=== PATIENT | male | born 1980 | race Caucasian/White ===

== ENCOUNTER 2021-04-06 17:36 | Inpatient (IN) | payer MEDICAID, SELFPAY ==
[2021-04-06 18:42] VITALS: BP 135/98; PULSE 159; RESP 20; TEMP 36.9; O2SAT 97; BMI 24.7
[2021-04-06 19:34] VITALS: BP 144/90; PULSE 134; RESP 20; TEMP 36.9; O2SAT 98
--- NOTE | 2021-04-06 19:36 | ECG_ITS ---
Test Reason : ETOH WITHRAWAL Blood Pressure : / mmHG Vent. Rate : 137 BPM Atrial Rate : 137 BPM P-R Int : 124 ms QRS Dur : 076 ms QT Int : 302 ms P-R-T Axes : 049 -64 035 degrees QTc Int : 456 ms Sinus tachycardia Left anterior fascicular block Abnormal ECG When compared with ECG of 06-APR-2021 20:28, No significant change was found Referred By: Alejandro Castellon Electronically Signed By:DANICA ATWOOD MD
--- NOTE | 2021-04-06 19:47 | ED.ALCOHOL ---
HPI - Alcohol General Chief Complaint: ETOH/Substance Use Stated Complaint: withdrawals Time Seen by Provider: 04/06/21 19:35 Source: patient and family Mode of arrival: ambulatory Limitations: other (poor historian) History of Present Illness MD complaint: alcohol withdrawal Last drink: Days (ago) (1) Chronic alcohol use: Yes Previous visits for alcohol intoxication: Yes Recent trauma: No Associated symptoms: nausea and vomiting (reports hematemseis ) Treatments prior to arrival: other (was discharged from [facility] 1 week ago for ETOH withdrawal, gastritis/esophagitis after endoscopy for UGIB, went home and started drinking again) Related Data Allergies Allergy/AdvReac Type Severity Reaction Status Date / Time No Known Allergies Allergy Unverified 02/28/20 18:14 Review of Systems Review of Systems: Constitutional : No Weight loss, No Fever, No Chills ENT/Mouth : No sore throat, No Rhinorrhea Eyes: No Swelling, No Redness Cardiovascular : No Chest Pain, No SOB, NoEdema Respiratory : No Cough, No Sputum, No Wheezing Gastrointestinal : Positive Nausea, Positive Vomiting, no Diarrhea, positive abdominal Pain, No Hematochezia, No Melena, pos hematemesis Genitourinary : No Dysuria, No Urinary Frequency, No Hematuria, No Urgency Musculoskeletal : No joint pain, No Myalgias, No Joint Swelling Skin : No Skin Lesions, No rash Neuro : pos Weakness, No Numbness, No Dizziness, No Headache Psych : pos Anxiety/Panic, No Depression Heme/Lymph: No Bruising, No Lymphadenopathy Endocrine : No Polyuria, No Polydipsia All other systems reviewed and are negative. [facility] Past Medical History Attestation statement: The following information was validated with the patient. Medical History Alcohol withdrawal seizure Alcoholism Esophagitis Gastritis Social History Social History (Updated 04/06/21 @ 19:57 by Soraya Justice DO) Alcohol intake: current Patient Tobacco Use Status: Never used Tobacco Advance Directives: No Advance Directives Information Provided: Yes Physical Exam Vital Signs: Vital Signs: Last Vital Signs Temp 98.5 F 04/06/21 19:34 Pulse 134 H 04/06/21 19:34 Resp 20 04/06/21 19:34 BP 144/90 H 04/06/21 19:34 Pulse Ox 98 04/06/21 19:34 Body Mass Index 24.7 Appearance: Alert. Oriented X3. Moderate acute distress. Very anxious Eyes: Pupils equal, round and reactive to light. ENT: Pharynx dry MM Neck: Normal inspection. Neck supple. CVS: tachycardic heart rate and rhythm. Pulses normal. Respiratory: No respiratory distress. Breath sounds normal. Abdomen: Soft and non-tender. Skin: Skin warm and dry. Normal skin color. Normal skin turgor. Extremities: No lower extremity edema. No calf ttp Neuro: Oriented X 3. No motor deficit. No sensory deficit. Tremors Course Course Course Narrative: leukocytosis and tachycardia due to ETOH withdrawal and not infection or severe sepsis lactic acidosis elevated due to vomiting, dehydration, ETOH abuse and not infection or severe sepsis HR down to 120s, BP lower, vomiting has stopped, of note he is on metoprolol but I cannot confirm dose at this time signed out to Dr. Aguirre pending workup, repeat labs. [facility] contacted 3+ times will not release records until AM RN social work supervisor was also asked and they will not release records to use at this time of night per their reports MDM - Alcohol MDM Narrative Medical decision making narrative: 40 yo male with hx of gastritis/esophagitis etoh withdrawal with hx of ETOH withdrawal seizures recent admission at [facility] with reported UGIB and endoscopy with gastritis/esophagitis - at this time IV thiamine, IV magnesium, IV ativan and phenobarbital for withdrawal ordered at this time, IV protonix as well. Dispo per results and findings. Lab Data Result diagrams: 04/06/21 19:57 04/06/21 19:57 Labs: Lab Results 04/06/21 04/06/21 04/06/21 Range/Units 19:57 19:57 19:57 WBC 14.0 H (4.8-10.8) X10*3/uL RBC 5.43 (4.60-5.80) X10*6/uL Hgb 15.3 (14.0-18.0) g/dl Hct 44.6 (42-52) % MCV 82.1 (80-98) fL MCH 28.2 (27.0-33.0) pg MCHC 34.3 (31.0-36.0) g/dl RDW 20.6 H (11.0-16.0) % Plt Count 346 (160-400) X10*3/uL MPV 9.2 L (9.4-12.4) fL Immature Gran % (Auto) 0.5 H (0.0-0.4) % Neut % (Auto) 89.8 H (45-73) % Lymph % (Auto) 4.1 L (20-40) % [place] % (Auto) 5.1 (2-11) % Eos % (Auto) 0.1 (0-4) % Baso % (Auto) 0.4 (0-2) % Lymph # (Auto) 0.6 L (1.2-4.9) X10*3/uL [place] # (Auto) 0.7 (0.1-1.2) X10*3/uL Eos # (Auto) 0.0 (0.0-0.4) X10*3/uL Baso # (Auto) 0.1 (0.0-0.2) X10*3/uL Abs Immat Gran (auto) 0.07 H (0.00-0.03) X10*3/uL Absolute Neuts (auto) 12.6 H (2.0-8.3) X10*3/uL Absolute Nucleated RBC 0.000 (0.0-0.012) X10*3/uL Nucleated RBC % (auto) 0.0 (0.0-0.2) /100WBC VBG pH (7.32-7.43) VBG pCO2 mmHg VBG pO2 mmHg VBG HCO3 (22-26) mmol/L VBG O2 Saturation % VBG Base Excess mmol/L Sodium 135 (135-145) mmol/L Potassium 3.7 (3.3-5.1) mmol/L Chloride 93 L (96-108) mmol/L Carbon Dioxide 16 L (22-29) mmol/L Anion Gap 30 H (12-20) BUN 8 L (9-16) mg/dL Creatinine 1.03 (0.5-1.4) mg/dL Estim Creat Clear Calc 84.3 Estimated GFR > 60 Random Glucose 160 H (60-115) mg/dL Lactic Acid (0.5-2.0) mmol/L Calcium 8.7 (8.4-10.2) mg/dL Magnesium 1.3 L* (1.6-2.6) mg/dL Total Bilirubin 0.5 (0.0-1.0) mg/dL Direct Bilirubin 0.3 (0.0-0.5) mg/dL AST 24 (5-37) U/L ALT 18 (0-40) U/L Alkaline Phosphatase 82 (39-117) U/L Total Protein 7.1 (6.5-8.0) g/dL Albumin 4.5 (3.5-5.0) g/dL Lipase 42 (8-78) U/L Gastric Occult Blood (NEG) Ethyl Alcohol mg/dL COVID-19 (ANUJ) Negative (Negative) COVID-19 Clin Com See Note 04/06/21 04/06/21 04/06/21 Range/Units 19:57 19:57 20:26 WBC (4.8-10.8) X10*3/uL RBC (4.60-5.80) X10*6/uL Hgb (14.0-18.0) g/dl Hct (42-52) % MCV (80-98) fL MCH (27.0-33.0) pg MCHC (31.0-36.0) g/dl RDW (11.0-16.0) % Plt Count (160-400) X10*3/uL MPV (9.4-12.4) fL Immature Gran % (Auto) (0.0-0.4) % Neut % (Auto) (45-73) % Lymph % (Auto) (20-40) % [place] % (Auto) (2-11) % Eos % (Auto) (0-4) % Baso % (Auto) (0-2) % Lymph # (Auto) (1.2-4.9) X10*3/uL [place] # (Auto) (0.1-1.2) X10*3/uL Eos # (Auto) (0.0-0.4) X10*3/uL Baso # (Auto) (0.0-0.2) X10*3/uL Abs Immat Gran (auto) (0.00-0.03) X10*3/uL Absolute Neuts (auto) (2.0-8.3) X10*3/uL Absolute Nucleated RBC (0.0-0.012) X10*3/uL Nucleated RBC % (auto) (0.0-0.2) /100WBC VBG pH 7.38 (7.32-7.43) VBG pCO2 26 mmHg VBG pO2 45 mmHg VBG HCO3 15 L (22-26) mmol/L VBG O2 Saturation 68.0 % VBG Base Excess -7.2 mmol/L Sodium (135-145) mmol/L Potassium (3.3-5.1) mmol/L Chloride (96-108) mmol/L Carbon Dioxide (22-29) mmol/L Anion Gap (12-20) BUN (9-16) mg/dL Creatinine (0.5-1.4) mg/dL Estim Creat Clear Calc Estimated GFR Random Glucose (60-115) mg/dL Lactic Acid 11.5 H* (0.5-2.0) mmol/L Calcium (8.4-10.2) mg/dL Magnesium (1.6-2.6) mg/dL Total Bilirubin (0.0-1.0) mg/dL Direct Bilirubin (0.0-0.5) mg/dL AST (5-37) U/L ALT (0-40) U/L Alkaline Phosphatase (39-117) U/L Total Protein (6.5-8.0) g/dL Albumin (3.5-5.0) g/dL Lipase (8-78) U/L Gastric Occult Blood (NEG) Ethyl Alcohol 219 mg/dL COVID-19 (ANUJ) (Negative) COVID-19 Clin Com 04/06/21 Range/Units 20:32 WBC (4.8-10.8) X10*3/uL RBC (4.60-5.80) X10*6/uL Hgb (14.0-18.0) g/dl Hct (42-52) % MCV (80-98) fL MCH (27.0-33.0) pg MCHC (31.0-36.0) g/dl RDW (11.0-16.0) % Plt Count (160-400) X10*3/uL MPV (9.4-12.4) fL Immature Gran % (Auto) (0.0-0.4) % Neut % (Auto) (45-73) % Lymph % (Auto) (20-40) % [place] % (Auto) (2-11) % Eos % (Auto) (0-4) % Baso % (Auto) (0-2) % Lymph # (Auto) (1.2-4.9) X10*3/uL [place] # (Auto) (0.1-1.2) X10*3/uL Eos # (Auto) (0.0-0.4) X10*3/uL Baso # (Auto) (0.0-0.2) X10*3/uL Abs Immat Gran (auto) (0.00-0.03) X10*3/uL Absolute Neuts (auto) (2.0-8.3) X10*3/uL Absolute Nucleated RBC (0.0-0.012) X10*3/uL Nucleated RBC % (auto) (0.0-0.2) /100WBC VBG pH (7.32-7.43) VBG pCO2 mmHg VBG pO2 mmHg VBG HCO3 (22-26) mmol/L VBG O2 Saturation % VBG Base Excess mmol/L Sodium (135-145) mmol/L Potassium (3.3-5.1) mmol/L Chloride (96-108) mmol/L Carbon Dioxide (22-29) mmol/L Anion Gap (12-20) BUN (9-16) mg/dL Creatinine (0.5-1.4) mg/dL Estim Creat Clear Calc Estimated GFR Random Glucose (60-115) mg/dL Lactic Acid (0.5-2.0) mmol/L Calcium (8.4-10.2) mg/dL Magnesium (1.6-2.6) mg/dL Total Bilirubin (0.0-1.0) mg/dL Direct Bilirubin (0.0-0.5) mg/dL AST (5-37) U/L ALT (0-40) U/L Alkaline Phosphatase (39-117) U/L Total Protein (6.5-8.0) g/dL Albumin (3.5-5.0) g/dL Lipase (8-78) U/L Gastric Occult Blood POS (NEG) Ethyl Alcohol mg/dL COVID-19 (ANUJ) (Negative) COVID-19 Clin Com ECG Data ECG #1: Attestation: I personally reviewed and interpreted this ECG as follows: ECG interpretation date: 04/06/21 ECG interpretation time: 20:31 Interpretation: Rate: 139 Rhythm: sinus tachycardia [place]: left Normal P waves. Normal YIIM. Normal QRS complex. ST T wave : normal no ZINA qTC: normal prior studies: no acute ischemia The study has been interpreted contemporaneously by me. . Critical Care Time Critical Care Time Critical Care Time: Yes Total Critical Care Time: 60 Attestation: call to outside hospital for records, discussion with parent/patient, 2L of IVF, IV ativan, start of phenobarb protocol I attest to this time spent taking care of the patient Discharge Plan Discharge Clinical Impression: Acidosis, lactic, Hypomagnesemia Alcohol withdrawal syndrome Qualifiers: Complication of substance-induced condition: uncomplicated Qualified Code(s): F10.230 - Alcohol dependence with withdrawal, uncomplicated Acute alcoholic gastritis Qualifiers: Gastritis bleeding: with bleeding Qualified Code(s): K29.21 - Alcoholic gastritis with bleeding Patient Disposition: Admitted As Inpatient
[2021-04-06 20:17] LABS: MANUAL DIFF FLAG NO
[2021-04-06] MEDS: PHENobarbitaL sodium 130 MG/ML VIAL 306 MG IM (20:19)
[2021-04-06 20:20] LABS: Basophils Absolute Auto 0.1 X10*3/uL (0.0-0.2); Basophils Percent Auto 0.4 % (0-2); Eosinophils Percent Auto 0.1 % (0-4); Hematocrit 44.6 % (42-52); Hemoglobin 15.3 g/dl (14.0-18.0); Imm Gran Abs Auto 0.07 X10*3/uL (0.00-0.03); Imm Gran Pct Auto 0.5 % (0.0-0.4); Lymphocytes Absolute Auto 0.6 X10*3/uL (1.2-4.9); Lymphocytes Percent Auto 4.1 % (20-40); Mean Corpuscular HGB Conc 34.3 g/dl (31.0-36.0); Mean Corpuscular Hemoglobin 28.2 pg (27.0-33.0); Mean Corpuscular Volume 82.1 fL (80-98); Mean Platelet Volume 9.2 fL (9.4-12.4); Monocytes Absolute Auto 0.7 X10*3/uL (0.1-1.2); Monocytes Percent Auto 5.1 % (2-11); Neutrophils Absolute Auto 12.6 X10*3/uL (2.0-8.3); Neutrophils Percent Auto 89.8 % (45-73); Platelet Count 346 X10*3/uL (160-400); Red Blood Count 5.43 X10*6/uL (4.60-5.80); Red Cell Distribution Width 20.6 % (11.0-16.0)
[2021-04-06] MEDS: LORazepam 2 MG/ML VIAL IVPUSH (20:20)
[2021-04-06] MEDS: Magnesium Sulfate/H2O 2 GM/50 ML PIGGYBACK IV (20:23)
[2021-04-06] MEDS: 0.9 % Sodium Chloride 1,000 ML 999 ML IVCONT ×2 (20:23→21:12)
[2021-04-06] MEDS: ondansetron HCL 4 MG/2 ML VIAL IVPUSH (20:25)
[2021-04-06] MEDS: Pantoprazole Sodium 40 MG/10 ML VIAL IVPUSH (20:25)
[2021-04-06 20:31] LABS: VBG Base Excess -7.2 mmol/L; VBG HCO3 15 mmol/L (22-26); VBG pCO2 26 mmHg; VBG pH 7.38 (7.32-7.43); VBG pO2 45 mmHg
[2021-04-06 20:32] LABS: Venous Blood Gas Refer to POC result
[2021-04-06 20:34] LABS: Ethanol 219 mg/dL
[2021-04-06 20:35] LABS: Lactic Acid 11.5 mmol/L (0.5-2.0)
[2021-04-06 20:39] LABS: COVID-19 Test Negative (Negative)
--- NOTE | 2021-04-06 20:39 | PC.NURSE ---
reached out to [facility] for medical records and/or reports for this patient @2014. Was transferred to multiple departments, including what I believe to have been a nursing files supervisor. I was then hung up on.
[2021-04-06] MEDS: Thiamine HCL 100 MG in 0.9 % Sodium Chloride 100 ML 202 MG IV (20:46)
[2021-04-06 20:49] LABS: GASOB Int Neg Ctl Valid YES; GASOB Int Pos Ctl Valid YES; Occult Blood Gastric POS (NEG)
[2021-04-06 20:49] LABS: Alanine Aminotransferase 18 U/L (0-40); Albumin Level 4.5 g/dL (3.5-5.0); Alkaline Phosphatase 82 U/L (39-117); Anion Gap 30 (12-20); Aspartate Amino Transferase 24 U/L (5-37); Bilirubin Direct 0.3 mg/dL (0.0-0.5); Bilirubin Total 0.5 mg/dL (0.0-1.0); Blood Urea Nitrogen 8 mg/dL (9-16); Calcium 8.7 mg/dL (8.4-10.2); Carbon Dioxide 16 mmol/L (22-29); Chloride 93 mmol/L (96-108); Creatinine Clr Calc Pharmacy 84.3; Estimated Glomerular Filt Rate > 60; Glucose Random 160 mg/dL (60-115); Lipase 42 U/L (8-78); Magnesium 1.3 mg/dL (1.6-2.6); Potassium 3.7 mmol/L (3.3-5.1); Sodium 135 mmol/L (135-145); Total Protein 7.1 g/dL (6.5-8.0)
--- NOTE | 2021-04-06 20:51 | PC.NURSE ---
upon third attempt, nursing wood boat builder supervisor put me on hold for 22 minutes, then took my number for our facility, and transferred me to a fifth department. There was no answer, and a voicemail was left. MD aware of this ongoing process.
--- NOTE | 2021-04-06 21:10 | PHA.MEDREC ---
Pharmacy Consult ? Medication Reconciliation Pharmacy has completed the medication reconciliation. Patient one phenobarbital protocol, very unresponsive. Patient reports he is taking sucralafate and protonix. There is no claim history to either medication. Shilpa Myrick, PharmD
[2021-04-06 21:14] VITALS: BP 117/66; PULSE 123; RESP 17; O2SAT 95
[2021-04-06] MEDS: 0.9 % Sodium Chloride 1,000 ML 999 ML IV (21:44)
[2021-04-06 22:15] LABS: Reflex Lactate? Lactic Acid Added
[2021-04-06] MEDS: Prochlorperazine Edisylate 10 MG/2 ML VIAL IVPUSH (22:26)
[2021-04-06] MEDS: PHENobarbitaL sodium 130 MG/ML VIAL 230 MG IM (23:10)
[2021-04-06 23:28] VITALS: BP 118/61; PULSE 141; RESP 22
[2021-04-06 23:46] LABS: ~Lactic Acid-LAB USE ONLY 8.2 mmol/L (0.5-2.0)
[2021-04-06 23:48] LABS: Anion Gap 26 (12-20); Blood Urea Nitrogen 6 mg/dL (9-16); Calcium 7.3 mg/dL (8.4-10.2); Carbon Dioxide 11 mmol/L (22-29); Chloride 104 mmol/L (96-108); Creatinine Clr Calc Pharmacy 109.9; Estimated Glomerular Filt Rate > 60; Glucose Random 126 mg/dL (60-115); Potassium 3.9 mmol/L (3.3-5.1); Sodium 137 mmol/L (135-145)
[2021-04-06 23:55] VITALS: BP 115/65; PULSE 130; RESP 22; TEMP 36.9; O2SAT 95
[2021-04-07] VITALS (22 sets, daily range): BP systolic 95–139; BP diastolic 62–86; PULSE 67–128; RESP 16–83; TEMP 37–37.9; O2SAT 92–100; BMI 26.7
--- NOTE | 2021-04-07 | ECG_ITS ---
Test Reason : WITHDRAWL Blood Pressure : / mmHG Vent. Rate : 139 BPM Atrial Rate : 139 BPM P-R Int : 128 ms QRS Dur : 076 ms QT Int : 282 ms P-R-T Axes : 049 -75 022 degrees QTc Int : 429 ms Sinus tachycardia Left anterior fascicular block poor r-wave progress Abnormal ECG No previous ECGs available Referred By: Alejandro Castellon Electronically Signed By:DANICA ATWOOD MD
--- NOTE | 2021-04-07 00:01 | PM.IMHP ---
History of Present Illness Date of Service: 04/07/21 Chief Complaint: Nausea/vomiting 40-year-old male with a past medical history of alcohol Abuse, alcoholic gastritis, recent history of upper GI bleed at [facility] status post endoscopy which reportedly showed gastritis and esophagitis; presented to the hospital with a chief complaint of nausea and vomiting. [place] patient reported that after he was discharged from the hospital restarted drink alcohol again; last drink was yesterday; patient states that he has multiple episodes of nausea and vomiting; also noted to have vomitus being coffee-ground. Reports that symptoms have been going on over the past few days. Mentioned that he was recently discharged from the [facility] ICU status post EGD and reports that EGD showed gastritis and esophagitis. Mentioned that he drinks about 1L of alcohol every day. Patient does report prior admission to the ICU for alcohol withdrawal. Also reports prior history of alcohol withdrawal seizures. Denies any recent withdrawal seizures. Reports he is not able to keep anything down; hence presented to the hospital for further evaluation. Denies any headaches, paresthesias, numbness tingling or focal weakness. Denies any fever chills cough. Denies any urinary symptoms. Review of all other systems is negative except mentioned above ER course: Per ER team patient noted to be anxious, tachycardic; having nausea and vomiting; received IV Zofran, IV fluids; patient was started on phenobarb protocol. Patient also received Ativan x1; patient still continues to be tachycardic. Lab showed hypomagnesemia-repleted; also noted to have severe lactic acidosis, high anion gap metabolic acidosis; patient was given IV thiamine; ; admitted to the hospital for further management. [facility] Medical History Alcohol withdrawal seizure Alcoholism Esophagitis Gastritis Pertinent family history: Reviewed Social History (Updated 04/06/21 @ 19:57 by Soraya Justice DO) Alcohol intake: current Alcohol intake frequency: 3 or more drinks per day Alcohol type: hard liquor Patient Tobacco Use Status: Never used Tobacco Use of substances other than those prescribed or required for medical reasons: No Advance Directives: No Advance Directives Information Provided: Yes Meds Allergies Allergy/AdvReac Type Severity Reaction Status Date / Time No Known Allergies Allergy Unverified 02/28/20 18:14 Active Medications: Current Medications Pharmacy Consult (Consult Rx Perform Med Rec) 1 each MISCELLANE ONCE PRN PRN Reason: Consult order Phenobarbital (Phenobarbital 15 Mg Tablet) 45 mg PO BID [facility]; Protocol Stop: 04/08/21 21:01 Phenobarbital (Phenobarbital 15 Mg Tablet) 15 mg PO BID [facility]; Protocol Stop: 04/10/21 21:01 Phenobarbital (Phenobarbital 15 Mg Tablet) 15 mg PO DAILY [facility]; Protocol Stop: 04/12/21 09:01 Phenobarbital Sodium (Phenobarbital Sodium 130 Mg/Ml Vial) 230 mg IM Q3H [facility]; Protocol Stop: 04/07/21 02:01 Last Admin: 04/06/21 23:10 Dose: 230 mg Documented by: Home Medications Medication Instructions Recorded Confirmed Last Taken Type pantoprazole 20 mg tablet,delayed 20 mg PO DAILY 04/06/21 04/06/21 Unknown History release (Protonix) sucralfate 1 gram tablet 1 g PO BID 04/06/21 04/06/21 04/05/21 History Physical Exam Vital Signs and Narrative: Vital Signs: Last Vital Signs Temp 98.5 F 04/06/21 19:34 Pulse 141 H 04/06/21 23:28 Resp 22 H 04/06/21 23:28 BP 118/61 04/06/21 23:28 Pulse Ox 95 04/06/21 21:14 Body Mass Index 24.7 Gen: Appears be in no acute distress; patient anxious; tachycardic HEENT: NCAT, dry mucosa. Pulmonary: Vesicular breath sounds, fair air entry; no wheezing CVS: Normal S1-S2 Abdomen: BS+, Soft, Nontender Extremities: Warm well perfused; Neuro: Alert and awake. Grossly nonfocal Results Labs CBC and Chem 7: 04/07/21 00:38 04/07/21 00:38 Labs: Laboratory Results - last 24 hr 04/06/21 04/06/21 04/06/21 19:57 19:57 19:57 MCV 82.1 MCH 28.2 MCHC 34.3 RDW 20.6 H Plt Count 346 MPV 9.2 L Immature Gran % (Auto) 0.5 H Neut % (Auto) 89.8 H Lymph % (Auto) 4.1 L [place] % (Auto) 5.1 Eos % (Auto) 0.1 Baso % (Auto) 0.4 Lymph # (Auto) 0.6 L [place] # (Auto) 0.7 Eos # (Auto) 0.0 Baso # (Auto) 0.1 Abs Immat Gran (auto) 0.07 H Absolute Neuts (auto) 12.6 H Absolute Nucleated RBC 0.000 Nucleated RBC % (auto) 0.0 VBG pH VBG pCO2 VBG pO2 VBG HCO3 VBG O2 Saturation VBG Base Excess Anion Gap 30 H Estim Creat Clear Calc 84.3 Estimated GFR > 60 Random Glucose 160 H Lactic Acid Lactic Acid Fup @ 2Hr Calcium 8.7 Magnesium 1.3 L* Total Bilirubin 0.5 Direct Bilirubin 0.3 AST 24 ALT 18 Alkaline Phosphatase 82 Total Protein 7.1 Albumin 4.5 Lipase 42 Gastric Occult Blood Ethyl Alcohol COVID-19 (ANUJ) Negative COVID-19 [employer] Com See Note Blood Type Antibody Screen 04/06/21 04/06/21 04/06/21 19:57 19:57 20:18 MCV MCH MCHC RDW Plt Count MPV Immature Gran % (Auto) Neut % (Auto) Lymph % (Auto) [place] % (Auto) Eos % (Auto) Baso % (Auto) Lymph # (Auto) [place] # (Auto) Eos # (Auto) Baso # (Auto) Abs Immat Gran (auto) Absolute Neuts (auto) Absolute Nucleated RBC Nucleated RBC % (auto) VBG pH VBG pCO2 VBG pO2 VBG HCO3 VBG O2 Saturation VBG Base Excess Anion Gap Estim Creat Clear Calc Estimated GFR Random Glucose Lactic Acid 11.5 H* Lactic Acid Fup @ 2Hr Calcium Magnesium Total Bilirubin Direct Bilirubin AST ALT Alkaline Phosphatase Total Protein Albumin Lipase Gastric Occult Blood Ethyl Alcohol 219 COVID-19 (ANUJ) COVID-19 [employer] Com Blood Type A Positive Antibody Screen NEGATIVE 04/06/21 04/06/21 04/06/21 20:26 20:32 23:28 MCV MCH MCHC RDW Plt Count MPV Immature Gran % (Auto) Neut % (Auto) Lymph % (Auto) [place] % (Auto) Eos % (Auto) Baso % (Auto) Lymph # (Auto) [place] # (Auto) Eos # (Auto) Baso # (Auto) Abs Immat Gran (auto) Absolute Neuts (auto) Absolute Nucleated RBC Nucleated RBC % (auto) VBG pH 7.38 VBG pCO2 26 VBG pO2 45 VBG HCO3 15 L VBG O2 Saturation 68.0 VBG Base Excess -7.2 Anion Gap 26 H Estim Creat Clear Calc 109.9 Estimated GFR > 60 Random Glucose 126 H Lactic Acid Lactic Acid Fup @ 2Hr Calcium 7.3 L D Magnesium Total Bilirubin Direct Bilirubin AST ALT Alkaline Phosphatase Total Protein Albumin Lipase Gastric Occult Blood POS Ethyl Alcohol COVID-19 (ANUJ) COVID-19 [employer] Com Blood Type Antibody Screen 04/06/21 23:28 MCV MCH MCHC RDW Plt Count MPV Immature Gran % (Auto) Neut % (Auto) Lymph % (Auto) [place] % (Auto) Eos % (Auto) Baso % (Auto) Lymph # (Auto) [place] # (Auto) Eos # (Auto) Baso # (Auto) Abs Immat Gran (auto) Absolute Neuts (auto) Absolute Nucleated RBC Nucleated RBC % (auto) VBG pH VBG pCO2 VBG pO2 VBG HCO3 VBG O2 Saturation VBG Base Excess Anion Gap Estim Creat Clear Calc Estimated GFR Random Glucose Lactic Acid Lactic Acid Fup @ 2Hr 8.2 H* Calcium Magnesium Total Bilirubin Direct Bilirubin AST ALT Alkaline Phosphatase Total Protein Albumin Lipase Gastric Occult Blood Ethyl Alcohol COVID-19 (ANUJ) COVID-19 [facility] Blood Type Antibody Screen Assessment and Plan (1) Alcohol withdrawal syndrome: Qualifiers: Complication of substance-induced condition: uncomplicated Qualified Code(s): F10.230 - Alcohol dependence with withdrawal, uncomplicated Status: Acute (2) Acute alcoholic gastritis: Qualifiers: Gastritis bleeding: with bleeding Qualified Code(s): K29.21 - Alcoholic gastritis with bleeding Status: Acute (3) Acidosis, lactic: Status: Acute (4) Hypomagnesemia: Status: Acute (5) High anion gap metabolic acidosis: Status: Acute 40-year-old male with a past medical history of alcohol Abuse, alcoholic gastritis, recent history of upper GI bleed at [facility] status post endoscopy which reportedly showed gastritis and esophagitis; presented to the hospital with a chief complaint of nausea and vomiting/continue drink alcohol. Admitted for further management. Upper GI bleed: Patient gastric contents are guaiac positive. NPO GI consult for possible repeat EGD. IV fluids Patient had recent EGD at [facility]-requested records-not released yet. Reported HI probably please in the morning. Day hospitalist team to follow-up. H&H currently stable. Serial H&H Alcoholic gastritis/esophagitis: IV PPI b.i.d.. NPO. Supportive care. Alcohol abuse: Patient being monitored on phenobarb protocol. Given timing, folate, multivitamins. Tachycardia: Likely in the setting of alcohol use/withdrawal/anxiety. . Echocardiogram. High anion gap metabolic acidosis: Likely in the setting of severe lactic acidosis. Patient's lactate levels was 11.5 improved to 8.2 with IV fluids. Continue IV hydration.; Hypomagnesemia: Repleted. DVT prophylaxis: SCD boots Code status: Full code Update: Patient is still persistently tachycardic; tremulous; given of extra dose of Ativan; also continues to have nausea and vomiting. Given severely decreased doses and severe tachycardia ; ICU team was notified. Patient was accepted to the ICU. Quality Stroke Does the patient have a stroke diagnosis?: No VTE Prior VTE?: No VTE Risk Level:: Medical - moderate - high VTE Device Contraindication: N/A - Device Ordered VTE Drug Contraindication: Treatment Not Tolerated
[2021-04-07] MEDS: Dextrose 5 % and 0.45 % NaCl 1,000 ML 500 ML IVCONT (00:17)
[2021-04-07] MEDS: LORazepam 2 MG/ML VIAL 1 MG IVPUSH (00:38)
[2021-04-07] MEDS: 0.9 % Sodium Chloride Flush 3 ML SYRINGE IVFLUSH (00:39)
[2021-04-07 00:45] LABS: MANUAL DIFF FLAG NO
[2021-04-07 00:47] LABS: Basophils Percent Auto 0.2 % (0-2); Eosinophils Percent Auto 0.2 % (0-4); Hematocrit 36.3 % (42-52); Hemoglobin 12.4 g/dl (14.0-18.0); Imm Gran Abs Auto 0.04 X10*3/uL (0.00-0.03); Imm Gran Pct Auto 0.4 % (0.0-0.4); Lymphocytes Absolute Auto 0.8 X10*3/uL (1.2-4.9); Lymphocytes Percent Auto 8.2 % (20-40); Mean Corpuscular HGB Conc 34.2 g/dl (31.0-36.0); Mean Corpuscular Hemoglobin 28.2 pg (27.0-33.0); Mean Corpuscular Volume 82.5 fL (80-98); Mean Platelet Volume 9.4 fL (9.4-12.4); Monocytes Absolute Auto 0.8 X10*3/uL (0.1-1.2); Monocytes Percent Auto 8.6 % (2-11); Neutrophils Percent Auto 82.4 % (45-73); Platelet Count 213 X10*3/uL (160-400); Red Cell Distribution Width 20.3 % (11.0-16.0); White Blood Count 9.7 X10*3/uL (4.8-10.8)
[2021-04-07 01:06] LABS: Anion Gap 21 (12-20); Blood Urea Nitrogen 6 mg/dL (9-16); Calcium 7.3 mg/dL (8.4-10.2); Carbon Dioxide 18 mmol/L (22-29); Chloride 103 mmol/L (96-108); Creatinine Clr Calc Pharmacy 103.3; Estimated Glomerular Filt Rate > 60; Glucose Random 120 mg/dL (60-115); Potassium 3.9 mmol/L (3.3-5.1); Sodium 138 mmol/L (135-145)
[2021-04-07] MEDS: PHENobarbitaL sodium 130 MG/ML VIAL 230 MG IM (01:22)
--- NOTE | 2021-04-07 01:28 | W.PM.CCCN ---
History of Present Illness Data of Consult Service Date: 04/07/21 Requesting physician: Alejandro Castellon Primary Care Provider: Unknown Physician HPI Reason for consult: Acute alcohol withdrawal syndrome 40-year-old male with a past medical history of alcohol Abuse, alcoholic gastritis hx of Alcohol withdrawal and seizures, and recent history of upper GI bleed at [facility] status post endoscopy which reportedly showed gastritis and esophagitis; presented to the? emergency room with complaints of nausea and vomiting. Patient reported since discharge from the hospital he resumed drinking? again,? with last drink being yesterday. ? Reports drinking about a 1L of vodka daily. ? Also was noted in the emergency room coffee-ground vomitus. Patient was initially admitted to Hospital Medicine, but overnight has become more tachycardic, anxious, and lactic was 8.2.? Being admitted to the ICU for Precedex drip for acute? alcohol withdrawal syndrome and possible upper GI bleed Review of Systems Constitutional: Constitutional: Reports anorexia, Reports headache(s) and Reports poor appetite ENT: Denies dizziness and Reports headache(s) Cardiovascular: Cardiovascular: Denies chest pain and Denies dyspnea Respiratory: Respiratory: Denies dyspnea Gastrointestinal: Gastrointestinal: Reports nausea and Reports vomiting (COFFEE-GROUND) Musculoskeletal: Musculoskeletal: Denies muscle weakness and Denies numbness Neurologic: Denies Neuro-related abnormal movements, Denies dizziness, Reports headache(s), Denies numbness and Denies seizure-like activity PMFSH Past Medical History Medical History Alcohol withdrawal seizure Alcoholism Esophagitis Gastritis Social History Social History (Updated 04/06/21 @ 19:57 by Soraya Justice DO) Alcohol intake: current Alcohol intake frequency: 3 or more drinks per day Alcohol type: hard liquor Patient Tobacco Use Status: Never used Tobacco Use of substances other than those prescribed or required for medical reasons: No Advance Directives: No Advance Directives Information Provided: Yes Meds Allergies Allergy/AdvReac Type Severity Reaction Status Date / Time No Known Allergies Allergy Unverified 02/28/20 18:14 Active Medications: Current Medications Folic Acid (Folic Acid 1 Mg Tablet) 1 mg PO DAILY [facility] Stop: 04/10/21 08:59 Hydromorphone HCl (Hydromorphone Hcl 0.5 Mg/0.5 Ml Syringe) 0.5 mg IVPUSH Q4H PRN; Protocol PRN Reason: Breakthrough Pain Dextrose/Sodium Chloride (D51/2ns) 1,000 mls @ 150 mls/hr IVCONT .Q6H40M [facility] Dextrose/Sodium Chloride (D51/2ns) 1,000 mls @ 500 mls/hr IVCONT .Q2H [facility] Last Admin: 04/07/21 00:17 Dose: 500 mls/hr Documented by: Dexmedetomidine HCl (Precedex) 400 mcg in 100 mls @ 0 mls/hr IVCONT .Q0M [facility]; Protocol Melatonin (Melatonin 3 Mg Tablet) 6 mg PO BEDTIME PRN PRN Reason: Insomnia Multivitamins/Vitamin C (Multivitamin Tablet) 1 tab PO DAILY [facility] Stop: 04/10/21 08:59 Pantoprazole Sodium (Pantoprazole Sodium 40 Mg/10 Ml Vial) 40 mg IVPUSH BID [facility] Pharmacy Consult (Consult Rx Perform Med Rec) 1 each MISCELLANE ONCE PRN PRN Reason: Consult order Phenobarbital (Phenobarbital 15 Mg Tablet) 45 mg PO BID [facility]; Protocol Stop: 04/08/21 21:01 Phenobarbital (Phenobarbital 15 Mg Tablet) 15 mg PO BID [facility]; Protocol Stop: 04/10/21 21:01 Phenobarbital (Phenobarbital 15 Mg Tablet) 15 mg PO DAILY [facility]; Protocol Stop: 04/12/21 09:01 Phenobarbital Sodium (Phenobarbital Sodium 130 Mg/Ml Vial) 230 mg IM Q3H [facility]; Protocol Stop: 04/07/21 02:01 Last Admin: 04/07/21 01:22 Dose: 230 mg Documented by: Senna (Sennosides 8.6 Mg Tablet) 17.2 mg PO BEDTIME PRN PRN Reason: Constipation Sodium Chloride (0.9 % Sodium Chloride Flush 3 Ml Syringe) 3 ml IVFLUSH QSHIFT [facility] Last Admin: 04/07/21 00:39 Dose: 3 ml Documented by: Thiamine HCl (Thiamine Hcl 100 Mg Tablet) 100 mg PO DAILY [facility] Stop: 04/10/21 08:59 Home Medications Medication Instructions Recorded Confirmed Last Taken Type pantoprazole 20 mg tablet,delayed 20 mg PO DAILY 04/06/21 04/06/21 Unknown History release (Protonix) sucralfate 1 gram tablet 1 g PO BID 04/06/21 04/06/21 04/05/21 History Physical Exam Vital Signs: Vital Signs: Last Vital Signs Temp 98.5 F 04/06/21 23:55 Pulse 130 H 04/06/21 23:55 Resp 22 H 04/06/21 23:55 BP 115/65 04/06/21 23:55 Pulse Ox 95 04/06/21 23:55 Body Mass Index 24.7 Focus is not performed at 0130 Appearance: Alert and Oriented X3.? Very anxious Eyes: Pupils equal, round and reactive to light.? ENT: Pharynx dry MM? Neck: Normal inspection.? Neck supple.? CVS: Sinus tachycardic to 120S on monitor. heart rate and rhythm.? + Pulses. Normal cap refill Respiratory: No respiratory distress.? Breath sounds normal.? Abdomen: Soft and non-tender.? Skin: Skin warm and dry.? Normal skin color.? Normal skin turgor.? Extremities: No lower extremity edema.? No calf ttp Neuro: Resting Tremors noted. No significant motor/sensory deficits. Results Labs CBC & Chem 7: 04/07/21 00:38 04/07/21 00:38 Labs: Short CBC 04/06/21 04/07/21 Range/Units 19:57 00:38 WBC 14.0 H 9.7 (4.8-10.8) X10*3/uL Hgb 15.3 12.4 L (14.0-18.0) g/dl Hct 44.6 36.3 L (42-52) % Plt Count 346 213 D (160-400) X10*3/uL BMP 04/06/21 04/06/21 04/07/21 19:57 23:28 00:38 Sodium 135 137 138 Potassium 3.7 3.9 3.9 Chloride 93 L 104 103 Carbon Dioxide 16 L 11 L 18 L BUN 8 L 6 L 6 L Creatinine 1.03 0.79 0.84 Calcium 8.7 7.3 L D 7.3 L Liver Function 04/06/21 Range/Units 19:57 Total Bilirubin 0.5 (0.0-1.0) mg/dL Direct Bilirubin 0.3 (0.0-0.5) mg/dL AST 24 (5-37) U/L ALT 18 (0-40) U/L Alkaline Phosphatase 82 (39-117) U/L Albumin 4.5 (3.5-5.0) g/dL Assessment and Plan (1) Alcohol withdrawal syndrome: Qualifiers: Complication of substance-induced condition: uncomplicated Qualified Code(s): F10.230 - Alcohol dependence with withdrawal, uncomplicated Status: Acute (2) Aspiration into airway: Status: Acute (3) High anion gap metabolic acidosis: Status: Acute (4) Upper GI bleed: Status: Acute (5) Acute alcoholic gastritis: Qualifiers: Gastritis bleeding: with bleeding Qualified Code(s): K29.21 - Alcoholic gastritis with bleeding Status: Acute (6) Acidosis, lactic: Status: Acute Neuro: ?Acute alcohol withdrawal syndrome:? alcohol level 219, Patient did not responded to IV ativan, and phenobarb per protocol. Has hx of? alcohol withdrawal and seizures. Will now start on precedex drip. wean off precedex drip when appropiate. Cardiac:? SIRS/Elevated lactic:? possibly from aspiration? event,? no evidence of septic shock at this time.? Received appropriate fluid replacement in the emergency room.? Will cover with Unasyn.? Continue to trend lactic Tachycardia:? Likely from ETOH withdrawal. Pulmonary:? No acute issues Renal: No acute issues Endo:? No acute issues.? GI:? Upper GI Bleed: patient gastric contents are guaiac positive. Hemoglobin stable. GI consult in the AM for possible EGD. Continue to closely monitor H&H Heme/Onc:? ?No acute issues ID:? leukocytosis: likely from aspiration event. Will start unasyn.? Psych:? No acute issues. Miscellaneous: Prophylaxis:? ? compression devices (GI bleed),? IV Protonix Code status: FULL CODE Critical care time: x 60 min Case case reviewed with Dr. hensley
[2021-04-07 01:31] LABS: Reflex Lactate? 2 Y
[2021-04-07] MEDS: Dextrose 5 % and 0.45 % NaCl 1,000 ML 150 ML IVCONT (01:56)
[2021-04-07 02:22] LABS: ~Lactic Acid-LAB USE ONLY 5.8 mmol/L (0.5-2.0)
[2021-04-07] MEDS: Lactated Ringers 1,000 ML 150 ML IVCONT (02:31)
[2021-04-07] MEDS: dexmedeTOMIDidine HCL/NS 400 MCG/100 ML INFUS..BTL 8.68 MCG IVCONT (02:31)
[2021-04-07 02:34] LABS: Amphetamine Screen Urine Not Detected (Not Detect); Barbiturates, Urine POSITIVE (Not Detect); Benzodiazepines Screen Urine Not Detected (Not Detect); Cannabinoid Screen Urine Not Detected (Not Detect); Cocaine Screen Urine Not Detected (Not Detect); Fentanyl, urine Not Detected (Not Detect); Opiate Screen Urine Not Detected (Not Detect); Phencyclidine Screen Urine Not Detected (Not Detect)
[2021-04-07] MEDS: Ampicillin Sodium/Sulbactam Na 3 GM VIAL IV (02:53)
--- NOTE | 2021-04-07 03:52 | PC.NURSE ---
ADMIT TO 253-1 FROM ER DEPT..AWAKE..ORIENTED X3...TREMULOUS...S.TACH HR 130'S...VOMITED SMALL AMOUNT BRONISH EMESIS ON ARRIVAL...STATED NAUSEOUS/VOMITING ALL DAY ...RECEIVED LOADING IM DOSING PHENOBARBITOL IN ER DEPT...STARTED PRECIDEX DRIP PER ICU NUTRITIONALIST UPON ADMISSION TO ICU...RESTFUL AFTER PRECIDEX...HR IMPROVED...CURRENTLY DOZING AND HR 98-102....AMPICILLIN INFUSED W/O INCIDENT...IV FLUIDS LR 150 CC/HR INFUSING VIA #18 ANGIO LEFT FOOT...EXCELLENT BLOOD RETURN...NUTRITIONALIST AWARE/OK TO USE FOOT IV AT PRESENT
[2021-04-07 05:57] LABS: VBG Base Excess 5.5 mmol/L; VBG HCO3 27 mmol/L (22-26); VBG pCO2 31 mmHg; VBG pH 7.55 (7.32-7.43); VBG pO2 76 mmHg
[2021-04-07 06:04] LABS: MANUAL DIFF FLAG NO
[2021-04-07 06:06] LABS: Basophils Percent Auto 0.3 % (0-2); Eosinophils Percent Auto 0.2 % (0-4); Hematocrit 31.4 % (42-52); Hemoglobin 10.5 g/dl (14.0-18.0); Imm Gran Abs Auto 0.03 X10*3/uL (0.00-0.03); Imm Gran Pct Auto 0.5 % (0.0-0.4); Lymphocytes Absolute Auto 0.8 X10*3/uL (1.2-4.9); Lymphocytes Percent Auto 12.9 % (20-40); Mean Corpuscular HGB Conc 33.4 g/dl (31.0-36.0); Mean Corpuscular Hemoglobin 27.9 pg (27.0-33.0); Mean Corpuscular Volume 83.3 fL (80-98); Mean Platelet Volume 10.3 fL (9.4-12.4); Monocytes Absolute Auto 0.6 X10*3/uL (0.1-1.2); Monocytes Percent Auto 10.3 % (2-11); Neutrophils Absolute Auto 4.4 X10*3/uL (2.0-8.3); Neutrophils Percent Auto 75.8 % (45-73); Platelet Count 168 X10*3/uL (160-400); Red Blood Count 3.77 X10*6/uL (4.60-5.80); Red Cell Distribution Width 20.2 % (11.0-16.0); White Blood Count 5.8 X10*3/uL (4.8-10.8)
[2021-04-07 06:16] LABS: Ammonia 69 umol/L (13-55)
[2021-04-07 06:25] LABS: Alanine Aminotransferase 11 U/L (0-40); Albumin Level 3.1 g/dL (3.5-5.0); Alkaline Phosphatase 57 U/L (39-117); Anion Gap 14 (12-20); Aspartate Amino Transferase 19 U/L (5-37); Bilirubin Total 0.7 mg/dL (0.0-1.0); Blood Urea Nitrogen 4 mg/dL (9-16); Calcium 7.1 mg/dL (8.4-10.2); Carbon Dioxide 23 mmol/L (22-29); Chloride 106 mmol/L (96-108); Creatinine Clr Calc Pharmacy 122.3; Estimated Glomerular Filt Rate > 60; Glucose Random 105 mg/dL (60-115); Magnesium 1.6 mg/dL (1.6-2.6); Phosphorus 2.1 mg/dL (2.7-4.5); Potassium 3.8 mmol/L (3.3-5.1); Sodium 139 mmol/L (135-145); Total Protein 4.7 g/dL (6.5-8.0)
[2021-04-07 06:50] LABS: Venous Blood Gas Refer to POC result
--- NOTE | 2021-04-07 07:17 | P.CNGI_ITS ---
History of Present Illness Data of Consult Service Date: 04/07/21 Requesting physician: Alejandro Castellon Primary Care Provider: Unknown Physician HPI Reason for consult: UGI Bleed 40 YM with alcohol Abuse, alcoholic gastritis, seen at [facility] last night with nausea and vomiting. Pt was recently hospitalized in the ICU at [facility] with UGIB and had an EGD which showed gastritis and esophagitis; Patient reported he started drinking again after he was discharged from the hospital - Last drink was yesterday. Pt complains of multiple episodes of nausea and vomiting and noted to have coffee-ground emesis. Reports that symptoms have been going on over the past few days.? Mentioned that he drinks about 1L of alcohol every day and reports prior admission to the ICU for alcohol withdrawal and a history of alcohol withdrawal seizures.? Reports he is not able to keep anything down; hence presented to the hospital for further evaluation. Denies any headaches, paresthesias, numbness tingling or focal weakness. Denies any fever chills cough. Denies any urinary symptoms. ER course: Per ER team patient noted to be anxious, tachycardic; having nausea and vomiting; received IV Zofran, IV fluids; patient was started on phenobarb protocol.? Patient also received Ativan x1; patient still continues to be tachycardic. Lab showed hypomagnesemia-repleted; also noted to have severe lactic acidosis, high anion gap metabolic acidosis; patient was given IV thiamine; ; admitted to the hospital for further management. Review of Systems Constitutional: Constitutional: Denies fever(s), Denies headache(s) and Denies weight loss Eyes: Eyes: Denies eye discharge and Denies irritation ENT: Reports Normal hearing present, Denies dysphagia, Denies dizziness and Denies headache(s) Cardiovascular: Cardiovascular: Denies chest pain, Denies leg edema and Denies dyspnea on exertion Respiratory: Respiratory: Denies cough, Denies dyspnea on exertion and Denies wheezing Gastrointestinal: Gastrointestinal: Reports abdominal pain, Denies change in bowel habits, Denies dysphagia, Denies heartburn, Reports nausea and Reports vomiting Genitourinary: Genitourinary: Denies dysuria Musculoskeletal: Musculoskeletal: Denies back pain and Denies arthralgias Integumentary/Breasts: Skin/Breast: Denies pruritus, Denies rash and Denies jaundice Neurologic: Reports Normal hearing present, Denies Abnormal speech present, Denies dizziness, Denies headache(s) and Denies seizure-like activity Psychiatric: Psychiatric: Denies anxiety, Denies depression and Denies panic attacks Endocrine: Endocrine: Denies cold intolerance, Denies flushing and Denies heat intolerance Hematologic/Lymphatic: Hematologic/Lymphatic: Denies easy bleeding and Denies easy bruising Allergic/Immunologic: Allergic/Immunologic: Denies wheezing PMFSH Past Medical History Medical History (Updated 12/14/21 @ 15:51 by Ajith Figueredo MD) Alcohol withdrawal seizure Alcoholism Anxiety Esophagitis Gastritis MDD (major depressive disorder), recurrent severe, without psychosis Severe recurrent major depression Surgical History Surgical History (Updated 05/07/21 @ 00:03 by Tanya Willett) H/O esophagogastroduodenoscopy H/O knee surgery Social History Social History Household Members: Family Household Members Other:: father Housing: House Do you presently have visiting nurse or other home services: No Alcohol intake: current Alcohol intake frequency: 3 or more drinks per day Alcohol type: hard liquor Patient Tobacco Use Status: Never used Tobacco service: No Current occupational status: unemployed Sexual orientation: Did not discuss Meds Allergies Allergy/AdvReac Type Severity Reaction Status Date / Time No Known Allergies Allergy Verified 04/27/21 11:42 Active Medications: Current Medications Ampicillin Sodium/Sulbactam Sodium (Ampicillin Sodium/Sulbactam Na 3 Gm Vial) 3 gm IV Q6H [facility] Last Admin: 04/07/21 02:53 Dose: 3 gm Documented by: Hydromorphone HCl (Hydromorphone Hcl 0.5 Mg/0.5 Ml Syringe) 0.5 mg IVPUSH Q4H PRN; Protocol PRN Reason: Breakthrough Pain Dexmedetomidine HCl (Precedex) 400 mcg in 100 mls @ 0 mls/hr IVCONT .Q0M [facility]; Protocol Last Titration: 04/07/21 04:57 Dose: 0.5 mcg/kg/hr, 8.68 mls/hr Documented by: Folic Acid 1 mg/ Sodium (Chloride) 50.2 mls @ 100.4 mls/hr IV DAILY [facility] Thiamine HCl 100 mg/ Sodium (Chloride) 101 mls @ 202 mls/hr IV DAILY [facility] Lactated Ringer's (Lr) 1,000 mls @ 150 mls/hr IVCONT .Q6H40M [facility] Last Admin: 04/07/21 02:31 Dose: 150 mls/hr Documented by: Melatonin (Melatonin 3 Mg Tablet) 6 mg PO BEDTIME PRN PRN Reason: Insomnia Multivitamins/Vitamin C (Multivitamin Tablet) 1 tab PO DAILY [facility] Stop: 04/10/21 08:59 Pantoprazole Sodium (Pantoprazole Sodium 40 Mg/10 Ml Vial) 40 mg IVPUSH BID [facility] Pharmacy Consult (Consult Rx Perform Med Rec) 1 each MISCELLANE ONCE PRN PRN Reason: Consult order Phenobarbital (Phenobarbital 15 Mg Tablet) 45 mg PO BID [facility]; Protocol Stop: 04/08/21 21:01 Phenobarbital (Phenobarbital 15 Mg Tablet) 15 mg PO BID [facility]; Protocol Stop: 04/10/21 21:01 Phenobarbital (Phenobarbital 15 Mg Tablet) 15 mg PO DAILY [facility]; Protocol Stop: 04/12/21 09:01 Senna (Sennosides 8.6 Mg Tablet) 17.2 mg PO BEDTIME PRN PRN Reason: Constipation Sodium Chloride (0.9 % Sodium Chloride Flush 3 Ml Syringe) 3 ml IVFLUSH QSHIFT [facility] Last Admin: 04/07/21 00:39 Dose: 3 ml Documented by: Physical Exam Vital Signs: Vital Signs: Last Vital Signs Temp 100.0 F 04/07/21 03:00 Pulse 75 04/07/21 07:00 Resp 19 04/07/21 07:00 BP 107/68 04/07/21 07:00 Pulse Ox 95 04/07/21 07:00 Body Mass Index 26.7 Const: General: healthy appearing and no acute distress Nutritional Appearance: average body habitus Orientation/consciousness: patient oriented x3 Limitations: no limitations HENMT: Head: Yes normal to inspection Ears: hearing grossly normal bilaterally Mouth: Normal oral and palatal mucosa present Eyes: Sclerae: sclerae normal Pupils: Equal, round and reactive pupils present Neck: Neck: Yes normal visual inspection Chest: Chest palpation & inspection: normal inspection of the chest Resp: Effort & Inspection: normal respiratory effort Auscultation: clear to auscultation bilaterally Cardio: Palpation: normal PMI Rate: regular rate Rhythm: regular rhythm Heart sounds: S1 normal heart sound present, S2 normal heart sound present and no murmurs GI: Palpation (GI): Soft to palpation, Tenderness to palpation present (GI) ( mild epigastric tenderness) and No hepatosplenomegaly present Auscultation: normal bowel sounds Rectal Exam - Male: Yes deferred Skin: General skin exam: no rashes or lesions noted Neuro: General: patient oriented x3, gait normal and moves all extremities Cranial nerves: Yes Equal, round and reactive pupils present and Yes Normal hearing present Speech: No Abnormal speech present Psych: Appearance: grossly normal Mental Status: mental status grossly normal Results Labs CBC & Chem 7: 04/11/21 06:28 04/11/21 06:28 Labs: Short CBC 04/06/21 04/07/21 04/07/21 Range/Units 19:57 00:38 05:56 WBC 14.0 H 9.7 5.8 (4.8-10.8) X10*3/uL Hgb 15.3 12.4 L 10.5 L (14.0-18.0) g/dl Hct 44.6 36.3 L 31.4 L (42-52) % Plt Count 346 213 D 168 (160-400) X10*3/uL BMP 04/06/21 04/06/21 04/07/21 19:57 23:28 00:38 Sodium 135 137 138 Potassium 3.7 3.9 3.9 Chloride 93 L 104 103 Carbon Dioxide 16 L 11 L 18 L BUN 8 L 6 L 6 L Creatinine 1.03 0.79 0.84 Calcium 8.7 7.3 L D 7.3 L 04/07/21 05:56 Sodium 139 Potassium 3.8 Chloride 106 Carbon Dioxide 23 BUN 4 L Creatinine 0.71 Calcium 7.1 L Liver Function 04/06/21 04/07/21 Range/Units 19:57 05:56 Total Bilirubin 0.5 0.7 (0.0-1.0) mg/dL Direct Bilirubin 0.3 (0.0-0.5) mg/dL AST 24 19 (5-37) U/L ALT 18 11 (0-40) U/L Alkaline Phosphatase 82 57 D (39-117) U/L Albumin 4.5 3.1 L D (3.5-5.0) g/dL Assessment and Plan (1) Epigastric pain: Status: Acute (2) UGI bleed: Status: Acute Plan 40 YM with alcohol Abuse, alcoholic gastritis, seen at [facility] with nausea and vomiting. Pt was recently hospitalized in the ICU at [facility] with UGIB and had an EGD which showed gastritis and esophagitis; Patient reported he started drinking again after he was discharged from the hospital - Last drink was yesterday. Pt complains of multiple episodes of nausea and vomiting and noted to have coffee-ground emesis. Reports that symptoms have been going on over the past few days.? Mentioned that he drinks about 1L of alcohol every day and reports prior admission to the ICU for alcohol withdrawal and a history of alcohol withdrawal seizures.? UGI bleeding likely MW tear or alcoholic gastritis RECOMMENDATIONS: 1. Monitor H & H daily 2. Agree with IV PPI 3. Proceed with EGD today. Procedure and potential complications including bleeding, perforation, drug reaction and aspiration pneumonia were reviewed with the patient. Procedures Date of Service Date of Service: 04/07/21
--- NOTE | 2021-04-07 08:30 | CA_ITS ---
Transthoracic Echocardiogram Patient (Last, First, Middle): Pio Massey, Gender: Male Date of : 1980 Age: 40 Procedure Date: 04/07/2021 Procedure Type: Transthoracic Echocardiogram Location: ICU Height: 167.64 cm Weight: 74.84 kg BSA: 1.84 m2 Heart Rate: bpm Return To Vendor: Referring MD: Alejandro Castellon MD Symptoms: tachy Study Quality: Fair ECG Rhythm: Sinus Conclusions: - Normal left ventricular size, thickness, systolic function, and wall motion. - Normal right ventricular cavity size and systolic function. - No significant valvular or pericardial pathology. Findings Left Ventricle Normal left ventricular size, thickness, systolic function, and wall motion. The visually estimated ejection fraction is between 55-60%. Diastolic function is normal for age. Right Ventricle Normal right ventricular cavity size and systolic function. Atria Both atria are normal in size. Aortic Valve Normal aortic valve structure and function. There is no aortic valve stenosis. There is no aortic valve regurgitation. Mitral Valve Normal mitral valve structure and function. There is no mitral valve regurgitation. There is no mitral valve stenosis. Pulmonic Valve Normal pulmonic valve structure and function. There is no pulmonic valve regurgitation. Tricuspid Valve Normal tricuspid valve structure and function. There is trace tricuspid valve regurgitation. Normal right atrial pressure. There is no evidence of pulmonary hypertension. Great Vessels All visible segments of the aorta are normal in size. The visualized portions of the pulmonary artery and branches are normal. Venous The inferior vena cava is normal in size and collapses greater than 50% with inspiration. Pericardium/Pleural There is no evidence of pericardial effusion. Prior Study Comparison No prior study available for comparison. Measurements Right Ventricle TAPSE (mm): 29.70 Updated in Other Vendor System with Status of Final Jeff Chapin MD electronically signed on 04/07/2021 3:03:53 PM with status of Final
[2021-04-07] MEDS: PHENobarbitaL 15 MG TABLET 45 MG PO ×2 (09:12→19:59)
[2021-04-07] MEDS: Folic Acid 1 MG in 0.9 % Sodium Chloride 50 ML 100.4 MG IV (09:12)
[2021-04-07] MEDS: Magnesium Sulfate/H2O 2 GM/50 ML PIGGYBACK IV (09:13)
[2021-04-07] MEDS: Pantoprazole Sodium 40 MG/10 ML VIAL IVPUSH ×2 (09:20→19:59)
--- NOTE | 2021-04-07 09:52 | MHC.CM.PN ---
Met with pt to discuss d/c planning; pt resides with his father: no services and states he is independent with all care needs: Pt states he has no PCP and can't remember the last time he saw a PCP or the office he went to. Pt given a list of [facility] PCPs and encouraged him to call on his cellphone. Covid vax as well as + infection: Pt declined HCP completion and hesitant about CARE team consult for ETOH abuse. Pt will contact his father for transportation home. CM to follow for ? d/c needs
[2021-04-07] MEDS: Thiamine HCL 100 MG in 0.9 % Sodium Chloride 100 ML 202 MG IV (10:47)
[2021-04-07] MEDS: Potassium Phosphate 30 MMOL in 0.9 % Sodium Chloride 500 ML 85 MMOL IV (11:51)
[2021-04-07] MEDS: Throat Lozenge, Medicated LOZENGE 1 LOZENGE MUCOUS MEM (11:57)
--- NOTE | 2021-04-07 14:01 | HO.ANESPROP2 ---
HPI - Anesthesia Eval Consult details Narrative: 40 yo male patient with UGI bleed likely from ETOH abuse. [facility] Active Problems Active Problems: All Active Problems (Updated 04/07/21 @ 02:01 by Jase Greer NP) Upper GI bleed (Acute) Aspiration into airway (Acute) High anion gap metabolic acidosis (Acute) Alcohol withdrawal syndrome (Acute) Acute alcoholic gastritis (Acute) Acidosis, lactic (Acute) Hypomagnesemia (Acute) Past Medical History Medical History Alcohol withdrawal seizure Alcoholism Esophagitis Gastritis Family History Family history of problems with anesthesia: No Surgical History Surgical History (Updated 04/07/21 @ 14:41 by Charmaine Cooley MD) H/O esophagogastroduodenoscopy H/O knee surgery History of Problems with Anesthesia: No Social History Social History Alcohol intake: current Alcohol intake frequency: 3 or more drinks per day Alcohol type: hard liquor Patient Tobacco Use Status: Never used Tobacco Use of substances other than those prescribed or required for medical reasons: No Currently Displaying Signs/Symptoms of Drug Intoxication Withdrawal: No Advance Directives: No Advance Directives Information Provided: Yes Do you have thoughts of harming others: None Do you have a plan to hurt others: No Plan service: No Current occupational status: unemployed Meds Allergies Allergy/AdvReac Type Severity Reaction Status Date / Time No Known Allergies Allergy Unverified 02/28/20 18:14 Active Medications: Current Medications Benzocaine (Throat Lozenge, Medicated Lozenge) 1 lozenge MUCOUS MEM Q2H PRN PRN Reason: Sore Throat Last Admin: 04/07/21 11:57 Dose: 1 lozenge Documented by: Dexmedetomidine HCl (Precedex) 400 mcg in 100 mls @ 0 mls/hr IVCONT .Q0M [facility]; Protocol Last Titration: 04/07/21 12:14 Dose: 1 mcg/kg/hr, 17.35 mls/hr Documented by: Folic Acid 1 mg/ Sodium (Chloride) 50.2 mls @ 100.4 mls/hr IV DAILY [facility] Last Infusion: 04/07/21 09:58 Dose: Infused Documented by: Thiamine HCl 100 mg/ Sodium (Chloride) 101 mls @ 202 mls/hr IV DAILY [facility] Last Infusion: 04/07/21 11:32 Dose: Infused Documented by: Melatonin (Melatonin 3 Mg Tablet) 6 mg PO BEDTIME PRN PRN Reason: Insomnia Pantoprazole Sodium (Pantoprazole Sodium 40 Mg/10 Ml Vial) 40 mg IVPUSH BID [facility] Last Admin: 04/07/21 09:20 Dose: 40 mg Documented by: Pharmacy Consult (Consult Rx Perform Med Rec) 1 each MISCELLANE ONCE PRN PRN Reason: Consult order Phenobarbital (Phenobarbital 15 Mg Tablet) 45 mg PO BID [facility]; Protocol Stop: 04/08/21 21:01 Last Admin: 04/07/21 09:12 Dose: 45 mg Documented by: Phenobarbital (Phenobarbital 15 Mg Tablet) 15 mg PO BID [facility]; Protocol Stop: 04/10/21 21:01 Phenobarbital (Phenobarbital 15 Mg Tablet) 15 mg PO DAILY [facility]; Protocol Stop: 04/12/21 09:01 Senna (Sennosides 8.6 Mg Tablet) 17.2 mg PO BEDTIME PRN PRN Reason: Constipation Sodium Chloride (0.9 % Sodium Chloride Flush 3 Ml Syringe) 3 ml IVFLUSH QSHIFT [facility] Last Admin: 04/07/21 09:00 Dose: Not Given Documented by: Home Medications Medication Instructions Recorded Confirmed Last Taken Type pantoprazole 20 mg tablet,delayed 20 mg PO DAILY 04/06/21 04/06/21 Unknown History release (Protonix) sucralfate 1 gram tablet 1 g PO BID 04/06/21 04/06/21 04/05/21 History Exam Exam Date and Time: April 07, 2021 1401 Height,Weight and Vital Signs: Height 5 ft 6 in Weight 75.1 kg Last Vital Signs Temp 98.6 F 04/07/21 12:00 Pulse 77 04/07/21 12:00 Resp 16 04/07/21 12:00 BP 123/77 04/07/21 12:00 Pulse Ox 98 04/07/21 12:00 Vital Signs Temp Pulse Resp BP Pulse Ox 04/07/21 14:00 68 16 111/73 94 04/07/21 13:00 72 18 110/70 93 04/07/21 12:00 98.6 F 77 16 123/77 98 04/07/21 11:00 84 16 116/64 93 04/07/21 10:00 84 16 113/75 96 04/07/21 09:00 82 21 H 103/68 92 04/07/21 08:00 99.5 F 81 83 H 105/70 96 04/07/21 07:00 75 19 107/68 95 04/07/21 06:00 78 20 95/62 96 04/07/21 04:56 92 20 114/77 92 04/07/21 04:00 98 22 H 96/64 92 04/07/21 03:00 100.0 F 116 H 22 H 114/67 92 04/07/21 02:00 100.2 F 128 H 24 H 139/76 97 04/07/21 00:00 24 H 04/06/21 23:55 98.5 F 130 H 22 H 115/65 95 04/06/21 23:28 141 H 22 H 118/61 04/06/21 21:14 123 H 17 117/66 95 04/06/21 19:34 98.5 F 134 H 20 144/90 H 98 04/06/21 18:42 98.5 F 159 H 20 135/98 H 97 Pertinent Lab Results Pertinent Lab Results: Laboratory Tests 04/06/21 04/06/21 04/06/21 19:57 19:57 19:57 WBC 14.0 H RBC 5.43 Hgb 15.3 Hct 44.6 MCV 82.1 MCH 28.2 MCHC 34.3 RDW 20.6 H Plt Count 346 MPV 9.2 L Immature Gran % (Auto) 0.5 H Neut % (Auto) 89.8 H Lymph % (Auto) 4.1 L [place] % (Auto) 5.1 Eos % (Auto) 0.1 Baso % (Auto) 0.4 Lymph # (Auto) 0.6 L [place] # (Auto) 0.7 Eos # (Auto) 0.0 Baso # (Auto) 0.1 Abs Immat Gran (auto) 0.07 H Absolute Neuts (auto) 12.6 H Absolute Nucleated RBC 0.000 Nucleated RBC % (auto) 0.0 VBG pH VBG pCO2 VBG pO2 VBG HCO3 VBG O2 Saturation VBG Base Excess Sodium 135 Potassium 3.7 Chloride 93 L Carbon Dioxide 16 L Anion Gap 30 H BUN 8 L Creatinine 1.03 Estim Creat Clear Calc 84.3 Estimated GFR > 60 Random Glucose 160 H Lactic Acid Lactic Acid Fup @ 2Hr Lactic Acid Fup @ 4Hr Calcium 8.7 Phosphorus Magnesium 1.3 L* Total Bilirubin 0.5 Direct Bilirubin 0.3 AST 24 ALT 18 Alkaline Phosphatase 82 Ammonia Total Protein 7.1 Albumin 4.5 Lipase 42 Gastric Occult Blood Urine Opiates Screen Urine Fentanyl Screen Ur Barbiturates Screen Ur Phencyclidine Scrn Ur Amphetamines Screen U Benzodiazepines Scrn Urine Cocaine Screen U Marijuana (THC) Screen Ethyl Alcohol COVID-19 (ANUJ) Negative COVID-19 Clin Com See Note Blood Type Antibody Screen 04/06/21 04/06/21 04/06/21 19:57 19:57 20:18 WBC RBC Hgb Hct MCV MCH MCHC RDW Plt Count MPV Immature Gran % (Auto) Neut % (Auto) Lymph % (Auto) Shoshone % (Auto) Eos % (Auto) Baso % (Auto) Lymph # (Auto) Shoshone # (Auto) Eos # (Auto) Baso # (Auto) Abs Immat Gran (auto) Absolute Neuts (auto) Absolute Nucleated RBC Nucleated RBC % (auto) VBG pH VBG pCO2 VBG pO2 VBG HCO3 VBG O2 Saturation VBG Base Excess Sodium Potassium Chloride Carbon Dioxide Anion Gap BUN Creatinine Estim Creat Clear Calc Estimated GFR Random Glucose Lactic Acid 11.5 H* Lactic Acid Fup @ 2Hr Lactic Acid Fup @ 4Hr Calcium Phosphorus Magnesium Total Bilirubin Direct Bilirubin AST ALT Alkaline Phosphatase Ammonia Total Protein Albumin Lipase Gastric Occult Blood Urine Opiates Screen Urine Fentanyl Screen Ur Barbiturates Screen Ur Phencyclidine Scrn Ur Amphetamines Screen U Benzodiazepines Scrn Urine Cocaine Screen U Marijuana (THC) Screen Ethyl Alcohol 219 COVID-19 (ANUJ) COVID-19 Clin Com Blood Type A Positive Antibody Screen NEGATIVE 04/06/21 04/06/21 04/06/21 20:26 20:32 23:28 WBC RBC Hgb Hct MCV MCH MCHC RDW Plt Count MPV Immature Gran % (Auto) Neut % (Auto) Lymph % (Auto) Shoshone % (Auto) Eos % (Auto) Baso % (Auto) Lymph # (Auto) [place]oshone # (Auto) Eos # (Auto) Baso # (Auto) Abs Immat Gran (auto) Absolute Neuts (auto) Absolute Nucleated RBC Nucleated RBC % (auto) VBG pH 7.38 VBG pCO2 26 VBG pO2 45 VBG HCO3 15 L VBG O2 Saturation 68.0 VBG Base Excess -7.2 Sodium 137 Potassium 3.9 Chloride 104 Carbon Dioxide 11 L Anion Gap 26 H BUN 6 L Creatinine 0.79 Estim Creat Clear Calc 109.9 Estimated GFR > 60 Random Glucose 126 H Lactic Acid Lactic Acid Fup @ 2Hr Lactic Acid Fup @ 4Hr Calcium 7.3 L D Phosphorus Magnesium Total Bilirubin Direct Bilirubin AST ALT Alkaline Phosphatase Ammonia Total Protein Albumin Lipase Gastric Occult Blood POS Urine Opiates Screen Urine Fentanyl Screen Ur Barbiturates Screen Ur Phencyclidine Scrn Ur Amphetamines Screen U Benzodiazepines Scrn Urine Cocaine Screen U Marijuana (THC) Screen Ethyl Alcohol COVID-19 (ANUJ) COVID-19 Clin Com Blood Type Antibody Screen 04/06/21 04/07/21 04/07/21 23:28 00:38 00:38 WBC 9.7 RBC 4.40 L Hgb 12.4 L Hct 36.3 L MCV 82.5 MCH 28.2 MCHC 34.2 RDW 20.3 H Plt Count 213 D MPV 9.4 Immature Gran % (Auto) 0.4 Neut % (Auto) 82.4 H Lymph % (Auto) 8.2 L [place]osh[place] % (Auto) 8.6 Eos % (Auto) 0.2 Baso % (Auto) 0.2 Lymph # (Auto) 0.8 L [place] # (Auto) 0.8 Eos # (Auto) 0.0 Baso # (Auto) 0.0 Abs Immat Gran (auto) 0.04 H Absolute Neuts (auto) 8.0 Absolute Nucleated RBC 0.000 Nucleated RBC % (auto) 0.0 VBG pH VBG pCO2 VBG pO2 VBG HCO3 VBG O2 Saturation VBG Base Excess Sodium 138 Potassium 3.9 Chloride 103 Carbon Dioxide 18 L Anion Gap 21 H BUN 6 L Creatinine 0.84 Estim Creat Clear Calc 103.3 Estimated GFR > 60 Random Glucose 120 H Lactic Acid Lactic Acid Fup @ 2Hr 8.2 H* Lactic Acid Fup @ 4Hr Calcium 7.3 L Phosphorus Magnesium Total Bilirubin Direct Bilirubin AST ALT Alkaline Phosphatase Ammonia Total Protein Albumin Lipase Gastric Occult Blood Urine Opiates Screen Urine Fentanyl Screen Ur Barbiturates Screen Ur Phencyclidine Scrn Ur Amphetamines Screen U Benzodiazepines Scrn Urine Cocaine Screen U Marijuana (THC) Screen Ethyl Alcohol COVID-19 (ANUJ) COVID-19 Q Chip Com Blood Type Antibody Screen 04/07/21 04/07/21 04/07/21 01:54 02:15 05:52 WBC RBC Hgb Hct MCV MCH MCHC RDW Plt Count MPV Immature Gran % (Auto) Neut % (Auto) Lymph % (Auto) [place] % (Auto) Eos % (Auto) Baso % (Auto) Lymph # (Auto) [place] # (Auto) Eos # (Auto) Baso # (Auto) Abs Immat Gran (auto) Absolute Neuts (auto) Absolute Nucleated RBC Nucleated RBC % (auto) VBG pH 7.55 H VBG pCO2 31 VBG pO2 76 VBG HCO3 27 H VBG O2 Saturation 96.0 VBG Base Excess 5.5 Sodium Potassium Chloride Carbon Dioxide Anion Gap BUN Creatinine Estim Creat Clear Calc Estimated GFR Random Glucose Lactic Acid Lactic Acid Fup @ 2Hr Lactic Acid Fup @ 4Hr 5.8 H* Calcium Phosphorus Magnesium Total Bilirubin Direct Bilirubin AST ALT Alkaline Phosphatase Ammonia Total Protein Albumin Lipase Gastric Occult Blood Urine Opiates Screen Not Detected Urine Fentanyl Screen Not Detected Ur Barbiturates Screen POSITIVE H Ur Phencyclidine Scrn Not Detected Ur Amphetamines Screen Not Detected U Benzodiazepines Scrn Not Detected Urine Cocaine Screen Not Detected U Marijuana (THC) Screen Not Detected Ethyl Alcohol COVID-19 (ANUJ) COVID-19 Q Chip Com Blood Type Antibody Screen 04/07/21 04/07/21 04/07/21 05:56 05:56 05:56 WBC Cancelled RBC Cancelled Hgb Cancelled Hct Cancelled MCV Cancelled MCH Cancelled MCHC Cancelled RDW Cancelled Plt Count Cancelled MPV Cancelled Immature Gran % (Auto) Cancelled Neut % (Auto) Cancelled Lymph % (Auto) Cancelled [place]oshone % (Auto) Cancelled Eos % (Auto) Cancelled Baso % (Auto) Cancelled Lymph # (Auto) Cancelled [place]osh[place] # (Auto) Cancelled Eos # (Auto) Cancelled Baso # (Auto) Cancelled Abs Immat Gran (auto) Cancelled Absolute Neuts (auto) Cancelled Absolute Nucleated RBC Cancelled Nucleated RBC % (auto) Cancelled VBG pH VBG pCO2 VBG pO2 VBG HCO3 VBG O2 Saturation VBG Base Excess Sodium Cancelled 139 Potassium Cancelled 3.8 Chloride Cancelled 106 Carbon Dioxide Cancelled 23 Anion Gap Cancelled 14 BUN Cancelled 4 L Creatinine Cancelled 0.71 Estim Creat Clear Calc Cancelled 122.3 Estimated GFR Cancelled > 60 Random Glucose Cancelled 105 Lactic Acid Lactic Acid Fup @ 2Hr Lactic Acid Fup @ 4Hr Calcium Cancelled 7.1 L Phosphorus 2.1 L Magnesium 1.6 Total Bilirubin 0.7 Direct Bilirubin AST 19 ALT 11 Alkaline Phosphatase 57 D Ammonia Total Protein 4.7 L D Albumin 3.1 L D Lipase Gastric Occult Blood Urine Opiates Screen Urine Fentanyl Screen Ur Barbiturates Screen Ur Phencyclidine Scrn Ur Amphetamines Screen U Benzodiazepines Scrn Urine Cocaine Screen U Marijuana (THC) Screen Ethyl Alcohol COVID-19 (ANUJ) COVID-19 Q Chip Com Blood Type Antibody Screen 04/07/21 04/07/21 05:56 05:56 WBC 5.8 RBC 3.77 L Hgb 10.5 L Hct 31.4 L MCV 83.3 MCH 27.9 MCHC 33.4 RDW 20.2 H Plt Count 168 MPV 10.3 Immature Gran % (Auto) 0.5 H Neut % (Auto) 75.8 H Lymph % (Auto) 12.9 L [place] % (Auto) 10.3 Eos % (Auto) 0.2 Baso % (Auto) 0.3 Lymph # (Auto) 0.8 L [place] # (Auto) 0.6 Eos # (Auto) 0.0 Baso # (Auto) 0.0 Abs Immat Gran (auto) 0.03 Absolute Neuts (auto) 4.4 Absolute Nucleated RBC 0.000 Nucleated RBC % (auto) 0.0 VBG pH VBG pCO2 VBG pO2 VBG HCO3 VBG O2 Saturation VBG Base Excess Sodium Potassium Chloride Carbon Dioxide Anion Gap BUN Creatinine Estim Creat Clear Calc Estimated GFR Random Glucose Lactic Acid Lactic Acid Fup @ 2Hr Lactic Acid Fup @ 4Hr Calcium Phosphorus Magnesium Total Bilirubin Direct Bilirubin AST ALT Alkaline Phosphatase Ammonia 69 H Total Protein Albumin Lipase Gastric Occult Blood Urine Opiates Screen Urine Fentanyl Screen Ur Barbiturates Screen Ur Phencyclidine Scrn Ur Amphetamines Screen U Benzodiazepines Scrn Urine Cocaine Screen U Marijuana (THC) Screen Ethyl Alcohol COVID-19 (ANUJ) COVID-19 Q Chip Com Blood Type Antibody Screen Airway Mallampati Class: III TM Dist: >3cm Neck ROM: Full Loose/Missing/Broken Teeth: Yes Heart: RRR Lungs: CTAB Assessment and Plan Assessment Anesthesia Assessment: Anesthesia Plan Discussed and Chart Reviewed Final Anesthetic Review Family History of Problems with Anesthesia: No History of Problems with Anesthesia: No NPO: Yes ASA Class: III and Emergency Final Preanesthetic Review: No Changes in Pt Med Stat, Meds/Allgs Chart Reviewed, Consent Obtained/Reviewed and Anes Risks/Benef Reviewed Patient Risk: Intermediate Procedure Risk: Intermediate Assessment/Block/Sedation in SS: Assess/Block/Sedation-SS Anesthetic Plan Anesthetic Plan: GA and MAC: Disposition: Inp. Admit - ICU
[2021-04-07] MEDS: dexmedeTOMIDidine HCL/NS 400 MCG/100 ML INFUS..BTL 17.35 MCG IVCONT (14:10)
--- NOTE | 2021-04-07 14:40 | PC.NURSE ---
Pt left the unit at 1440 for an upper endoscopy VSS, on precedex at 1mcg/kg/hr Oriented x3 and KPHOS running at 85ml/hr to left foot 18 IV. Report given to Kalia BOURNE O.RGalindo at bedside.
--- NOTE | 2021-04-07 14:59 | P.BOP_ITS ---
Brief Operative Note Date of Service: 04/07/21 Pre-op diagnosis: UGI Bleeding Post-op diagnosis: other (severe erosive esophagitis, gastritis, duodenitis) Procedure: FLEXIBLE TRANSORAL UPPER GASTROINTESTINAL ENDOSCOPY WITH BIOPSIES Consent: Indications for the procedure and potential complications of bleeding, perforation, reaction to medications and missed diagnosis were discussed with the patient and informed consent was obtained. Instrument: Olympus GIF H 190 mid size upper endoscope Monitoring: Vital signs and clinical assessment, continuous EKG monitoring, Pulse oximetry, Carbon Dioxide monitoring and blood pressure monitoring were done throughout the procedure. Procedure: The patient was placed in the left lateral decubitis position and pre-procedure medications were administered and a bite block was placed. The endoscope was inserted into the mouth and advanced under direct vision to the third part of duodenum. A careful inspection was made as the upper endoscope was withdrawn including a retroflexed examination of the proximal stomach; Findings and interventions are described below. Findings: Larynx: Normal Esophagus: GE junction at 38 cms. Severe Grade 4 erosive esophagitis involving the entire esophagus - worse in the lower 3rd part of esophagus. Stomach: Mild gastric erythema with a few superficial non-bleeding antral erosions. Biopsies were obtained to check for H pylori. No gastric varices and Grade 2 flap valve on retroflexed examination of the cardia. Duodenum: Minimal duodenitis in the bulb and normal descending duodenum Intervention: Biopsies as noted above Impression and Post Procedure Diagnosis: Endoscopy Findings: ESOPHAGUS: Severe Grade 4 erosive esophagitis involving the entire esophagus - worse in the lower 3rd part of esophagus. STOMACH: Antral gastritis with non-bleeidng erosions DUODENUM: Minimal duodenitis in the bulb. No active bleeding or old blood seen in the UGI tract during EGD. Plan: Continue IV anti-emetics and PPI BID for erosive esophagitis. Await pathology results. Treat for H Pylori if positive. Above findings were reviewed with the patient. Pt can be scheduled for a FU appt in the GI clinic and schedule repeat EGD in 10-12 weeks to confirm esophagitis has healed. Surgeon: Ajith Figueredo MD Anesthesia: MAC Was an Toll Gate Tender used for this Procedure?: No Toll Gate Tender: Marilee Carreon Estimated blood loss (mL): 0 Pathology: other (A. gastric antrum biopsies) Condition: stable Disposition: ICU
--- NOTE | 2021-04-07 15:11 | W.PM.OPN ---
Operative Note Operative Note Date of Service: 04/07/21 Narrative: Pre-op diagnosis:?UGI Bleeding Post-op diagnosis:?other (severe erosive esophagitis, gastritis, duodenitis) Procedure:? FLEXIBLE TRANSORAL UPPER GASTROINTESTINAL ENDOSCOPY WITH BIOPSIES Consent:?Indications for the procedure and potential complications of bleeding, perforation, reaction to medications and missed diagnosis were discussed with the patient and informed consent was obtained. Instrument:?Olympus GIF H 190 mid size upper endoscope Monitoring: Vital signs and clinical assessment, continuous EKG monitoring, Pulse oximetry, Carbon Dioxide monitoring and blood pressure monitoring were done throughout the procedure. Procedure:?The patient was placed in the left lateral decubitis position and pre-procedure medications were administered and a bite block was placed. The endoscope was inserted into the mouth and advanced under direct vision to the third part of duodenum. A careful inspection was made as the upper endoscope was withdrawn including a retroflexed examination of the proximal stomach; Findings and interventions are described below. Findings: Larynx:? Normal Esophagus: GE junction at 38 cms.? Severe Grade 4 erosive esophagitis involving the entire esophagus - worse in the lower 3rd part of esophagus. Stomach: Mild gastric erythema with a few superficial non-bleeding antral erosions. Biopsies were obtained to check for H pylori. No gastric varices and Grade 2 flap valve on retroflexed examination of the cardia. Duodenum: Minimal duodenitis in the bulb and normal descending duodenum Intervention: Biopsies as noted above Impression and Post Procedure Diagnosis: Endoscopy Findings: ESOPHAGUS: Severe Grade 4 erosive esophagitis involving the entire esophagus - worse in the lower 3rd part of esophagus. STOMACH: Antral gastritis with non-bleeding erosions DUODENUM: Minimal duodenitis in the bulb. No active bleeding or old blood seen in the UGI tract during EGD. Plan: Continue IV anti-emetics and PPI BID for erosive esophagitis. Await pathology results.? Treat for H Pylori if positive. Above findings were reviewed with the patient. Pt can be scheduled for a FU appt in the GI clinic with GI BLOOD OR BLOOD BANK TECHNICIAN or PA and schedule repeat EGD in 10-12 weeks to confirm esophagitis has healed. Surgeon:?Ajith Figueredo MD Anesthesia:?MAC Was an Optical Model Maker And Tester used for this Procedure?:?Yes Optical Model Maker And Tester:?Marilee Carreon Estimated blood loss (mL):?0 Pathology:?other (A. gastric antrum biopsies) Condition:?stable Disposition:?ICU
[2021-04-07] MEDS: fentaNYL citrate/PF 100 MCG/2 ML VIAL 50 MCG IVPUSH (17:10)
[2021-04-07] MEDS: HYDROmorphone HCl 0.5 MG/0.5 ML SYRINGE 1 MG IVPUSH (20:22)
[2021-04-08] VITALS (16 sets, daily range): BP systolic 101–147; BP diastolic 67–88; PULSE 76–106; RESP 12–22; TEMP 36.8–37.7; O2SAT 93–99; BMI 26.6
[2021-04-08] MEDS: Throat Lozenge, Medicated LOZENGE 1 LOZENGE MUCOUS MEM ×2 (01:04→02:53)
[2021-04-08] MEDS: Acetaminophen 325 MG TABLET 650 MG PO (04:53)
[2021-04-08 05:25] LABS: VBG Base Excess 3.8 mmol/L; VBG HCO3 24 mmol/L (22-26); VBG pCO2 25 mmHg; VBG pH 7.59 (7.32-7.43); VBG pO2 77 mmHg
[2021-04-08 05:36] LABS: MANUAL DIFF FLAG NO
[2021-04-08 05:41] LABS: Basophils Percent Auto 0.3 % (0-2); Eosinophils Percent Auto 0.2 % (0-4); Hematocrit 34.8 % (42-52); Hemoglobin 11.5 g/dl (14.0-18.0); Imm Gran Abs Auto 0.05 X10*3/uL (0.00-0.03); Imm Gran Pct Auto 0.5 % (0.0-0.4); Lymphocytes Absolute Auto 0.9 X10*3/uL (1.2-4.9); Lymphocytes Percent Auto 8.5 % (20-40); Mean Corpuscular Hemoglobin 28.3 pg (27.0-33.0); Mean Corpuscular Volume 85.5 fL (80-98); Mean Platelet Volume 9.8 fL (9.4-12.4); Monocytes Absolute Auto 0.5 X10*3/uL (0.1-1.2); Monocytes Percent Auto 4.3 % (2-11); Neutrophils Absolute Auto 9.3 X10*3/uL (2.0-8.3); Neutrophils Percent Auto 86.2 % (45-73); Platelet Count 130 X10*3/uL (160-400); Red Blood Count 4.07 X10*6/uL (4.60-5.80); Red Cell Distribution Width 20.1 % (11.0-16.0); White Blood Count 10.8 X10*3/uL (4.8-10.8)
[2021-04-08 06:06] LABS: Alanine Aminotransferase 10 U/L (0-40); Albumin Level 3.4 g/dL (3.5-5.0); Alkaline Phosphatase 80 U/L (39-117); Anion Gap 12 (12-20); Aspartate Amino Transferase 20 U/L (5-37); Bilirubin Total 0.9 mg/dL (0.0-1.0); Blood Urea Nitrogen 2 mg/dL (9-16); Carbon Dioxide 26 mmol/L (22-29); Chloride 103 mmol/L (96-108); Creatinine Clr Calc Pharmacy 127.7; Estimated Glomerular Filt Rate > 60; Glucose Random 110 mg/dL (60-115); Magnesium 1.9 mg/dL (1.6-2.6); Phosphorus 2.2 mg/dL (2.7-4.5); Potassium 3.6 mmol/L (3.3-5.1); Sodium 137 mmol/L (135-145); Total Protein 5.4 g/dL (6.5-8.0)
[2021-04-08 06:30] LABS: Venous Blood Gas Refer to POC result
[2021-04-08] MEDS: Pantoprazole Sodium 40 MG/10 ML VIAL IVPUSH ×2 (07:50→21:13)
[2021-04-08] MEDS: PHENobarbitaL 15 MG TABLET 45 MG PO ×2 (07:51→21:13)
[2021-04-08] MEDS: Thiamine HCL 100 MG in 0.9 % Sodium Chloride 100 ML 202 MG IV (07:51)
[2021-04-08] MEDS: 0.9 % Sodium Chloride Flush 3 ML SYRINGE IVFLUSH ×2 (07:52→21:14)
[2021-04-08] MEDS: ondansetron HCL 4 MG/2 ML VIAL IVPUSH (07:52)
[2021-04-08] MEDS: Potassium Phosphate 30 MMOL in 0.9 % Sodium Chloride 500 ML 85 MMOL IV (08:58)
[2021-04-08] MEDS: Thiamine HCL 100 MG TABLET 300 MG PO (09:00)
[2021-04-08] MEDS: Folic Acid 1 MG TABLET PO (09:00)
[2021-04-08] MEDS: Sucralfate Oral Suspension 1 GM/10 ML ORAL.SUSP PO ×3 (09:00→21:13)
--- NOTE | 2021-04-08 09:02 | PM.CCPN ---
Subjective Subjective Date of Service: 04/08/21 Interval History: 40-year-old gentleman with underlying history of alcohol dependence with prior alcohol withdrawal was withdrawal seizures, recent admission to [facility] for upper GI bleed admitted on 04/07/2021 with alcohol withdrawal and 2D history of hematemesis. On ER evaluation patient was noted to be in alcohol withdrawal and started on phenobarbital protocol, however he required initiation of Precedex drip and transferred to intensive care unit. He has been titrated off Precedex drip and had an upper endoscopy showing no active bleed, but an underlying alcoholic gastritis. No events overnight. Critical Care Time (minutes): 0 Physical Exam Vital Signs: Vital Signs: Last Vital Signs Temp 99.1 F 04/08/21 08:00 Pulse 91 04/08/21 09:00 Resp 20 04/08/21 09:00 BP 115/85 04/08/21 09:00 Pulse Ox 97 04/08/21 09:00 Body Mass Index 26.6 Const: General: no acute distress, alert and awake Eyes: Sclerae: sclerae normal EOM: EOMs intact bilaterally Neck: Neck: Yes no lymphadenopathy, Yes trachea midline and Yes supple Resp: Effort & Inspection: normal respiratory effort and no respiratory distress Auscultation: clear to auscultation bilaterally Cardio: Rate: regular rate Rhythm: regular rhythm Heart sounds: no gallops, no murmurs and no rubs GI: Palpation (GI): Soft to palpation and Other GI palpation findings present ( Nontender) Auscultation: normal bowel sounds Extrem: General: Yes no pedal edema, No clubbing and No cyanosis Objective Data Labs CBC & Chem 7: 04/08/21 05:15 04/08/21 05:15 Labs: Laboratory Results - last 24 hr 04/07/21 04/08/21 04/08/21 05:56 05:15 05:15 WBC Cancelled 10.8 RBC Cancelled 4.07 L Hgb Cancelled 11.5 L Hct Cancelled 34.8 L MCV Cancelled 85.5 MCH Cancelled 28.3 MCHC Cancelled 33.0 RDW Cancelled 20.1 H Plt Count Cancelled 130 L MPV Cancelled 9.8 Immature Gran % (Auto) Cancelled 0.5 H Neut % (Auto) Cancelled 86.2 H Lymph % (Auto) Cancelled 8.5 L Andrews % (Auto) Cancelled 4.3 Eos % (Auto) Cancelled 0.2 Baso % (Auto) Cancelled 0.3 Lymph # (Auto) Cancelled 0.9 L Andrews # (Auto) Cancelled 0.5 Eos # (Auto) Cancelled 0.0 Baso # (Auto) Cancelled 0.0 Abs Immat Gran (auto) Cancelled 0.05 H Absolute Neuts (auto) Cancelled 9.3 H Absolute Nucleated RBC Cancelled 0.000 Nucleated RBC % (auto) Cancelled 0.0 VBG pH VBG pCO2 VBG pO2 VBG HCO3 VBG O2 Saturation VBG Base Excess Sodium 137 Potassium 3.6 Chloride 103 Carbon Dioxide 26 Anion Gap 12 BUN 2 L Creatinine 0.68 Estim Creat Clear Calc 127.7 Estimated GFR > 60 Random Glucose 110 Calcium 8.0 L D Phosphorus 2.2 L Magnesium 1.9 Total Bilirubin 0.9 AST 20 ALT 10 Alkaline Phosphatase 80 D Total Protein 5.4 L Albumin 3.4 L 04/08/21 05:19 WBC RBC Hgb Hct MCV MCH MCHC RDW Plt Count MPV Immature Gran % (Auto) Neut % (Auto) Lymph % (Auto) Andrews % (Auto) Eos % (Auto) Baso % (Auto) Lymph # (Auto) Andrews # (Auto) Eos # (Auto) Baso # (Auto) Abs Immat Gran (auto) Absolute Neuts (auto) Absolute Nucleated RBC Nucleated RBC % (auto) VBG pH 7.59 H VBG pCO2 25 VBG pO2 77 VBG HCO3 24 VBG O2 Saturation 96.0 VBG Base Excess 3.8 Sodium Potassium Chloride Carbon Dioxide Anion Gap BUN Creatinine Estim Creat Clear Calc Estimated GFR Random Glucose Calcium Phosphorus Magnesium Total Bilirubin AST ALT Alkaline Phosphatase Total Protein Albumin Quality Stroke Does the patient have a stroke diagnosis?: No VTE Prior VTE?: No VTE Risk Level:: Medical - moderate - high VTE Device Contraindication: N/A - Device Ordered VTE Drug Contraindication: Treatment Not Tolerated Progress Note: A&P Assessment and plan (1) Alcohol withdrawal syndrome: Status: Acute (2) Acute alcoholic gastritis: Status: Acute Assessment and Plan: Assessment: 40-year-old gentleman with underlying history of alcohol abuse admitted with history of hematemesis and alcohol withdrawal syndrome Plan: Neuro: Delirium tremens, titrated of Precedex drip, continues on phenobarbital protocol. Cardiac: No acute issues. Pulmonary: No acute issues. Renal: No acute issues. Endo: No acute issues. GI: History of hematemesis and prior alcoholic gastritis. Gastroenterology service care appreciated. Patient is status post upper endoscopy on 04/07/2021 showing no active bleed, but in underlying alcoholic gastritis. Continue with PPI and Carafate. ID: No acute issues Heme/Onc: No acute issues. Psych: No acute issues. Miscellaneous: No acute issues. Prophylaxis: Pneumatic compression Diet: Full liquid
[2021-04-08] MEDS: Lidocaine HCl Viscous 2 % 15 ML SOLUTION MUCOUS MEM (10:25)
[2021-04-08] MEDS: Metoclopramide HCl 10 MG/2 ML VIAL IVPUSH (10:25)
[2021-04-08] MEDS: fentaNYL citrate/PF 100 MCG/2 ML VIAL 50 MCG IVPUSH (11:05)
--- NOTE | 2021-04-08 12:14 | HO.POSTANES ---
Post Anesthesia Evaluation Post Anesthesia Evaluation Vital Signs: Vital Signs Temp Pulse Resp BP Pulse Ox 04/08/21 11:05 18 04/08/21 10:00 98 12 129/84 93 04/08/21 09:00 91 20 115/85 97 04/08/21 08:00 99.1 F 95 15 119/88 95 04/08/21 07:00 105 H 20 103/67 95 04/08/21 06:00 98 19 101/74 95 04/08/21 05:00 82 14 125/77 93 04/08/21 04:00 80 16 113/78 97 04/08/21 03:00 76 14 123/81 99 04/08/21 02:00 84 16 115/74 96 04/08/21 01:00 88 21 H 123/81 95 Anesthesia: Monitored Mental Status: Awake Pain Control: Satisfactory Nausea/Vomiting: None Hydration: Adequate Anesthesia-Related Issues: No Anes. Related Issues
[2021-04-08] MEDS: HYDROmorphone HCl 0.5 MG/0.5 ML SYRINGE IVPUSH ×2 (18:46→23:17)
[2021-04-08] MEDS: traZODone HCL 25 MG HALFTAB PO (23:16)
[2021-04-09] MEDS: Acetaminophen 325 MG TABLET 650 MG PO (03:00)
[2021-04-09 03:10] VITALS: BP 128/78; PULSE 70; RESP 18; TEMP 36.8; O2SAT 95
[2021-04-09] MEDS: HYDROmorphone HCl 0.5 MG/0.5 ML SYRINGE IVPUSH (05:50)
[2021-04-09] MEDS: Sucralfate Oral Suspension 1 GM/10 ML ORAL.SUSP PO ×4 (05:50→20:08)
[2021-04-09 06:00] VITALS: BMI 26.0
[2021-04-09 06:14] LABS: MANUAL DIFF FLAG NO
[2021-04-09 06:20] LABS: Basophils Percent Auto 0.7 % (0-2); Eosinophils Absolute Auto 0.1 X10*3/uL (0.0-0.4); Eosinophils Percent Auto 2.1 % (0-4); Hematocrit 34.9 % (42-52); Hemoglobin 11.5 g/dl (14.0-18.0); Imm Gran Abs Auto 0.02 X10*3/uL (0.00-0.03); Imm Gran Pct Auto 0.5 % (0.0-0.4); Lymphocytes Absolute Auto 1.2 X10*3/uL (1.2-4.9); Lymphocytes Percent Auto 27.5 % (20-40); Mean Corpuscular Hemoglobin 28.5 pg (27.0-33.0); Mean Corpuscular Volume 86.4 fL (80-98); Mean Platelet Volume 10.3 fL (9.4-12.4); Monocytes Absolute Auto 0.3 X10*3/uL (0.1-1.2); Monocytes Percent Auto 7.2 % (2-11); Neutrophils Absolute Auto 2.7 X10*3/uL (2.0-8.3); Platelet Count 123 X10*3/uL (160-400); Red Blood Count 4.04 X10*6/uL (4.60-5.80); White Blood Count 4.3 X10*3/uL (4.8-10.8)
[2021-04-09 07:26] VITALS: BP 130/78; PULSE 75; RESP 18; TEMP 37.6; O2SAT 95
[2021-04-09] MEDS: Thiamine HCL 100 MG TABLET 300 MG PO (07:58)
[2021-04-09] MEDS: Folic Acid 1 MG TABLET PO (07:59)
[2021-04-09] MEDS: PHENobarbitaL 15 MG TABLET PO ×2 (07:59→20:08)
[2021-04-09] MEDS: 0.9 % Sodium Chloride Flush 3 ML SYRINGE IVFLUSH ×3 (07:59→20:11)
[2021-04-09] MEDS: Pantoprazole Sodium 40 MG/10 ML VIAL IVPUSH ×2 (07:59→17:10)
[2021-04-09 08:45] LABS: Alanine Aminotransferase 8 U/L (0-40); Albumin Level 3.6 g/dL (3.5-5.0); Alkaline Phosphatase 69 U/L (39-117); Anion Gap 14 (12-20); Aspartate Amino Transferase 19 U/L (5-37); Bilirubin Total 0.3 mg/dL (0.0-1.0); Blood Urea Nitrogen 4 mg/dL (9-16); Calcium 8.2 mg/dL (8.4-10.2); Carbon Dioxide 24 mmol/L (22-29); Chloride 104 mmol/L (96-108); Creatinine Clr Calc Pharmacy 125.8; Estimated Glomerular Filt Rate > 60; Glucose Random 91 mg/dL (60-115); Potassium 3.9 mmol/L (3.3-5.1); Sodium 138 mmol/L (135-145); Total Protein 5.7 g/dL (6.5-8.0)
[2021-04-09] MEDS: Lidocaine HCl Viscous 2 % 15 ML SOLUTION MUCOUS MEM ×2 (10:35→20:42)
[2021-04-09 12:00] VITALS: BP 132/85; PULSE 83; RESP 17; TEMP 37.1; O2SAT 95
--- NOTE | 2021-04-09 13:00 | MHC.RECOVRN ---
Met with pt in [facility] after consult placed to CARE Team for alcohol use. Pt had presented to the ED on 04/06, ambulatory, due to alcohol withdrawal. Pt had been in ICU and transferred to [facility]. Pt reports drinking vodka all day and all night. Pt unable to quantify how much alcohol daily. Pt reports waking during the night to drink and constantly drinking during the day. Pt denies other substances. Pt reports alcohol use since age 11 with longest period of recovery being 18 months. During those 18 months, pt reports work and staying busy as supports for recovery. 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 Pt was furloughed during COVID and returned to drinking. Pt had been in [place] for 8 years and would like to return to the city. Pt currently living with father in [place]. Family hx of JONO unknown to pt. Pt reports AUD tx in the past, including ATS, IOP, and AA. Last ATS admission approx 1 year ago at [facility]. Pt has received Vivitrol a few years ago and states It didn't do anything. Recovery supports were discussed with pt, including IOP, assistant men's lacrosse coach, medications for AUD, counseling, and residential tx. Pt provided with written material/resources as well. Pt declines referrals at this time. Pt provided with t/w card if questions or concerns arise. Discussed with pts RN as well as Zonia Dominguez APRN.
--- NOTE | 2021-04-09 13:20 | HO.PM.IMPN ---
Subjective Subjective Date of Service: 04/09/21 Interval History: Being followed for alcohol withdrawal and coffee-ground emesis, patient complaining of severe pain in mid chest, worse with swallowing unable to drink or eat, also complaining of difficulty falling asleep due to pain, denies recurrent hematemesis or melena. Review of Systems General no headache, no dizziness, no fever chills. CVS no chest pain, no palpitation. Respiratory no cough, no sob, no respiratory distress. Gastrointestinal no nausea, no vomiting, mid chest pain with food Review of Systems: Yes all other systems are reviewed and are negative Physical Exam Vital Signs: Vital Signs: Last Vital Signs Temp 98.7 F 04/09/21 12:00 Pulse 83 04/09/21 12:00 Resp 17 04/09/21 12:00 BP 132/85 04/09/21 12:00 Pulse Ox 95 04/09/21 12:00 Body Mass Index 26.0 General alert oriented x3, appears in pain/anxious appearing. Neck supple no JVD. CVS regular rate rhythm, Respiratory lungs clear to auscultation, no respiratory distress, no wheeze, no rhonchi. Gastrointestinal abdomen soft, bowel sounds audible, no guarding , no rigidity. Extremities no edema. Neuro nonfocal,speech cait, no tremors Skin no rash Psych appears anxious Objective Data Active Medications Acetaminophen (Acetaminophen 325 Mg Tablet) 650 mg PO Q6H PRN PRN Reason: Pain, Mild (Pain Scale 1-3) Last Admin: 04/09/21 03:00 Dose: 650 mg Documented by: ANTOIC Acetaminophen (Acetaminophen 325 Mg Tablet) 650 mg PO Q6H PRN PRN Reason: Pain, Mild (Pain Scale 1-3) Al Hydroxide/Mg Hydroxide (Magnesium Hydrox/Alum Hydrox 30 Ml Oral.Susp) 30 ml PO Q4H PRN PRN Reason: Dyspepsia Benzocaine (Throat Lozenge, Medicated Lozenge) 1 lozenge MUCOUS MEM Q2H PRN PRN Reason: Sore Throat Last Admin: 04/08/21 02:53 Dose: 1 lozenge Documented by: TOCASHA Folic Acid (Folic Acid 1 Mg Tablet) 1 mg PO DAILY FLORENTINO Last Admin: 04/09/21 07:59 Dose: 1 mg Documented by: CHARTRobel Lidocaine HCl (Lidocaine Hcl Viscous 2 % 15 Ml Solution) 15 ml MUCOUS MEM Q3H PRN PRN Reason: throat pain Last Admin: 04/09/21 10:35 Dose: 15 ml Documented by: GURDEEP Melatonin (Melatonin 3 Mg Tablet) 6 mg PO BEDTIME PRN PRN Reason: Insomnia Metoclopramide HCl (Metoclopramide Hcl 10 Mg/2 Ml Vial) 10 mg IVPUSH Q6H PRN PRN Reason: Nausea Last Admin: 04/08/21 10:25 Dose: 10 mg Documented by: CHELO Morphine Sulfate (Morphine Sulfate Oral Ana 10 Mg/5 Ml Solution) 10 mg PO Q6H PRN PRN Reason: Pain, Severe (Pain Scale 7-10) Pantoprazole Sodium (Pantoprazole Sodium 40 Mg/10 Ml Vial) 40 mg IVPUSH BID@0630,1630 [facility] Pharmacy Consult (Consult Rx Perform Med Rec) 1 each MISCELLANE ONCE PRN PRN Reason: Consult order Phenobarbital (Phenobarbital 15 Mg Tablet) 15 mg PO BID [facility]; Protocol Stop: 04/10/21 21:01 Last Admin: 04/09/21 07:59 Dose: 15 mg Documented by: GURDEEP Phenobarbital (Phenobarbital 15 Mg Tablet) 15 mg PO DAILY [facility]; Protocol Stop: 04/12/21 09:01 Senna (Sennosides 8.6 Mg Tablet) 17.2 mg PO BEDTIME PRN PRN Reason: Constipation Sodium Chloride (0.9 % Sodium Chloride Flush 3 Ml Syringe) 3 ml IVFLUSH QSHIFT [facility] Last Admin: 04/09/21 07:59 Dose: 3 ml Documented by: GURDEEP Sucralfate (Sucralfate Oral Suspension 1 Gm/10 Ml Oral.Susp) 1 gm PO QIDACHS [facility] Last Admin: 04/09/21 11:51 Dose: 1 gm Documented by: GURDEEP Thiamine HCl (Thiamine Hcl 100 Mg Tablet) 300 mg PO DAILY [facility] Stop: 04/10/21 09:01 Last Admin: 04/09/21 07:58 Dose: 300 mg Documented by: GURDEEP Labs CBC & Chem 7: 04/09/21 06:09 04/09/21 07:23 Labs: Laboratory Results - last 24 hr 04/09/21 04/09/21 06:09 07:23 MCV 86.4 MCH 28.5 MCHC 33.0 RDW 20.0 H Plt Count 123 L MPV 10.3 Immature Gran % (Auto) 0.5 H Neut % (Auto) 62.0 Lymph % (Auto) 27.5 [place] % (Auto) 7.2 Eos % (Auto) 2.1 Baso % (Auto) 0.7 Lymph # (Auto) 1.2 [place] # (Auto) 0.3 Eos # (Auto) 0.1 Baso # (Auto) 0.0 Abs Immat Gran (auto) 0.02 Absolute Neuts (auto) 2.7 Absolute Nucleated RBC 0.000 Nucleated RBC % (auto) 0.0 Anion Gap 14 Estim Creat Clear Calc 125.8 Estimated GFR > 60 Random Glucose 91 Calcium 8.2 L Total Bilirubin 0.3 AST 19 ALT 8 Alkaline Phosphatase 69 Total Protein 5.7 L Albumin 3.6 Assessment and Plan (1) Upper GI bleed: Status: Acute (2) Alcohol withdrawal syndrome: Status: Acute (3) Acute alcoholic gastritis: Status: Acute (4) Hypomagnesemia: Status: Acute (5) Acidosis, lactic: Status: Acute (6) High anion gap metabolic acidosis: Status: Acute Assessment and Plan: 40-year-old gentleman with underlying history of alcohol abuse admitted with history of hematemesis and alcohol withdrawal syndrome Alcohol withdrawal syndrome/delirium tremens Patient treated with Precedex drip and ICU, subsequently transferred down to [facility] on 04/08 continues on phenobarbital protocol, will obtain care team consult strongly advised to abstain from alcohol since contributing to severe esophagitis and gastritis. Hematemesis Underwent upper endoscopy on 04/07/2021 that showed erosive esophagitis, gastritis and duodenitis ,no active bleed noted, hematocrit remains stable Patient continued to have severe mid chest pain worse with eating unable to eat, therefore will continue IV Protonix and Carafate q.i.d. Will DC IV Dilaudid and place patient on oral morphine, will use as needed viscous xylocaine and Maalox Will advance diet to regular and add clear Ensure. Hypophosphatemia continue IV replacement and follow phosphorous level if normalized then DC IV phosphorus Resolved issues Anion gap metabolic acidosis likely due to alcohol abuse and dehydration resolved Hypo magnesemia related to alcohol abuse and poor nutrition repleted and improved Disposition home Prophylaxis:? Pneumatic compression Quality Stroke Does the patient have a stroke diagnosis?: No VTE Prior VTE?: No VTE Risk Level:: Medical - moderate - high VTE Device Contraindication: N/A - Device Ordered VTE Drug Contraindication: Treatment Not Tolerated
[2021-04-09 13:46] LABS: Phosphorus 2.9 mg/dL (2.7-4.5)
[2021-04-09] MEDS: Morphine Sulfate Oral Sol 10 MG/5 ML SOLUTION PO ×2 (13:57→20:08)
[2021-04-09 14:53] VITALS: BP 156/83; PULSE 86; RESP 20; TEMP 36.5; O2SAT 98
[2021-04-09 18:51] VITALS: BP 134/68; PULSE 100; RESP 20; TEMP 36.3; O2SAT 96
[2021-04-09] MEDS: traZODone HCL 25 MG HALFTAB PO (20:38)
[2021-04-09] MEDS: Metoclopramide HCl 10 MG/2 ML VIAL IVPUSH (20:44)
[2021-04-09] MEDS: Melatonin 3 MG TABLET 6 MG PO (20:56)
[2021-04-09 23:54] VITALS: BP 112/81; PULSE 74; RESP 18; TEMP 36.9; O2SAT 96
[2021-04-10] MEDS: Mag&Al/Sim/Diphenhyd/Lidocaine 10 ML ORAL.SUSP PO ×2 (00:10→20:20)
[2021-04-10 04:00] VITALS: BP 144/79; PULSE 72; RESP 18; TEMP 36.1; O2SAT 97
[2021-04-10] MEDS: Pantoprazole Sodium 40 MG/10 ML VIAL IVPUSH ×2 (05:04→16:02)
[2021-04-10] MEDS: Morphine Sulfate Oral Sol 10 MG/5 ML SOLUTION PO ×2 (05:04→17:43)
[2021-04-10 07:09] VITALS: BP 131/94; PULSE 78; RESP 16; TEMP 36.7; O2SAT 97
--- NOTE | 2021-04-10 08:36 | MHC.CM.PN ---
dc plan is home no svcs p care team consult. father to transport at dc. cm to cont. to follow.
[2021-04-10] MEDS: Thiamine HCL 100 MG TABLET 300 MG PO (08:46)
[2021-04-10] MEDS: Sucralfate Oral Suspension 1 GM/10 ML ORAL.SUSP PO ×4 (08:46→20:20)
[2021-04-10] MEDS: PHENobarbitaL 15 MG TABLET PO ×2 (08:46→20:20)
[2021-04-10] MEDS: Folic Acid 1 MG TABLET PO (08:46)
[2021-04-10] MEDS: Throat Lozenge, Medicated LOZENGE 1 LOZENGE MUCOUS MEM (08:46)
[2021-04-10] MEDS: 0.9 % Sodium Chloride Flush 3 ML SYRINGE IVFLUSH ×3 (08:47→20:22)
[2021-04-10 11:14] VITALS: BP 124/81; PULSE 92; RESP 16; TEMP 37.1; O2SAT 97
--- NOTE | 2021-04-10 11:29 | P.PNIM_ITS ---
Subjective Subjective Date of Service: 04/11/21 Interval History: Being followed for alcohol withdrawal and coffee-ground emesis, patient complaining of mid chest pain, worse with swallowing unable to drink or eat, taking few bites of food, also complaining of difficulty falling asleep due to pain, denies recurrent hematemesis or melena. Review of Systems General no headache, no dizziness, no fever chills.? CVS no chest pain, no palpitation.? Respiratory no cough, no sob, no respiratory distress.? Gastrointestinal no nausea, no vomiting, mid chest pain worse with eating Review of Systems: Yes all other systems are reviewed and are negative Physical Exam Vital Signs: Vital Signs: Last Vital Signs Temp 98.8 F 04/10/21 11:14 Pulse 92 04/10/21 11:14 Resp 16 04/10/21 11:14 BP 124/81 04/10/21 11:14 Pulse Ox 97 04/10/21 11:14 Body Mass Index 26.0 General alert oriented x3, does not appear to be in distress , resting comfortably Neck supple, no JVD. CVS? regular rate rhythm, Respiratory lungs clear to auscultation, no respiratory distress, no wheeze, no rhonchi. Gastrointestinal abdomen soft,mild mid abd discomfort, bowel sounds audible, no guarding , no rigidity. Extremities no edema. Neuro nonfocal,speech clear, no tremors Skin no rash Psych flat affect Objective Data Active Medications Acetaminophen (Acetaminophen 325 Mg Tablet) 650 mg PO Q6H PRN PRN Reason: Pain, Mild (Pain Scale 1-3) Last Admin: 04/09/21 03:00 Dose: 650 mg Documented by: ANTNEO Acetaminophen (Acetaminophen 325 Mg Tablet) 650 mg PO Q6H PRN PRN Reason: Pain, Mild (Pain Scale 1-3) Al Hydroxide/Mg Hydroxide (Magnesium Hydrox/Alum Hydrox 30 Ml Oral.Susp) 30 ml PO Q4H PRN PRN Reason: Dyspepsia Benzocaine (Throat Lozenge, Medicated Lozenge) 1 lozenge MUCOUS MEM Q2H PRN PRN Reason: Sore Throat Last Admin: 04/10/21 08:46 Dose: 1 lozenge Documented by: CHELO Folic Acid (Folic Acid 1 Mg Tablet) 1 mg PO DAILY FLORENTINO Last Admin: 04/10/21 08:46 Dose: 1 mg Documented by: CHELO Hydromorphone HCl (Hydromorphone Hcl 0.5 Mg/0.5 Ml Syringe) 0.5 mg IVPUSH Q4H PRN; Protocol PRN Reason: Pain, Severe (Pain Scale 7-10) Lidocaine HCl (Lidocaine Hcl Viscous 2 % 15 Ml Solution) 15 ml MUCOUS MEM Q3H PRN PRN Reason: throat pain Last Admin: 04/09/21 20:42 Dose: 15 ml Documented by: STACIA Lidocaine/Diphenhydr/Alum/Mg/Simeth (Mag&Al/Sim/Diphenhyd/Lidocaine 10 Ml Oral.Susp) 10 ml PO Q6H PRN; Protocol PRN Reason: Pain, Moderate (Pain Scale 4-6 Last Admin: 04/10/21 00:10 Dose: 10 ml Documented by: STACIA Melatonin (Melatonin 3 Mg Tablet) 6 mg PO BEDTIME PRN PRN Reason: Insomnia Last Admin: 04/09/21 20:56 Dose: 6 mg Documented by: STACIA Metoclopramide HCl (Metoclopramide Hcl 10 Mg/2 Ml Vial) 10 mg IVPUSH Q6H PRN PRN Reason: Nausea Last Admin: 04/09/21 20:44 Dose: 10 mg Documented by: STACIA Morphine Sulfate (Morphine Sulfate Oral Ana 10 Mg/5 Ml Solution) 10 mg PO Q6H PRN PRN Reason: Pain, Severe (Pain Scale 7-10) Last Admin: 04/10/21 05:04 Dose: 10 mg Documented by: STACIA Pantoprazole Sodium (Pantoprazole Sodium 40 Mg/10 Ml Vial) 40 mg IVPUSH BID@0630,1630 [facility] Last Admin: 04/10/21 05:04 Dose: 40 mg Documented by: STACIA Pharmacy Consult (Consult Rx Perform Med Rec) 1 each MISCELLANE ONCE PRN PRN Reason: Consult order Phenobarbital (Phenobarbital 15 Mg Tablet) 15 mg PO BID [facility]; Protocol Stop: 04/10/21 21:01 Last Admin: 04/10/21 08:46 Dose: 15 mg Documented by: CHELO Phenobarbital (Phenobarbital 15 Mg Tablet) 15 mg PO DAILY [facility]; Protocol Stop: 04/12/21 09:01 Senna (Sennosides 8.6 Mg Tablet) 17.2 mg PO BEDTIME PRN PRN Reason: Constipation Sodium Chloride (0.9 % Sodium Chloride Flush 3 Ml Syringe) 3 ml IVFLUSH QSHIFT [facility] Last Admin: 04/10/21 08:47 Dose: 3 ml Documented by: CHELO Sucralfate (Sucralfate Oral Suspension 1 Gm/10 Ml Oral.Susp) 1 gm PO QIDACHS [facility] Last Admin: 04/10/21 08:46 Dose: 1 gm Documented by: CHELO Trazodone HCl (Trazodone Hcl 25 Mg Halftab) 25 mg PO BEDTIME PRN PRN Reason: Insomnia Last Admin: 04/09/21 20:38 Dose: 25 mg Documented by: STACIA Labs CBC & Chem 7: 04/11/21 06:28 04/11/21 06:28 Labs: Laboratory Results - last 24 hr 04/09/21 07:23 Phosphorus 2.9 Assessment and Plan (1) Upper GI bleed: Status: Acute (2) Epigastric pain: Status: Acute (3) Alcohol withdrawal syndrome: Status: Acute (4) Acute alcoholic gastritis: Status: Acute (5) Acidosis, lactic: Status: Acute (6) Hypomagnesemia: Status: Acute Assessment and Plan: 40-year-old gentleman with underlying history of alcohol abuse admitted with history of hematemesis and alcohol withdrawal syndrome Alcohol withdrawal syndrome/delirium tremens No tremors, no withdrawal symptoms noted s/p Precedex drip in ICU, subsequently transferred down to [facility] on 04/08 continues on phenobarbital protocol Seen by care team, patient declined referrals at this time strongly advised to abstain from alcohol since contributing to severe esophagitis and gastritis. Epigastric pain Patient with persistent pain mid chest with difficulty eating both solids and liquids likely due to severe esophagitis and gastritis Inform patient report of endoscopies and explained the cause of pain Will continue IV Protonix , Carafate qid,Maalox ,viscous xylocaine and morphine liquid, patient feels nothing is helping even IV Dilaudid is not helping , question underlying anxiety/depression Will obtain psych eval, nutrition consult Continue Ensure Clear t.i.d. Case discussed with Dr. Figueredo from Gastroenterology she agrees with above treatment plan. Insomnia On melatonin/trazodone 25 mg will increase to 50 mg at bedtime as needed Encourage out of bed to chair and ambulation during daytime. Hematemesis Underwent upper endoscopy on 04/07/2021 that showed erosive esophagitis, gastritis and duodenitis ,no active bleed noted, hematocrit remains stable Patient continued to have severe mid chest pain worse with eating unable to eat, therefore will continue IV Protonix and Carafate q.i.d. Resolved issues Hypophosphatemia resolved status post IV replacement Anion gap metabolic acidosis likely due to alcohol abuse and dehydration resolved Hypomagnesemia related to alcohol abuse and poor nutrition repleted and improved Disposition home Prophylaxis:? Pneumatic compression Quality Stroke Does the patient have a stroke diagnosis?: No VTE Prior VTE?: No VTE Risk Level:: Medical - moderate - high VTE Device Contraindication: N/A - Device Ordered VTE Drug Contraindication: Treatment Not Tolerated
--- NOTE | 2021-04-10 12:46 | PC.NURSE ---
Patient expressing frustration with care and medication regimen, stating that he has throat pain and we are not doing shit for him. This RN re-educating patient on medications available such as carafate, tylenol, Lidociane viscous, magic mouthwash, maalox, and cepacol along with IV protonix (see MAR). Patient verbalizes understanding of medications, stating he has taken them before and they don't work. Patient defensive and resistive to care/educations/suggestions. Only agreeable to Carafate when patient feels like it even though it does not work. Patient requested tylenol after original assessment and because patient had to wait due to this RN caring for other patients, he refused the tylenol when it was brought to him stating I'll have my dad bring it in. In addition, patient states he has not eaten much in several days, defensive even when medication is offered prior to attempting to eat to help with pain, again not willing to participate. MD made aware. Calorie count ordered. Care team consult this morning. Patient aware of community resources alcohol abuse but patient unwilling to state willingness to use resources. MD aware. Psych consult placed to eval for anxiety and depression. Patient expressing frustration with high fall risk precautions due to being on pheno/etoh withdrawl protocol. On low dose po pheno, steady with ambulation. Refusing high fall risk even when educated on safety. Camera and alarms removed, foot wear in place. MD and Nsg cage supervisor aware.
--- NOTE | 2021-04-10 13:24 | MHC.RECOVRN ---
Met with pt again this morning to f/u regarding recovery support and resources. Pt c/o GI pain and inability to eat, pt states I want to fix this first. Pt declines to discuss recovery further at this time. T/w available if needed.
--- NOTE | 2021-04-10 13:36 | PM.PSYCN ---
History of Present Illness Date of Service: 04/10/21 Chief Complaint: Alcohol withdrawal Reason for Consult: ETOH withdrawl, insomnia, refusal to eat. Requesting physician: Armando Parrish Discussed with referring provider: Yes Sources of Information: patient interviewed and chart reviewed Additional Sources of Information: Patient's RN HPI Narrative: Patient is a 40 year-old male with PMH of alcohol use disorder, alcoholic gastritis, recent history of upper GI bleed at [facility], s/p post endoscopy which reportedly showed gastritis and esophagitis. He presented to [facility] with chief complaint of NV. Has since been admitted and has been medically managed for alcohol withdrawals, gastritis, esophagitis. Psychiatry Service asked to meet with patient regarding insomnia and refusal to eat. Asked to assess for underlying depressive or anxiety disorder. Upon entering room, patient was sitting up in bed watching television. He was alert and oriented x4, appropriately groomed. He was fully conversant and cooperative during interview. He reports that he has a history of anxiety and depression. He reports he had been hospitalized within the past 2 years in [place] for this, as he had presented for detox and had also told the ED that he was depressed. He reports he has been tried on many different psychiatric medications. He reports that his most recent medication while inpatient was Celexa and gabapentin. He stated that this Celexa did not fully work, although he did find the gabapentin helpful at the time. He states that he believes his anxiety and depression, as well as alcohol intake, have increased due to pandemic, and not working. He states that he hopes to find a job soon. He denies any type of suicidal ideation, either current or in history. He reports that after his most recent hospitalization in [place], he promptly began drinking upon returning home. He states that he currently consumes 1 L of vodka daily. He states that he began drinking at age 11, and has had periods of sobriety throughout his adulthood. When asked about medications for alcohol use disorder, he stated ?I have tried them all, they do not work. I am not interested in them . He is however willing to consider an antidepressant medication. He also reports that historically he has taken 75 mg of trazodone at night, and he is only receiving 25 here. He states he has been unable to sleep, and would appreciate it if dose could be increased. He reports that he has been irritable while here, because he has throat pain. He states that this is causing him to be hesitant to eat due to the pain. He reports though that he is very hungry, and wishes to eat. We discussed current medication regimen, he was agreeable to allowing RN to administer appropriate medications this afternoon, after which he will try to eat. Past Psychiatric History: [facility] in [place], 1-2 years ago. Multiple PHP's and IOP's. Multiple detox and treatment programs. Medical Evaluation Reviewed: Yes Personal & Social History: Patient was laid off from job in [place] during pandemic, has since moved to [place], living with father. Review of Systems Review of Systems Patient does not appear to be in any type of alcohol withdrawals at this time. Does complain of throat pain/irritation. Constitutional: Reports difficulty sleeping and Reports fatigue Eyes: Reports as per HPI Reports Normal hearing present, Reports odynophagia and Reports other (throat pain) Cardiovascular: Reports as per HPI and Reports no additional cardiovascular complaints Respiratory: Reports as per HPI and Reports no additional respiratory complaints Gastrointestinal: Reports as per HPI, Reports coffee ground emesis (has had while inpatient) and Reports odynophagia Genitourinary: Reports no additional male genitourinary complaints and Reports as per HPI Musculoskeletal: Reports no additional musculoskeletal complaints and Reports as per HPI Skin/Breast: Reports system reviewed and no additional complaints, except as docu and Reports as per HPI Reports as per HPI and Reports Normal hearing present Psychiatric: Reports anxiety and Reports depression Endocrine: Reports no additional endocrine complaints, Reports as per HPI and Reports fatigue Hematologic/Lymphatic: Reports no additional hematologic/lymphatic complaints and Reports as per HPI Allergic/Immunologic: Reports no additional allergic/immunologic complaints and Reports as per HPI [facility] Medical History (Updated 04/10/21 @ 14:25 by Liudmila Sandoval) Alcohol withdrawal seizure Alcoholism Esophagitis Gastritis Surgical History H/O esophagogastroduodenoscopy H/O knee surgery Family History: No family history of substance use or mental illness reported. Social History: Single, unemployed. Currently staying with father. Substance History: Began drinking alcohol at age 11, extensive use of alcohol since that time, with periodically periods of abstinence/sobriety. Trauma History: No trauma history reported. Diagnostics Vital Signs (24Hr): Vital Signs - 24 hr 04/09/21 14:53 04/09/21 18:51 04/09/21 23:54 Temperature 97.7 F 97.4 F 98.5 F Pulse Rate 86 100 74 Respiratory Rate 20 20 18 Blood Pressure 156/83 H 134/68 112/81 Pulse Oximetry 98 96 96 04/10/21 04:00 04/10/21 07:09 04/10/21 11:14 Temperature 96.9 F 98.1 F 98.8 F Pulse Rate 72 78 92 Respiratory Rate 18 16 16 Blood Pressure 144/79 H 131/94 H 124/81 Pulse Oximetry 97 97 97 Body Mass Index 26.0 Labs Results: 04/09/21 06:09 04/09/21 07:23 Labs: Laboratory Results - last 48 hr 04/09/21 04/09/21 06:09 07:23 WBC 4.3 L RBC 4.04 L Hgb 11.5 L Hct 34.9 L MCV 86.4 MCH 28.5 MCHC 33.0 RDW 20.0 H Plt Count 123 L MPV 10.3 Immature Gran % (Auto) 0.5 H Neut % (Auto) 62.0 Lymph % (Auto) 27.5 [place] % (Auto) 7.2 Eos % (Auto) 2.1 Baso % (Auto) 0.7 Lymph # (Auto) 1.2 [place] # (Auto) 0.3 Eos # (Auto) 0.1 Baso # (Auto) 0.0 Abs Immat Gran (auto) 0.02 Absolute Neuts (auto) 2.7 Absolute Nucleated RBC 0.000 Nucleated RBC % (auto) 0.0 Sodium 138 Potassium 3.9 Chloride 104 Carbon Dioxide 24 Anion Gap 14 BUN 4 L D Creatinine 0.69 Estim Creat Clear Calc 125.8 Estimated GFR > 60 Random Glucose 91 Calcium 8.2 L Phosphorus 2.9 Total Bilirubin 0.3 AST 19 ALT 8 Alkaline Phosphatase 69 Total Protein 5.7 L Albumin 3.6 Mental Status Exam Mental Status Exam Narrative: Well-developed, well-nourished male, in NAD. Appropriately groomed, good hygiene. Behavior was guarded at times but cooperative. Eye contact good. No psychomotor agitation or retardation noted. Speech was clear, normal rate, rhythm, volume, spontaneous. Thought process logical, linear. Thought content showed no signs of psychosis, was focused on finding a therapist. Describes mood as depressed , affect depressed, anxious, labile at times, slightly agitated at times. No evidence of any type of hallucinations reported or observed. Patient denies any thoughts of harm to self or others, states he has never been suicidal. Insight and judgment fair. Memory and cognition alert, oriented x4, grossly intact. Medications Medications Current Medications Acetaminophen (Acetaminophen 325 Mg Tablet) 650 mg PO Q6H PRN PRN Reason: Pain, Mild (Pain Scale 1-3) Last Admin: 04/09/21 03:00 Dose: 650 mg Documented by: Acetaminophen (Acetaminophen 325 Mg Tablet) 650 mg PO Q6H PRN PRN Reason: Pain, Mild (Pain Scale 1-3) Al Hydroxide/Mg Hydroxide (Magnesium Hydrox/Alum Hydrox 30 Ml Oral.Susp) 30 ml PO Q4H PRN PRN Reason: Dyspepsia Benzocaine (Throat Lozenge, Medicated Lozenge) 1 lozenge MUCOUS MEM Q2H PRN PRN Reason: Sore Throat Last Admin: 04/10/21 08:46 Dose: 1 lozenge Documented by: Escitalopram Oxalate (Escitalopram Oxalate 10 Mg Tablet) 10 mg PO DAILY FLORENTINO Folic Acid (Folic Acid 1 Mg Tablet) 1 mg PO DAILY [facility] Last Admin: 04/10/21 08:46 Dose: 1 mg Documented by: Lidocaine HCl (Lidocaine Hcl Viscous 2 % 15 Ml Solution) 15 ml MUCOUS MEM Q3H PRN PRN Reason: throat pain Last Admin: 04/09/21 20:42 Dose: 15 ml Documented by: Lidocaine/Diphenhydr/Alum/Mg/Simeth (Mag&Al/Sim/Diphenhyd/Lidocaine 10 Ml Oral.Susp) 10 ml PO Q6H PRN; Protocol PRN Reason: Pain, Moderate (Pain Scale 4-6 Last Admin: 04/10/21 00:10 Dose: 10 ml Documented by: Melatonin (Melatonin 3 Mg Tablet) 6 mg PO BEDTIME PRN PRN Reason: Insomnia Last Admin: 04/09/21 20:56 Dose: 6 mg Documented by: Metoclopramide HCl (Metoclopramide Hcl 10 Mg/2 Ml Vial) 10 mg IVPUSH Q6H PRN PRN Reason: Nausea Last Admin: 04/09/21 20:44 Dose: 10 mg Documented by: Morphine Sulfate (Morphine Sulfate Oral Ana 10 Mg/5 Ml Solution) 10 mg PO Q6H PRN PRN Reason: Pain, Severe (Pain Scale 7-10) Last Admin: 04/10/21 05:04 Dose: 10 mg Documented by: Pantoprazole Sodium (Pantoprazole Sodium 40 Mg/10 Ml Vial) 40 mg IVPUSH BID@0630,1630 [facility] Last Admin: 04/10/21 05:04 Dose: 40 mg Documented by: Pharmacy Consult (Consult Rx Perform Med Rec) 1 each MISCELLANE ONCE PRN PRN Reason: Consult order Phenobarbital (Phenobarbital 15 Mg Tablet) 15 mg PO BID [facility]; Protocol Stop: 04/10/21 21:01 Last Admin: 04/10/21 08:46 Dose: 15 mg Documented by: Phenobarbital (Phenobarbital 15 Mg Tablet) 15 mg PO DAILY [facility]; Protocol Stop: 04/12/21 09:01 Senna (Sennosides 8.6 Mg Tablet) 17.2 mg PO BEDTIME PRN PRN Reason: Constipation Sodium Chloride (0.9 % Sodium Chloride Flush 3 Ml Syringe) 3 ml IVFLUSH QSHIFT [facility] Last Admin: 04/10/21 08:47 Dose: 3 ml Documented by: Sucralfate (Sucralfate Oral Suspension 1 Gm/10 Ml Oral.Susp) 1 gm PO QIDACHS [facility] Last Admin: 04/10/21 12:04 Dose: 1 gm Documented by: Trazodone HCl (Trazodone Hcl 25 Mg Halftab) 75 mg PO BEDTIME PRN PRN Reason: Insomnia Allergies Allergies Allergy/AdvReac Type Severity Reaction Status Date / Time No Known Allergies Allergy Unverified 02/28/20 18:14 Assessment & Plan Assessment & Plan (1) MDD (major depressive disorder), recurrent severe, without psychosis: Status: Acute Code(s): F33.2 - Major depressive disorder, recurrent severe without psychotic features Assessment and Plan: Patient reports longstanding history anxiety and depression. He reports being hospitalized psychiatrically within the past 2 years in [place]. He stated he had presented at a hospital in [place] for alcohol detox, but then was psychiatrically hospitalized as well for symptoms of depression. He denies any type of SI, states he has no intent or plan, and has never been suicidal. Patient reports that he has been tried on multiple antidepressant medications, although he cannot remember the names. He states that he does remember taking Celexa at 1 point, and founded only somewhat helpful. He also reports he had been given gabapentin at 1 point, which he did find somewhat helpful. We discussed medication options. Client is willing to try Lexapro going forward. (2) Anxiety: Status: Acute Code(s): F41.9 - Anxiety disorder, unspecified Assessment and Plan: Patient reports he has had ongoing anxiety and depression for years. He states that often times he drinks in order to deal with his diagnoses, rather than seek treatment. He states that he does well 1 on with a therapist. He was provided with resources regarding counseling agencies and providers in [facility]. Patient was encouraged to consider a PHP or IOP, he states that he has information regarding these. He was encouraged to call agencies on the therapist list to schedule an appointment for intake. He stated that he would do this. He reports poor sleep, which he attributes to anxiety and depression as well as pain. He reports that he has previously been prescribed trazodone at 75 mg, and he is only receiving 25 mg here, he is asking for dose increase in order to help with sleep. He expressed anxiety regarding throat pain, and states that he is hungry but that it it is extremely painful when he eats. Patient was encouraged to take medications prior to attempting to eat. He stated that he was willing to try this. (3) Alcohol use disorder, severe, dependence: Status: Acute Code(s): F10.20 - Alcohol dependence, uncomplicated Assessment and Plan: Patient has longstanding history of alcohol dependence, with multiple detox vacation, and this most recent stay had required ICU treatment. He is currently no longer scoring on CIWA, and did not present as having any alcohol withdrawal symptoms during our encounter. We discussed treatment options and medications. He reports he has tried many medications for alcohol use disorder, including Vivitrol, Campral, with no effect. When asked if he would like to have Campral started here inpatient, he stated no. He has a history of going to , but he reports what works best for him is working on with a therapist. Assessment and Plan: 1. D/c dilaudid. 2. Start lexapro 10mg daily. 3. Increase trazodone to 75mg at bedtime. 4. Patient was encouraged to utilize p.r.n. medications prior to eating. Patient has also been provided with listing of outpatient behavioral health resources in the area. These recommendations have been shared with Dr. Amanda Parrish, via secure messaging system. Thank you for this consultation. If you have any further questions or concerns please do not hesitate to contact Psychiatry Service. I spent minutes with the patient and/or on the patient floor today, greater than?50% of which was spent counseling/coordinating care. Patient educated on: diagnosis, medication risk/benefits, substance abuse and therapeutic strategies Informed Consent: understands
--- NOTE | 2021-04-10 14:26 | MHC.CLN ---
Addendum entered by Natasha Salazar, BEVERLEY 04/10/21 14:55: AGREE WITH PROVIDER'S ASSESSMENT BELOW Original Note: RE: CONSULT PT REPORTS BURNING SENSATION IN THROAT AND PAINFUL SWALLOWING (R/T ESOPHAGITIS/GASTRITIS) POOR PO INTAKE PER MD DIET RX: REGULAR-RECOMMEND BLAND DIET R/T GASTRITIS RECOMMEND ENSURE PLUS TID TO PROVIDE 1050 KCALS AND 48 GRAMS PROTEIN MONITOR PO INTAKE AND SUPPLEMENT ACCEPTANCE
[2021-04-10] MEDS: Lidocaine HCl Viscous 2 % 15 ML SOLUTION MUCOUS MEM (14:46)
[2021-04-10] MEDS: Escitalopram Oxalate 10 MG TABLET PO (14:46)
[2021-04-10 15:02] VITALS: BP 123/76; PULSE 86; RESP 20; TEMP 36.1; O2SAT 98
[2021-04-10] MEDS: Metoclopramide HCl 10 MG/2 ML VIAL IVPUSH (17:31)
[2021-04-10 19:01] VITALS: BP 121/78; PULSE 75; RESP 20; TEMP 36.7; O2SAT 99
[2021-04-10 23:17] VITALS: BP 117/68; PULSE 66; RESP 20; TEMP 36.3; O2SAT 99
[2021-04-11] MEDS: traZODone HCL 25 MG HALFTAB 75 MG PO ×2 (02:00→23:57)
[2021-04-11] MEDS: Morphine Sulfate Oral Sol 10 MG/5 ML SOLUTION PO ×4 (02:03→23:57)
[2021-04-11 03:15] VITALS: BP 127/70; PULSE 97; RESP 14; TEMP 36.3; O2SAT 95
[2021-04-11 06:00] VITALS: BMI 24.9
[2021-04-11] MEDS: Pantoprazole Sodium 40 MG/10 ML VIAL IVPUSH ×2 (06:08→16:00)
[2021-04-11 06:55] LABS: Hemoglobin 12.3 g/dl (14.0-18.0); Mean Corpuscular HGB Conc 32.4 g/dl (31.0-36.0); Mean Corpuscular Hemoglobin 27.9 pg (27.0-33.0); Mean Corpuscular Volume 86.2 fL (80-98); Mean Platelet Volume 10.2 fL (9.4-12.4); Platelet Count 138 X10*3/uL (160-400); Red Blood Count 4.41 X10*6/uL (4.60-5.80); Red Cell Distribution Width 20.6 % (11.0-16.0)
[2021-04-11 07:21] LABS: Anion Gap 15 (12-20); Blood Urea Nitrogen 11 mg/dL (9-16); Calcium 8.6 mg/dL (8.4-10.2); Carbon Dioxide 22 mmol/L (22-29); Chloride 103 mmol/L (96-108); Creatinine Clr Calc Pharmacy 122.3; Estimated Glomerular Filt Rate > 60; Glucose Random 97 mg/dL (60-115); Potassium 4.1 mmol/L (3.3-5.1); Sodium 136 mmol/L (135-145)
[2021-04-11 07:27] VITALS: BP 116/82; PULSE 77; RESP 20; TEMP 36.2; O2SAT 94
[2021-04-11] MEDS: PHENobarbitaL 15 MG TABLET PO (08:56)
[2021-04-11] MEDS: Mag&Al/Sim/Diphenhyd/Lidocaine 10 ML ORAL.SUSP PO ×2 (08:56→16:00)
[2021-04-11] MEDS: Escitalopram Oxalate 10 MG TABLET PO (08:56)
[2021-04-11] MEDS: Sucralfate Oral Suspension 1 GM/10 ML ORAL.SUSP PO ×4 (08:56→21:27)
[2021-04-11] MEDS: Folic Acid 1 MG TABLET PO (08:56)
[2021-04-11] MEDS: 0.9 % Sodium Chloride Flush 3 ML SYRINGE IVFLUSH ×3 (08:59→21:28)
[2021-04-11 12:00] VITALS: BP 128/84; PULSE 80; RESP 16; TEMP 36.8; O2SAT 96
[2021-04-11] MEDS: Metoclopramide HCl 10 MG/2 ML VIAL IVPUSH ×2 (12:28→19:43)
[2021-04-11] MEDS: Lidocaine HCl Viscous 2 % 15 ML SOLUTION MUCOUS MEM ×2 (14:25→21:43)
[2021-04-11 15:23] VITALS: BP 130/75; PULSE 85; RESP 16; TEMP 36.8; O2SAT 96
--- NOTE | 2021-04-11 15:50 | P.PNIM_ITS ---
Subjective Subjective Date of Service: 04/11/21 Interval History: Being followed for alcohol withdrawal and coffee-ground emesis, feeling better less pain with swallowing slept well last night, is still unable to eat food due to mid chest pain with swallowing , denies recurrent hematemesis or melena. Review of Systems General no headache, no dizziness, no fever chills.? CVS no chest pain, no palpitation.? Respiratory no cough, no sob, no respiratory distress.? Gastrointestinal no nausea, no vomiting, mid chest pain worse with eating Review of Systems: Yes all other systems are reviewed and are negative Physical Exam Vital Signs: Vital Signs: Last Vital Signs Temp 98.3 F 04/11/21 15:23 Pulse 85 04/11/21 15:23 Resp 16 04/11/21 15:23 BP 130/75 04/11/21 15:23 Pulse Ox 96 04/11/21 15:23 Body Mass Index 24.9 General alert oriented x3, does not appear to be in distress , resting comfortably Neck supple, no JVD. CVS? regular rate rhythm, Respiratory lungs clear to auscultation, no respiratory distress, no wheeze, no rhonchi. Gastrointestinal abdomen soft, nontender, bowel sounds audible, no guarding , no rigidity. Extremities no edema. Neuro nonfocal,speech clear, no tremors Skin no rash Psych flat affect Objective Data Active Medications Acetaminophen (Acetaminophen 325 Mg Tablet) 650 mg PO Q6H PRN PRN Reason: Pain, Mild (Pain Scale 1-3) Last Admin: 04/09/21 03:00 Dose: 650 mg Documented by: ANTOIC Acetaminophen (Acetaminophen 325 Mg Tablet) 650 mg PO Q6H PRN PRN Reason: Pain, Mild (Pain Scale 1-3) Al Hydroxide/Mg Hydroxide (Magnesium Hydrox/Alum Hydrox 30 Ml Oral.Susp) 30 ml PO Q4H PRN PRN Reason: Dyspepsia Benzocaine (Throat Lozenge, Medicated Lozenge) 1 lozenge MUCOUS MEM Q2H PRN PRN Reason: Sore Throat Last Admin: 04/10/21 08:46 Dose: 1 lozenge Documented by: CHELO Escitalopram Oxalate (Escitalopram Oxalate 10 Mg Tablet) 10 mg PO DAILY [facility]OR[facility]INO Last Admin: 04/11/21 08:56 Dose: 10 mg Documented by: WARREN Folic Acid (Folic Acid 1 Mg Tablet) 1 mg PO DAILY [facility] Last Admin: 04/11/21 08:56 Dose: 1 mg Documented by: WARREN Lidocaine HCl (Lidocaine Hcl Viscous 2 % 15 Ml Solution) 15 ml MUCOUS MEM Q3H PRN PRN Reason: throat pain Last Admin: 04/11/21 14:25 Dose: 15 ml Documented by: WARREN Lidocaine/Diphenhydr/Alum/Mg/Simeth (Mag&Al/Sim/Diphenhyd/Lidocaine 10 Ml Oral.Susp) 10 ml PO Q6H PRN; Protocol PRN Reason: Pain, Moderate (Pain Scale 4-6 Last Admin: 04/11/21 08:56 Dose: 10 ml Documented by: WARREN Melatonin (Melatonin 3 Mg Tablet) 6 mg PO BEDTIME PRN PRN Reason: Insomnia Last Admin: 04/09/21 20:56 Dose: 6 mg Documented by: STACIA Metoclopramide HCl (Metoclopramide Hcl 10 Mg/2 Ml Vial) 10 mg IVPUSH Q6H PRN PRN Reason: Nausea Last Admin: 04/11/21 12:28 Dose: 10 mg Documented by: WRAREN Morphine Sulfate (Morphine Sulfate Oral Ana 10 Mg/5 Ml Solution) 10 mg PO Q6H PRN PRN Reason: Pain, Severe (Pain Scale 7-10) Last Admin: 04/11/21 11:48 Dose: 10 mg Documented by: WARREN Pantoprazole Sodium (Pantoprazole Sodium 40 Mg/10 Ml Vial) 40 mg IVPUSH BID@1630 [facility] Last Admin: 04/11/21 06:08 Dose: 40 mg Documented by: STACIA Pharmacy Consult (Consult Rx Perform Med Rec) 1 each MISCELLANE ONCE PRN PRN Reason: Consult order Phenobarbital (Phenobarbital 15 Mg Tablet) 15 mg PO DAILY [facility]; Protocol Stop: 04/12/21 09:01 Last Admin: 04/11/21 08:56 Dose: 15 mg Documented by: WARREN Senna (Sennosides 8.6 Mg Tablet) 17.2 mg PO BEDTIME PRN PRN Reason: Constipation Sodium Chloride (0.9 % Sodium Chloride Flush 3 Ml Syringe) 3 ml IVFLUSH QSHIFT [facility] Last Admin: 04/11/21 08:59 Dose: 3 ml Documented by: WARREN Sucralfate (Sucralfate Oral Suspension 1 Gm/10 Ml Oral.Susp) 1 gm PO QIDACHS [facility] Last Admin: 04/11/21 11:48 Dose: 1 gm Documented by: WARREN Trazodone HCl (Trazodone Hcl 25 Mg Halftab) 75 mg PO BEDTIME PRN PRN Reason: Insomnia Last Admin: 04/11/21 02:00 Dose: 75 mg Documented by: ZEESHAN Labs CBC & Chem 7: 04/11/21 06:28 04/11/21 06:28 Labs: Laboratory Results - last 24 hr 04/11/21 04/11/21 06:28 06:28 MCV 86.2 MCH 27.9 MCHC 32.4 RDW 20.6 H Plt Count 138 L MPV 10.2 Absolute Nucleated RBC 0.000 Nucleated RBC % (auto) 0.0 Anion Gap 15 Estim Creat Clear Calc 122.3 Estimated GFR > 60 Random Glucose 97 Calcium 8.6 Assessment and Plan (1) Alcohol use disorder, severe, dependence: Status: Acute (2) Anxiety: Status: Acute (3) Epigastric pain: Status: Acute (4) Acute alcoholic gastritis: Status: Acute (5) Alcohol withdrawal syndrome: Status: Acute Assessment and Plan: 40-year-old gentleman with underlying history of alcohol abuse admitted with history of hematemesis and alcohol withdrawal syndrome Alcohol withdrawal syndrome/delirium tremens No tremors, no withdrawal symptoms noted s/p Precedex drip in ICU, subsequently transferred [place] [facility] [place] continues on phenobarbital protocol Seen by care team, patient declined referrals at this time strongly advised to abstain from alcohol since contributing to severe esophagitis and gastritis. Epigastric pain Abdominal pain improving still has difficulty eating food due to pain continue IV Protonix x 24 hrs, and transition to by mouth Prilosec twice daily, continue Carafate qid,Maalox ,viscous xylocaine and morphine liquid, Recommend Ensure Clear t.i.d. Case discussed with Dr. Figueredo from Gastroenterology she agrees with above treatment plan. History of anxiety/depression Due to significant insomnia and anxiety obtained psych ev Day increase dose of trazodone to 75 mg at bedtime, and added Lexapro since then patient is feeling better Encourage out of bed to chair and ambulation during daytime. Hematemesis Underwent upper endoscopy on 04/07/2021 that showed erosive esophagitis, gastritis and duodenitis ,no active bleed noted, hematocrit remains stable Patient continued to have severe mid chest pain worse with eating unable to eat, therefore will continue IV Protonix and Carafate q.i.d. Resolved issues Hypophosphatemia resolved status post IV replacement Anion gap metabolic acidosis likely due to alcohol abuse and dehydration resolved Hypomagnesemia related to alcohol abuse and poor nutrition repleted and improved Disposition home in next 24 hours DVT prophylaxis with compression boots Quality Stroke Does the patient have a stroke diagnosis?: No VTE Prior VTE?: No VTE Risk Level:: Medical - moderate - high VTE Device Contraindication: N/A - Device Ordered VTE Drug Contraindication: Treatment Not Tolerated
[2021-04-11 19:27] VITALS: BP 140/79; PULSE 78; RESP 16; TEMP 37.1; O2SAT 96
[2021-04-11 23:57] VITALS: BP 147/79; PULSE 72; RESP 18; TEMP 36.7; O2SAT 98
[2021-04-12 03:59] VITALS: BP 114/64; PULSE 78; RESP 18; TEMP 36.4; O2SAT 97
[2021-04-12 06:00] VITALS: BMI 25.1
[2021-04-12] MEDS: Pantoprazole Sodium 40 MG/10 ML VIAL IVPUSH (06:05)
[2021-04-12 07:53] VITALS: BP 120/67; PULSE 79; RESP 18; TEMP 36.5; O2SAT 95
[2021-04-12] MEDS: Folic Acid 1 MG TABLET PO (08:18)
[2021-04-12] MEDS: Escitalopram Oxalate 10 MG TABLET PO (08:18)
[2021-04-12] MEDS: PHENobarbitaL 15 MG TABLET PO (08:18)
[2021-04-12] MEDS: 0.9 % Sodium Chloride Flush 3 ML SYRINGE IVFLUSH (08:19)
[2021-04-12] MEDS: Mag&Al/Sim/Diphenhyd/Lidocaine 10 ML ORAL.SUSP PO (08:19)
[2021-04-12] MEDS: Metoclopramide HCl 10 MG/2 ML VIAL IVPUSH (08:19)
[2021-04-12] MEDS: Morphine Sulfate Oral Sol 10 MG/5 ML SOLUTION PO (08:19)
[2021-04-12] MEDS: Sucralfate Oral Suspension 1 GM/10 ML ORAL.SUSP PO ×2 (08:19→11:27)
--- NOTE | 2021-04-12 09:22 | PM.DS ---
DS: Providers Provider Date of Service: 04/12/21 Date of admission: 04/06/21 23:55 Primary care physician: Unknown Physician Consults: 04/06/21 23:55 Consult to Gastroenterology Routine Consulting Provider: Jaye Mcnamara Reason for consultation: Coffee-ground emesis 04/09/21 10:17 Consult to Care Team Routine Comment: Reason for consultation: etoh abuse 04/10/21 11:27 Consult for Calorie Count Routine Reason for consultation: poor po intake 04/10/21 11:28 Consult to Psychiatry Routine Consulting Provider: Truman Torre Reason for consultation: Alcohol abuse and withdrawal, insomnia, refusing to eat Has provider been notified: No DS: Diagnosis Discharge Diagnosis (1) Alcohol use disorder, severe, dependence: Status: Acute (2) Anxiety: Status: Acute (3) Epigastric pain: Status: Acute (4) Acute alcoholic gastritis: Status: Acute (5) Alcohol withdrawal syndrome: Status: Acute DS: Summary Hospital Course Hospital Course: Chief Complaint: Nausea/vomiting 40-year-old male with a past medical history of alcohol Abuse, alcoholic gastritis, recent history of upper GI bleed at [facility] status post endoscopy which reportedly showed gastritis and esophagitis; presented to the hospital with a chief complaint of nausea and vomiting. Senna patient reported that after he was discharged from the hospital restarted drink alcohol again; last drink was yesterday; patient states that he has multiple episodes of nausea and vomiting; also noted to have vomitus being coffee-ground. Reports that symptoms have been going on over the past few days.? Mentioned that he was recently discharged from the [facility] ICU status post EGD and reports that EGD showed gastritis and esophagitis. Mentioned that he drinks about 1L of alcohol every day.? Patient does report prior admission to the ICU for alcohol withdrawal. Also reports prior history of alcohol withdrawal seizures.? Denies any recent withdrawal seizures. Reports he is not able to keep anything down; hence presented to the hospital for further evaluation. Denies any headaches, paresthesias, numbness tingling or focal weakness. Denies any fever chills cough. Denies any urinary symptoms. Review of all other systems is negative except mentioned above ER course: Per ER team patient noted to be anxious, tachycardic; having nausea and vomiting; received IV Zofran, IV fluids; patient was started on phenobarb protocol.? Patient also received Ativan x1; patient still continues to be tachycardic. Lab showed hypomagnesemia-repleted; also noted to have severe lactic acidosis, high anion gap metabolic acidosis; patient was given IV thiamine; ; admitted to the hospital for further management. 40-year-old gentleman with underlying history of alcohol dependence with prior alcohol withdrawal episodes and withdrawal seizures, s/p recent admission at [facility] for upper GI bleed presented to [facility] with nausea ,vomiting and coffee-ground emesis and with alcohol withdrawal symptoms on 04/07/21 initially admitted to medical floor on phenobarb protocol but due to persistent tachycardia ,tremors and nausea vomiting, patient was transferred to ICU and required Precedex drip ,and had an upper endoscopy by Dr. Figueredo that showed no active bleed, but was noted for erosive esophagitis, gastritis and duodenitis, Precedex drip was subsequently weaned off and patient was transferred to [facility] [place] 04[place]08 patient was continued on IV Protonix drip, Carafate, phenobarb, patient had difficulty with eating due to persistent epigastric pain therefore required IV Dilaudid and morphine sulfate, patient by mouth intake has subsequently improved he has been recommended to drink Ensure cans and to take soft diet, he has been strongly advised to abstain from alcohol. On admission patient also noted to have low phosphorus, low magnesium levels and also had anion gap metabolic acidosis all related to alcohol and poor nutrition, electrolytes have been repleted and normalized. He was seen by care team but he declined outpatient referrals due to symptoms of anxiety patient was seen by psychiatrist and has been started on Lexapro 10 mg daily and trazodone 50 mg at bedtime as needed for sleep, patient is from [place] therefore does not have local primary care physician or therapist he has been given information and recommended to make an appointment with a therapist and primary care physician in next 1-2 weeks he has been inform about risk of continued alcohol drink that can lead to epigastric ulcer and perforation. His H&H dropped but stable eyes he did not require blood transfusion. Patient does carry a diagnosis of underlying anxiety and depression therefore recommend continued outpatient psychiatrist follow-up. Time Spent with Patient Time attestation: Total time spent providing and/or coordinating discharge services: Discharge coordination time: Greater than 30 minutes Quality: Stroke Does the patient have a stroke diagnosis?: No Physical Exam Vital Signs: Vital Signs: Last Vital Signs Temp 97.7 F 04/12/21 07:53 Pulse 79 04/12/21 07:53 Resp 18 04/12/21 07:53 BP 120/67 04/12/21 07:53 Pulse Ox 95 04/12/21 07:53 Body Mass Index 25.1 General awake alert x3, no acute distress. Neck supple no JVD. CVS regular rate rhythm, Respiratory lungs clear to auscultation, no respiratory distress, no wheeze, no rhonchi. Gastrointestinal abdomen soft, nontender, bowel sounds audible, no guarding , no rigidity. Extremities no edema. Neuro nonfocal Skin no rash Musculoskeletal no deformity Psych appropriate affect DS: Data Data Completed and Pending Completed studies during hospitalization [Text1]: Pending at discharge 04/07/21 14:52 Surgical [PTH] Routine Discharge Plan Discharge Patient Disposition: Home, Self-Care Discharge Diagnosis: Alcohol withdrawal syndrome/delirium tremens Epigastric pain Erosive esophagitis/gastritis Hypophosphatemia Hypo magnesemia Manic gap metabolic acidosis Referrals: Physician,Unknown J [Primary Care Provider] - 1 Week Discharge Medications: New sucralfate 100 mg/mL Suspension 1 g PO QIDACHS Qty: 1200 RF: 0 escitalopram oxalate 10 mg Tablet 10 mg PO DAILY Qty: 30 RF: 0 MAG-AL 200-200 mg/5 mL Suspension 30 ml PO Q4H PRN (Reason: Dyspepsia) Qty: 200 RF: 0 omeprazole 40 mg capsule,delayed release(DR/EC) 40 mg PO BID Qty: 60 RF: 0 trazodone 50 mg tablet 50 mg PO BEDTIME PRN (Reason: insomnia) Qty: 30 RF: 0 Discontinued sucralfate 1 gram Tablet 1 g PO BID RF: 0 pantoprazole [Protonix] 20 mg Tablet,Delayed Release (Dr/Ec) 20 mg PO DAILY RF: 0 Discharge Orders: Discharge Order (Routine); Ordered 04/12/21 Ordered By: Armando Parrish Diet: advance to usual diet Activity on Discharge: As tolerated Stand Alone Forms: Patient Portal Discharge page Care Plan Goals: Take Ensure can to 3 times a day, continue soft diet, plenty of fluids to keep hydrated, take all medications as prescribed Health Concerns: Complete abstinence from alcohol recommended to heal esophageal and gastric erosion Plan of Treatment: Outpatient follow-up with primary care physician, call for appointment in next 1-2 weeks, call therapist for continued treatment for anxiety and depression in next 1 week Assessment: As above
--- NOTE | 2021-04-12 09:54 | MHC.CM.PN ---
pt dcd home n o skilled services ordered by
[2021-04-12] MEDS: Lidocaine HCl Viscous 2 % 15 ML SOLUTION MUCOUS MEM (10:20)
== END 2021-04-12 14:00 | disposition home or self-care (01) | DRG 241 ==
LOC: HO.ED 21:25 → HO.EDOVER 04-07 00:03 → HO.IMC 04-07 00:31 → HO.ICU 04-07 01:32 → HO.IMC 04-08 13:08
PROVIDERS: Emergency Medicine; Internal Medicine Gastroenterology; Internal Medicine Pulmonary Disease; Registered Nurse Community Health; Admitting Provider Hospitalist; Emergency Provider Emergency Medicine; Visit Provider Hospitalist
PROC: 0DJ08ZZ Inspection of Upper Intestinal Tract, Via Natural or Artificial Opening Endoscopic (ICD-10-PCS; CPT 43235; principal; 2021-04-07 15:30)
DX: K29.21 Alcoholic gastritis with bleeding (principal); F10.231 Alcohol dependence with withdrawal delirium; F33.2 Major depressive disorder, recurrent severe without psychotic features; E87.2 Acidosis; F41.9 Anxiety disorder, unspecified; K29.81 Duodenitis with bleeding; G47.00 Insomnia, unspecified; E83.42 Hypomagnesemia; K20.91 Esophagitis, unspecified with bleeding; R00.0 Tachycardia, unspecified; Z20.822 Contact with and (suspected) exposure to COVID-19; Z79.899 Other long term (current) drug therapy
CPT/HCPCS: 36415; 80048; 80053; 80076; 80307; 82077; 82140; 82271; 82803; 83605; 83690; 83735; 84100; 85025; 85027; 86850; 86900; 86901; 87635; 88305; 88342; 93005; 93306; 96365; 96366; 96372; 96375; 99285; 99291; J0295; J1170; J2060; J2405; J2560; J2765; J3010; J3411; J3475

== ENCOUNTER 2021-04-23 09:32 | Inpatient (IN) | payer MEDICAID, SELFPAY ==
[2021-04-23] VITALS (11 sets, daily range): BP systolic 115–148; BP diastolic 71–101; PULSE 92–140; RESP 3–24; TEMP 36.8–37.2; O2SAT 94–98; BMI 24.7
--- NOTE | 2021-04-23 09:45 | ECG_ITS ---
Test Reason : TACHYCARDIA Blood Pressure : / mmHG Vent. Rate : 126 BPM Atrial Rate : 126 BPM P-R Int : 168 ms QRS Dur : 080 ms QT Int : 310 ms P-R-T Axes : 039 -83 046 degrees QTc Int : 448 ms Sinus tachycardia Left anterior fascicular block Poor R wave progression Nonspecific ST abnormality Abnormal ECG When compared with ECG of 07-APR-2021 01:03, Nonspecific ST abnormality is new Referred By: Generic ED Physician Electronically Signed By:DANICA ATWOOD MD
--- NOTE | 2021-04-23 10:04 | ED.GENADULT ---
HPI - General Adult General Chief complaint: GI Bleed Stated complaint: VOMITING COFFEE GROUNDS SINCE TUESDAY PER PT Time Seen by Provider: 04/23/21 09:48 Source: patient Mode of arrival: ambulatory Limitations: no limitations History of Present Illness HPI narrative: Patient comes to the emergency room complaining of coffee-ground emesis, rectal bleeding, alcohol withdrawal. Patient states that he is trying to stop drinking alcohol, usually drinks almost 2 L of vodka every day. Last binge drinking was 2 days ago. Patient states he drank 1 beer this morning to help with the shaking. Patient states that he feels that his into the seizure which he has had in the past and he withdraws from alcohol. Patient denies chest pain, no shortness of breath, mild abdominal discomfort, complaining of nausea and coffee-ground emesis. Of note, patient was admitted to the intensive care unit on April 07 for alcohol withdrawal. Patient required a Precedex drip. Per previous notes, patient recently had an upper endoscopy at [facility], reportedly showed gastritis and esophagitis Related Data Previous Rx's Medication Instructions Recorded escitalopram oxalate 10 mg tablet 10 mg PO DAILY #30 tab 04/12/21 omeprazole 40 mg capsule,delayed 40 mg PO BID #60 cap 04/12/21 release sucralfate 100 mg/mL oral 1 g (10 mL) PO QIDACHS #1200 ml 04/12/21 suspension trazodone 50 mg tablet 50 mg PO BEDTIME PRN #30 tab 04/12/21 Allergies Allergy/AdvReac Type Severity Reaction Status Date / Time No Known Allergies Allergy Verified 04/23/21 09:53 Review of Systems Review of Systems: Constitutional : No Weight loss, No Fever, No Chills, No Night Sweats, complaining of generalized malaise ENT/Mouth : No Hearing loss, No Ear Pain, No Nasal Congestion, No Sinus Pain, No Hoarseness, No sore throat, No Rhinorrhea, No Swallowing Difficulty Eyes: No Eye Pain, No Swelling, No Redness, No Foreign Body, No Discharge, No Vision Changes Cardiovascular : No Chest Pain, No SOB, No Dyspnea on Exertion, No Orthopnea, No Edema, No Palpitations Respiratory : No Cough, No Sputum, No Wheezing, No Smoke Exposure, No Dyspnea Gastrointestinal : Complaining of nausea and coffee-ground emesis, No Diarrhea, No Constipation, complaining of mild diffuse abdominal pain, complaining of rectal bleeding Genitourinary : no irregular bleeding, No Dysuria, No Urinary Frequency, No Hematuria, No Urinary Incontinence, No Urgency, No Flank Pain, No Urinary Flow Changes, No Hesitancy Musculoskeletal : No joint pain, No Myalgias, No Joint Swelling Skin : No Skin Lesions, No rash Neuro : No Weakness, No Numbness, No Paresthesias, No Loss of Consciousness, No Dizziness, No Headache Psych : No Anxiety/Panic, complaining of depression, admits to having an alcohol problem Heme/Lymph: No Bruising, No Bleeding,No Lymphadenopathy Endocrine : No Polyuria, No Polydipsia, No Temperature Intolerance [facility] Past Medical History Medical History Alcohol withdrawal seizure Alcoholism Anxiety Esophagitis Gastritis MDD (major depressive disorder), recurrent severe, without psychosis Surgical History H/O esophagogastroduodenoscopy H/O knee surgery Social History Social History Alcohol intake: current Alcohol intake frequency: 3 or more drinks per day Alcohol type: hard liquor Patient Tobacco Use Status: Never used Tobacco Use of substances other than those prescribed or required for medical reasons: Unknown Advance Directives: No Advance Directives Information Provided: No service: No Current occupational status: unemployed Physical Exam Vital Signs: Vital Signs: Last Vital Signs Temp 98.3 F 04/23/21 09:53 Pulse 118 H 04/23/21 12:00 Resp 20 04/23/21 12:00 BP 126/80 04/23/21 12:00 Pulse Ox 95 04/23/21 12:00 Body Mass Index 24.7 Const: Other: Appearance: Alert. Oriented X3. Looks uncomfortable Eyes: Pupils equal, round and reactive to light. ENT: Pharynx normal. Neck: Normal inspection. Neck supple. No lymph nodes noted. No crepitus CVS: Normal heart rate and rhythm. Pulses normal. Normal S1 and S2 Respiratory: No respiratory distress. Breath sounds normal. No Wheezing. No rales Abdomen: Soft, mild discomfort to palpation throughout the abdomen. No rigidity. No distention. Skin: Skin warm and dry. Normal skin color. Normal skin turgor. Extremities: No lower extremity edema. No Lacerations. No Rash Neuro: Oriented X 3. No motor deficit. No sensory deficit. Moving all extermities. No slurred speech. Course Course Course Narrative: Patient is very tremulous, diaphoretic, heart rate 130, patient was started on the phenobarb protocol. All labs are pending. Patient is a difficult stick. To prevent any seizures, patient was given 2 mg IM Ativan while we get IV access Patient has a lactic acid of 6.3, likely secondary to alcohol intake. Patient is on a phenobarb protocol now. Patient has not had any seizures. I discussed the patient with Dr. Parrish, pt admitted for alcohol withdrawal. Medical Decision Making Lab Data Result diagrams: 04/23/21 11:06 04/23/21 11:06 Labs: Lab Results 04/23/21 04/23/21 04/23/21 Range/Units 10:28 11:06 11:06 WBC 7.6 (4.8-10.8) X10*3/uL RBC 5.35 (4.60-5.80) X10*6/uL Hgb 15.7 (14.0-18.0) g/dl Hct 45.1 (42.0-52.0) % MCV 84.3 (80.0-98.0) fL MCH 29.3 (27.0-33.0) pg MCHC 34.8 (31.0-36.0) g/dl RDW 19.9 H (11.0-16.0) % Plt Count 339 (160-400) X10*3/uL MPV 8.8 L (9.4-12.4) fL Immature Gran % (Auto) 0.4 (0.0-0.4) % Neut % (Auto) 85.1 H (45-73) % Lymph % (Auto) 8.7 L (20-40) % [place] % (Auto) 5.0 (2-11) % Eos % (Auto) 0.0 (0-4) % Baso % (Auto) 0.8 (0-2) % Lymph # (Auto) 0.7 L (1.2-4.9) X10*3/uL [place] # (Auto) 0.4 (0.1-1.2) X10*3/uL Eos # (Auto) 0.0 (0.0-0.4) X10*3/uL Baso # (Auto) 0.1 (0.0-0.2) X10*3/uL Abs Immat Gran (auto) 0.03 (0.00-0.03) X10*3/uL Absolute Neuts (auto) 6.5 (2.0-8.3) x10*3/uL Absolute Nucleated RBC 0.000 (0.0-0.012) X10*3/uL Nucleated RBC % (auto) 0.0 (0.0-0.2) /100WBC PT (9.9-13.0) SEC INR (0.9-1.1) Sodium 139 (135-145) mmol/L Potassium 3.3 (3.3-5.1) mmol/L Chloride 98 (96-108) mmol/L Carbon Dioxide 22 (22-29) mmol/L Anion Gap 22 H (12-20) BUN 6 L (9-16) mg/dL Creatinine 1.22 (0.5-1.4) mg/dL Estim Creat Clear Calc 71.1 Estimated GFR > 60 Random Glucose 193 H D (60-115) mg/dL Lactic Acid (0.5-2.0) mmol/L Calcium 9.1 (8.4-10.2) mg/dL Magnesium 1.8 (1.6-2.6) mg/dL Total Bilirubin 0.2 (0.0-1.0) mg/dL Direct Bilirubin < 0.2 (0.0-0.5) mg/dL AST 22 (5-37) U/L ALT 17 (0-40) U/L Alkaline Phosphatase 94 D (39-117) U/L Troponin I High Sens (<3.5-35.0) ng/L Total Protein 7.6 D (6.5-8.0) g/dL Albumin 4.5 D (3.5-5.0) g/dL Lipase 54 (8-78) U/L Stool Occult Blood (NEGATIVE) Ethyl Alcohol mg/dL COVID-19 (ANUJ) Negative (Negative) COVID-19 Clin Com See Note 04/23/21 04/23/21 04/23/21 Range/Units 11:06 11:06 11:06 WBC (4.8-10.8) X10*3/uL RBC (4.60-5.80) X10*6/uL Hgb (14.0-18.0) g/dl Hct (42.0-52.0) % MCV (80.0-98.0) fL MCH (27.0-33.0) pg MCHC (31.0-36.0) g/dl RDW (11.0-16.0) % Plt Count (160-400) X10*3/uL MPV (9.4-12.4) fL Immature Gran % (Auto) (0.0-0.4) % Neut % (Auto) (45-73) % Lymph % (Auto) (20-40) % [place] % (Auto) (2-11) % Eos % (Auto) (0-4) % Baso % (Auto) (0-2) % Lymph # (Auto) (1.2-4.9) X10*3/uL [place] # (Auto) (0.1-1.2) X10*3/uL Eos # (Auto) (0.0-0.4) X10*3/uL Baso # (Auto) (0.0-0.2) X10*3/uL Abs Immat Gran (auto) (0.00-0.03) X10*3/uL Absolute Neuts (auto) (2.0-8.3) x10*3/uL Absolute Nucleated RBC (0.0-0.012) X10*3/uL Nucleated RBC % (auto) (0.0-0.2) /100WBC PT 11.2 (9.9-13.0) SEC INR 1.0 (0.9-1.1) Sodium (135-145) mmol/L Potassium (3.3-5.1) mmol/L Chloride (96-108) mmol/L Carbon Dioxide (22-29) mmol/L Anion Gap (12-20) BUN (9-16) mg/dL Creatinine (0.5-1.4) mg/dL Estim Creat Clear Calc Estimated GFR Random Glucose (60-115) mg/dL Lactic Acid 6.3 H* (0.5-2.0) mmol/L Calcium (8.4-10.2) mg/dL Magnesium (1.6-2.6) mg/dL Total Bilirubin (0.0-1.0) mg/dL Direct Bilirubin (0.0-0.5) mg/dL AST (5-37) U/L ALT (0-40) U/L Alkaline Phosphatase (39-117) U/L Troponin I High Sens 3.5 (<3.5-35.0) ng/L Total Protein (6.5-8.0) g/dL Albumin (3.5-5.0) g/dL Lipase (8-78) U/L Stool Occult Blood (NEGATIVE) Ethyl Alcohol mg/dL COVID-19 (ANUJ) (Negative) COVID-19 Clin Com 04/23/21 04/23/21 Range/Units 11:06 11:50 WBC (4.8-10.8) X10*3/uL RBC (4.60-5.80) X10*6/uL Hgb (14.0-18.0) g/dl Hct (42.0-52.0) % MCV (80.0-98.0) fL MCH (27.0-33.0) pg MCHC (31.0-36.0) g/dl RDW (11.0-16.0) % Plt Count (160-400) X10*3/uL MPV (9.4-12.4) fL Immature Gran % (Auto) (0.0-0.4) % Neut % (Auto) (45-73) % Lymph % (Auto) (20-40) % [place] % (Auto) (2-11) % Eos % (Auto) (0-4) % Baso % (Auto) (0-2) % Lymph # (Auto) (1.2-4.9) X10*3/uL [place] # (Auto) (0.1-1.2) X10*3/uL Eos # (Auto) (0.0-0.4) X10*3/uL Baso # (Auto) (0.0-0.2) X10*3/uL Abs Immat Gran (auto) (0.00-0.03) X10*3/uL Absolute Neuts (auto) (2.0-8.3) x10*3/uL Absolute Nucleated RBC (0.0-0.012) X10*3/uL Nucleated RBC % (auto) (0.0-0.2) /100WBC PT (9.9-13.0) SEC INR (0.9-1.1) Sodium (135-145) mmol/L Potassium (3.3-5.1) mmol/L Chloride (96-108) mmol/L Carbon Dioxide (22-29) mmol/L Anion Gap (12-20) BUN (9-16) mg/dL Creatinine (0.5-1.4) mg/dL Estim Creat Clear Calc Estimated GFR Random Glucose (60-115) mg/dL Lactic Acid (0.5-2.0) mmol/L Calcium (8.4-10.2) mg/dL Magnesium (1.6-2.6) mg/dL Total Bilirubin (0.0-1.0) mg/dL Direct Bilirubin (0.0-0.5) mg/dL AST (5-37) U/L ALT (0-40) U/L Alkaline Phosphatase (39-117) U/L Troponin I High Sens (<3.5-35.0) ng/L Total Protein (6.5-8.0) g/dL Albumin (3.5-5.0) g/dL Lipase (8-78) U/L Stool Occult Blood NEGATIVE (NEGATIVE) Ethyl Alcohol 254 mg/dL COVID-19 (ANUJ) (Negative) COVID-19 Clin Com ECG Data Attestation: I personally reviewed and interpreted this ECG as follows: (Sinus tachycardia, heart rate 126, nonspecific less than [address]-elevation in leads 3 and AVF, no reciprocal changes, QTC 448) Discharge Plan Discharge Clinical Impression: Alcohol use disorder, severe, dependence, Alcohol withdrawal Patient Disposition: Admitted As Inpatient Prescriptions: No Action sucralfate 100 mg/mL Suspension 1 g PO QIDACHS Qty: 1200 RF: 0 escitalopram oxalate 10 mg Tablet 10 mg PO DAILY Qty: 30 RF: 0 omeprazole 40 mg capsule,delayed release(DR/EC) 40 mg PO BID Qty: 60 RF: 0 trazodone 50 mg tablet 50 mg PO BEDTIME PRN (Reason: insomnia) Qty: 30 RF: 0
[2021-04-23] MEDS: PHENobarbitaL sodium 130 MG/ML VIAL 306.8 MG IM (10:47)
[2021-04-23 10:55] LABS: COVID-19 Test Negative (Negative); IDNOW Serial# 9DD0AD1C
--- NOTE | 2021-04-23 11:04 | PHA.MEDREC ---
Pharmacy Consult ? Medication Reconciliation Pharmacy has completed the medication reconciliation. Patient medication did not come up on claim history. Reprots he picked up medication at [facility] in [facility]. While the medications were not picked up at that specific pharmacy [facility] was able to confirm they were picked up at another pharmacy. Shilpa Myrick, PharmD
[2021-04-23 11:12] LABS: MANUAL DIFF FLAG NO
[2021-04-23] MEDS: 0.9 % Sodium Chloride 1,000 ML 999 ML IVCONT ×2 (11:15→11:52)
[2021-04-23] MEDS: ondansetron HCL 4 MG/2 ML VIAL IVPUSH ×2 (11:15→20:10)
[2021-04-23] MEDS: Folic Acid 1 MG in 0.9 % Sodium Chloride 50 ML 100.4 MG IV (11:16)
[2021-04-23 11:17] LABS: Basophils Absolute Auto 0.1 X10*3/uL (0.0-0.2); Basophils Percent Auto 0.8 % (0-2); Hematocrit 45.1 % (42.0-52.0); Hemoglobin 15.7 g/dl (14.0-18.0); Imm Gran Abs Auto 0.03 X10*3/uL (0.00-0.03); Imm Gran Pct Auto 0.4 % (0.0-0.4); Lymphocytes Absolute Auto 0.7 X10*3/uL (1.2-4.9); Lymphocytes Percent Auto 8.7 % (20-40); Mean Corpuscular HGB Conc 34.8 g/dl (31.0-36.0); Mean Corpuscular Hemoglobin 29.3 pg (27.0-33.0); Mean Corpuscular Volume 84.3 fL (80.0-98.0); Mean Platelet Volume 8.8 fL (9.4-12.4); Monocytes Absolute Auto 0.4 X10*3/uL (0.1-1.2); Neutrophils Absolute Auto 6.5 x10*3/uL (2.0-8.3); Neutrophils Percent Auto 85.1 % (45-73); Platelet Count 339 X10*3/uL (160-400); Red Blood Count 5.35 X10*6/uL (4.60-5.80); Red Cell Distribution Width 19.9 % (11.0-16.0); White Blood Count 7.6 X10*3/uL (4.8-10.8)
[2021-04-23 11:19] LABS: Prothrombin Time 11.2 SEC (9.9-13.0)
[2021-04-23 11:26] LABS: Ethanol 254 mg/dL
[2021-04-23 11:32] LABS: Lactic Acid 6.3 mmol/L (0.5-2.0)
[2021-04-23 11:34] LABS: Alanine Aminotransferase 17 U/L (0-40); Albumin Level 4.5 g/dL (3.5-5.0); Alkaline Phosphatase 94 U/L (39-117); Anion Gap 22 (12-20); Aspartate Amino Transferase 22 U/L (5-37); Bilirubin Direct < 0.2 mg/dL (0.0-0.5); Bilirubin Total 0.2 mg/dL (0.0-1.0); Blood Urea Nitrogen 6 mg/dL (9-16); Calcium 9.1 mg/dL (8.4-10.2); Carbon Dioxide 22 mmol/L (22-29); Chloride 98 mmol/L (96-108); Creatinine Clr Calc Pharmacy 71.1; Estimated Glomerular Filt Rate > 60; Glucose Random 193 mg/dL (60-115); Lipase 54 U/L (8-78); Magnesium 1.8 mg/dL (1.6-2.6); Potassium 3.3 mmol/L (3.3-5.1); Sodium 139 mmol/L (135-145); Total Protein 7.6 g/dL (6.5-8.0); Troponin-I High Sensitivity 3.5 ng/L (<3.5-35.0)
[2021-04-23 12:00] LABS: OBS Int Ctl Valid YES; OBS1 NEGATIVE (NEGATIVE)
[2021-04-23 13:11] LABS: Reflex Lactate? Lactic Acid Added
[2021-04-23] MEDS: PHENobarbitaL sodium 130 MG/ML VIAL 230.1 MG IM ×2 (13:22→16:53)
[2021-04-23 13:57] LABS: ~Lactic Acid-LAB USE ONLY 3.8 mmol/L (0.5-2.0)
--- NOTE | 2021-04-23 14:05 | PM.IMHP ---
History of Present Illness Date of Service: 04/23/21 Attending physician on admission: Armando Parrish Chief Complaint: Coffee-ground emesis/alcohol withdrawal 40-year-old gentleman recently discharged from [facility] on April 12 after being admitted for coffee-ground emesis and alcohol withdrawal prior to this admission patient was discharged from [facility] for similar symptoms and had an upper endoscopy which as per patient showed gastritis and esophagitis, during last hospitalization patient underwent repeat upper endoscopy that showed, erosive esophagitis, gastritis and duodenitis, patient was seen by care team and was strongly recommended to abstain from alcohol however as per patient he continued to drink alcohol roughly 1-1/2 to 2 L of vodka daily, his last alcohol intake was 2 days ago since he wanted to stop drinking and this morning he took 1 beer for shakiness, he developed coffee-ground emesis according to him he vomited blood 5 times in last 24 hours and also noted dark-colored stools, he is complaining of epigastric discomfort, on arrival to ER he felt that he is having a seizure therefore was immediately treated with Ativan no seizure-like activity was noted subsequently patient was given phenobarb and IV fluids laboratory data showed stable H&H and elevated lactic acid of 6, at present patient is complaining of persistent epigastric pain vomited again in the ER no blood noted, he is now being admitted to [facility] with alcohol withdrawals with impending seizures and recurrent episodes of coffee ground emesis with underlying history of gastritis. Review of Systems Review of Systems: General no headache , no dizziness no fever chills. CVS no chest pain, no palpitation. Respiratory no cough , no shortness of breaths Gastrointestinal nausea coffee-ground emesis and epigastric pain no urinary urgency or frequency Skin no rash Musculoskeletal no pain Yes all other systems are reviewed and are negative [facility] Medical History Alcohol withdrawal seizure Alcoholism Anxiety Esophagitis Gastritis MDD (major depressive disorder), recurrent severe, without psychosis Pertinent family history: No family history of premature coronary artery disease Surgical History H/O esophagogastroduodenoscopy H/O knee surgery Social History Alcohol intake: current Alcohol intake frequency: 3 or more drinks per day Alcohol type: hard liquor Patient Tobacco Use Status: Never used Tobacco Use of substances other than those prescribed or required for medical reasons: Unknown Advance Directives: No Advance Directives Information Provided: No service: No Current occupational status: unemployed Meds Allergies Allergy/AdvReac Type Severity Reaction Status Date / Time No Known Allergies Allergy Verified 04/23/21 09:53 Active Medications: Current Medications Acetaminophen (Acetaminophen 325 Mg Tablet) 650 mg PO Q6H PRN PRN Reason: Pain, Mild (Pain Scale 1-3) Dextrose/Sodium Chloride (D5ns) 1,000 mls @ 100 mls/hr IVCONT .Q10H [facility] Medication (No Benzodiazepines) 1 each MISCELLANE DAILY [facility] Morphine Sulfate (Morphine Sulfate 4 Mg/Ml Cartridge) 4 mg IVPUSH Q4H PRN; Protocol PRN Reason: Pain, Severe (Pain Scale 7-10) Pantoprazole Sodium (Pantoprazole Sodium 40 Mg/10 Ml Vial) 40 mg IVPUSH BID [facility] Pharmacy Consult (Consult Rx Perform Med Rec) 1 each MISCELLANE ONCE PRN PRN Reason: Consult order Phenobarbital (Phenobarbital 15 Mg Tablet) 45 mg PO BID [facility]; Protocol Stop: 04/25/21 09:01 Phenobarbital (Phenobarbital 30 Mg Tablet) 30 mg PO BID [facility]; Protocol Stop: 04/27/21 09:01 Phenobarbital (Phenobarbital 15 Mg Tablet) 15 mg PO DAILY [facility]; Protocol Stop: 04/29/21 09:01 Phenobarbital Sodium (Phenobarbital Sodium 130 Mg/Ml Vial) 230.1 mg IM Q3H [facility]; Protocol Stop: 04/23/21 16:31 Last Admin: 04/23/21 13:22 Dose: 230.1 mg Documented by: Sodium Chloride (0.9 % Sodium Chloride Flush 3 Ml Syringe) 3 ml IVFLUSH QSHIFT [facility] Sucralfate (Sucralfate Oral Suspension 1 Gm/10 Ml Oral.Susp) 1 gm PO QID [facility] Physical Exam Vital Signs and Narrative: Vital Signs: Last Vital Signs Temp 98.3 F 04/23/21 09:53 Pulse 122 H 04/23/21 13:41 Resp 20 04/23/21 12:00 BP 134/90 H 04/23/21 13:41 Pulse Ox 95 04/23/21 12:00 Body Mass Index 24.7 General awake alert x3, mild shakiness and in distress due to pain Neck supple, no JVD. CVS tachy,regular rate rhythm, Respiratory lungs clear to auscultation, no respiratory distress, no wheeze, no rhonchi. Gastrointestinal epigastric tenderness, abdomen soft, bowel sounds audible, no guarding , no rigidity. Extremities no clubbing cyanosis or edema. Neuro nonfocal Skin no rash Psych appropriate affect Musculoskeletal no deformity Results Labs CBC and Chem 7: 04/23/21 11:06 04/23/21 11:06 Labs: Laboratory Results - last 24 hr 04/23/21 04/23/21 04/23/21 10:28 11:06 11:06 MCV 84.3 MCH 29.3 MCHC 34.8 RDW 19.9 H Plt Count 339 MPV 8.8 L Immature Gran % (Auto) 0.4 Neut % (Auto) 85.1 H Lymph % (Auto) 8.7 L [place] % (Auto) 5.0 Eos % (Auto) 0.0 Baso % (Auto) 0.8 Lymph # (Auto) 0.7 L [place] # (Auto) 0.4 Eos # (Auto) 0.0 Baso # (Auto) 0.1 Abs Immat Gran (auto) 0.03 Absolute Neuts (auto) 6.5 Absolute Nucleated RBC 0.000 Nucleated RBC % (auto) 0.0 PT INR Anion Gap 22 H Estim Creat Clear Calc 71.1 Estimated GFR > 60 Random Glucose 193 H D Lactic Acid Lactic Acid Fup @ 2Hr Calcium 9.1 Magnesium 1.8 Total Bilirubin 0.2 Direct Bilirubin < 0.2 AST 22 ALT 17 Alkaline Phosphatase 94 D Troponin I High Sens Total Protein 7.6 D Albumin 4.5 D Lipase 54 Stool Occult Blood Ethyl Alcohol COVID-19 (ANUJ) Negative COVID-19 Clin Com See Note 04/23/21 04/23/21 04/23/21 11: 11:06 11:06 MCV MCH MCHC RDW Plt Count MPV Immature Gran % (Auto) Neut % (Auto) Lymph % (Auto) [place] % (Auto) Eos % (Auto) Baso % (Auto) Lymph # (Auto) [place] # (Auto) Eos # (Auto) Baso # (Auto) Abs Immat Gran (auto) Absolute Neuts (auto) Absolute Nucleated RBC Nucleated RBC % (auto) PT 11.2 INR 1.0 Anion Gap Estim Creat Clear Calc Estimated GFR Random Glucose Lactic Acid 6.3 H* Lactic Acid Fup @ 2Hr Calcium Magnesium Total Bilirubin Direct Bilirubin AST ALT Alkaline Phosphatase Troponin I High Sens 3.5 Total Protein Albumin Lipase Stool Occult Blood Ethyl Alcohol COVID-19 (ANUJ) COVID-19 Clin Com 04/23/21 04/23/21 04/23/21 11:06 11:50 13:24 MCV MCH MCHC RDW Plt Count MPV Immature Gran % (Auto) Neut % (Auto) Lymph % (Auto) [place] % (Auto) Eos % (Auto) Baso % (Auto) Lymph # (Auto) [place] # (Auto) Eos # (Auto) Baso # (Auto) Abs Immat Gran (auto) Absolute Neuts (auto) Absolute Nucleated RBC Nucleated RBC % (auto) PT INR Anion Gap Estim Creat Clear Calc Estimated GFR Random Glucose Lactic Acid Lactic Acid Fup @ 2Hr 3.8 H* Calcium Magnesium Total Bilirubin Direct Bilirubin AST ALT Alkaline Phosphatase Troponin I High Sens Total Protein Albumin Lipase Stool Occult Blood NEGATIVE Ethyl Alcohol 254 COVID-19 (ANUJ) COVID-19 Clin Com Assessment and Plan (1) Alcohol withdrawal: Status: Acute (2) Alcohol use disorder, severe, dependence: Status: Acute (3) Epigastric pain: Status: Acute (4) Acute alcoholic gastritis: Qualifiers: Gastritis bleeding: with bleeding Qualified Code(s): K29.21 - Alcoholic gastritis with bleeding Status: Acute 40-year-old gentleman with underlying history of alcohol abuse , alcoholic gastritis, esophagitis and duodenitis, recently discharged from [facility] after undergoing upper endoscopy presented to [facility] with alcohol withdrawal and impending seizures with coffee-ground emesis and dark colored stool . Alcohol withdrawal syndrome/delirium tremens Mild shakiness/tachycardia Patient received IV Ativan in the ER, will use high dose of phenobarb protocol, history of recent hospitalization requiring Precedex drip in ICU continues on phenobarbital protocol Will give thiamine and folic acid Consult care team, strongly advised to abstain from alcohol Will check phosphorous level was low during last admission, and follow magnesium Anion gap metabolic acidosis likely due to alcohol abuse and dehydration Lactic acidosis trending down Continue IV fluids and follow BMP Coffee-ground emesis/dark-colored stool No recurrent bout of coffee-ground emesis in ER, stool guaiac negative, hematocrit stable Status post recent upper endoscopy by Dr. Figueredo noted to have erosive esophagitis, gastritis and duodenitis Will place patient on IV Protonix and Carafate q.i.d. In regard to epigastric pain Will give IV morphine and wean over the course of next 24 hours Patient required prolonged hospitalization during last visit due to persistent epigastric pain Will place on clear liquid diet and gradually advanced Follow CBC closely History of anxiety/depression Continue trazodone 50 mg as needed During last admission patient seen by psych and trazodone increased to 75 mg at bedtime, and Lexapro 10 mg was added Borderline low potassium will replace and follow DVT prophylaxis with compression boots due to coffee-ground emesis Quality Stroke Does the patient have a stroke diagnosis?: No VTE Prior VTE?: No VTE Risk Level:: Medical - moderate - high VTE Device Contraindication: N/A - Device Ordered VTE Drug Contraindication: Treatment Not Indicated
[2021-04-23] MEDS: Morphine Sulfate 4 MG/ML CARTRIDGE IVPUSH ×3 (14:42→23:37)
[2021-04-23] MEDS: Dextrose 5 % and 0.9 % NaCl 1,000 ML 100 ML IVCONT (14:46)
[2021-04-23] MEDS: PHENobarbitaL sodium 65 MG/ML VIAL IM (14:48)
[2021-04-23] MEDS: Pantoprazole Sodium 40 MG/10 ML VIAL IVPUSH ×2 (14:49→20:36)
[2021-04-23] MEDS: Potassium Chloride/H20 10 MEQ/100 ML PIGGYBACK 100 MEQ IV (14:52)
[2021-04-23] MEDS: Thiamine HCL 100 MG TABLET PO (14:52)
[2021-04-23 15:08] LABS: Phosphorus 1.2 mg/dL (2.7-4.5)
[2021-04-23 15:35] LABS: Reflex Lactate? 2 Y
[2021-04-23 16:25] LABS: Anion Gap 13 (12-20); Blood Urea Nitrogen 6 mg/dL (9-16); Calcium 7.6 mg/dL (8.4-10.2); Carbon Dioxide 26 mmol/L (22-29); Chloride 105 mmol/L (96-108); Creatinine Clr Calc Pharmacy 96.4; Estimated Glomerular Filt Rate > 60; Glucose Random 146 mg/dL (60-115); Potassium 3.2 mmol/L (3.3-5.1); Sodium 141 mmol/L (135-145)
[2021-04-23] MEDS: Sucralfate Oral Suspension 1 GM/10 ML ORAL.SUSP PO ×2 (16:52→20:36)
--- NOTE | 2021-04-23 18:06 | MHC.CM.PN ---
CM met with admitted patient with bed assignment pending. No IMM required. No HCP on file. Education provided, pt declines. No PCP. Fully vaccinated with Pfizer. Pt states he had Covid 19 twice. Before and after vaccination. Pt. lives with his father. No DME or services. Pt states he is interested in recovery/rehabilitation for ETOH. Aware that recovery services will see patient while hospitalized. Pt hospitalized at [facility] 04/07/21 for ETOH/GI bleeding. D/C plan is unknown at this time. Home vs recovery services. Father to provide transportation. CM to follow for d/c needs.
--- NOTE | 2021-04-23 19:40 | PC.NURSE ---
PT AWAKE AND C/O ABD PAIN. PT MEDICATED FOR PAIN PER EMAR. PT DENIES ANY W/D SYMPTOMS AT THIS TIME. PT AWAITING FOR ROOM ASSIGNMENT. PT REQUESTING TRAZADONE AT 2100. FLUIDS UP AND RUNNING ON PUMP W/D DIFFICULTY.
--- NOTE | 2021-04-23 19:58 | PC.NURSE ---
PT C/O NAUSEA. HOSPITALIST AWARE AND ORDERING ZOFRAN IV.
--- NOTE | 2021-04-23 20:20 | PC.NURSE ---
PT IS NOT ABLE TO URINATE AT THIS TIME.
[2021-04-23] MEDS: PHENobarbitaL 15 MG TABLET 45 MG PO (20:36)
[2021-04-23] MEDS: traZODone HCL 50 MG TABLET PO (20:36)
--- NOTE | 2021-04-23 20:41 | PC.NURSE ---
PT MEDICATED PER EMAR. PT DENIES ANY COMPLAINTS AT THIS TIME. WILL CONTINUE TO MONITOR PT
[2021-04-23 21:28] LABS: Appearance Urine CLEAR; Color Urine YELLOW; Glucose Urine UA NEG (NEG); Leukocyte Esterase Urine NEG (NEG); Nitrite Urine NEG (NEG); Specific Gravity - Urine 1.025 (1.005-1.025); UACC Culture Trigger NO; Urine Blood NEG (NEG); Urine Ketones 15 MG/DL (NEG); Urine Protein 2+ MG/DL (NEG-TRACE)
[2021-04-23 21:37] LABS: Bacteria Urine 1+ /LPF; RBC Urine 0 /HPF (0); WBC Urine 0 /HPF (0-4)
[2021-04-23 21:45] LABS: Amphetamine Screen Urine Not Detected (Not Detect); Barbiturates, Urine POSITIVE (Not Detect); Benzodiazepines Screen Urine Not Detected (Not Detect); Cannabinoid Screen Urine Not Detected (Not Detect); Cocaine Screen Urine Not Detected (Not Detect); Fentanyl, urine POSITIVE (Not Detect); Opiate Screen Urine POSITIVE (Not Detect); Phencyclidine Screen Urine Not Detected (Not Detect)
[2021-04-24] VITALS (7 sets, daily range): BP systolic 122–166; BP diastolic 70–100; PULSE 60–90; RESP 14–18; TEMP 36.5–36.8; O2SAT 93–98
[2021-04-24] MEDS: Dextrose 5 % and 0.9 % NaCl 1,000 ML 100 ML IVCONT ×3 (00:20→22:20)
[2021-04-24] MEDS: Morphine Sulfate 4 MG/ML CARTRIDGE IVPUSH ×4 (03:32→21:58)
[2021-04-24] MEDS: Acetaminophen 325 MG TABLET 650 MG PO (03:53)
--- NOTE | 2021-04-24 04:16 | PC.NURSE ---
pt was actively vomiting. pt c/o my pain is really bad . pt medicated as per emar. respirations easy,n/l. skin w/d.
[2021-04-24 06:57] LABS: Hemoglobin 11.8 g/dl (14.0-18.0); Mean Corpuscular HGB Conc 31.9 g/dl (31.0-36.0); Mean Corpuscular Hemoglobin 27.7 pg (27.0-33.0); Mean Corpuscular Volume 86.9 fL (80.0-98.0); Mean Platelet Volume 9.3 fL (9.4-12.4); Platelet Count 165 X10*3/uL (160-400); Red Blood Count 4.26 X10*6/uL (4.60-5.80); Red Cell Distribution Width 19.1 % (11.0-16.0); White Blood Count 4.2 X10*3/uL (4.8-10.8)
[2021-04-24 07:12] LABS: Anion Gap 14 (12-20); Blood Urea Nitrogen 4 mg/dL (9-16); Calcium 7.7 mg/dL (8.4-10.2); Carbon Dioxide 24 mmol/L (22-29); Chloride 105 mmol/L (96-108); Estimated Glomerular Filt Rate > 60; Glucose Random 108 mg/dL (60-115); Magnesium 1.3 mg/dL (1.6-2.6); Potassium 3.4 mmol/L (3.3-5.1); Sodium 140 mmol/L (135-145)
[2021-04-24] MEDS: PHENobarbitaL 15 MG TABLET 45 MG PO ×2 (07:48→21:59)
[2021-04-24] MEDS: Folic Acid 1 MG TABLET PO (07:48)
[2021-04-24] MEDS: Escitalopram Oxalate 10 MG TABLET PO (07:49)
[2021-04-24] MEDS: Sucralfate Oral Suspension 1 GM/10 ML ORAL.SUSP PO ×4 (07:49→21:58)
[2021-04-24] MEDS: Pantoprazole Sodium 40 MG/10 ML VIAL IVPUSH ×2 (07:49→21:58)
[2021-04-24] MEDS: Magnesium Sulfate/H2O 2 GM/50 ML PIGGYBACK IV ×2 (07:49→11:56)
--- NOTE | 2021-04-24 08:21 | P.PNIM_ITS ---
Subjective Subjective Date of Service: 04/24/21 Interval History: f/u on gib, alcohol withdrawal--no signs withdrawal at present and has had no further coffee ground emesis but bile vomitus Review of Systems no fever no bleeding no tremors Physical Exam Vital Signs: Vital Signs: Last Vital Signs Temp 98.9 F 04/23/21 14:15 Pulse 90 04/24/21 03:33 Resp 16 04/24/21 03:33 BP 122/80 04/24/21 03:33 Pulse Ox 98 04/24/21 03:33 Const: Other: General: AO X 3, no acute distress, cooperative Resp: CTA bilateral CVS: S1,S2,RRR GI: +BS, NT, no distention Skin: No rash Neuro: motor grossly intact, no tremoros Psych: appropriate affect Objective Data Active Medications Acetaminophen (Acetaminophen 325 Mg Tablet) 650 mg PO Q6H PRN PRN Reason: Pain, Mild (Pain Scale 1-3) Last Admin: 04/24/21 03:53 Dose: 650 mg Documented by: CALOS Escitalopram Oxalate (Escitalopram Oxalate 10 Mg Tablet) 10 mg PO DAILY [facility] Last Admin: 04/24/21 07:49 Dose: 10 mg Documented by: YULIA Folic Acid (Folic Acid 1 Mg Tablet) 1 mg PO DAILY [facility] Last Admin: 04/24/21 07:48 Dose: 1 mg Documented by: YULIA Dextrose/Sodium Chloride (D5ns) 1,000 mls @ 100 mls/hr IVCONT .Q10H [facility] Last Admin: 04/24/21 00:20 Dose: 100 mls/hr Documented by: DARIO Magnesium Sulfate (Magnesium Sulfate/H2o) 2 gm in 50 mls @ 25 mls/hr IV Q4H [facility] Stop: 04/24/21 13:29 Last Admin: 04/24/21 07:49 Dose: 25 mls/hr Documented by: YULIA Medication (No Benzodiazepines) 1 each MISCELLANE DAILY [facility] Morphine Sulfate (Morphine Sulfate 4 Mg/Ml Cartridge) 4 mg IVPUSH Q4H PRN; Protocol PRN Reason: Pain, Severe (Pain Scale 7-10) Last Admin: 04/24/21 07:58 Dose: 4 mg Documented by: YULIA Pantoprazole Sodium (Pantoprazole Sodium 40 Mg/10 Ml Vial) 40 mg IVPUSH BID [facility] Last Admin: 04/24/21 07:49 Dose: 40 mg Documented by: YULIA Pharmacy Consult (Consult Rx Perform Med Rec) 1 each MISCELLANE ONCE PRN PRN Reason: Consult order Phenobarbital (Phenobarbital 15 Mg Tablet) 45 mg PO BID [facility]; Protocol Stop: 04/25/21 09:01 Last Admin: 04/24/21 07:48 Dose: 45 mg Documented by: YULIA Phenobarbital (Phenobarbital 30 Mg Tablet) 30 mg PO BID [facility]; Protocol Stop: 04/27/21 09:01 Phenobarbital (Phenobarbital 15 Mg Tablet) 15 mg PO DAILY [facility]; Protocol Stop: 04/29/21 09:01 Sodium Chloride (0.9 % Sodium Chloride Flush 3 Ml Syringe) 3 ml IVFLUSH QSHIFT [facility] Last Admin: 04/24/21 07:01 Dose: Not Given Documented by: YULIA Non-Admin Reason: IV Running Sucralfate (Sucralfate Oral Suspension 1 Gm/10 Ml Oral.Susp) 1 gm PO QID [facility] Last Admin: 04/24/21 07:49 Dose: 1 gm Documented by: YULIA Trazodone HCl (Trazodone Hcl 50 Mg Tablet) 50 mg PO BEDTIME PRN PRN Reason: insomnia Last Admin: 04/23/21 20:36 Dose: 50 mg Documented by: DARIO Labs CBC & Chem 7: 04/24/21 06:21 04/24/21 06:21 Assessment and Plan (1) Alcohol use disorder, severe, dependence: Status: Acute (2) Alcohol withdrawal: Status: Acute Assessment and Plan: 40-year-old gentleman with underlying history of alcohol abuse , alcoholic gastritis, esophagitis and duodenitis, recently discharged from [facility] after undergoing upper endoscopy presented to [facility] with alcohol withdrawal and impending seizures with coffee-ground emesis and dark colored stool --he admits drinking since last discharge #Alcohol withdrawal syndrome/delirium tremens--less tremulous today, no psychomotor agitation -continue Phenobarbital, folic acid, thiamine, care onsult again #Anion gap metabolic acidosis d/t alcoholic ketoacidosos--this has resolved with IVF #Coffee-ground emesis/dark-colored stool--essentially UGIB with acute blood loss anemia, liklely from known gastritis and continuous alcohol use. No active bleed. -alcohol cessation is stahl and I discussed this with him -continue IV PPI, carafate -reconsult GI -follow CBC -NPO until after GI eval #History of anxiety/depression Continue trazodone 50 mg as needed During last admission patient seen by psych and trazodone increased to 75 mg at bedtime, and Lexapro 10 mg was added #Hypomagnesemia of 1.3, replace with 4 grams today, K is normal. DVT prophylaxis with compression boots due to coffee-ground emesis Quality Quality Stroke Does the patient have a stroke diagnosis?: No VTE Prior VTE?: No VTE Risk Level:: Medical - moderate - high VTE Device Contraindication: N/A - Device Ordered VTE Drug Contraindication: Treatment Not Indicated
[2021-04-24] MEDS: ondansetron HCL 4 MG/2 ML VIAL IVPUSH (12:47)
--- NOTE | 2021-04-24 16:36 | P.CNGI_ITS ---
History of Present Illness Data of Consult Service Date: 04/24/21 Requesting physician: [facility] Primary Care Provider: None Physician HPI Reason for consult: hematemesis 40 yr old m with hx of alcohol abuse being seen for assessment for hematemesis. Patient is a binge drinker and has been taking 2-3 bottles of vodka daily along with aspirin. Last 1-2 d had severe nausea with coffee colored emesis and epigastric discomfort with retrosternal discomfort. He also noted black stools, but no fresh blood in stool. He is feeling tremulous and shaky and given ativan and alcohol withdrawal protocol. He had EGD for similar presentation few weeks back and found to have erosive esophagitis, gastritis and duodenitis. Unclear if he has been compliant with PPI. labs with hgb close to baseline from last admission at around 12 g/dl. Admission HGB was 15 but could have been due to hemoconcentration and dehydration or lab error. Review of Systems Review of Systems: no fever no bleeding no tremors Yes all other systems are reviewed and are negative [facility] Past Medical History Medical History Alcohol withdrawal seizure Alcoholism Anxiety Esophagitis Gastritis MDD (major depressive disorder), recurrent severe, without psychosis Family History Pertinent family history: No family history of premature coronary artery disease Surgical History Surgical History H/O esophagogastroduodenoscopy H/O knee surgery Social History Social History Household Members: Family Housing: House Do you presently have visiting nurse or other home services: No Alcohol intake: current Alcohol intake frequency: 3 or more drinks per day Alcohol type: hard liquor Patient Tobacco Use Status: Never used Tobacco Use of substances other than those prescribed or required for medical reasons: No Currently Displaying Signs/Symptoms of Drug Intoxication Withdrawal: No Have you been hit, kicked, punched, or otherwise hurt by someone within the past year? If so, by whom?: No Do you feel safe in your current relationship?: No Current Relationship Is there a partner from a previous relationship who is making you feel unsafe now?: No Are you made to feel afraid or neglected: No Advance Directives: No Advance Directives Information Provided: No Do you have thoughts of harming others: None Do you have a plan to hurt others: No Plan Recently lost weight without trying: No Eating poorly because of decreased appetite: No Nutrition Risks: No Nutritional Risk Poor oral hygiene: No service: No Current occupational status: unemployed Meds Allergies Allergy/AdvReac Type Severity Reaction Status Date / Time No Known Allergies Allergy Verified 04/23/21 09:53 Active Medications: Current Medications Acetaminophen (Acetaminophen 325 Mg Tablet) 650 mg PO Q6H PRN PRN Reason: Pain, Mild (Pain Scale 1-3) Last Admin: 04/24/21 03:53 Dose: 650 mg Documented by: Escitalopram Oxalate (Escitalopram Oxalate 10 Mg Tablet) 10 mg PO DAILY [facility] Last Admin: 04/24/21 07:49 Dose: 10 mg Documented by: Folic Acid (Folic Acid 1 Mg Tablet) 1 mg PO DAILY [facility] Last Admin: 04/24/21 07:48 Dose: 1 mg Documented by: Dextrose/Sodium Chloride (D5ns) 1,000 mls @ 100 mls/hr IVCONT .Q10H [facility] Last Infusion: 04/24/21 13:56 Dose: Infused Documented by: Medication (No Benzodiazepines) 1 each MISCELLANE DAILY [facility] Morphine Sulfate (Morphine Sulfate 4 Mg/Ml Cartridge) 4 mg IVPUSH Q4H PRN; Protocol PRN Reason: Pain, Severe (Pain Scale 7-10) Last Admin: 04/24/21 15:23 Dose: 4 mg Documented by: Ondansetron HCl (Ondansetron Hcl 4 Mg/2 Ml Vial) 4 mg IVPUSH Q8H PRN PRN Reason: Nausea and Vomiting Last Admin: 04/24/21 12:47 Dose: 4 mg Documented by: Pantoprazole Sodium (Pantoprazole Sodium 40 Mg/10 Ml Vial) 40 mg IVPUSH BID [facility] Last Admin: 04/24/21 07:49 Dose: 40 mg Documented by: Pharmacy Consult (Consult Rx Perform Med Rec) 1 each MISCELLANE ONCE PRN PRN Reason: Consult order Phenobarbital (Phenobarbital 15 Mg Tablet) 45 mg PO BID [facility]; Protocol Stop: 04/25/21 09:01 Last Admin: 04/24/21 07:48 Dose: 45 mg Documented by: Phenobarbital (Phenobarbital 30 Mg Tablet) 30 mg PO BID [facility]; Protocol Stop: 04/27/21 09:01 Phenobarbital (Phenobarbital 15 Mg Tablet) 15 mg PO DAILY [facility]; Protocol Stop: 04/29/21 09:01 Sodium Chloride (0.9 % Sodium Chloride Flush 3 Ml Syringe) 3 ml IVFLUSH QSHIFT [facility] Last Admin: 04/24/21 15:33 Dose: Not Given Documented by: Sucralfate (Sucralfate Oral Suspension 1 Gm/10 Ml Oral.Susp) 1 gm PO QID [facility] Last Admin: 04/24/21 11:56 Dose: 1 gm Documented by: Trazodone HCl (Trazodone Hcl 50 Mg Tablet) 50 mg PO BEDTIME PRN PRN Reason: insomnia Last Admin: 04/23/21 20:36 Dose: 50 mg Documented by: Physical Exam Vital Signs: Vital Signs: Last Vital Signs Temp 98.2 F 04/24/21 15:38 Pulse 68 04/24/21 15:38 Resp 16 04/24/21 15:38 BP 161/100 H 04/24/21 15:38 Pulse Ox 98 04/24/21 15:38 Body Mass Index 24.7 Const: Other: EXAM: GENERAL: The patient is anxious, dishevelled VITAL SIGNS:see workflow HEENT: Nonicteric sclerae, PERRLA, EOMI. Oropharynx clear. Moist mucous membranes. Conjunctivae appear well perfused. No thyroid mass. CHEST: Chest wall is nontender. HEART: Regular rate and rhythm without murmurs. LUNGS: Clear to auscultation bilaterally. ABDOMEN: Soft, positive bowel sounds, nontender, no organomegaly.no flank tenderness SKIN: No rash, no excessive bruising, petechiae, or purpura. NEUROLOGIC: Cranial nerves II-XII intact without motor/sensory deficit. No tremor Results Labs CBC & Chem 7: 04/24/21 06:21 04/24/21 06:21 Labs: Short CBC 04/24/21 Range/Units 06:21 WBC 4.2 L (4.8-10.8) X10*3/uL Hgb 11.8 L D (14.0-18.0) g/dl Hct 37.0 L (42.0-52.0) % Plt Count 165 D (160-400) X10*3/uL BMP 04/24/21 06:21 Sodium 140 Potassium 3.4 Chloride 105 Carbon Dioxide 24 BUN 4 L Creatinine 0.70 Calcium 7.7 L Urine 04/23/21 Range/Units 21:13 Urine Color YELLOW Urine Appearance CLEAR Urine pH 6.0 (5.0-8.0) Ur Specific [place] 1.025 (1.005-1.025) Urine Protein 2+ H (NEG-TRACE) MG/DL Urine Glucose (UA) NEG (NEG) MG/DL Assessment and Plan (1) Acute alcoholic gastritis: Qualifiers: Gastritis bleeding: with bleeding Qualified Code(s): K29.21 - Alcoholic gastritis with bleeding Status: Acute 1/ Probable acute alcoholic gastritis, and worsening of underlying esophagitis from alcohol use and non compliance. PLan; 1/ Patient is stable no indication for emergent endoscopy fatmata asjust had EGD recently 2/ Can use pantoprazole 40 mg BID IV until can tolerate PO 3/ can add carafate 1 g if tolerated 4/ allow clears and advance diet if stable 5/ if has worsening sx and further drops in HGB then can consider EGD Procedures Date of Service Date of Service: 04/24/21
[2021-04-25] VITALS: BP 136/85; PULSE 71; RESP 16; TEMP 36.3; O2SAT 98
[2021-04-25 04:00] VITALS: BP 137/92; PULSE 81; RESP 16; TEMP 36.2; O2SAT 98
[2021-04-25] MEDS: Morphine Sulfate 4 MG/ML CARTRIDGE IVPUSH ×3 (05:41→19:32)
[2021-04-25] MEDS: Dextrose 5 % and 0.9 % NaCl 1,000 ML 100 ML IVCONT ×2 (05:51→19:26)
[2021-04-25 07:59] VITALS: BP 142/87; PULSE 67; RESP 18; TEMP 36.7; O2SAT 95
[2021-04-25] MEDS: PHENobarbitaL 15 MG TABLET 45 MG PO (08:29)
[2021-04-25] MEDS: 0.9 % Sodium Chloride Flush 3 ML SYRINGE IVFLUSH (08:30)
[2021-04-25] MEDS: Folic Acid 1 MG TABLET PO (08:30)
[2021-04-25] MEDS: Escitalopram Oxalate 10 MG TABLET PO (08:30)
[2021-04-25] MEDS: Sucralfate Oral Suspension 1 GM/10 ML ORAL.SUSP PO ×4 (08:30→21:06)
[2021-04-25] MEDS: Pantoprazole Sodium 40 MG/10 ML VIAL IVPUSH ×2 (08:30→21:06)
--- NOTE | 2021-04-25 08:47 | P.PNIM_ITS ---
Subjective Subjective Date of Service: 04/25/21 Interval History: f/u on gib, alcohol withdrawal--no signs withdrawal at present and has had no further coffee ground emesis but bile vomitus yet is c/o of abdominal pain Review of Systems no fever no bleeding no tremors +abd pain Physical Exam Vital Signs: Vital Signs: Last Vital Signs Temp 98.1 F 04/25/21 07:59 Pulse 67 04/25/21 07:59 Resp 18 04/25/21 07:59 BP 142/87 H 04/25/21 07:59 Pulse Ox 95 04/25/21 07:59 Body Mass Index 24.7 Const: Other: General: AO X 3, no acute distress, cooperative Resp: CTA bilateral CVS: S1,S2,RRR GI: +BS, mild epig tenderness, no distention Skin: No rash Neuro: motor grossly intact, no tremoros Psych: appropriate affect Objective Data Active Medications Acetaminophen (Acetaminophen 325 Mg Tablet) 650 mg PO Q6H PRN PRN Reason: Pain, Mild (Pain Scale 1-3) Last Admin: 04/24/21 03:53 Dose: 650 mg Documented by: CALOS Escitalopram Oxalate (Escitalopram Oxalate 10 Mg Tablet) 10 mg PO DAILY [facility] Last Admin: 04/25/21 08:30 Dose: 10 mg Documented by: DARIUSZ Folic Acid (Folic Acid 1 Mg Tablet) 1 mg PO DAILY [facility] Last Admin: 04/25/21 08:30 Dose: 1 mg Documented by: DARIUSZ Dextrose/Sodium Chloride (D5ns) 1,000 mls @ 100 mls/hr IVCONT .Q10H [facility] Last Admin: 04/25/21 05:51 Dose: 100 mls/hr Documented by: DARIUSZ Medication (No Benzodiazepines) 1 each MISCELLANE DAILY [facility] Morphine Sulfate (Morphine Sulfate 4 Mg/Ml Cartridge) 4 mg IVPUSH Q4H PRN; Protocol PRN Reason: Pain, Severe (Pain Scale 7-10) Last Admin: 04/25/21 05:41 Dose: 4 mg Documented by: DARIUSZ Ondansetron HCl (Ondansetron Hcl 4 Mg/2 Ml Vial) 4 mg IVPUSH Q8H PRN PRN Reason: Nausea and Vomiting Last Admin: 04/24/21 12:47 Dose: 4 mg Documented by: YULIA Pantoprazole Sodium (Pantoprazole Sodium 40 Mg/10 Ml Vial) 40 mg IVPUSH BID [facility] Last Admin: 04/25/21 08:30 Dose: 40 mg Documented by: DARIUSZ Pharmacy Consult (Consult Rx Perform Med Rec) 1 each MISCELLANE ONCE PRN PRN Reason: Consult order Phenobarbital (Phenobarbital 15 Mg Tablet) 45 mg PO BID [facility]; Protocol Stop: 04/25/21 09:01 Last Admin: 04/25/21 08:29 Dose: 45 mg Documented by: DARIUSZ Phenobarbital (Phenobarbital 30 Mg Tablet) 30 mg PO BID [facility]; Protocol Stop: 04/27/21 09:01 Phenobarbital (Phenobarbital 15 Mg Tablet) 15 mg PO DAILY [facility]; Protocol Stop: 04/29/21 09:01 Sodium Chloride (0.9 % Sodium Chloride Flush 3 Ml Syringe) 3 ml IVFLUSH QSHIFT [facility] Last Admin: 04/25/21 08:30 Dose: 3 ml Documented by: DARIUSZ Sucralfate (Sucralfate Oral Suspension 1 Gm/10 Ml Oral.Susp) 1 gm PO QID [facility] Last Admin: 04/25/21 08:30 Dose: 1 gm Documented by: DARIUSZ Trazodone HCl (Trazodone Hcl 50 Mg Tablet) 50 mg PO BEDTIME PRN PRN Reason: insomnia Last Admin: 04/23/21 20:36 Dose: 50 mg Documented by: DARIO Labs CBC & Chem 7: 04/24/21 06:21 04/24/21 06:21 Assessment and Plan (1) Alcohol withdrawal: Status: Acute (2) Alcohol use disorder, severe, dependence: Status: Acute (3) Epigastric pain: Status: Acute Assessment and Plan: 40-year-old gentleman with underlying history of alcohol abuse , alcoholic gastritis, esophagitis and duodenitis, recently discharged from [facility] after undergoing upper endoscopy presented to [facility] with alcohol withdrawal and impending seizures with coffee-ground emesis and dark colored stool --he admits drinking since last discharge #Alcohol withdrawal/delirium tremens--mild tremors, no psychomotor agitations -continue Phenobarbital, folic acid, thiamine, CARE consult #Anion gap metabolic acidosis d/t alcoholic ketoacidosos--resolved with IVF #Coffee-ground emesis/dark-colored stool--essentially UGIB with acute blood loss anemia, liklely from known gastritis and continuous alcohol use. No active bleed. -he recently had EGD, GI recommends close monitoring -alcohol cessation is stahl and I discussed this with him -continue IV PPI, carafate -follow CBC -NPO until after GI eval #History of anxiety/depression Continue trazodone 50 mg as needed During last admission patient seen by psych and trazodone increased to 75 mg at bedtime, and Lexapro 10 mg was added -he denies SI #Hypomagnesemia of 1.3, replace with 4 grams today, K is normal. DVT prophylaxis with compression boots due to coffee-ground emesis Quality Quality Stroke Does the patient have a stroke diagnosis?: No VTE Prior VTE?: No VTE Risk Level:: Medical - moderate - high VTE Device Contraindication: N/A - Device Ordered VTE Drug Contraindication: Treatment Not Indicated
[2021-04-25 11:22] VITALS: BP 136/83; PULSE 61; RESP 18; TEMP 36.7; O2SAT 96
[2021-04-25] MEDS: ondansetron HCL 4 MG/2 ML VIAL IVPUSH (13:06)
[2021-04-25 15:42] VITALS: BP 133/90; PULSE 68; RESP 16; TEMP 36.8; O2SAT 98
[2021-04-25 19:12] VITALS: BP 141/88; PULSE 64; RESP 16; TEMP 36.8; O2SAT 96
[2021-04-25] MEDS: PHENobarbitaL 30 MG TABLET PO (21:06)
[2021-04-26] VITALS: BP 124/80; PULSE 75; RESP 20; TEMP 36.9; O2SAT 98
[2021-04-26] MEDS: Morphine Sulfate 4 MG/ML CARTRIDGE IVPUSH ×4 (00:29→20:46)
[2021-04-26 04:00] VITALS: BP 130/78; PULSE 65; TEMP 36.5; O2SAT 97
[2021-04-26] MEDS: Dextrose 5 % and 0.9 % NaCl 1,000 ML 100 ML IVCONT ×2 (04:29→18:21)
[2021-04-26 07:35] VITALS: BP 142/86; PULSE 70; RESP 18; TEMP 36.5; O2SAT 99
--- NOTE | 2021-04-26 08:26 | P.PNIM_ITS ---
Subjective Subjective Date of Service: 04/26/21 Interval History: f/u on gib, alcohol withdrawal--no signs withdrawal at present, has pain in the throat and difficulty swallowing Review of Systems no fever no bleeding no tremors +abd pain Physical Exam Vital Signs: Vital Signs: Last Vital Signs Temp 97.7 F 04/26/21 07:35 Pulse 70 04/26/21 07:35 Resp 18 04/26/21 07:35 BP 142/86 H 04/26/21 07:35 Pulse Ox 99 04/26/21 07:35 Body Mass Index 24.7 Const: Other: General: AO X 3, no acute distress, cooperative Resp: CTA bilateral CVS: S1,S2,RRR GI: +BS, mild epig tenderness, no distention Skin: No rash Neuro: motor grossly intact, no tremoros Psych: appropriate affect Objective Data Active Medications Acetaminophen (Acetaminophen 325 Mg Tablet) 650 mg PO Q6H PRN PRN Reason: Pain, Mild (Pain Scale 1-3) Last Admin: 04/24/21 03:53 Dose: 650 mg Documented by: CALOS Escitalopram Oxalate (Escitalopram Oxalate 10 Mg Tablet) 10 mg PO DAILY [facility] Last Admin: 04/25/21 08:30 Dose: 10 mg Documented by: DARIUSZ Folic Acid (Folic Acid 1 Mg Tablet) 1 mg PO DAILY [facility] Last Admin: 04/25/21 08:30 Dose: 1 mg Documented by: DARIUSZ Dextrose/Sodium Chloride (D5ns) 1,000 mls @ 100 mls/hr IVCONT .Q10H [facility] Last Admin: 04/26/21 04:29 Dose: 100 mls/hr Documented by: LEILA Medication (No Benzodiazepines) 1 each MISCELLANE DAILY [facility] Morphine Sulfate (Morphine Sulfate 4 Mg/Ml Cartridge) 4 mg IVPUSH Q4H PRN; Protocol PRN Reason: Pain, Severe (Pain Scale 7-10) Last Admin: 04/26/21 00:29 Dose: 4 mg Documented by: LEILA Ondansetron HCl (Ondansetron Hcl 4 Mg/2 Ml Vial) 4 mg IVPUSH Q8H PRN PRN Reason: Nausea and Vomiting Last Admin: 04/25/21 13:06 Dose: 4 mg Documented by: ADELE Pantoprazole Sodium (Pantoprazole Sodium 40 Mg/10 Ml Vial) 40 mg IVPUSH BID [facility] Last Admin: 04/25/21 21:06 Dose: 40 mg Documented by: LEILA Pharmacy Consult (Consult Rx Perform Med Rec) 1 each MISCELLANE ONCE PRN PRN Reason: Consult order Phenobarbital (Phenobarbital 30 Mg Tablet) 30 mg PO BID [facility]; Protocol Stop: 04/27/21 09:01 Last Admin: 04/25/21 21:06 Dose: 30 mg Documented by: LEILA Phenobarbital (Phenobarbital 15 Mg Tablet) 15 mg PO DAILY [facility]; Protocol Stop: 04/29/21 09:01 Sodium Chloride (0.9 % Sodium Chloride Flush 3 Ml Syringe) 3 ml IVFLUSH QSHIFT [facility] Last Admin: 04/25/21 23:53 Dose: Not Given Documented by: LEILA Non-Admin Reason: IV Running Sucralfate (Sucralfate Oral Suspension 1 Gm/10 Ml Oral.Susp) 1 gm PO QID [facility] Last Admin: 04/25/21 21:06 Dose: 1 gm Documented by: LEILA Trazodone HCl (Trazodone Hcl 50 Mg Tablet) 50 mg PO BEDTIME PRN PRN Reason: insomnia Last Admin: 04/23/21 20:36 Dose: 50 mg Documented by: DARIO Labs CBC & Chem 7: 04/24/21 06:21 04/24/21 06:21 Assessment and Plan (1) Alcohol withdrawal: Status: Acute (2) Alcohol use disorder, severe, dependence: Status: Acute (3) Alcoholism: Status: Acute (4) Epigastric pain: Status: Acute Assessment and Plan: 40-year-old gentleman with underlying history of alcohol abuse , alcoholic gastritis, esophagitis and duodenitis, recently discharged from [facility] after undergoing upper endoscopy presented to [facility] with alcohol withdrawal and impending seizures with coffee-ground emesis and dark colored stool --he admits drinking since last discharge #Alcohol withdrawal/delirium tremens--mild tremors, no psychomotor agitations -continue Phenobarbital, folic acid, thiamine, CARE eval prior to dc #Anion gap metabolic acidosis d/t alcoholic ketoacidosos--resolved with IVF #Coffee-ground emesis/dark-colored stool--essentially UGIB with acute blood loss anemia, liklely from known gastritis and continuous alcohol use. No active bleed. -he recently had EGD, GI recommends close monitoring -alcohol cessation is stahl and I discussed this with him -continue IV PPI, carafate -follow CBC -advance diet, will discuss with GI tomorrow and might need repeat EGD #History of anxiety/depression Continue trazodone 50 mg as needed During last admission patient seen by psych and trazodone increased to 75 mg at bedtime, and Lexapro 10 mg was added -he denies SI #Hypomagnesemia of 1.3, replaced, recheck, K is normal. DVT prophylaxis with compression boots due to coffee-ground emesis Quality Quality Stroke Does the patient have a stroke diagnosis?: No VTE Prior VTE?: No VTE Risk Level:: Medical - moderate - high VTE Device Contraindication: N/A - Device Ordered VTE Drug Contraindication: Treatment Not Indicated
[2021-04-26] MEDS: Sucralfate Oral Suspension 1 GM/10 ML ORAL.SUSP PO ×4 (08:45→20:40)
[2021-04-26] MEDS: Escitalopram Oxalate 10 MG TABLET PO (08:46)
[2021-04-26] MEDS: Folic Acid 1 MG TABLET PO (08:46)
[2021-04-26] MEDS: PHENobarbitaL 30 MG TABLET PO ×2 (08:46→20:40)
[2021-04-26] MEDS: Pantoprazole Sodium 40 MG/10 ML VIAL IVPUSH (08:47)
[2021-04-26 11:23] VITALS: BP 152/86; PULSE 69; RESP 18; TEMP 36.9; O2SAT 97
[2021-04-26 15:52] VITALS: BP 152/92; PULSE 60; RESP 17; TEMP 37; O2SAT 98
[2021-04-26] MEDS: 0.9 % Sodium Chloride Flush 3 ML SYRINGE IVFLUSH (17:14)
[2021-04-26 19:26] VITALS: BP 147/88; PULSE 61; RESP 17; TEMP 37.1; O2SAT 97
[2021-04-26] MEDS: Artificial Tears 15 ML DROPS 2 DROP EYE-BOTH (21:33)
[2021-04-27] VITALS (14 sets, daily range): BP systolic 101–158; BP diastolic 64–96; PULSE 60–71; RESP 10–20; TEMP 36.1–37.1; O2SAT 96–99
[2021-04-27] MEDS: ondansetron HCL 4 MG/2 ML VIAL IVPUSH ×2 (05:00→19:44)
[2021-04-27] MEDS: Dextrose 5 % and 0.9 % NaCl 1,000 ML 100 ML IVCONT ×3 (05:00→23:46)
[2021-04-27] MEDS: Artificial Tears 15 ML DROPS 2 DROP EYE-BOTH (05:00)
[2021-04-27] MEDS: Morphine Sulfate 4 MG/ML CARTRIDGE IVPUSH ×3 (05:00→22:22)
[2021-04-27] MEDS: Escitalopram Oxalate 10 MG TABLET PO (07:51)
[2021-04-27] MEDS: Folic Acid 1 MG TABLET PO (07:51)
[2021-04-27] MEDS: Sucralfate Oral Suspension 1 GM/10 ML ORAL.SUSP PO ×4 (07:51→20:38)
--- NOTE | 2021-04-27 08:15 | P.PNIM_ITS ---
Subjective Subjective Date of Service: 05/09/21 Interval History: f/u on gib, alcohol withdrawal--no signs withdrawal at present, has pain in the throat and difficulty swallowing and eating Review of Systems no fever no bleeding no tremors +abd pain Physical Exam Vital Signs: Vital Signs: Last Vital Signs Temp 97.9 F 04/27/21 07:26 Pulse 71 04/27/21 07:26 Resp 18 04/27/21 07:26 BP 130/88 04/27/21 07:26 Pulse Ox 98 04/27/21 07:26 Body Mass Index 24.7 Const: Other: General: AO X 3, no acute distress, cooperative Resp: CTA bilateral CVS: S1,S2,RRR GI: +BS, mild epig tenderness, no distention Skin: No rash Neuro: motor grossly intact, no tremoros Psych: appropriate affect Objective Data Active Medications Acetaminophen (Acetaminophen 325 Mg Tablet) 650 mg PO Q6H PRN PRN Reason: Pain, Mild (Pain Scale 1-3) Last Admin: 04/24/21 03:53 Dose: 650 mg Documented by: CALOS Artificial Tears (Artificial Tears 15 Ml Drops) 2 drop EYE-BOTH Q4H PRN PRN Reason: Dry Eyes Last Admin: 04/27/21 05:00 Dose: 2 drop Documented by: VIDA Escitalopram Oxalate (Escitalopram Oxalate 10 Mg Tablet) 10 mg PO DAILY [facility] Last Admin: 04/27/21 07:51 Dose: 10 mg Documented by: SABRINA Folic Acid (Folic Acid 1 Mg Tablet) 1 mg PO DAILY [facility] Last Admin: 04/27/21 07:51 Dose: 1 mg Documented by: SABRINA Dextrose/Sodium Chloride (D5ns) 1,000 mls @ 100 mls/hr IVCONT .Q10H [facility] Last Admin: 04/27/21 05:00 Dose: 100 mls/hr Documented by: VIDA Medication (No Benzodiazepines) 1 each MISCELLANE DAILY [facility] Morphine Sulfate (Morphine Sulfate 4 Mg/Ml Cartridge) 4 mg IVPUSH Q4H PRN; Protocol PRN Reason: Pain, Severe (Pain Scale 7-10) Last Admin: 04/27/21 05:00 Dose: 4 mg Documented by: VIDA Ondansetron HCl (Ondansetron Hcl 4 Mg/2 Ml Vial) 4 mg IVPUSH Q8H PRN PRN Reason: Nausea and Vomiting Last Admin: 04/27/21 05:00 Dose: 4 mg Documented by: VIDA Pharmacy Consult (Consult Rx Perform Med Rec) 1 each MISCELLANE ONCE PRN PRN Reason: Consult order Phenobarbital (Phenobarbital 30 Mg Tablet) 30 mg PO BID [facility]; Protocol Stop: 04/27/21 09:01 Last Admin: 04/26/21 20:40 Dose: 30 mg Documented by: SHAY Phenobarbital (Phenobarbital 15 Mg Tablet) 15 mg PO DAILY [facility]; Protocol Stop: 04/29/21 09:01 Sodium Chloride (0.9 % Sodium Chloride Flush 3 Ml Syringe) 3 ml IVFLUSH QSHIFT [facility] Last Admin: 04/27/21 07:42 Dose: Not Given Documented by: SABRINA Non-Admin Reason: IV Running Sucralfate (Sucralfate Oral Suspension 1 Gm/10 Ml Oral.Susp) 1 gm PO QID [facility] Last Admin: 04/27/21 07:51 Dose: 1 gm Documented by: SABRINA Trazodone HCl (Trazodone Hcl 50 Mg Tablet) 50 mg PO BEDTIME PRN PRN Reason: insomnia Last Admin: 04/23/21 20:36 Dose: 50 mg Documented by: DARIO Labs CBC & Chem 7: 04/27/21 08:54 04/27/21 08:54 Assessment and Plan (1) Alcohol use disorder, severe, dependence: Status: Acute Assessment and Plan: 40-year-old gentleman with underlying history of alcohol abuse , alcoholic gastritis, esophagitis and duodenitis, recently discharged from [facility] after undergoing upper endoscopy presented to [facility] with alcohol withdrawal and impending seizures with coffee-ground emesis and dark colored stool --he admits drinking since last discharge #Alcohol withdrawal/delirium tremens--No active signs of withdrawal -continue Phenobarbital, folic acid, thiamine, CARE eval prior to dc #Anion gap metabolic acidosis d/t alcoholic ketoacidosos--resolved with IVF #Coffee-ground emesis/dark-colored stool--essentially UGIB with acute blood loss anemia, liklely from known gastritis seen on last EGD from April 07 and continuous alcohol use. No active bleed. -alcohol cessation is stahl and I discussed this with him -continue IV PPI, carafate -follow CBC -To be reassess for EGD given Odynophagia and persistent epigastric pain Continue trazodone and Lexapro no SI #Hypomagnesemia of 1.3, replaced, recheck, K is normal. recheck labs today DVT prophylaxis with compression boots due to coffee-ground emesis Quality Quality Stroke Does the patient have a stroke diagnosis?: No VTE Prior VTE?: No VTE Risk Level:: Medical - moderate - high VTE Device Contraindication: N/A - Device Ordered VTE Drug Contraindication: Treatment Not Indicated
[2021-04-27 09:16] LABS: Hematocrit 39.9 % (42.0-52.0); Hemoglobin 13.4 g/dl (14.0-18.0); Mean Corpuscular HGB Conc 33.6 g/dl (31.0-36.0); Mean Corpuscular Hemoglobin 28.5 pg (27.0-33.0); Mean Corpuscular Volume 84.9 fL (80.0-98.0); Mean Platelet Volume 9.6 fL (9.4-12.4); Red Cell Distribution Width 18.6 % (11.0-16.0); White Blood Count 6.6 X10*3/uL (4.8-10.8)
[2021-04-27 09:32] LABS: Anion Gap 13 (12-20); Blood Urea Nitrogen 3 mg/dL (9-16); Calcium 8.1 mg/dL (8.4-10.2); Carbon Dioxide 23 mmol/L (22-29); Chloride 106 mmol/L (96-108); Creatinine Clr Calc Pharmacy 142.3; Estimated Glomerular Filt Rate > 60; Glucose Random 109 mg/dL (60-115); Magnesium 1.7 mg/dL (1.6-2.6); Potassium 3.7 mmol/L (3.3-5.1); Sodium 138 mmol/L (135-145)
[2021-04-27 09:48] LABS: Platelet Count 145 X10*3/uL (160-400)
[2021-04-27] MEDS: PHENobarbitaL 30 MG TABLET PO (09:59)
[2021-04-27] MEDS: Pantoprazole Sodium 40 MG/10 ML VIAL IVPUSH ×2 (09:59→15:50)
--- NOTE | 2021-04-27 11:53 | MHC.SHP ---
Pre-Procedural Eval Section A Date of Service: 04/27/21 The patient is an INPATIENT: Yes The History & Physical has been completed within 30 days and I have reviewed it.: Yes Section B Chief Complaint: Coffee ground emesis/alcohol withdrawal Allergies: Allergies Allergy/AdvReac Type Severity Reaction Status Date / Time No Known Allergies Allergy Verified 04/27/21 11:42 Plan I have reviewed the history and physical and performed a pertinent physical examination on my patient. No changes have occurred unless specified. no further emesis but c/o painful swallowing and nausea, epigastric pain, EGD to reassess, already on carafate and PPI.
--- NOTE | 2021-04-27 12:02 | P.CONAN_ITS ---
[facility] Active Problems Active Problems: All Active Problems (Updated 04/23/21 @ 13:00 by Isela new MD) Alcohol withdrawal (Acute) Alcohol use disorder, severe, dependence (Acute) Alcoholism (Acute) Epigastric pain (Acute) H/O knee surgery (Acute) H/O esophagogastroduodenoscopy (Acute) Acute alcoholic gastritis (Acute) Past Medical History Medical History Alcohol withdrawal seizure Alcoholism Anxiety Esophagitis Gastritis MDD (major depressive disorder), recurrent severe, without psychosis Family History Family history of problems with anesthesia: No Surgical History Surgical History H/O esophagogastroduodenoscopy H/O knee surgery History of Problems with Anesthesia: No Social History Social History Household Members: Family Housing: House Do you presently have visiting nurse or other home services: No Alcohol intake: current Alcohol intake frequency: 3 or more drinks per day Alcohol type: hard liquor Patient Tobacco Use Status: Never used Tobacco Use of substances other than those prescribed or required for medical reasons: No Currently Displaying Signs/Symptoms of Drug Intoxication Withdrawal: No Have you been hit, kicked, punched, or otherwise hurt by someone within the past year? If so, by whom?: No Do you feel safe in your current relationship?: No Current Relationship Is there a partner from a previous relationship who is making you feel unsafe now?: No Are you made to feel afraid or neglected: No Are you DNR?: No Advance Directives: No Advance Directives Information Provided: No Do you have thoughts of harming others: None Do you have a plan to hurt others: No Plan Recently lost weight without trying: No Eating poorly because of decreased appetite: No Nutrition Risks: No Nutritional Risk Poor oral hygiene: No service: No Current occupational status: unemployed Meds Allergies Allergy/AdvReac Type Severity Reaction Status Date / Time No Known Allergies Allergy Verified 04/27/21 11:42 Active Medications: Current Medications Acetaminophen (Acetaminophen 325 Mg Tablet) 650 mg PO Q6H PRN PRN Reason: Pain, Mild (Pain Scale 1-3) Last Admin: 04/24/21 03:53 Dose: 650 mg Documented by: Artificial Tears (Artificial Tears 15 Ml Drops) 2 drop EYE-BOTH Q4H PRN PRN Reason: Dry Eyes Last Admin: 04/27/21 05:00 Dose: 2 drop Documented by: Escitalopram Oxalate (Escitalopram Oxalate 10 Mg Tablet) 10 mg PO DAILY [facility] Last Admin: 04/27/21 07:51 Dose: 10 mg Documented by: Folic Acid (Folic Acid 1 Mg Tablet) 1 mg PO DAILY [facility] Last Admin: 04/27/21 07:51 Dose: 1 mg Documented by: Dextrose/Sodium Chloride (D5ns) 1,000 mls @ 100 mls/hr IVCONT .Q10H [facility] Last Admin: 04/27/21 05:00 Dose: 100 mls/hr Documented by: Medication (No Benzodiazepines) 1 each MISCELLANE DAILY [facility] Morphine Sulfate (Morphine Sulfate 4 Mg/Ml Cartridge) 4 mg IVPUSH Q4H PRN; Protocol PRN Reason: Pain, Severe (Pain Scale 7-10) Last Admin: 04/27/21 05:00 Dose: 4 mg Documented by: Ondansetron HCl (Ondansetron Hcl 4 Mg/2 Ml Vial) 4 mg IVPUSH Q8H PRN PRN Reason: Nausea and Vomiting Last Admin: 04/27/21 05:00 Dose: 4 mg Documented by: Pantoprazole Sodium (Pantoprazole Sodium 40 Mg/10 Ml Vial) 40 mg IVPUSH BID@0630,1630 [facility] Last Admin: 04/27/21 09:59 Dose: 40 mg Documented by: Pharmacy Consult (Consult Rx Perform Med Rec) 1 each MISCELLANE ONCE PRN PRN Reason: Consult order Phenobarbital (Phenobarbital 15 Mg Tablet) 15 mg PO DAILY [facility]; Protocol Stop: 04/29/21 09:01 Sodium Chloride (0.9 % Sodium Chloride Flush 3 Ml Syringe) 3 ml IVFLUSH QSHIFT [facility] Last Admin: 04/27/21 07:42 Dose: Not Given Documented by: Sucralfate (Sucralfate Oral Suspension 1 Gm/10 Ml Oral.Susp) 1 gm PO QID [facility] Last Admin: 04/27/21 07:51 Dose: 1 gm Documented by: Trazodone HCl (Trazodone Hcl 50 Mg Tablet) 50 mg PO BEDTIME PRN PRN Reason: insomnia Last Admin: 04/23/21 20:36 Dose: 50 mg Documented by: Exam Exam Date and Time: April 27, 2021 1202 Height,Weight and Vital Signs: Height 5 ft 6 in Weight 69.4 kg Last Vital Signs Temp 98.7 F 04/27/21 11:49 Pulse 62 04/27/21 11:49 Resp 18 04/27/21 11:49 BP 144/94 H 04/27/21 11:49 Pulse Ox 99 04/27/21 11:49 Pertinent Lab Results Pertinent Lab Results: Laboratory Tests 04/23/21 04/23/21 04/23/21 10:28 11:06 11:06 WBC 7.6 RBC 5.35 Hgb 15.7 Hct 45.1 MCV 84.3 MCH 29.3 MCHC 34.8 RDW 19.9 H Plt Count 339 MPV 8.8 L Immature Gran % (Auto) 0.4 Neut % (Auto) 85.1 H Lymph % (Auto) 8.7 L Shoshone % (Auto) 5.0 Eos % (Auto) 0.0 Baso % (Auto) 0.8 Lymph # (Auto) 0.7 L Shoshone # (Auto) 0.4 Eos # (Auto) 0.0 Baso # (Auto) 0.1 Abs Immat Gran (auto) 0.03 Absolute Neuts (auto) 6.5 Absolute Nucleated RBC 0.000 Nucleated RBC % (auto) 0.0 PT INR Sodium 139 Potassium 3.3 Chloride 98 Carbon Dioxide 22 Anion Gap 22 H BUN 6 L Creatinine 1.22 Estim Creat Clear Calc 71.1 Estimated GFR > 60 Random Glucose 193 H D Lactic Acid Lactic Acid Fup @ 2Hr Lactic Acid Fup @ 4Hr Calcium 9.1 Phosphorus 1.2 L Magnesium 1.8 Total Bilirubin 0.2 Direct Bilirubin < 0.2 AST 22 ALT 17 Alkaline Phosphatase 94 D Troponin I High Sens Total Protein 7.6 D Albumin 4.5 D Lipase 54 Urine Color Urine Appearance Urine pH Ur Specific Spivey Urine Protein Urine Glucose (UA) Urine Ketones Urine Blood Urine Nitrite Ur Leukocyte Esterase Urine RBC Urine WBC Ur Squamous Epith Cells Urine Bacteria Stool Occult Blood Urine Opiates Screen Urine Fentanyl Screen Ur Barbiturates Screen Ur Phencyclidine Scrn Ur Amphetamines Screen U Benzodiazepines Scrn Urine Cocaine Screen U Marijuana (THC) Screen Ethyl Alcohol COVID-19 (ANUJ) Negative COVID-19 Clin Com See Note 04/23/21 04/23/21 04/23/21 11:06 11:06 11:06 WBC RBC Hgb Hct MCV MCH MCHC RDW Plt Count MPV Immature Gran % (Auto) Neut % (Auto) Lymph % (Auto) Shoshone % (Auto) Eos % (Auto) Baso % (Auto) Lymph # (Auto) Shoshone # (Auto) Eos # (Auto) Baso # (Auto) Abs Immat Gran (auto) Absolute Neuts (auto) Absolute Nucleated RBC Nucleated RBC % (auto) PT 11.2 INR 1.0 Sodium Potassium Chloride Carbon Dioxide Anion Gap BUN Creatinine Estim Creat Clear Calc Estimated GFR Random Glucose Lactic Acid 6.3 H* Lactic Acid Fup @ 2Hr Lactic Acid Fup @ 4Hr Calcium Phosphorus Magnesium Total Bilirubin Direct Bilirubin AST ALT Alkaline Phosphatase Troponin I High Sens 3.5 Total Protein Albumin Lipase Urine Color Urine Appearance Urine pH Ur Specific Spivey Urine Protein Urine Glucose (UA) Urine Ketones Urine Blood Urine Nitrite Ur Leukocyte Esterase Urine RBC Urine WBC Ur Squamous Epith Cells Urine Bacteria Stool Occult Blood Urine Opiates Screen Urine Fentanyl Screen Ur Barbiturates Screen Ur Phencyclidine Scrn Ur Amphetamines Screen U Benzodiazepines Scrn Urine Cocaine Screen U Marijuana (THC) Screen Ethyl Alcohol COVID-19 (ANUJ) COVID-19 Clin Com 04/23/21 04/23/21 04/23/21 11:06 11:50 13:24 WBC RBC Hgb Hct MCV MCH MCHC RDW Plt Count MPV Immature Gran % (Auto) Neut % (Auto) Lymph % (Auto) Shoshone % (Auto) Eos % (Auto) Baso % (Auto) Lymph # (Auto) Shoshone # (Auto) Eos # (Auto) Baso # (Auto) Abs Immat Gran (auto) Absolute Neuts (auto) Absolute Nucleated RBC Nucleated RBC % (auto) PT INR Sodium Potassium Chloride Carbon Dioxide Anion Gap BUN Creatinine Estim Creat Clear Calc Estimated GFR Random Glucose Lactic Acid Lactic Acid Fup @ 2Hr 3.8 H* Lactic Acid Fup @ 4Hr Calcium Phosphorus Magnesium Total Bilirubin Direct Bilirubin AST ALT Alkaline Phosphatase Troponin I High Sens Total Protein Albumin Lipase Urine Color Urine Appearance Urine pH Ur Specific Spivey Urine Protein Urine Glucose (UA) Urine Ketones Urine Blood Urine Nitrite Ur Leukocyte Esterase Urine RBC Urine WBC Ur Squamous Epith Cells Urine Bacteria Stool Occult Blood NEGATIVE Urine Opiates Screen Urine Fentanyl Screen Ur Barbiturates Screen Ur Phencyclidine Scrn Ur Amphetamines Screen U Benzodiazepines Scrn Urine Cocaine Screen U Marijuana (THC) Screen Ethyl Alcohol 254 COVID-19 (ANUJ) COVID-19 Clin Com 04/23/21 04/23/21 04/23/21 16:01 16:01 21:13 WBC RBC Hgb Hct MCV MCH MCHC RDW Plt Count MPV Immature Gran % (Auto) Neut % (Auto) Lymph % (Auto) Shoshone % (Auto) Eos % (Auto) Baso % (Auto) Lymph # (Auto) Shoshone # (Auto) Eos # (Auto) Baso # (Auto) Abs Immat Gran (auto) Absolute Neuts (auto) Absolute Nucleated RBC Nucleated RBC % (auto) PT INR Sodium 141 Potassium 3.2 L Chloride 105 Carbon Dioxide 26 Anion Gap 13 BUN 6 L Creatinine 0.90 Estim Creat Clear Calc 96.4 Estimated GFR > 60 Random Glucose 146 H Lactic Acid Lactic Acid Fup @ 2Hr Lactic Acid Fup @ 4Hr 3.0 H* Calcium 7.6 L D Phosphorus Magnesium Total Bilirubin Direct Bilirubin AST ALT Alkaline Phosphatase Troponin I High Sens Total Protein Albumin Lipase Urine Color YELLOW Urine Appearance CLEAR Urine pH 6.0 Ur Specific Spivey 1.025 Urine Protein 2+ H Urine Glucose (UA) NEG Urine Ketones 15 Urine Blood NEG Urine Nitrite NEG Ur Leukocyte Esterase NEG Urine RBC 0 Urine WBC 0 Ur Squamous Epith Cells NONE Urine Bacteria 1+ Stool Occult Blood Urine Opiates Screen Urine Fentanyl Screen Ur Barbiturates Screen Ur Phencyclidine Scrn Ur Amphetamines Screen U Benzodiazepines Scrn Urine Cocaine Screen U Marijuana (THC) Screen Ethyl Alcohol COVID-19 (ANUJ) COVID-19 Clin Com 04/23/21 04/24/21 04/24/21 21:13 06:21 06:21 WBC 4.2 L RBC 4.26 L D Hgb 11.8 L D Hct 37.0 L MCV 86.9 MCH 27.7 MCHC 31.9 RDW 19.1 H Plt Count 165 D MPV 9.3 L Immature Gran % (Auto) Neut % (Auto) Lymph % (Auto) Shoshone % (Auto) Eos % (Auto) Baso % (Auto) Lymph # (Auto) Shoshone # (Auto) Eos # (Auto) Baso # (Auto) Abs Immat Gran (auto) Absolute Neuts (auto) Absolute Nucleated RBC 0.000 Nucleated RBC % (auto) 0.0 PT INR Sodium 140 Potassium 3.4 Chloride 105 Carbon Dioxide 24 Anion Gap 14 BUN 4 L Creatinine 0.70 Estim Creat Clear Calc 124.0 Estimated GFR > 60 Random Glucose 108 Lactic Acid Lactic Acid Fup @ 2Hr Lactic Acid Fup @ 4Hr Calcium 7.7 L Phosphorus Magnesium 1.3 L* Total Bilirubin Direct Bilirubin AST ALT Alkaline Phosphatase Troponin I High Sens Total Protein Albumin Lipase Urine Color Urine Appearance Urine pH Ur Specific Spivey Urine Protein Urine Glucose (UA) Urine Ketones Urine Blood Urine Nitrite Ur Leukocyte Esterase Urine RBC Urine WBC Ur Squamous Epith Cells Urine Bacteria Stool Occult Blood Urine Opiates Screen POSITIVE H Urine Fentanyl Screen POSITIVE H Ur Barbiturates Screen POSITIVE H Ur Phencyclidine Scrn Not Detected Ur Amphetamines Screen Not Detected U Benzodiazepines Scrn Not Detected Urine Cocaine Screen Not Detected U Marijuana (THC) Screen Not Detected Ethyl Alcohol COVID-19 (ANUJ) COVID-19 Clin Com 04/27/21 04/27/21 08:54 08:54 WBC 6.6 RBC 4.70 Hgb 13.4 L Hct 39.9 L MCV 84.9 MCH 28.5 MCHC 33.6 RDW 18.6 H Plt Count 145 L MPV 9.6 Immature Gran % (Auto) Neut % (Auto) Lymph % (Auto) Shoshone % (Auto) Eos % (Auto) Baso % (Auto) Lymph # (Auto) Shoshone # (Auto) Eos # (Auto) Baso # (Auto) Abs Immat Gran (auto) Absolute Neuts (auto) Absolute Nucleated RBC 0.000 Nucleated RBC % (auto) 0.0 PT INR Sodium 138 Potassium 3.7 Chloride 106 Carbon Dioxide 23 Anion Gap 13 BUN 3 L Creatinine 0.61 Estim Creat Clear Calc 142.3 Estimated GFR > 60 Random Glucose 109 Lactic Acid Lactic Acid Fup @ 2Hr Lactic Acid Fup @ 4Hr Calcium 8.1 L Phosphorus Magnesium 1.7 Total Bilirubin Direct Bilirubin AST ALT Alkaline Phosphatase Troponin I High Sens Total Protein Albumin Lipase Urine Color Urine Appearance Urine pH Ur Specific Spivey Urine Protein Urine Glucose (UA) Urine Ketones Urine Blood Urine Nitrite Ur Leukocyte Esterase Urine RBC Urine WBC Ur Squamous Epith Cells Urine Bacteria Stool Occult Blood Urine Opiates Screen Urine Fentanyl Screen Ur Barbiturates Screen Ur Phencyclidine Scrn Ur Amphetamines Screen U Benzodiazepines Scrn Urine Cocaine Screen U Marijuana (THC) Screen Ethyl Alcohol COVID-19 (ANUJ) COVID-19 Clin Com Airway Mallampati Class: II TM Dist: >3cm Neck ROM: Full Loose/Missing/Broken Teeth: No Heart: RRR Lungs: CTA Assessment and Plan Assessment Anesthesia Assessment: Anesthesia Plan Discussed and Chart Reviewed Final Anesthetic Review Family History of Problems with Anesthesia: No History of Problems with Anesthesia: No NPO: Yes ASA Class: III Final Preanesthetic Review: Meds/Allgs Chart Reviewed, Consent Obtained/Reviewed and Anes Risks/Benef Reviewed Patient Risk: Intermediate Procedure Risk: Intermediate Anesthetic Plan Anesthetic Plan: MAC: Disposition: Standard PACU
--- NOTE | 2021-04-27 13:14 | MHC.RECOVRN ---
Attempted to meet with pt after consult placed to CARE Team for alcohol use. Pt off floor at this time. Left resources for pt. Will continue to follow.
--- NOTE | 2021-04-27 13:19 | P.BOP_ITS ---
Brief Operative Note Date of Service: 04/27/21 Pre-op diagnosis: epigastric pain, nausea, painful swallowing Post-op diagnosis: same Procedure: see op note Surgeon: Jaye Mcnamara MD Anesthesia: MAC Was an Tester Sound used for this Procedure?: No Estimated blood loss (mL): 0 Condition: stable Disposition: PACU
--- NOTE | 2021-04-27 13:20 | W.PM.OPN ---
Operative Note Operative Note Date of Service: 04/27/21 Narrative: Procedure Description: EGD FLEXIBLE TRANSORAL UPPER GASTROINTESTINAL ENDOSCOPY UPPER ENDOSCOPY Consent: Indications for the procedure and potential complications of bleeding, perforation, reaction to medications and missed diagnosis were discussed with the patient and informed consent was obtained. Instrument: Olympus GIF H 190 J mid size upper endoscope Monitoring: Vital signs and clinical assessment, continuous EKG monitoring, Pulse oximetry, Carbon Dioxide monitoring and blood pressure monitoring were done throughout the procedure. Procedure: The patient was placed in the left lateral decubitis position and pre-procedure medications were administered and a bite block was placed. The endoscope was inserted into the mouth and advanced under direct vision to the third part of duodenum. A careful inspection was made as the upper endoscope was withdrawn including a retroflexed examination of the proximal stomach; Findings and interventions are described below. Findings: Larynx:normal Esophagus: GE junction at 38 cm, diaphragm hiatus at 38 cm, there was edematous and swollen distal esophageal tissue fatmata at GEJ with erythema and inflammation extending for 8 cm which looked to be resolving. In mid esophagus there was a white plague like area bx taken. Stomach: Patchy gastric erythema, mild. Grade 2 flap valve on retroflexed examination of the cardia. Duodenum: Mild bulbar duodenitis Intervention: Biopsies as noted above Impression/Findings: esophagitis, gastritis duodenitis PLAN: cont with carafate and PPI, can also add magic mouthwash can add fluconazole 100 mg for 2 weeks advance diet as tolerated
--- NOTE | 2021-04-27 14:44 | MHC.CM.PN ---
nurse resident care spec note electronic medical record reviewed patient has history of alcohol abuse, alcoholic gastritis, esophagitis duodenitis coffee ground emesisi dark colored stool ugib with acute blodd loss anemia continues with ppi carafate trazadone lexapro , s/p egd findings esophagitis, gastritisn duodenitis, continues with pain in throat difficulty with swallowing and eating ,per documentation no active sx of withdrawl, continue with phenobarbital, folic acid, thiamin discharge plan to be further finalized , 1. care team referral before d/c have pt pic a pcp (education in regards to this was initially given and patient was not interested patient lives with his father mnfully vacinated with [facility].
[2021-04-27] MEDS: 0.9 % Sodium Chloride Flush 3 ML SYRINGE IVFLUSH (15:50)
[2021-04-27] MEDS: Acetaminophen 325 MG TABLET 650 MG PO ×2 (16:10→22:22)
--- NOTE | 2021-04-27 16:58 | MHC.RECOVSUP ---
Met with Pt. Gave him information on HFH.Pt. states that he wants to stop drinking but having a difficult time. He still has a relationship with his dad. Pt. also stated that he has been living in [place] for the past year.But now is staying with his dad in [place].Follow up with Pt. this week.
[2021-04-27] MEDS: traZODone HCL 50 MG TABLET PO (23:46)
[2021-04-28 04:00] VITALS: BP 100/58; PULSE 52; RESP 17; TEMP 37; O2SAT 97
[2021-04-28] MEDS: Pantoprazole Sodium 40 MG/10 ML VIAL IVPUSH ×2 (06:09→15:32)
--- NOTE | 2021-04-28 06:47 | HO.POSTANES ---
Post Anesthesia Evaluation Post Anesthesia Evaluation Vital Signs: Vital Signs Temp Pulse Resp BP Pulse Ox 04/28/21 04:00 98.6 F 52 17 100/58 L 97 04/27/21 23:42 97.7 F 61 17 158/93 H 96 04/27/21 19:16 97 F 62 17 113/71 99 Anesthesia: Monitored Mental Status: Awake Pain Control: Satisfactory Nausea/Vomiting: None Hydration: Adequate Anesthesia-Related Issues: No Anes. Related Issues
[2021-04-28 08:00] VITALS: BP 157/82; PULSE 63; RESP 15; TEMP 36.1; O2SAT 100
[2021-04-28] MEDS: Folic Acid 1 MG TABLET PO (08:03)
[2021-04-28] MEDS: Escitalopram Oxalate 10 MG TABLET PO (08:03)
[2021-04-28] MEDS: PHENobarbitaL 15 MG TABLET PO (08:04)
[2021-04-28] MEDS: Sucralfate Oral Suspension 1 GM/10 ML ORAL.SUSP PO ×4 (08:06→20:28)
[2021-04-28] MEDS: Morphine Sulfate 4 MG/ML CARTRIDGE IVPUSH (08:09)
[2021-04-28] MEDS: ondansetron HCL 4 MG/2 ML VIAL IVPUSH (08:09)
[2021-04-28] MEDS: Dextrose 5 % and 0.9 % NaCl 1,000 ML 100 ML IVCONT (09:46)
[2021-04-28 11:12] VITALS: BP 129/81; PULSE 60; RESP 16; TEMP 36.7; O2SAT 95
--- NOTE | 2021-04-28 13:59 | P.PNIM_ITS ---
Subjective Subjective Date of Service: 04/28/21 Interval History: Being followed for alcohol withdrawal and coffee-ground emesis, underwent repeat upper endoscopy that showed esophagitis, gastritis and duodenitis, continue to have decreased by mouth intake, using iv morphine only once or twice a day for abdominal pain, no nausea no vomiting no other acute issues overnight. Review of Systems General no headache, no dizziness, no fever chills.? CVS no chest pain, no palpitation.? Respiratory no cough, no sob, no respiratory distress.? Gastrointestinal no nausea, no vomiting, epigastric pain Review of Systems: Yes all other systems are reviewed and are negative Physical Exam Vital Signs: Vital Signs: Last Vital Signs Temp 98.1 F 04/28/21 11:12 Pulse 60 04/28/21 11:12 Resp 16 04/28/21 11:12 BP 129/81 04/28/21 11:12 Pulse Ox 95 04/28/21 11:12 Body Mass Index 24.7 General alert orie nted x3, does not appear to be in di stress , resting c omfortably Neck edmondson pple, no JVD. CVS? regular rate rhyt hm, Respiratory lori ngs clear to auscu ltation, no respir atory distress, no wheeze, no rhonch i. Gastrointestina l abdomen soft, no ntender, bowel joanie nds audible, no gu arding , no rigidi ty. Extremities no edema. Neuro nonf ocal,speech clear, no tremors Skin n o rash Psych flat affect Objective Data Active Medications Acetaminophen (Acetaminophen 325 Mg Tablet) 650 mg PO Q6H PRN PRN Reason: Pain, Mild (Pain Scale 1-3) Last Admin: 04/27/21 22:22 Dose: 650 mg Documented by: KELSEY Artificial Tears (Artificial Tears 15 Ml Drops) 2 drop EYE-BOTH Q4H PRN PRN Reason: Dry Eyes Last Admin: 04/27/21 05:00 Dose: 2 drop Documented by: VIDA Escitalopram Oxalate (Escitalopram Oxalate 10 Mg Tablet) 10 mg PO DAILY [facility]S [facility]CLUDE 234 BEDS AT THE [facility] Last Admin: 04/28/21 08:03 Dose: 10 mg Documented by: ANABELL Folic Acid (Folic Acid 1 Mg Tablet) 1 mg PO DAILY COUNTS INCLUDE 234 BEDS AT THE [facility] Last Admin: 04/28/21 08:03 Dose: 1 mg Documented by: ANABELL Dextrose/Sodium Chloride (D5ns) 1,000 mls @ 100 mls/hr IVCONT .Q10H COUNTS INCLUDE 234 BEDS AT THE [facility] Last Admin: 04/28/21 09:46 Dose: 100 mls/hr Documented by: SABRINA Medication (No Benzodiazepines) 1 each MISCELLANE DAILY COUNTS INCLUDE 234 BEDS AT THE [facility] Ondansetron HCl (Ondansetron Hcl 4 Mg/2 Ml Vial) 4 mg IVPUSH Q8H PRN PRN Reason: Nausea and Vomiting Last Admin: 04/28/21 08:09 Dose: 4 mg Documented by: ANABELL Oxycodone HCl (Oxycodone Hcl Immed Release 5 Mg Tablet) 5 mg PO Q6H PRN PRN Reason: Pain, Severe (Pain Scale 7-10) Pantoprazole Sodium (Pantoprazole Sodium 40 Mg/10 Ml Vial) 40 mg IVPUSH BID@0630,1630 COUNTS INCLUDE 234 BEDS AT THE [facility] Last Admin: 04/28/21 06:09 Dose: 40 mg Documented by: DEISY Pharmacy Consult (Consult Rx Perform Med Rec) 1 each MISCELLANE ONCE PRN PRN Reason: Consult order Phenobarbital (Phenobarbital 15 Mg Tablet) 15 mg PO DAILY COUNTS INCLUDE 234 BEDS AT THE [facility]; Protocol Stop: 04/29/21 09:01 Last Admin: 04/28/21 08:04 Dose: 15 mg Documented by: ANABELL Sodium Chloride (0.9 % Sodium Chloride Flush 3 Ml Syringe) 3 ml IVFLUSH QSHIFT COUNTS INCLUDE 234 BEDS AT THE [facility] Last Admin: 04/28/21 08:05 Dose: Not Given Documented by: ANABELL Non-Admin Reason: IV Running Sucralfate (Sucralfate Oral Suspension 1 Gm/10 Ml Oral.Susp) 1 gm PO QID COUNTS INCLUDE 234 BEDS AT THE [facility] Last Admin: 04/28/21 11:54 Dose: 1 gm Documented by: ANABELL Trazodone HCl (Trazodone Hcl 50 Mg Tablet) 50 mg PO BEDTIME PRN PRN Reason: insomnia Last Admin: 04/27/21 23:46 Dose: 50 mg Documented by: DEISY Labs CBC & Chem 7: 04/27/21 08:54 04/27/21 08:54 Assessment and Plan (1) Alcohol withdrawal: Status: Acute (2) Alcohol use disorder, severe, dependence: Status: Acute (3) H/O esophagogastroduodenoscopy: Status: Acute (4) Acute alcoholic gastritis: Status: Acute Assessment and Plan: 40-year-old gentleman with underlying history of alcohol abuse , alcoholic gastritis, esophagitis and duodenitis, recently discharged from [facility] after undergoing upper endoscopy presented to [facility] with alcohol withdrawal and impending seizures with coffee-ground emesis and dark colored stool --he admits drinking since last discharge #Alcohol withdrawal/delirium tremens--No active signs of withdrawal -continue Phenobarbital, folic acid, thiamine, seen by care team they are [facility] for rehab bed #Anion gap metabolic acidosis d/t alcoholic ketoacidosos--resolved with IVF #Coffee-ground emesis/dark-colored stool--essentially UGIB? with acute blood loss anemia, patient underwent repeat upper endoscopy that showed erosive esophagitis, gastritis and duodenitis similar to last EGD Likely due to continuous alcohol use.? No active bleed. His strongly advised to abstain from alcohol,hct stable continue IV PPI, carafate, added fluconazole 100 mg daily as per GI recommendation, will transition to by mouth PPI at a.m. Complaining of mild Odynophagia likely due to esophagitis/reflux continue above treatment Will DC IV fluid and IV morphine will place on as needed oxycodone, added Ensure supplements # history of anxiety/depression Continue trazodone? and Lexapro no SI #Hypomagnesemia magnesium improved from 1.3-1.7 likely due to poor nutrition from alcohol DVT prophylaxis with compression boots due to coffee-ground emesis Quality Stroke Does the patient have a stroke diagnosis?: No VTE Prior VTE?: No VTE Risk Level:: Medical - moderate - high VTE Device Contraindication: N/A - Device Ordered VTE Drug Contraindication: Treatment Not Indicated
--- NOTE | 2021-04-28 14:10 | MHC.RECOVRN ---
T/w met with pt after consult placed to CARE Team. Pt laying in bed, awake and alert. Pt known to t/w from previous admission. Since discharge, pt has been drinking an unknown amount of alcohol. Pt reports drinking mouthwash, cough syrup, Sera's, vodka, and beer. Pt is unable to quantify. Pt continues to live with father in [place]. Discussed recovery resources and supports. Pt vague in answering all questions, including desire for referrals. Pt does express wanting placement at [facility]. T/w will send referrals and f/u with pt. Zonia Dominguez APRN, as well as pts RN, aware.
[2021-04-28] MEDS: Fluconazole 100 MG TABLET PO (14:13)
[2021-04-28] MEDS: oxyCODONE HCl Immed Release 5 MG TABLET PO ×2 (14:17→20:29)
[2021-04-28 15:23] VITALS: BP 156/84; PULSE 67; RESP 17; TEMP 37.1; O2SAT 98
[2021-04-28] MEDS: 0.9 % Sodium Chloride Flush 3 ML SYRINGE IVFLUSH (15:32)
[2021-04-28] MEDS: Artificial Tears 15 ML DROPS 2 DROP EYE-BOTH (15:34)
[2021-04-28] MEDS: Acetaminophen 325 MG TABLET 650 MG PO (17:40)
[2021-04-28 20:00] VITALS: BP 134/95; PULSE 63; RESP 18; TEMP 37.2; O2SAT 98
[2021-04-28] MEDS: traZODone HCL 50 MG TABLET PO (22:15)
[2021-04-28 23:36] VITALS: BP 127/80; PULSE 62; RESP 17; TEMP 36.8; O2SAT 99
[2021-04-29] MEDS: 0.9 % Sodium Chloride Flush 3 ML SYRINGE IVFLUSH ×2 (00:19→09:07)
[2021-04-29 04:00] VITALS: BP 103/64; PULSE 89; RESP 17; TEMP 36.4; O2SAT 96
[2021-04-29] MEDS: oxyCODONE HCl Immed Release 5 MG TABLET PO ×2 (05:36→11:33)
[2021-04-29] MEDS: Pantoprazole Sodium 40 MG/10 ML VIAL IVPUSH (05:37)
[2021-04-29 07:55] VITALS: BP 148/90; PULSE 68; RESP 18; TEMP 36.9; O2SAT 99
[2021-04-29] MEDS: Sucralfate Oral Suspension 1 GM/10 ML ORAL.SUSP PO ×3 (09:04→15:52)
[2021-04-29] MEDS: Fluconazole 100 MG TABLET PO (09:06)
[2021-04-29] MEDS: PHENobarbitaL 15 MG TABLET PO (09:06)
[2021-04-29] MEDS: ondansetron HCL 4 MG/2 ML VIAL IVPUSH (09:13)
--- NOTE | 2021-04-29 10:44 | MHC.RECOVRN ---
Met with pt to f/u regarding [facility] bed availability. Pt informed there are not any beds available within 100 miles. Pt provided with list of facilities, incl phone numbers, that have pts referral. Pt encouraged to f/u outpatient. Pt immediately states I'm just going to kill myself. Pts RN present, Dr. Parrish notified. CARE Team consult placed. Discussed with Zonia Dominguez APRN. T/w available as needed.
[2021-04-29 12:00] VITALS: BP 136/83; PULSE 65; RESP 17; TEMP 36.6; O2SAT 97
--- NOTE | 2021-04-29 13:45 | PM.DS ---
DS: Providers Provider Date of Service: 04/29/21 Date of admission: 04/23/21 14:01 Primary care physician: None Physician Consults: 04/24/21 07:11 Consult to Gastroenterology Routine Consulting Provider: Ajith Figueredo Reason for consultation: gi bleed 04/27/21 09:43 Consult to Care Team Routine Comment: Reason for consultation: Depression and Alcoholism 04/29/21 10:10 Consult to Psychiatry Routine Consulting Provider: Psych Covering Reason for consultation: suicidal deation Has provider been notified: No DS: Diagnosis Discharge Diagnosis (1) Alcohol withdrawal: Status: Acute (2) Alcohol use disorder, severe, dependence: Status: Acute (3) H/O esophagogastroduodenoscopy: Status: Acute (4) Acute alcoholic gastritis: Status: Acute DS: Summary Hospital Course Hospital Course: History of presenting illness [address] [address] Internal Med History&Physical Signed Patient: Pio Massey MR#: [id number] : 1980 History of Present Illness Date of Service: 04/23/21 Attending physician on admission: Armando Parrish Chief Complaint: Coffee-ground emesis/alcohol withdrawal 40-year-old gentleman recently discharged from [facility] on April 12 after being admitted for coffee-ground emesis and alcohol withdrawal prior to this admission patient was discharged from [facility] for similar symptoms and had an upper endoscopy which as per patient showed gastritis and esophagitis, during last hospitalization patient underwent repeat upper endoscopy that showed, erosive esophagitis, gastritis and duodenitis, patient was seen by care team and was strongly recommended to abstain from alcohol however as per patient he continued to drink alcohol roughly 1-1/2 to 2 L of vodka daily, his last alcohol intake was 2 days ago since he wanted to stop drinking and this morning he took 1 beer for shakiness, he developed coffee-ground emesis according to him he vomited blood 5 times in last 24 hours and also noted dark-colored stools, he is complaining of epigastric discomfort, on arrival to ER he felt that he is having a seizure therefore was immediately treated with Ativan no seizure-like activity was noted subsequently patient was given phenobarb and IV fluids laboratory data showed stable H&H and elevated lactic acid of 6, at present patient is complaining of persistent epigastric pain vomited again in the ER no blood noted, he is now being admitted to [facility] with alcohol withdrawals with impending seizures and recurrent episodes of coffee ground emesis with underlying history of gastritis. Hospital course 40-year-old gentleman with underlying history of alcohol abuse , alcoholic gastritis, esophagitis and duodenitis, recently discharged from [facility] after undergoing upper endoscopy presented to [facility] with alcohol withdrawal and impending seizures with coffee-ground emesis and dark colored stool , patient admitted to [facility] with a diagnosis of alcohol withdrawal with impending seizures patient was placed on phenobarb protocol, folic acid and thiamine, subsequently seen by care team and patient requested for rehab placement, but no beds were available, patient later mention that he wanted to kill himself therefore patient seen by [facility] and care team and is now being transferred inpatient psych Patient also noted to have Anion gap metabolic acidosis related to alcohol that resolved with IV fluid In regard to coffee-ground emesis/dark-colored stool, patient underwent repeat upper endoscopy that showed erosive esophagitis, gastritis and duodenitis similar to last EGD,?Likely due to continuous alcohol use.? No active bleed was noted , strongly advised to abstain from alcohol,hct remained stable, recommend to continue by mouth PPI, Carafate 1 g q.i.d. and fluconazole 100 mg daily for total 2 weeks ending 05/12 history of anxiety/depression Continue trazodone? and Lexapro, further treatment as per Psychiatry Time Spent with Patient Time attestation: Total time spent providing and/or coordinating discharge services: Discharge coordination time: Greater than 30 minutes Quality: Stroke Does the patient have a stroke diagnosis?: No Physical Exam Vital Signs: Vital Signs: Last Vital Signs Temp 97.9 F 04/29/21 12:00 Pulse 65 04/29/21 12:00 Resp 17 04/29/21 12:00 BP 136/83 04/29/21 12:00 Pulse Ox 97 04/29/21 12:00 Body Mass Index 24.7 General awake alert, no acute distress. Neck no JVD. CVS regular rate rhythm, Respiratory lungs clear to auscultation, no respiratory distress, no wheeze, no rhonchi. Gastrointestinal abdomen soft, nontender, bowel sounds audible, no guarding , no rigidity. Extremities no Neuro nonfocal Skin no rash DS: Data Data Completed and Pending Completed studies during hospitalization [Text1]: Pending at discharge 04/27/21 13:14 Surgical [PTH] Routine Procedures Detoxification Services for Substance Abuse Treatment (04/06/21) Excision of Stomach, Pylorus, Via Natural or Artificial Opening Endoscopic, Diagnostic (04/06/21) Discharge Plan Discharge Disposition: Xfer Psychiatric Hosp Referrals: Physician,None [Primary Care Provider] - 1 Week Discharge Medications: Continued sucralfate 100 mg/mL Suspension 1 g PO QIDACHS Qty: 1200 RF: 0 escitalopram oxalate 10 mg Tablet 10 mg PO DAILY Qty: 30 RF: 0 omeprazole 40 mg capsule,delayed release(DR/EC) 40 mg PO BID Qty: 60 RF: 0 trazodone 50 mg tablet 50 mg PO BEDTIME PRN (Reason: insomnia) Qty: 30 RF: 0 Discharge Orders: Discharge Order (Routine); Ordered 04/29/21 Ordered By: Armando Parrish Forms: Patient Portal Discharge page Care Plan Goals: Acute gastritis with abdominal pain decreased by mouth intake and continued alcohol abuse, continue current medication as above and complete abstinence from alcohol Take Ensure Clear 3 times a day Health Concerns: Alcohol use disorder strongly recommended to abstain from alcohol contributing to abdominal pain and gastritis Plan of Treatment: Being transferred to due to suicidal ideation, outpatient follow-up with primary care physician upon discharge Assessment: As above
--- NOTE | 2021-04-29 13:55 | PC.NURSE ---
At approx. 0900 pt expressed`that he want to kill himself to myself and Ana Paula (care team nurse), patient observer placed in room. P was evaluated by N pt will be discharged up to m5 likely this evening. pt has remained quiet and withdrawn.
--- NOTE | 2021-04-29 13:58 | MHC.CM.PN ---
PATIENT IS DISCHARGED AND WILL TRANSFER TO INPATIENT PSYCHIATRIC CARE.
[2021-04-29 15:50] VITALS: BP 106/64; PULSE 78; RESP 18; TEMP 36.6; O2SAT 98
[2021-04-29] MEDS: Acetaminophen 325 MG TABLET 650 MG PO (18:47)
[2021-04-29 19:04] VITALS: BP 129/77; PULSE 83; RESP 18; TEMP -13.4; TEMP 7.8; O2SAT 94
== END 2021-04-29 21:25 | DRG 241 ==
LOC: HO.ED 13:00 → HO.EDOVER 14:36 → HO.S3 04-24 12:36
PROVIDERS: Internal Medicine; Internal Medicine Gastroenterology; Admitting Provider Hospitalist; Emergency Provider Emergency Medicine; Visit Provider Hospitalist
PROC: 0DJ08ZZ Inspection of Upper Intestinal Tract, Via Natural or Artificial Opening Endoscopic (ICD-10-PCS; CPT 43235; principal; 2021-04-27 12:50)
DX: K29.21 Alcoholic gastritis with bleeding (principal); F10.231 Alcohol dependence with withdrawal delirium; E87.2 Acidosis; D62 Acute posthemorrhagic anemia; E83.42 Hypomagnesemia; F41.9 Anxiety disorder, unspecified; F32.A Depression, unspecified; Z20.822 Contact with and (suspected) exposure to COVID-19; Z79.899 Other long term (current) drug therapy
CPT/HCPCS: 36415; 80048; 80076; 80307; 81001; 82077; 82272; 83605; 83690; 83735; 84100; 84484; 85025; 85027; 85610; 87635; 88305; 88312; 88313; 93005; 96361; 96372; 96374; 96375; 99285; J2270; J2405; J2560; J3475

== ENCOUNTER 2021-04-29 21:25 | Inpatient (IN) | payer OTHER, SELFPAY ==
--- NOTE | ~2021-04-29 | XR_ITS ---
EXAMINATION: XR HAND, LEFT CLINICAL INFORMATION: Punched wall COMPARISON: None TECHNIQUE: PA, lateral, and oblique views of the left hand. FINDINGS: There is no evidence of acute fracture or dislocation of the left hand. There is a large amount soft tissue swelling seen overlying the metacarpals and metacarpal phalangeal joints from the 3rd-5th digits. Joint spaces are maintained. XR/XR hand LT min 3V IMPRESSION: Large amount soft tissue swelling about the left hand without acute fracture identified.
[2021-04-29 21:20] VITALS: BP 124/74; PULSE 80; RESP 16; TEMP 36.1; O2SAT 99
--- NOTE | 2021-04-29 23:45 | PC.ADMIT ---
40 y.o. male admitted from [facility] for psychiatric evaluation. Per crisis report: Pt was medically cleared after alcohol withdrawal and reported suicidal ideation. Pt reports that he moved from [place] two weeks ago in with his father. Pt reports that when he is working than he does not drink but when he has nothing to do he will drink. Pts last drink was prior to admission to medical floor on 04/23/21. On admission Pt A&O, 01/20 anxiety and depression. Pt reports PMHx Esophagitis, gastritis, and duodenitis, ETOH abuse, Anxiety and Depression. Pt reports that he has been inpatient to a psychiatric facility in [place] in the past. Pt denies si,hi,avh at this time. Pt on 15 minute safety checks. Pt signed CV. Pt does not have PCP, therapist or psychiatrist.
--- NOTE | 2021-04-30 14:49 | P.HPPS_ITS ---
HPI Date of Service: 04/30/21 Chief Complaint: coffee ground emesis /alcohol withdrawal Sources of Information: patient interviewed, chart reviewed and crisis/core team assessment reviewed HPI Subjective Notes: Mendez Warning and Conditional Voluntary Healthcare Proxy: No Guardianship: No Medical Problems Affecting Mental Status: No Narrative: 40 yo male presents with reports of increase in depressive sx with SI in the context of severe alcoholism. Pt reports he is unable to eat or drink due to severe gastritis, duodenitis, esophagitis. He reports recent treatment with [facility]. Reports depression and alcoholism have been problems for his entire life. 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 He reports he has not returned to work due to the alcoholism. Reports moving in with his father locally 2 weeks ago after living in [place]- reports father has depression, alcoholism as well. Pt identifies main issues today as pain and inability to eat. Consultations pursued with Natasha Salazar RD from nutrition services and Dr. Mcnamara from gastroenterology. Prilosec changed to liquid with pharmacy. [place] diet with ensure supplementation recommended. April Son [facility] spoke with pt's father who is in process of a Section XXX[place] for pt due to the severity of his alcoholism. Past Psychiatric History: IPLOC in [place], 1-2 years ago. Summer 2020-Tia Toribio at [facility] Multiple PHP's and IOP's. Multiple detox and treatment programs. Trials-multiple OP-no current alliances Medical Evaluation Reviewed: Yes -Consulted with Natasha Galindo RD of nutritional services who reviewed pt's care. She recommends return to bland diet and ensure supplementation. -GI consult requested for pt's report of pain and needing pain [facility] Medical History (Updated 05/01/21 @ 09:01 by Sangita Gonzalez APRN) Alcohol withdrawal seizure Alcoholism Anxiety Esophagitis Gastritis MDD (major depressive disorder), recurrent severe, without psychosis Severe recurrent major depression Surgical History H/O esophagogastroduodenoscopy H/O knee surgery Family History: Father-depression, alcohol use Paternal uncle depression, alcohol use Social History: Born in [place] Single, unemployed. Currently staying with father. 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 Diagnostics Vital Signs (24Hr): Vital Signs - 24 hr 04/29/21 21:20 Temperature 96.9 F Pulse Rate 80 Respiratory Rate 16 Blood Pressure 124/74 Pulse Oximetry 99 EKG EKG: reviewed EKG Comment: Sinus tachycardia, Left anterior fasicular block, poor R wave progression, non-specific ST abn. which is new QTc 448. Meds/Allergies Meds Home Medications Acetaminophen (Acetaminophen 325 Mg Tablet) 650 mg PO Q6H PRN PRN Reason: Pain, Mild (Pain Scale 1-3) Last Admin: 05/01/21 06:55 Dose: 650 mg Documented by: Artificial Tears (Artificial Tears 15 Ml Drops) 2 drop EYE-BOTH Q4H PRN PRN Reason: Dry Eyes Benzocaine (Throat Lozenge, Medicated Lozenge) 1 lozenge MUCOUS MEM Q2H PRN PRN Reason: Sore Throat Last Admin: 05/01/21 00:08 Dose: 1 lozenge Documented by: Escitalopram Oxalate (Escitalopram Oxalate 10 Mg Tablet) 10 mg PO DAILY [facility] Last Admin: 05/01/21 08:52 Dose: Not Given Documented by: Fluconazole (Fluconazole 100 Mg Tablet) 100 mg PO DAILY [facility] Last Admin: 05/01/21 08:51 Dose: 100 mg Documented by: Folic Acid (Folic Acid 1 Mg Tablet) 1 mg PO DAILY [facility] Last Admin: 05/01/21 08:52 Dose: Not Given Documented by: Lorazepam (Lorazepam 1 Mg Tablet) 1 mg PO TID PRN PRN Reason: anxiety, agitation Last Admin: 05/01/21 08:58 Dose: 1 mg Documented by: Magnesium Oxide (Magnesium Oxide 400 Mg Tablet) 400 mg PO DAILY [facility] Last Admin: 05/01/21 08:52 Dose: Not Given Documented by: Nicotine Polacrilex (Nicotine Polacrilex 2 Mg Gum) 4 mg BUCCAL Q2H PRN PRN Reason: Nicotine Cravings Olanzapine (Olanzapine Odt 10 Mg Tab.Rapdis) 10 mg TRANSLINGU BID PRN PRN Reason: agitation, aggression,violence Last Admin: 05/01/21 08:58 Dose: 10 mg Documented by: Omeprazole (Omeprazole 20 Mg Capsule.Dr) 20 mg PO BID@0630,1630 [facility] Last Admin: 05/01/21 07:09 Dose: 20 mg Documented by: Ondansetron HCl (Ondansetron Odt 4 Mg Tab.Rapdis) 4 mg TRANSLINGU Q6H PRN PRN Reason: Nausea Last Admin: 05/01/21 00:08 Dose: 4 mg Documented by: Sucralfate (Sucralfate Oral Suspension 1 Gm/10 Ml Oral.Susp) 1 gm PO QIDACHS [facility] Last Admin: 05/01/21 08:51 Dose: 1 gm Documented by: Trazodone HCl (Trazodone Hcl 50 Mg Tablet) 50 mg PO BEDTIME PRN PRN Reason: insomnia Trazodone HCl (Trazodone Hcl 50 Mg Tablet) 150 mg PO BEDTIME [facility] Last Admin: 05/01/21 06:33 Dose: Not Given Documented by: Allergies Allergies Allergy/AdvReac Type Severity Reaction Status Date / Time No Known Allergies Allergy Verified 04/27/21 11:42 Mental Status Exam Mental Status Exam Patient Appearance: Appropriate Patient Orientation: Person, Place, Time and Situation Level of Consciousness: Alert Patient Behavior: Guarded, Talkative, Cooperative, Restless, Anxious, Fatigued, Distractible and Good Eye Contact Mood Description: Withdrawn, Depressed and Anxious Affect Description: Flat Patient Cognition Impaired: No Ability to Follow Directions: Good Speech Pattern: Spontaneous Speech Memory Description: Intact Hallucinations: None Delusions: Not Present Thought Process: Distracted Thought Content: positive for [place], positive for Circumstantial and positive for Suicidal Ideation Depressive Symptoms: Increased Anxiety, Diff. Making Decisions, Increased Irritability, Difficulty Sleeping, Changes in Appetite, Loss of Int. in Activity, Hopelessness, Unhappiness, Increased Fatigue, Thoughts of /Suicide, Low Self Esteem, Loss of Energy and Difficulty Concentrating Abnormal Motor Activity Signs and Symptoms: Restlessness Judgement: Poor Assessment & Plan Assessment & Plan (1) Severe recurrent major depression: Status: Acute Code(s): F33.2 - Major depressive disorder, recurrent severe without psychotic features (2) Alcohol use disorder, severe, dependence: Status: Acute Code(s): F10.20 - Alcohol dependence, uncomplicated Assessment and Plan: 40 yo male, severe alcoholism, depression, SI with significant medical involvement. Plan: Continue current regime Consultations with Natasha Salazar RD and Dr. Mcnamara much appreciated. Collateral contacts-family, [facility] team Possible section 35. Patient educated on: therapeutic strategies Informed Consent: further education needed Reason for continued inpatient stay Substantial Risk for: harm to self, inability to function, rapid decompensation and med/psych decompensation
--- NOTE | 2021-04-30 15:26 | MHC.CLN ---
RE: CONSULT REVIEWED MEDICAL ADMISSION DISCUSSED CASE WITH SCREEN PRINTER HELPER USED HT 5'6 AND WT 69.4KG FOR ASSESSMENT FROM LAST MEDICAL ADMISSION PT WT HAS REMAINED STABLE X 1 MONTH PER WT HX PO INTAKE 0-25% DIET RX REGULAR-PT MAY BENEFIT FROM BLAND DIET R/T ESOPHAGITIS, GASTRITIS AND DUODENITIS RECOMMEND RE-STARTING ENSURE TID TO PROVIDE 1050KCALS, 39G PROTEIN CONTINUE TO MONITOR PO INTAKE CLOSELY
[2021-04-30] MEDS: Sucralfate Oral Suspension 1 GM/10 ML ORAL.SUSP PO ×2 (17:29→21:32)
[2021-04-30] MEDS: Omeprazole 20 MG CAPSULE.DR PO (17:29)
[2021-04-30 17:45] VITALS: BP 152/89; PULSE 80; TEMP 36.6
[2021-05-01] MEDS: Throat Lozenge, Medicated LOZENGE 1 LOZENGE MUCOUS MEM (00:08)
[2021-05-01] MEDS: Ondansetron ODT 4 MG TAB.RAPDIS TRANSLINGU ×2 (00:08→21:34)
[2021-05-01 06:37] VITALS: BP 124/74; PULSE 82; RESP 16; TEMP 36.1
[2021-05-01] MEDS: Acetaminophen 325 MG TABLET 650 MG PO ×2 (06:55→21:26)
[2021-05-01] MEDS: Omeprazole 20 MG CAPSULE.DR PO (07:09)
[2021-05-01] MEDS: Fluconazole 100 MG TABLET PO (08:51)
[2021-05-01] MEDS: Sucralfate Oral Suspension 1 GM/10 ML ORAL.SUSP PO ×4 (08:51→21:23)
[2021-05-01] MEDS: OLANZapine ODT 10 MG TAB.RAPDIS TRANSLINGU (08:58)
[2021-05-01] MEDS: LORazepam 1 MG TABLET PO ×2 (08:58→21:34)
--- NOTE | 2021-05-01 09:01 | P.CNGI_ITS ---
History of Present Illness Data of Consult Service Date: 05/01/21 Primary Care Provider: Unknown Physician HPI Reason for consult: cofee ground emesis, odynophagia Reason for consult: UGI Bleed 40 YM with alcohol Abuse, alcoholic gastritis,? seen at [facility] ED last night with nausea and vomiting. Pt was recently hospitalized in the ICU at [facility] with UGIB and had an EGD which showed gastritis and esophagitis; Patient reported he started drinking again after he was discharged from the hospital - Last drink was yesterday. Pt complains of multiple episodes of nausea and vomiting and noted to have coffee-ground emesis. Reports that symptoms have been going on over the past few days.? Mentioned that he drinks about 1L of alcohol every day and reports prior admission to the ICU for alcohol withdrawal and a history of alcohol withdrawal seizures.? Reports he is not able to keep anything down; hence presented to the hospital for further evaluation. Denies any headaches, paresthesias, numbness tingling or focal weakness. Denies any fever chills cough. Denies any urinary symptoms. ER course: Per ER team patient noted to be anxious, tachycardic; having nausea and vomiting; received IV Zofran, IV fluids; patient was started on phenobarb protocol.? Patient also received Ativan x1; patient still continues to be tachycardic. Lab showed hypomagnesemia-repleted; also noted to have severe lactic acidosis, high anion gap metabolic acidosis; patient was given IV thiamine; ; admitted to the hospital for further management. 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 Surgical History Surgical History H/O esophagogastroduodenoscopy H/O knee surgery Social History Social History Household Members: Family Household Members Other:: father Housing: House Do you presently have visiting nurse or other home services: No Alcohol intake: current Alcohol intake frequency: 3 or more drinks per day Alcohol type: hard liquor Patient Tobacco Use Status: Never used Tobacco Use of substances other than those prescribed or required for medical reasons: No Currently Displaying Signs/Symptoms of Drug Intoxication Withdrawal: No Have you been hit, kicked, punched, or otherwise hurt by someone within the past year? If so, by whom?: No Do you feel safe in your current relationship?: No Current Relationship Is there a partner from a previous relationship who is making you feel unsafe now?: No Are you made to feel afraid or neglected: No Advance Directives: No Advance Directives Information Provided: No Advance Directives on File: No Do you have thoughts of harming others: None Do you have a plan to hurt others: No Plan Recently lost weight without trying: No Nutrition Risks: No Nutritional Risk Poor oral hygiene: Yes (reports yeast infection in mouth) service: No Current occupational status: unemployed Sexual orientation: Did not discuss Meds Allergies Allergy/AdvReac Type Severity Reaction Status Date / Time No Known Allergies Allergy Verified 04/27/21 11:42 Active Medications: Current Medications Acetaminophen (Acetaminophen 325 Mg Tablet) 650 mg PO Q6H PRN PRN Reason: Pain, Mild (Pain Scale 1-3) Last Admin: 05/01/21 06:55 Dose: 650 mg Documented by: Artificial Tears (Artificial Tears 15 Ml Drops) 2 drop EYE-BOTH Q4H PRN PRN Reason: Dry Eyes Benzocaine (Throat Lozenge, Medicated Lozenge) 1 lozenge MUCOUS MEM Q2H PRN PRN Reason: Sore Throat Last Admin: 05/01/21 00:08 Dose: 1 lozenge Documented by: Escitalopram Oxalate (Escitalopram Oxalate 10 Mg Tablet) 10 mg PO DAILY [facility] Last Admin: 05/01/21 08:52 Dose: Not Given Documented by: Fluconazole (Fluconazole 100 Mg Tablet) 100 mg PO DAILY [facility] Last Admin: 05/01/21 08:51 Dose: 100 mg Documented by: Folic Acid (Folic Acid 1 Mg Tablet) 1 mg PO DAILY [facility] Last Admin: 05/01/21 08:52 Dose: Not Given Documented by: Lorazepam (Lorazepam 1 Mg Tablet) 1 mg PO TID PRN PRN Reason: anxiety, agitation Last Admin: 05/01/21 08:58 Dose: 1 mg Documented by: Magnesium Oxide (Magnesium Oxide 400 Mg Tablet) 400 mg PO DAILY [facility] Last Admin: 05/01/21 08:52 Dose: Not Given Documented by: Nicotine Polacrilex (Nicotine Polacrilex 2 Mg Gum) 4 mg BUCCAL Q2H PRN PRN Reason: Nicotine Cravings Olanzapine (Olanzapine Odt 10 Mg Tab.Rapdis) 10 mg TRANSLINGU BID PRN PRN Reason: agitation, aggression,violence Last Admin: 05/01/21 08:58 Dose: 10 mg Documented by: Omeprazole (Omeprazole 20 Mg Capsule.) 20 mg PO BID@0630,1630 [facility] Last Admin: 05/01/21 07:09 Dose: 20 mg Documented by: Ondansetron HCl (Ondansetron Odt 4 Mg Tab.Rapdis) 4 mg TRANSLINGU Q6H PRN PRN Reason: Nausea Last Admin: 05/01/21 00:08 Dose: 4 mg Documented by: Sucralfate (Sucralfate Oral Suspension 1 Gm/10 Ml Oral.Susp) 1 gm PO QIDACHS [facility] Last Admin: 05/01/21 08:51 Dose: 1 gm Documented by: Trazodone HCl (Trazodone Hcl 50 Mg Tablet) 50 mg PO BEDTIME PRN PRN Reason: insomnia Trazodone HCl (Trazodone Hcl 50 Mg Tablet) 150 mg PO BEDTIME [facility] Last Admin: 05/01/21 06:33 Dose: Not Given Documented by: Physical Exam Vital Signs: Vital Signs: Last Vital Signs Temp 97 F 05/01/21 06:37 Pulse 82 05/01/21 06:37 Resp 16 05/01/21 06:37 BP 124/74 05/01/21 06:37 Pulse Ox 99 04/29/21 21:20
--- NOTE | 2021-05-01 09:03 | PM.GIPN ---
Subjective Subjective Date of Service: 05/01/21 Interval History: complains of dysphagia and odynophagia with poor PO intake. Able to take medications in liquid form Notes symptoms have improved by 25% or less over time Critical Care Time (minutes): 15 Physical Exam Vital Signs: Vital Signs: Last Vital Signs Temp 97 F 05/01/21 06:37 Pulse 82 05/01/21 06:37 Resp 16 05/01/21 06:37 BP 124/74 05/01/21 06:37 Pulse Ox 99 04/29/21 21:20 Const: General: no acute distress Neuro: Cranial nerves: Yes Normal hearing present Speech: No Abnormal speech present Procedures Date of Service Date of Service: 05/01/21 Progress Note: A&P Assessment and plan (1) Epigastric pain: Status: Acute (2) Odynophagia: Status: Acute Assessment and Plan: 40 YM with continuing alcohol Abuse, alcoholic gastritis with multiple recent admission for nausea, vomiting and coffee ground emesis. 04/07/21 EGD showed grade 4 erosiove esophagitis worse in the lower 3rd of esophagus. 04/27/21 Repeat EGD showed edematous and swollen distal esophageal tissue fatmata at GEJ with erythema and inflammation extending for 8 cm which looked to be resolving. In mid esophagus there was a white plague like area bx taken.partial improvement in esophagitis. Pt has been treated with high dose Omeprazole, sucralfate and topical anesthetic for pain and recently started on fluconazole for presumptive fungal infection with slow improvement. RECOMMENDATIONS: 1. Continue above medications. 2. Ensure three times daily for nutritional support. 3. If no improvement, consider further evaluation with a chest CT scan. Fall Risk Details Current Medications: Current Medications Acetaminophen (Acetaminophen 325 Mg Tablet) 650 mg PO Q6H PRN PRN Reason: Pain, Mild (Pain Scale 1-3) Last Admin: 05/01/21 06:55 Dose: 650 mg Documented by: Artificial Tears (Artificial Tears 15 Ml Drops) 2 drop EYE-BOTH Q4H PRN PRN Reason: Dry Eyes Benzocaine (Throat Lozenge, Medicated Lozenge) 1 lozenge MUCOUS MEM Q2H PRN PRN Reason: Sore Throat Last Admin: 05/01/21 00:08 Dose: 1 lozenge Documented by: Escitalopram Oxalate (Escitalopram Oxalate 10 Mg Tablet) 10 mg PO DAILY [facility] Last Admin: 05/01/21 08:52 Dose: Not Given Documented by: Fluconazole (Fluconazole 100 Mg Tablet) 100 mg PO DAILY [facility] Last Admin: 05/01/21 08:51 Dose: 100 mg Documented by: Folic Acid (Folic Acid 1 Mg Tablet) 1 mg PO DAILY [facility] Last Admin: 05/01/21 08:52 Dose: Not Given Documented by: Lorazepam (Lorazepam 1 Mg Tablet) 1 mg PO TID PRN PRN Reason: anxiety, agitation Last Admin: 05/01/21 08:58 Dose: 1 mg Documented by: Magnesium Oxide (Magnesium Oxide 400 Mg Tablet) 400 mg PO DAILY [facility] Last Admin: 05/01/21 08:52 Dose: Not Given Documented by: Nicotine Polacrilex (Nicotine Polacrilex 2 Mg Gum) 4 mg BUCCAL Q2H PRN PRN Reason: Nicotine Cravings Olanzapine (Olanzapine Odt 10 Mg Tab.Rapdis) 10 mg TRANSLINGU BID PRN PRN Reason: agitation, aggression,violence Last Admin: 05/01/21 08:58 Dose: 10 mg Documented by: Omeprazole (Omeprazole 20 Mg Capsule.Dr) 20 mg PO BID@0630,1630 [facility] Last Admin: 05/01/21 07:09 Dose: 20 mg Documented by: Ondansetron HCl (Ondansetron Odt 4 Mg Tab.Rapdis) 4 mg TRANSLINGU Q6H PRN PRN Reason: Nausea Last Admin: 05/01/21 00:08 Dose: 4 mg Documented by: Sucralfate (Sucralfate Oral Suspension 1 Gm/10 Ml Oral.Susp) 1 gm PO QIDACHS [facility] Last Admin: 05/01/21 08:51 Dose: 1 gm Documented by: Trazodone HCl (Trazodone Hcl 50 Mg Tablet) 50 mg PO BEDTIME PRN PRN Reason: insomnia Trazodone HCl (Trazodone Hcl 50 Mg Tablet) 150 mg PO BEDTIME [facility] Last Admin: 05/01/21 06:33 Dose: Not Given Documented by: Time Spent With Patient Time: Total time spent is greater than 50% in coordination of care (as documented) at patient's floor/unit and/or counseling patient: Time with patient: less than 15 minutes Quality Stroke Does the patient have a stroke diagnosis?: No VTE Prior VTE?: No VTE Risk Level:: Medical - low VTE Device Contraindication: N/A - Device Ordered VTE Drug Contraindication: N/A - Med Ordered
--- NOTE | 2021-05-01 17:00 | HO.PSYCHPN ---
Subjective Subjective Date of Service: 05/01/21 Reason For Visit: coffee ground emesis /alcohol withdrawal Subjective Notes: Conditional Voluntary Healthcare Proxy: No Guardianship: No Medical Problems Affecting Mental Status: No Interim History: Pt became angry today when his social security benefits interviewer, April DOBSON discussed his addiction with him. He punched the wall a few times-xrays negative for fracture. Pt has been refusing of medications, refusing of referrals to programs for his addiction and per team, last evening his father informed him that he was preparing to file a Section XXXV. Pt, reportedly threatened father that he would kill himself if father did this-so father will not be following through. Pt today seen-in bed, not very talkative, focused on anxiety, pain and needing medication. Review with pt my interactions with the [facility] GI team and their recommendations, our consult with nutrition and the plan of care along with change of Prilosec to liquid. Discussed sleep, anxiety and agents to assist him. Pt reports he will attempt to work with the multidisciplinary plan of care. Pt reviewed in team as well. We have completed Section XXXV preliminary work and will review pt again on 05/[address]. Medication Compliance: Intermittent Side effects from medications: No Attending Groups: No Review of Systems Acute medical concerns: No Medical Review of Systems: unchanged Review of Systems Reports dysphagia and Reports odynophagia Gastrointestinal: Reports abdominal pain, Reports dysphagia, Reports dyspepsia, Reports heartburn, Reports nausea and Reports odynophagia Reports behavioral changes Psychiatric: Reports abnormal sleep pattern, Reports anxiety, Reports behavioral changes, Reports change in appetite, Reports depression, Reports difficulty concentrating, Reports hopelessness, Reports irritability, Reports mood swings and Reports suicidal ideation Mental Status Exam Mental Status Exam Patient Appearance: Appropriate Patient Orientation: Person, Place, Time and Situation Level of Consciousness: Alert Patient Behavior: Guarded, Talkative, Cooperative, Restless, Anxious, Fatigued, Distractible and Good Eye Contact Mood Description: Withdrawn, Depressed and Anxious Affect Description: Flat Patient Cognition Impaired: No Ability to Follow Directions: Good Speech Pattern: Spontaneous Speech Memory Description: Intact Hallucinations: None Delusions: Not Present Thought Process: Distracted Thought Content: positive for [place], positive for Circumstantial and positive for Suicidal Ideation Depressive Symptoms: Increased Anxiety, Diff. Making Decisions, Increased Irritability, Difficulty Sleeping, Changes in Appetite, Loss of Int. in Activity, Hopelessness, Unhappiness, Increased Fatigue, Thoughts of /Suicide, Low Self Esteem, Loss of Energy and Difficulty Concentrating Abnormal Motor Activity Signs and Symptoms: Restlessness Judgement: Poor Diagnostics Vital Signs (24Hr): Vital Signs - 24 hr 04/30/21 17:45 05/01/21 06:37 Temperature 97.9 F 97 F Pulse Rate 80 82 Respiratory Rate 16 Blood Pressure 152/89 H 124/74 Imaging Radiology Impressions: ITS Impressions Hand X-Ray 05/01/21 10:00 IMPRESSION: Large amount soft tissue swelling about the left hand without acute fracture identified. Medications Medications Current Medications Acetaminophen (Acetaminophen 325 Mg Tablet) 650 mg PO Q6H PRN PRN Reason: Pain, Mild (Pain Scale 1-3) Last Admin: 05/01/21 06:55 Dose: 650 mg Documented by: Artificial Tears (Artificial Tears 15 Ml Drops) 2 drop EYE-BOTH Q4H PRN PRN Reason: Dry Eyes Benzocaine (Throat Lozenge, Medicated Lozenge) 1 lozenge MUCOUS MEM Q2H PRN PRN Reason: Sore Throat Last Admin: 05/01/21 00:08 Dose: 1 lozenge Documented by: Escitalopram Oxalate (Escitalopram Oxalate 10 Mg Tablet) 10 mg PO DAILY [facility] Last Admin: 05/01/21 08:52 Dose: Not Given Documented by: Fluconazole (Fluconazole 100 Mg Tablet) 100 mg PO DAILY [facility] Last Admin: 05/01/21 08:51 Dose: 100 mg Documented by: Folic Acid (Folic Acid 1 Mg Tablet) 1 mg PO DAILY [facility] Last Admin: 05/01/21 08:52 Dose: Not Given Documented by: Lidocaine/Diphenhydr/Alum/Mg/Simeth (Mag&Al/Sim/Diphenhyd/Lidocaine 10 Ml Oral.Susp) 10 ml PO Q4H PRN; Protocol PRN Reason: Pain, Mild (Pain Scale 1-3) Lorazepam (Lorazepam 1 Mg Tablet) 1 mg PO TID PRN PRN Reason: anxiety, agitation Last Admin: 05/01/21 08:58 Dose: 1 mg Documented by: Magnesium Oxide (Magnesium Oxide 400 Mg Tablet) 400 mg PO DAILY [facility] Last Admin: 05/01/21 08:52 Dose: Not Given Documented by: Nicotine Polacrilex (Nicotine Polacrilex 2 Mg Gum) 4 mg BUCCAL Q2H PRN PRN Reason: Nicotine Cravings Olanzapine (Olanzapine Odt 10 Mg Tab.Rapdis) 10 mg TRANSLINGU BID PRN PRN Reason: agitation, aggression,violence Last Admin: 05/01/21 08:58 Dose: 10 mg Documented by: Omeprazole (Omeprazole 20 Mg/10 Ml Susp.Recon) 20 mg PO BID@0630,1630 [facility] Ondansetron HCl (Ondansetron Odt 4 Mg Tab.Rapdis) 4 mg TRANSLINGU Q6H PRN PRN Reason: Nausea Last Admin: 05/01/21 00:08 Dose: 4 mg Documented by: Sucralfate (Sucralfate Oral Suspension 1 Gm/10 Ml Oral.Susp) 1 gm PO QIDACHS [facility] Last Admin: 05/01/21 12:40 Dose: 1 gm Documented by: Trazodone HCl (Trazodone Hcl 50 Mg Tablet) 50 mg PO BEDTIME PRN PRN Reason: insomnia Trazodone HCl (Trazodone Hcl 50 Mg Tablet) 150 mg PO BEDTIME [facility] Last Admin: 05/01/21 06:33 Dose: Not Given Documented by: Allergies Allergies Allergy/AdvReac Type Severity Reaction Status Date / Time No Known Allergies Allergy Verified 04/27/21 11:42 Assessment & Plan Assessment & Plan (1) Severe recurrent major depression: Status: Acute Code(s): F33.2 - Major depressive disorder, recurrent severe without psychotic features (2) Alcohol use disorder, severe, dependence: Status: Acute Code(s): F10.20 - Alcohol dependence, uncomplicated Assessment and Plan: 40 yo male, severe alcoholism, depression, SI with significant medical involvement. Plan: Continue current regime Consultations with Natasha Salazar RD and Dr. Mcnamara much appreciated. Collateral contacts-family, [facility] team Possible section 35. 05/01/21: Pt is not engaging in a plan of care. He is placing many restrictions on where he will go, what he will do. He reports this is due to a difficult experience a few months ago with [facility]. Consults with GI appreciated-they encourage Magic Mouthwash/Lidocaine prn Addiction consult Feedback from Liudmila Sandoval [employer] appreciated. Remeron 7.5 mg hs Initially Oxycontin was questioned/ suggested for pain-GI team suggests we not offer this agent, but keep to PPI's, and prns. Possible Section XXXV on 05/04/21. I spent 40 minutes with the patient and/or on the patient floor today, greater than?50% of which was spent counseling/coordinating care. Patient educated on: therapeutic strategies Informed Consent: further education needed Reason for contiued inpatient stay Substantial Risk for: harm to self, inability to function, rapid decompensation and med/psych decompensation
[2021-05-01 18:00] VITALS: BP 136/87; PULSE 64; RESP 16; TEMP 35.8; O2SAT 98
[2021-05-01] MEDS: traZODone HCL 50 MG TABLET 150 MG PO (21:22)
[2021-05-02 06:00] VITALS: BP 117/64; PULSE 81; TEMP 36.9; O2SAT 96
[2021-05-02] MEDS: Fluconazole 100 MG TABLET PO (08:51)
[2021-05-02] MEDS: Escitalopram Oxalate 10 MG TABLET PO (08:51)
[2021-05-02] MEDS: Magnesium Oxide 400 MG TABLET PO (08:51)
[2021-05-02] MEDS: Sucralfate Oral Suspension 1 GM/10 ML ORAL.SUSP PO ×4 (08:51→22:24)
[2021-05-02] MEDS: Folic Acid 1 MG TABLET PO (08:51)
[2021-05-02] MEDS: Acetaminophen 325 MG TABLET 650 MG PO ×2 (08:56→22:28)
[2021-05-02] MEDS: Mag&Al/Sim/Diphenhyd/Lidocaine 10 ML ORAL.SUSP PO (08:56)
[2021-05-02] MEDS: LORazepam 1 MG TABLET PO ×2 (10:02→21:39)
--- NOTE | 2021-05-02 11:12 | P.PNPSI_ITS ---
Subjective Subjective Date of Service: 05/02/21 Reason For Visit: coffee ground emesis /alcohol withdrawal Interim History: pt presents as depressed, with downcast face, few words and limited eye contact. He says that he's still depressed and agrees to increase in Lexapro. He denies active SI. Pt says he's having trouble eating and sleeping due to esophagitis, but also shares that he does have nightmares almost nightly when he does sleep. Pt endorsed hx of trauma, though he did not discuss. He denies overt ptsd symptoms saying memories of trauma are burred deep. He agrees to trial of Prazosin and increase in Trazodone for insomnia. Mental Status Exam Mental Status Exam Narrative: Patient Appearance:?Appropriate Patient Orientation:?Person, Place, Time and Situation Level of Consciousness:?Alert Patient Behavior:?Guarded, marginally, Cooperative, Anxious, Fatigued; minimal Eye Contact Mood Description:?Depressed and Anxious Affect Description:?blunted to constricted Patient Cognition Impaired:?No Ability to Follow Directions:?Good Speech Pattern:?Spontaneous Speech Memory Description:?Intact Hallucinations:?None Delusions:?Not Present Thought Process:?goal oriented Thought Content:?denies SI/HI Depressive Symptoms:?Increased Anxiety, Diff. Making Decisions, Increased Irritability, Difficulty Sleeping, Changes in Appetite, Loss of Int. in Activity, Hopelessness, Unhappiness, Increased Fatigue, Thoughts of /Suicide, Low Self Esteem, Loss of Energy and Difficulty Concentrating Abnormal Motor Activity Signs and Symptoms:?Restlessness Judgement:?Poor Diagnostics Vital Signs (24Hr): Vital Signs - 24 hr 05/01/21 18:00 05/02/21 06:00 Temperature 96.4 F L 98.4 F Pulse Rate 64 81 Respiratory Rate 16 Blood Pressure 136/87 117/64 Pulse Oximetry 98 96 Imaging Radiology Impressions: ITS Impressions Hand X-Ray 05/01/21 10:00 IMPRESSION: Large amount soft tissue swelling about the left hand without acute fracture identified. Medications Medications Current Medications Acetaminophen (Acetaminophen 325 Mg Tablet) 650 mg PO Q6H PRN PRN Reason: Pain, Mild (Pain Scale 1-3) Last Admin: 05/02/21 08:56 Dose: 650 mg Documented by: Artificial Tears (Artificial Tears 15 Ml Drops) 2 drop EYE-BOTH Q4H PRN PRN Reason: Dry Eyes Benzocaine (Throat Lozenge, Medicated Lozenge) 1 lozenge MUCOUS MEM Q2H PRN PRN Reason: Sore Throat Last Admin: 05/01/21 00:08 Dose: 1 lozenge Documented by: Escitalopram Oxalate (Escitalopram Oxalate 10 Mg Tablet) 10 mg PO DAILY [facility] Last Admin: 05/02/21 08:51 Dose: 10 mg Documented by: Fluconazole (Fluconazole 100 Mg Tablet) 100 mg PO DAILY [facility] Last Admin: 05/02/21 08:51 Dose: 100 mg Documented by: Folic Acid (Folic Acid 1 Mg Tablet) 1 mg PO DAILY [facility] Last Admin: 05/02/21 08:51 Dose: 1 mg Documented by: Lidocaine/Diphenhydr/Alum/Mg/Simeth (Mag&Al/Sim/Diphenhyd/Lidocaine 10 Ml Oral.Susp) 10 ml PO Q4H PRN; Protocol PRN Reason: Pain, Mild (Pain Scale 1-3) Last Admin: 05/02/21 08:56 Dose: 10 ml Documented by: Lorazepam (Lorazepam 1 Mg Tablet) 1 mg PO TID PRN PRN Reason: anxiety, agitation Last Admin: 05/02/21 10:02 Dose: 1 mg Documented by: Magnesium Oxide (Magnesium Oxide 400 Mg Tablet) 400 mg PO DAILY [facility] Last Admin: 05/02/21 08:51 Dose: 400 mg Documented by: Nicotine Polacrilex (Nicotine Polacrilex 2 Mg Gum) 4 mg BUCCAL Q2H PRN PRN Reason: Nicotine Cravings Olanzapine (Olanzapine Odt 10 Mg Tab.Rapdis) 10 mg TRANSLINGU BID PRN PRN Reason: agitation, aggression,violence Last Admin: 05/01/21 08:58 Dose: 10 mg Documented by: Omeprazole (Omeprazole 20 Mg/10 Ml Susp.Recon) 20 mg PO BID@0630,1630 [facility] Last Admin: 05/02/21 08:50 Dose: 20 mg Documented by: Ondansetron HCl (Ondansetron Odt 4 Mg Tab.Rapdis) 4 mg TRANSLINGU Q6H PRN PRN Reason: Nausea Last Admin: 05/01/21 21:34 Dose: 4 mg Documented by: Sucralfate (Sucralfate Oral Suspension 1 Gm/10 Ml Oral.Susp) 1 gm PO QIDACHS [facility] Last Admin: 05/02/21 08:51 Dose: 1 gm Documented by: Trazodone HCl (Trazodone Hcl 50 Mg Tablet) 50 mg PO BEDTIME PRN PRN Reason: insomnia Trazodone HCl (Trazodone Hcl 50 Mg Tablet) 150 mg PO BEDTIME [facility] Last Admin: 05/01/21 21:22 Dose: 150 mg Documented by: Allergies Allergies Allergy/AdvReac Type Severity Reaction Status Date / Time No Known Allergies Allergy Verified 04/27/21 11:42 Assessment & Plan Assessment & Plan (1) Epigastric pain: Status: Acute Code(s): R10.13 - Epigastric pain (2) Odynophagia: Status: Acute Code(s): R13.10 - Dysphagia, unspecified Assessment and Plan: customs entry writer covering pt seen 05/02 increased Lexapro to 20mg increased trazodone for continued insomnia STARTED trial of Prazosin 1mg for ptsd related sleep issues 40 YM with continuing alcohol Abuse, alcoholic gastritis with multiple recent admission for nausea, vomiting and coffee ground emesis. 04/07/21 EGD showed grade 4 erosiove esophagitis worse in the lower 3rd of esophagus. 04/27/21 Repeat EGD showed edematous and swollen distal esophageal tissue fatmata at GEJ with erythema and inflammation extending for 8 cm which looked to be resolving. In mid esophagus there was a white plague like area bx taken.partial improvement in esophagitis. Pt has been treated with high dose Omeprazole, sucralfate and topical anesthetic for pain and recently started on fluconazole for presumptive fungal infection with slow improvement. RECOMMENDATIONS: 1. Continue above medications. 2. Ensure three times daily for nutritional support. 3. If no improvement, consider further evaluation with a chest CT scan. I spent minutes with the patient and/or on the patient floor today, greater than?50% of which was spent counseling/coordinating care. Reason for contiued inpatient stay Substantial Risk for: rapid decompensation
[2021-05-02 13:01] VITALS: BMI 24.9
[2021-05-02] MEDS: OLANZapine ODT 10 MG TAB.RAPDIS TRANSLINGU (21:39)
[2021-05-02 22:23] VITALS: BP 118/71; PULSE 79
[2021-05-02] MEDS: Prazosin HCL 1 MG CAPSULE PO (22:23)
[2021-05-02] MEDS: traZODone HCL 100 MG TABLET 200 MG PO (22:24)
[2021-05-02 22:30] VITALS: BP 118/71; PULSE 79; TEMP 36.4; O2SAT 97
[2021-05-03 06:00] VITALS: BP 117/56; PULSE 59; TEMP 36.1; O2SAT 96
[2021-05-03] MEDS: Sucralfate Oral Suspension 1 GM/10 ML ORAL.SUSP PO ×4 (08:32→22:21)
[2021-05-03] MEDS: Escitalopram Oxalate 20 MG TABLET PO (08:33)
[2021-05-03] MEDS: Fluconazole 100 MG TABLET PO (08:33)
[2021-05-03] MEDS: Magnesium Oxide 400 MG TABLET PO (08:33)
[2021-05-03] MEDS: Folic Acid 1 MG TABLET PO (08:33)
[2021-05-03] MEDS: Acetaminophen 325 MG TABLET 650 MG PO ×2 (09:42→16:20)
[2021-05-03] MEDS: LORazepam 1 MG TABLET PO ×3 (09:42→22:22)
--- NOTE | 2021-05-03 10:48 | P.PNPSI_ITS ---
Subjective Subjective Date of Service: 05/03/21 Reason For Visit: coffee ground emesis /alcohol withdrawal Interim History: pt reports he remains depressed, difficult to engage; did not sleep much better with increased Trazodone or addition of Prazosin; said he still had nightmare last night. Will leave prazosin at current dose another day or so for now. Says his hand hurts since hit wall (xray negative) Mental Status Exam Mental Status Exam Narrative: Patient Appearance:?Appropriate Patient Orientation:?Person, Place, Time and Situation Level of Consciousness:?Alert Patient Behavior:?Guarded, marginally, Cooperative, Anxious, Fatigued; minimal Eye Contact Mood Description:?Depressed and Anxious Affect Description: constricted Patient Cognition Impaired:?No Ability to Follow Directions:?Good Speech Pattern:?Spontaneous Speech Memory Description:?Intact Hallucinations:?None Delusions:?Not Present Thought Process:?goal oriented Thought Content:?denies SI/HI Depressive Symptoms:?Increased Anxiety, Diff. Making Decisions, Increased Irritability, Difficulty Sleeping, Changes in Appetite, Loss of Int. in Activity, Hopelessness, Unhappiness, Increased Fatigue, Thoughts of / Suicide, Low Self Esteem, Loss of Energy and Difficulty Concentrating Abnormal Motor Activity Signs and Symptoms:?Restlessness Judgement:?impaired Diagnostics Vital Signs (24Hr): Vital Signs - 24 hr 05/02/21 22:23 05/02/21 22:30 05/03/21 06:00 Temperature 97.6 F 97.0 F Pulse Rate 79 79 59 Blood Pressure 118/71 118/71 117/56 L Pulse Oximetry 97 96 Body Mass Index 24.9 Imaging Radiology Impressions: ITS Impressions Hand X-Ray 05/01/21 10:00 IMPRESSION: Large amount soft tissue swelling about the left hand without acute fracture identified. Medications Medications Current Medications Acetaminophen (Acetaminophen 325 Mg Tablet) 650 mg PO Q6H PRN PRN Reason: Pain, Mild (Pain Scale 1-3) Last Admin: 05/03/21 09:42 Dose: 650 mg Documented by: Artificial Tears (Artificial Tears 15 Ml Drops) 2 drop EYE-BOTH Q4H PRN PRN Reason: Dry Eyes Benzocaine (Throat Lozenge, Medicated Lozenge) 1 lozenge MUCOUS MEM Q2H PRN PRN Reason: Sore Throat Last Admin: 05/01/21 00:08 Dose: 1 lozenge Documented by: Escitalopram Oxalate (Escitalopram Oxalate 20 Mg Tablet) 20 mg PO DAILY [facility] Last Admin: 05/03/21 08:33 Dose: 20 mg Documented by: Fluconazole (Fluconazole 100 Mg Tablet) 100 mg PO DAILY [facility] Last Admin: 05/03/21 08:33 Dose: 100 mg Documented by: Folic Acid (Folic Acid 1 Mg Tablet) 1 mg PO DAILY [facility] Last Admin: 05/03/21 08:33 Dose: 1 mg Documented by: Lidocaine/Diphenhydr/Alum/Mg/Simeth (Mag&Al/Sim/Diphenhyd/Lidocaine 10 Ml Oral.Susp) 10 ml PO Q4H PRN; Protocol PRN Reason: Pain, Mild (Pain Scale 1-3) Last Admin: 05/02/21 08:56 Dose: 10 ml Documented by: Lorazepam (Lorazepam 1 Mg Tablet) 1 mg PO TID PRN PRN Reason: anxiety, agitation Last Admin: 05/03/21 09:42 Dose: 1 mg Documented by: Magnesium Oxide (Magnesium Oxide 400 Mg Tablet) 400 mg PO DAILY [facility] Last Admin: 05/03/21 08:33 Dose: 400 mg Documented by: Nicotine Polacrilex (Nicotine Polacrilex 2 Mg Gum) 4 mg BUCCAL Q2H PRN PRN Reason: Nicotine Cravings Olanzapine (Olanzapine Odt 10 Mg Tab.Rapdis) 10 mg TRANSLINGU BID PRN PRN Reason: agitation, aggression,violence Last Admin: 05/02/21 21:39 Dose: 10 mg Documented by: Omeprazole (Omeprazole 20 Mg/10 Ml Susp.Recon) 20 mg PO BID@0630,1630 [facility] Last Admin: 05/03/21 08:32 Dose: 20 mg Documented by: Ondansetron HCl (Ondansetron Odt 4 Mg Tab.Rapdis) 4 mg TRANSLINGU Q6H PRN PRN Reason: Nausea Last Admin: 05/01/21 21:34 Dose: 4 mg Documented by: Prazosin HCl (Prazosin Hcl 1 Mg Capsule) 1 mg PO BEDTIME [facility]; Protocol Last Admin: 05/02/21 22:23 Dose: 1 mg Documented by: Sucralfate (Sucralfate Oral Suspension 1 Gm/10 Ml Oral.Susp) 1 gm PO QIDACHS [facility] Last Admin: 05/03/21 08:32 Dose: 1 gm Documented by: Trazodone HCl (Trazodone Hcl 50 Mg Tablet) 50 mg PO BEDTIME PRN PRN Reason: insomnia Trazodone HCl (Trazodone Hcl 100 Mg Tablet) 200 mg PO BEDTIME [facility] Last Admin: 05/02/21 22:24 Dose: 200 mg Documented by: Allergies Allergies Allergy/AdvReac Type Severity Reaction Status Date / Time No Known Allergies Allergy Verified 04/27/21 11:42 Assessment & Plan Assessment & Plan (1) Epigastric pain: Status: Acute Code(s): R10.13 - Epigastric pain (2) Odynophagia: Status: Acute Code(s): R13.10 - Dysphagia, unspecified Assessment and Plan: racebook writer covering pt seen 05/03 -increased Lexapro to 20mg (on 05/02) -increased trazodone for continued insomnia (on 05/02) -trial of Prazosin 1mg for ptsd related sleep issues (on 05/02) 40 YM with continuing alcohol Abuse, alcoholic gastritis with multiple recent admission for nausea, vomiting and coffee ground emesis. 04/07/21 EGD showed grade 4 erosiove esophagitis worse in the lower 3rd of esophagus. 04/27/21 Repeat EGD showed edematous and swollen distal esophageal tissue fatmata at GEJ with erythema and inflammation extending for 8 cm which looked to be resolving. In mid esophagus there was a white plague like area bx taken.partial improvement in esophagitis. Pt has been treated with high dose Omeprazole, sucralfate and topical anesthetic for pain and recently started on fluconazole for presumptive fungal infection with slow improvement. RECOMMENDATIONS: 1. Continue above medications. 2. Ensure three times daily for nutritional support. 3. If no improvement, consider further evaluation with a chest CT scan. I spent minutes with the patient and/or on the patient floor today, greater than?50% of which was spent counseling/coordinating care. Reason for contiued inpatient stay Substantial Risk for: rapid decompensation
[2021-05-03] MEDS: OLANZapine ODT 10 MG TAB.RAPDIS TRANSLINGU (16:47)
[2021-05-03 17:24] VITALS: BP 124/79; PULSE 99; RESP 18; TEMP 36.7; O2SAT 98
[2021-05-03 22:21] VITALS: BP 132/80; PULSE 80
[2021-05-03] MEDS: Prazosin HCL 1 MG CAPSULE PO (22:21)
[2021-05-03] MEDS: traZODone HCL 100 MG TABLET 200 MG PO (22:22)
[2021-05-04 06:30] VITALS: BP 117/74; PULSE 59; RESP 18; TEMP 36.3; O2SAT 96
[2021-05-04] MEDS: Sucralfate Oral Suspension 1 GM/10 ML ORAL.SUSP PO ×2 (06:45→11:40)
[2021-05-04] MEDS: Folic Acid 1 MG TABLET PO (09:23)
[2021-05-04] MEDS: Magnesium Oxide 400 MG TABLET PO (09:23)
[2021-05-04] MEDS: Escitalopram Oxalate 20 MG TABLET PO (09:23)
[2021-05-04] MEDS: Fluconazole 100 MG TABLET PO (09:23)
--- NOTE | 2021-05-04 10:47 | HO.PSYCHPN ---
Subjective Subjective Date of Service: 05/04/21 Reason For Visit: coffee ground emesis /alcohol withdrawal Interim History: Pt passive without participation in a plan of care. Without insight regarding the serious nature of the extent of his addiction and depression. Currently not appearing motivated to work in treatment. By history, father was going to file Section XXXV, however, pt had threatened him, voicing SI. As a result we have filed for a Section XXXV hearing and longer term care and pt's case will be heard today. Court is aware of pt's SI threat to father. Father is angry with team, fearful pt will follow through with this threat, feeling unable to help his son due to threats. Picket escorted pt to court for this hearing. Medication Compliance: Yes Side effects from medications: No Attending Groups: No Review of Systems Acute medical concerns: Yes Review of Systems: alcoholic gastritis Review of Systems Reports dysphagia and Reports odynophagia Gastrointestinal: Reports dysphagia, Reports dyspepsia, Reports heartburn and Reports odynophagia Reports behavioral changes Psychiatric: Reports anxiety, Reports behavioral changes, Reports change in appetite, Reports depression, Reports difficulty concentrating, Reports irritability, Reports mood swings and Reports suicidal ideation (denies) Mental Status Exam Mental Status Exam Patient Appearance: Fatigued Patient Orientation: Person, Place, Time and Situation Level of Consciousness: Alert Patient Behavior: Avoidant, Fatigued, Distractible and Poor Eye Contact Mood Description: Depressed and Angry Affect Description: Withdrawn and Flat Patient Cognition Impaired: No Ability to Follow Directions: Fair Speech Pattern: Spontaneous Speech Memory Description: Remote Impaired and Episodic Impaired Hallucinations: None Perceptual Disturbances: Derealization Thought Process: Illogical Thought Content: positive for Evasive and positive for Suicidal Ideation (denies) Depressive Symptoms: Increased Irritability, Increased Fatigue, Loss of Energy and Difficulty Concentrating Judgement: Poor Diagnostics Vital Signs (24Hr): Vital Signs - 24 hr 05/03/21 17:24 05/03/21 22:21 05/04/21 06:30 Temperature 98.1 F 97.4 F Pulse Rate 99 80 59 Respiratory Rate 18 18 Blood Pressure 124/79 132/80 117/74 Pulse Oximetry 98 96 Body Mass Index 24.9 Imaging Radiology Impressions: ITS Impressions Hand X-Ray 05/01/21 10:00 IMPRESSION: Large amount soft tissue swelling about the left hand without acute fracture identified. Medications Medications Current Medications Acetaminophen (Acetaminophen 325 Mg Tablet) 650 mg PO Q6H PRN PRN Reason: Pain, Mild (Pain Scale 1-3) Last Admin: 05/03/21 16:20 Dose: 650 mg Documented by: Artificial Tears (Artificial Tears 15 Ml Drops) 2 drop EYE-BOTH Q4H PRN PRN Reason: Dry Eyes Benzocaine (Throat Lozenge, Medicated Lozenge) 1 lozenge MUCOUS MEM Q2H PRN PRN Reason: Sore Throat Last Admin: 05/01/21 00:08 Dose: 1 lozenge Documented by: Escitalopram Oxalate (Escitalopram Oxalate 20 Mg Tablet) 20 mg PO DAILY [facility] Last Admin: 05/04/21 09:23 Dose: 20 mg Documented by: Fluconazole (Fluconazole 100 Mg Tablet) 100 mg PO DAILY [facility] Last Admin: 05/04/21 09:23 Dose: 100 mg Documented by: Folic Acid (Folic Acid 1 Mg Tablet) 1 mg PO DAILY [facility] Last Admin: 05/04/21 09:23 Dose: 1 mg Documented by: Lidocaine/Diphenhydr/Alum/Mg/Simeth (Mag&Al/Sim/Diphenhyd/Lidocaine 10 Ml Oral.Susp) 10 ml PO Q4H PRN; Protocol PRN Reason: Pain, Mild (Pain Scale 1-3) Last Admin: 05/02/21 08:56 Dose: 10 ml Documented by: Lorazepam (Lorazepam 1 Mg Tablet) 1 mg PO TID PRN PRN Reason: anxiety, agitation Last Admin: 05/03/21 22:22 Dose: 1 mg Documented by: Magnesium Oxide (Magnesium Oxide 400 Mg Tablet) 400 mg PO DAILY [facility] Last Admin: 05/04/21 09:23 Dose: 400 mg Documented by: Nicotine Polacrilex (Nicotine Polacrilex 2 Mg Gum) 4 mg BUCCAL Q2H PRN PRN Reason: Nicotine Cravings Olanzapine (Olanzapine Odt 10 Mg Tab.Rapdis) 10 mg TRANSLINGU BID PRN PRN Reason: agitation, aggression,violence Last Admin: 05/03/21 16:47 Dose: 10 mg Documented by: Omeprazole (Omeprazole 20 Mg/10 Ml Susp.Recon) 20 mg PO BID@0630,1630 [facility] Last Admin: 05/04/21 06:45 Dose: 20 mg Documented by: Ondansetron HCl (Ondansetron Odt 4 Mg Tab.Rapdis) 4 mg TRANSLINGU Q6H PRN PRN Reason: Nausea Last Admin: 05/01/21 21:34 Dose: 4 mg Documented by: Prazosin HCl (Prazosin Hcl 1 Mg Capsule) 1 mg PO BEDTIME FLORENTINO; Protocol Last Admin: 05/03/21 22:21 Dose: 1 mg Documented by: Sucralfate (Sucralfate Oral Suspension 1 Gm/10 Ml Oral.Susp) 1 gm PO QIDACHS [facility] Last Admin: 05/04/21 06:45 Dose: 1 gm Documented by: Trazodone HCl (Trazodone Hcl 50 Mg Tablet) 50 mg PO BEDTIME PRN PRN Reason: insomnia Trazodone HCl (Trazodone Hcl 100 Mg Tablet) 200 mg PO BEDTIME [facility] Last Admin: 05/03/21 22:22 Dose: 200 mg Documented by: Allergies Allergies Allergy/AdvReac Type Severity Reaction Status Date / Time No Known Allergies Allergy Verified 04/27/21 11:42 Assessment & Plan Assessment & Plan (1) MDD (major depressive disorder), recurrent severe, without psychosis: Status: Acute Code(s): F33.2 - Major depressive disorder, recurrent severe without psychotic features (2) Alcohol use disorder, severe, dependence: Status: Acute Code(s): F10.20 - Alcohol dependence, uncomplicated Assessment and Plan: 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 04/07/21 EGD showed grade 4 erosiove esophagitis worse in the lower 3rd of esophagus. 04/27/21 Repeat EGD showed edematous and swollen distal esophageal tissue fatmata at GEJ with erythema and inflammation extending for 8 cm which looked to be resolving. In mid esophagus there was a white plague like area bx taken.partial improvement in esophagitis. Pt has been treated with high dose Omeprazole, sucralfate and topical anesthetic for pain and recently started on fluconazole for presumptive fungal infection with slow improvement. RECOMMENDATIONS: 1. Continue above medications. 2. Ensure three times daily for nutritional support. 3. If no improvement, consider further evaluation with a chest CT scan. 05/04/21: Section XXXV filed. Pt escorted for his hearing by [employer]. I spent minutes with the patient and/or on the patient floor today, greater than?50% of which was spent counseling/coordinating care. Patient educated on: other Informed Consent: understands Reason for contiued inpatient stay Substantial Risk for: harm to self, inability to function and med/psych decompensation
[2021-05-04] MEDS: Acetaminophen 325 MG TABLET 650 MG PO (11:46)
[2021-05-04] MEDS: LORazepam 1 MG TABLET PO (11:46)
--- NOTE | 2021-05-04 16:28 | PM.PSYDC ---
DS: Providers Provider Date of Service: 05/04/21 Date of admission: 04/29/21 21:25 Date of discharge: 05/04/21 Primary care physician: Unknown Physician Admitting clinician: Sangita Gonzalez Attending physician on admission: Casa Donohue Consults: 04/30/21 15:43 Consult to Gastroenterology Routine Consulting Provider: [facility] Reason for consultation: gastritis, duodenitis-pain, inability to eat-? pain mgt interventions Has provider been notified: Yes 05/01/21 09:35 Addiction Medicine Routine Consulting Provider: Zonia Dominguez Reason for consultation: alcohol dependence-possible section 35 Has provider been notified: No Attending physician on discharge: Casa Donohue Discharging clinician: Sangita Gonzalez DS: Diagnosis Discharge Diagnosis (1) MDD (major depressive disorder), recurrent severe, without psychosis: Status: Acute (2) Alcohol use disorder, severe, dependence: Status: Acute DS: Medications Discharge Medications Home Medications: Previous Rx's Medication Instructions Recorded omeprazole 40 mg capsule,delayed 40 mg PO BID #60 cap 04/12/21 release sucralfate 100 mg/mL oral 1 g (10 mL) PO QIDACHS #1200 ml 04/12/21 suspension trazodone 50 mg tablet 50 mg PO BEDTIME PRN #30 tab 04/12/21 fluconazole 100 mg tablet 100 mg PO DAILY #12 tab 04/29/21 Mag&Al/Sim/Diphenhyd/Lidocaine 10 ml PO Q4H PRN #0 05/04/21 [Magic Mouthwash] benzocaine 15 mg-menthol 3.6 mg 1 dorina MUCOUS MEMBRANE Q2H PRN #0 ea 05/04/21 lozenges (Cepacol Sore Throat (benzocaine-menthol)) escitalopram oxalate 20 mg tablet 20 mg PO DAILY #0 tab 05/04/21 fluconazole 100 mg tablet 100 mg PO DAILY #0 tab 05/04/21 folic acid 1 mg tablet 1 mg PO DAILY #0 tab 05/04/21 nicotine (polacrilex) 2 mg gum 4 mg BUCCAL Q2H PRN #0 ea 05/04/21 olanzapine 10 mg disintegrating 10 mg TRANSLINGUAL BID PRN #0 tab 05/04/21 tablet ondansetron 4 mg disintegrating 4 mg TRANSLINGUAL Q6H PRN #0 tab 05/04/21 tablet polyvinyl alcohol 1.4 % eye drops 2 drp OPHTHALMIC (EYE) Q4H PRN #0 05/04/21 (Artificial Tears (polyvinyl ml alcohol)) prazosin 1 mg capsule 1 mg PO BEDTIME #0 cap 05/04/21 trazodone 100 mg tablet 200 mg PO BEDTIME #0 tab 05/04/21 Mental Status Exam Mental Status Exam Patient Appearance: Fatigued Patient Orientation: Person, Place, Time and Situation Level of Consciousness: Alert Patient Behavior: Avoidant, Fatigued, Distractible and Poor Eye Contact Mood Description: Depressed and Angry Affect Description: Withdrawn and Flat Patient Cognition Impaired: No Ability to Follow Directions: Fair Speech Pattern: Spontaneous Speech Memory Description: Remote Impaired and Episodic Impaired Hallucinations: None Perceptual Disturbances: Derealization Thought Process: Illogical Thought Content: positive for Evasive and positive for Suicidal Ideation (denies) Depressive Symptoms: Increased Irritability, Increased Fatigue, Loss of Energy and Difficulty Concentrating Judgement: Poor Data Imaging Diagnostic Imaging Impressions Hand X-Ray 05/01/21 10:00 IMPRESSION: Large amount soft tissue swelling about the left hand without acute fracture identified. DS: Summary Hospital Course Hospital Course: Admission to adult psychiatry to address symptoms of severe recurrent major depression, severe recurrent alcohol use disorder with resulting gastritis. Care plan, medicine regime and out patient plan of care prior to admission were reviewed. Education was provided regarding management of symptoms, medications, and side effects. Nursing and clinical social work aide worked with Pio on collateral contacts, care planning, education regarding management of symptoms and discharge planning. Lexapro, Olanzapine, Prazosin and Trazodone were initiated during the admission. Section XXXV was filed by the hospital team as pts extensive alcohol use, resulting physical and psychological effects and risk of future disability along with Pio's level of impaired insight of the seriousness of these issues gave indication to apply for an increase in treatment intensity. Section XXXV was heard and approved by the court on 05/04/21. Time spent discussing smoking cessation with patient: 3 to 10 minutes Status at Discharge Cognitive/behavioral status at discharge: Alert, oriented, non-psychotic, non-suicidal Functional status at discharge: independent ambulation Overall status at discharge: patient is not back to baseline Time Spent with Patient Time attestation: Total time spent providing and/or coordinating discharge services: 35 Time spent: Greater than 30 minutes Discharge Plan Discharge Patient Disposition: Xfer Other Discharge Diagnosis: Recurrent major depression, severe Alcohol use disorder, severe Odynophagia Referrals: Physician,Unknown J [Primary Care Provider] - 1 Week Discharge Medications: New fluconazole 100 mg Tablet 100 mg PO DAILY Qty: 0 RF: 0 nicotine (polacrilex) 2 mg Gum 4 mg buccal Q2H PRN (Reason: Nicotine Cravings) Qty: 0 RF: 0 prazosin 1 mg Capsule 1 mg PO BEDTIME Qty: 0 RF: 0 polyvinyl alcohol [Artificial Tears (polyvin alc)] 1.4 % Drops 2 drp ophthalmic (eye) Q4H PRN (Reason: Dry Eyes) Qty: 0 RF: 0 trazodone 100 mg Tablet 200 mg PO BEDTIME Qty: 0 RF: 0 olanzapine 10 mg Tablet,Disintegrating 10 mg translingual BID PRN (Reason: agitation, aggression,violence) Qty: 0 RF: 0 folic acid 1 mg Tablet 1 mg PO DAILY Qty: 0 RF: 0 ondansetron 4 mg Tablet,Disintegrating 4 mg translingual Q6H PRN (Reason: Nausea) Qty: 0 RF: 0 escitalopram oxalate 20 mg Tablet 20 mg PO DAILY Qty: 0 RF: 0 Cepacol Sore Throat (maria victoria-men) 15-3.6 mg Lozenge 1 dorina mucous membrane Q2H PRN (Reason: Sore Throat) Qty: 0 RF: 0 Mag&Al/Sim/Diphenhyd/Lidocaine [Magic Mouthwash] 10 ml PO Q4H PRNQty: 0 RF: 0 Continued sucralfate 100 mg/mL Suspension 1 g PO QIDACHS Qty: 1200 RF: 0 omeprazole 40 mg capsule,delayed release(DR/EC) 40 mg PO BID Qty: 60 RF: 0 trazodone 50 mg tablet 50 mg PO BEDTIME PRN (Reason: insomnia) Qty: 30 RF: 0 fluconazole 100 mg Tablet 100 mg PO DAILY Qty: 12 RF: 0 Discontinued escitalopram oxalate 10 mg Tablet 10 mg PO DAILY Qty: 30 RF: 0 Discharge Orders: Discharge Order (Routine); Ordered 05/04/21 Ordered By: Sangita Gonzalez Diet: advance to usual diet Activity on Discharge: As tolerated Stand Alone Forms: Patient Portal Discharge page, Community Support Care Plan Goals: Mood Stabilization Sobriety Health Concerns: Recurrent severe major depression Alcohol use disorder, severe Odynophagia Severe gastritis, duodenitis due to alcohol use Plan of Treatment: Team has requested pt present for a hearing for Section XXXV. Family had planned to do this, however, per team report pt threatened his father if this was implemented. Assessment: Pt escorted to court with [employer]. Discharge Date/Time: 05/04/21 13:45 Depression Onset of symptoms: 11-20 years Chief complaint: Co-occurring alcohol use disorder since age 11. Previous episode of depression: No HPI - Alcohol Related Data Previous Rx's Medication Instructions Recorded omeprazole 40 mg capsule,delayed 40 mg PO BID #60 cap 04/12/21 release sucralfate 100 mg/mL oral 1 g (10 mL) PO QIDACHS #1200 ml 04/12/21 suspension trazodone 50 mg tablet 50 mg PO BEDTIME PRN #30 tab 04/12/21 fluconazole 100 mg tablet 100 mg PO DAILY #12 tab 04/29/21 Mag&Al/Sim/Diphenhyd/Lidocaine 10 ml PO Q4H PRN #0 05/04/21 [Magic Mouthwash] benzocaine 15 mg-menthol 3.6 mg 1 dorina MUCOUS MEMBRANE Q2H PRN #0 ea 05/04/21 lozenges (Cepacol Sore Throat (benzocaine-menthol)) escitalopram oxalate 20 mg tablet 20 mg PO DAILY #0 tab 05/04/21 fluconazole 100 mg tablet 100 mg PO DAILY #0 tab 05/04/21 folic acid 1 mg tablet 1 mg PO DAILY #0 tab 05/04/21 nicotine (polacrilex) 2 mg gum 4 mg BUCCAL Q2H PRN #0 ea 05/04/21 olanzapine 10 mg disintegrating 10 mg TRANSLINGUAL BID PRN #0 tab 05/04/21 tablet ondansetron 4 mg disintegrating 4 mg TRANSLINGUAL Q6H PRN #0 tab 05/04/21 tablet polyvinyl alcohol 1.4 % eye drops 2 drp OPHTHALMIC (EYE) Q4H PRN #0 05/04/21 (Artificial Tears (polyvinyl ml alcohol)) prazosin 1 mg capsule 1 mg PO BEDTIME #0 cap 05/04/21 trazodone 100 mg tablet 200 mg PO BEDTIME #0 tab 05/04/21 Allergies Allergy/AdvReac Type Severity Reaction Status Date / Time No Known Allergies Allergy Verified 04/27/21 11:42
== END 2021-05-04 13:45 | disposition other institution (70) | DRG 751 ==
PROVIDERS: Admitting Provider Hospitalist; Visit Provider Clinical Nurse Specialist Psychiatric/Mental Health, Adult
DX: F33.2 Major depressive disorder, recurrent severe without psychotic features (principal); R45.851 Suicidal ideations; R13.10 Dysphagia, unspecified; F10.20 Alcohol dependence, uncomplicated; Z79.51 Long term (current) use of inhaled steroids; Z79.899 Other long term (current) drug therapy
CPT/HCPCS: 73130

== ENCOUNTER 2022-07-07 10:31 | Emergency (ER) | payer MEDICAID, SELFPAY ==
[2022-07-07 10:39] VITALS: BP 145/85; BP 146/76; PULSE 100; RESP 18; TEMP 36.8; O2SAT 97; O2SAT 98; BMI 27.1
--- NOTE | 2022-07-07 10:39 | ED_ITS ---
HPI - General Adult General Chief complaint: ETOH/Substance Use Stated complaint: Poss ETOH withdrawl, v/d per EMS Time Seen by Provider: 07/07/22 10:34 Source: patient and EMS Mode of arrival: EMS Limitations: no limitations History of Present Illness HPI narrative: Patient is a 41 year old assigned male at with a history of alcohol abuse presenting to the emergency department today for alcohol withdrawal. Patient states that he usually drinks 1.5 liters of alcohol a day, vodka specifically, and he stopped drinking cold turkey yesterday. Patient states that he has a history of alcohol withdrawal seizures and hallucinations. Patient states that he would like to participate in detox however, he is from the [facility] and is only visiting his father in this area. Patient denies any dizziness, lighthead edness, abdominal pain, fever, blurry vision, double vision, loss of vision, chest pain, difficulty breathing, shortness of breath, back pain, night sweats, pain with urination, increased urinary frequency, increased urinary urgency, blood in his urine or stool, syncope or a near syncopal episode, recent trauma or falls, bowel incontinence, bladder incontinence, bowel retention, bladder retention, or any other complaints at this time. Onset (ago): hour(s) Severity: mild Severity scale (1-10): 3 Relieving factors: none Exacerbating factors: none Associated symptoms: nausea/vomiting Treatments prior to arrival: none Related Data Previous Rx's Medication Instructions Recorded omeprazole 40 mg capsule,delayed 40 mg PO BID #60 caps 04/12/21 release sucralfate 100 mg/mL oral 1 g (10 mL) PO QIDACHS #1,200 mL 04/12/21 suspension trazodone 50 mg tablet 50 mg PO BEDTIME PRN insomnia #30 04/12/21 tabs fluconazole 100 mg tablet 100 mg PO DAILY #12 tabs 04/29/21 Mag&Al/Sim/Diphenhyd/Lidocaine 10 ml PO Q4H PRN ##0 05/04/21 [Magic Mouthwash] benzocaine 15 mg-menthol 3.6 mg 1 dorina mucous membrane Q2H PRN Sore 05/04/21 lozenges (Cepacol Sore Throat Throat #0 ea (benzocaine-menthol)) escitalopram oxalate 20 mg tablet 20 mg PO DAILY #0 tabs 05/04/21 fluconazole 100 mg tablet 100 mg PO DAILY #0 tabs 05/04/21 folic acid 1 mg tablet 1 mg PO DAILY #0 tabs 05/04/21 nicotine (polacrilex) 2 mg gum 4 mg buccal Q2H PRN Nicotine 05/04/21 Cravings #0 ea olanzapine 10 mg disintegrating 10 mg translingual BID PRN 05/04/21 tablet agitation, aggression,violence #0 tabs ondansetron 4 mg disintegrating 4 mg translingual Q6H PRN Nausea 05/04/21 tablet #0 tabs polyvinyl alcohol 1.4 % eye drops 2 drp ophthalmic (eye) Q4H PRN Dry 05/04/21 (Artificial Tears (polyvinyl Eyes #0 mL alcohol)) prazosin 1 mg capsule 1 mg PO BEDTIME #0 caps 05/04/21 trazodone 100 mg tablet 200 mg PO BEDTIME #0 tabs 05/04/21 Allergies Allergy/AdvReac Type Severity Reaction Status Date / Time No Known Allergies Allergy Verified 04/27/21 11:42 Review of Systems Constitutional: Constitutional: Reports no additional constitutional complaints, Denies chills, Denies fever(s) and Denies night sweats Eyes: Eyes: Reports no additional eye complaints, Denies blurry vision, Denies change in vision, Denies diplopia, Denies eye discharge, Denies loss of vision and Denies eye pain ENT: Denies dizziness Cardiovascular: Cardiovascular: Reports no additional cardiovascular complaints, Denies chest pain, Denies lightheadedness, Denies Loss of Consciousness and Denies dyspnea Respiratory: Respiratory: Reports no additional respiratory complaints and Denies dyspnea Gastrointestinal: Gastrointestinal: Reports no additional gastrointestinal complaints, Denies abdominal pain, Denies melena, Denies hematochezia, Denies change in bowel habits, Denies change in stool character and Reports nausea Genitourinary: Genitourinary: Reports no additional male genitourinary complaints, Denies hematuria, Denies oliguria, Denies difficulty urinating, Denies dysuria, Denies urinary frequency, Denies urinary hesitancy, Denies urinary incontinence and Denies urinary urgency Musculoskeletal: Musculoskeletal: Reports no additional musculoskeletal complaints, Denies numbness and Denies tingling Neurologic: Denies dizziness, Denies loss of vision, Denies numbness and Denies tingling Psychiatric: Psychiatric: Reports no additional psychiatric complaints Endocrine: Endocrine: Reports no additional endocrine complaints Hematologic/Lymphatic: Hematologic/Lymphatic: Reports no additional hematologic/lymphatic complaints Allergic/Immunologic: Allergic/Immunologic: Reports no additional allergic/immunologic complaints PMFSH Past Medical History Attestation statement: The following information was validated with the patient. Source: old records reviewed and nursing notes reviewed Medical History Alcohol withdrawal seizure Alcoholism Anxiety Esophagitis Gastritis MDD (major depressive disorder), recurrent severe, without psychosis Severe recurrent major depression Surgical History H/O esophagogastroduodenoscopy H/O knee surgery Social History Social History Household Members: Family Household Members Other:: father Housing: House Do you presently have visiting nurse or other home services: No Alcohol intake: current Alcohol intake frequency: 3 or more drinks per day Alcohol type: hard liquor Patient Tobacco Use Status: Never used Tobacco Smoked in Last 30 Days: No Use of substances other than those prescribed or required for medical reasons: No Advance Directives: No service: No Current occupational status: unemployed Sexual orientation: Did not discuss Physical Exam ED Vital Signs: Vital Signs - 24 hr 07/07/22 10:39 07/07/22 12:59 07/07/22 14:27 Temperature 98.3 F 98.5 F 98.8 F Pulse Rate 100 107 H 115 H Respiratory Rate 18 20 18 Blood Pressure 145/85 H 131/77 131/84 Pulse Oximetry 97 95 94 Oxygen Delivery Method Room Air Room Air Room Air BMI result Body Mass Index 27.1 Const General: cooperative, no acute distress, alert and awake Nutritional Appearance: well nourished Orientation/consciousness: patient oriented x3 Limitations: no limitations HENMT Head: Yes normal to inspection and Yes atraumatic Ears: hearing grossly normal bilaterally and external ears normal General nose exam: Normal external nose present, no nasal discharge noted and no epistaxis Face and sinus: Yes normal facial exam, No abrasion and No laceration Mouth: Normal oral and palatal mucosa present, no drooling and no muffled voice Eyes General: appearance normal, both eyes and all related structures Periorbital: periorbital findings normal Eyelids: Yes eyelids normal Conjunctivae: conjunctivae normal Pupils: Equal, round and reactive pupils present EOM: EOMs intact bilaterally Neck Neck: Yes normal visual inspection, Yes full ROM and Yes no lymphadenopathy Chest Chest palpation & inspection: normal inspection of the chest Resp Effort & Inspection: normal respiratory effort and able to speak in complete sentences Auscultation: clear to auscultation bilaterally Cardio Rate: regular rate Rhythm: regular rhythm GI Inspection: Yes normal to inspection Palpation (GI): Soft to palpation, not firm, nontender, no guarding and not rigid Neuro General: patient oriented x3 and moves all extremities Cranial nerves: Yes Equal, round and reactive pupils present Cognition (Neuro): normal cognition Motor exam (neuro): 5/5 motor strength present throughout Sensory Exam: Normal double simultaneous stimulation for sensation Coordination: [id number] test normal Extrem General: Yes normal to inspection, Yes full ROM and Yes capillary refill normal Psych Appearance: grossly normal Mental Status: mental status grossly normal Affect: normal affect Attitude: cooperative Thought process: Normal thought process present Thought content: Normal thought content present Insight: Good insight present (Psych) Medications Administered Discontinued Medications Generic Name Dose Route Start Last Admin Trade Name Michaela PRN Reason Stop Dose Admin Lorazepam 2 mg 07/07/22 10:53 07/07/22 12:18 Lorazepam 1 Mg Tablet PO 07/07/22 10:54 2 mg ONCE ONE Administration Lorazepam 2 mg 07/07/22 12:47 07/07/22 14:09 Lorazepam 2 Mg/Ml Vial IVPUSH 07/07/22 12:48 2 mg ONCE ONE Administration Ondansetron HCl 4 mg 07/07/22 12:47 07/07/22 14:10 Ondansetron Hcl 4 Mg/2 Ml Vial IVPUSH 07/07/22 12:48 4 mg ONCE ONE Administration Medical Decision Making Medical Decision Making [facility] Narrative: Patient is a 41 year old assigned male at with a history of alcohol abuse presenting to the emergency department today with alcohol withdrawal, requesting detox placement. Patient's physical exam was unremarkable. Patient's blood work was unremarkable. I explained my physical exam findings as well as all test results to the patient. I answered all questions asked by the patient. Patient received Ativan which he stated helped his symptoms significantly. CARE team met with the patient and got him accepted in detox. I stressed the importance of the patient taking his medication as prescribed. I stressed the importance of the patient following up with his primary care provider. I stressed the importance of the patient returning to the emergency department immediately if his symptoms were to worsen or if he were to develop any dizziness, shortness of breath, difficulty breathing, chest pain, blurry vision, loss of vision, nausea, vomiting, abdominal pain, fever, chills, back pain, or any other complaints. Patient verbalized agreement and understanding with this treatment plan and discharge. Differential Diagnosis Differential Diagnoses: The differential diagnosis associated with the presentation includes alcohol abuse Lab Data MDM Lab Attestation statement: I reviewed the patient's lab results. 07/07/22 12:23 07/07/22 12:23 Labs: Lab Results 07/07/22 07/07/22 07/07/22 Range/Units 11:13 11:29 11:30 WBC (4.8-10.8) X10*3/uL RBC (4.60-5.80) X10*6/uL Hgb (14.0-18.0) g/dl Hct (42.0-52.0) % MCV (80.0-98.0) fL MCH (27.0-33.0) pg MCHC (31.0-36.0) g/dl RDW (11.0-16.0) % Plt Count (160-400) X10*3/uL MPV (9.4-12.4) fL Immature Gran % (Auto) (0.0-0.4) % Neut % (Auto) (45-73) % Lymph % (Auto) (20-40) % Troup % (Auto) (2-11) % Eos % (Auto) (0-4) % Baso % (Auto) (0-2) % Lymph # (Auto) (1.2-4.9) X10*3/uL Troup # (Auto) (0.1-1.2) X10*3/uL Eos # (Auto) (0.0-0.4) X10*3/uL Baso # (Auto) (0.0-0.2) X10*3/uL Abs Immat Gran (auto) (0.00-0.03) X10*3/uL Absolute Neuts (auto) (2.0-8.3) x10*3/uL Absolute Nucleated RBC (0.0-0.012) X10*3/uL Nucleated RBC % (auto) (0.0-0.2) /100WBC Smear Tech's Comments Sodium (135-145) mmol/L Potassium (3.3-5.1) mmol/L Chloride (96-108) mmol/L Carbon Dioxide (22-29) mmol/L Anion Gap (12-20) BUN (9-16) mg/dL Creatinine (0.5-1.4) mg/dL Estim Creat Clear Calc Estimated GFR Random Glucose (60-115) mg/dL Calcium (8.4-10.2) mg/dL Urine Color Yellow Urine Appearance Clear Urine pH 5.0 (5.0-9.0) Ur Specific [place] 1.010 (1.005-1.025) Urine Protein Negative (Neg-Trace) mg/dL Urine Glucose (UA) Negative (Negative) mg/dL Urine Ketones 15 (Negative) mg/dL Urine Blood Negative (Negative) Urine Nitrite Negative (Negative) Ur Leukocyte Esterase Negative (Negative) Urine Opiates Screen Not Detected (Not Detect) Urine Fentanyl Screen Not Detected (Not Detect) Ur Barbiturates Screen POSITIVE H (Not Detect) Ur Phencyclidine Scrn Not Detected (Not Detect) Ur Amphetamines Screen Not Detected (Not Detect) U Benzodiazepines Scrn Not Detected (Not Detect) Urine Cocaine Screen Not Detected (Not Detect) U Marijuana (THC) Screen Not Detected (Not Detect) Ethyl Alcohol mg/dL COVID-19 (ANUJ) Negative (Negative) COVID-19 Clin Com See Note 07/07/22 07/07/22 07/07/22 Range/Units 12: 12: 12: WBC 5.6 (4.8-10.8) X10*3/uL RBC 5.39 (4.60-5.80) X10*6/uL Hgb 16.2 D (14.0-18.0) g/dl Hct 48.1 D (42.0-52.0) % MCV 89.2 (80.0-98.0) fL MCH 30.1 (27.0-33.0) pg MCHC 33.7 (31.0-36.0) g/dl RDW 13.5 (11.0-16.0) % Plt Count 194 D (160-400) X10*3/uL MPV 9.4 (9.4-12.4) fL Immature Gran % (Auto) 1.4 H (0.0-0.4) % Neut % (Auto) 68.9 (45-73) % Lymph % (Auto) 21.9 (20-40) % Troup % (Auto) 6.5 (2-11) % Eos % (Auto) 0.0 (0-4) % Baso % (Auto) 1.3 (0-2) % Lymph # (Auto) 1.2 (1.2-4.9) X10*3/uL Troup # (Auto) 0.4 (0.1-1.2) X10*3/uL Eos # (Auto) 0.0 (0.0-0.4) X10*3/uL Baso # (Auto) 0.1 (0.0-0.2) X10*3/uL Abs Immat Gran (auto) 0.08 H (0.00-0.03) X10*3/uL Absolute Neuts (auto) 3.9 (2.0-8.3) x10*3/uL Absolute Nucleated RBC 0.000 (0.0-0.012) X10*3/uL Nucleated RBC % (auto) 0.0 (0.0-0.2) /100WBC Smear Tech's Comments VERIFIED Sodium 141 (135-145) mmol/L Potassium 4.5 D (3.3-5.1) mmol/L Chloride 106 (96-108) mmol/L Carbon Dioxide 13 L (22-29) mmol/L Anion Gap 27 H (12-20) BUN 9 (9-16) mg/dL Creatinine 0.84 (0.5-1.4) mg/dL Estim Creat Clear Calc 102.3 Estimated GFR > 60 Random Glucose 87 (60-115) mg/dL Calcium 8.9 D (8.4-10.2) mg/dL Urine Color Urine Appearance Urine pH (5.0-9.0) Ur Specific [place] (1.005-1.025) Urine Protein (Neg-Trace) mg/dL Urine Glucose (UA) (Negative) mg/dL Urine Ketones (Negative) mg/dL Urine Blood (Negative) Urine Nitrite (Negative) Ur Leukocyte Esterase (Negative) Urine Opiates Screen (Not Detect) Urine Fentanyl Screen (Not Detect) Ur Barbiturates Screen (Not Detect) Ur Phencyclidine Scrn (Not Detect) Ur Amphetamines Screen (Not Detect) U Benzodiazepines Scrn (Not Detect) Urine Cocaine Screen (Not Detect) U Marijuana (THC) Screen (Not Detect) Ethyl Alcohol 340 H* mg/dL COVID-19 (ANUJ) (Negative) COVID-19 Clin Com Discharge Plan Discharge Clinical Impression: Alcohol abuse Patient Disposition: Home, Self-Care Instructions: Abuse of Alcohol (ED) Additional Instructions: Proceed to [facility] for detox as set up by the CARE team. Follow up with your primary care provider. Return to the emergency department immediately if your symptoms worsen or if you develop any dizziness, shortness of breath, difficulty breath ing, chest pain, blurry vision, loss of vision, nausea, vomiting, abdominal pain, fever, chills, back pain, or any other complaints. Prescriptions: No Action sucralfate 100 mg/mL Suspension 1 g PO QIDACHS Qty: 1200 0RF omeprazole 40 mg capsule,delayed release(DR/EC) 40 mg PO BID Qty: 60 0RF trazodone 50 mg tablet 50 mg PO BEDTIME PRN (Reason: insomnia) Qty: 30 0RF fluconazole 100 mg Tablet 100 mg PO DAILY Qty: 0 0RF nicotine (polacrilex) 2 mg Gum 4 mg buccal Q2H PRN (Reason: Nicotine Cravings) Qty: 0 0RF prazosin 1 mg Capsule 1 mg PO BEDTIME Qty: 0 0RF Protocol: Hold for SBP< HOLD for SBP < : 90 polyvinyl alcohol [Artificial Tears (polyvin alc)] 1.4 % Drops 2 drp ophthalmic (eye) Q4H PRN (Reason: Dry Eyes) Qty: 0 0RF trazodone 100 mg Tablet 200 mg PO BEDTIME Qty: 0 0RF olanzapine 10 mg Tablet,Disintegrating 10 mg translingual BID PRN (Reason: agitation, aggression,violence) Qty: 0 0RF folic acid 1 mg Tablet 1 mg PO DAILY Qty: 0 0RF ondansetron 4 mg Tablet,Disintegrating 4 mg translingual Q6H PRN (Reason: Nausea) Qty: 0 0RF escitalopram oxalate 20 mg Tablet 20 mg PO DAILY Qty: 0 0RF Cepacol Sore Throat (maria victoria-men) 15-3.6 mg Lozenge 1 dorina mucous membrane Q2H PRN (Reason: Sore Throat) Qty: 0 0RF Mag&Al/Sim/Diphenhyd/Lidocaine [Magic Mouthwash] 10 ml PO Q4H PRNQty: 0 0RF fluconazole 100 mg Tablet 100 mg PO DAILY Qty: 12 0RF Referrals: [facility] [[place] Group] (Call to establish and follow up with a primary care provider. If you already have a primary care provider, please follow up with them.) [facility] [place] [facility] [Provider Group] (Call to establish and follow up with a primary care provider. If you already have a primary care provider, liliana gonzalez follow up with them.) [facility] [place] [Provider Group] (Call to establish and follow up with a primary care provider. If you already have a primary care provider, please follow up with them.) Interventions: [place]-Suicide Risk Severity Scale Last Done: 07/07/22 10:46 ED Discharge Assessment Last Done: 07/07/22 15:23 Discharge Date/Time: 07/07/22 15:24 Print Language: Belizean
--- NOTE | 2022-07-07 10:40 | ECG_ITS ---
Test Reason : ETOH Blood Pressure : / mmHG Vent. Rate : 102 BPM Atrial Rate : 102 BPM P-R Int : 184 ms QRS Dur : 094 ms QT Int : 360 ms P-R-T Axes : 058 -75 046 degrees QTc Int : 469 ms Sinus tachycardia Incomplete right bundle branch block Left anterior fascicular block Possible Anterior infarct (cited on or before 07-JUL-2022) Abnormal ECG When compared with ECG of 23-APR-2021 09:51, No significant changes seen Referred By: Jacklyn Pa Electronically Signed By:MARIELA GARCIA
[2022-07-07 11:38] LABS: COVID-19 Test Negative (Negative); IDNOW Serial# BCCEAD1C
[2022-07-07 12:07] LABS: Appearance Urine Clear; Color Urine Yellow; Glucose Urine UA Negative (Negative); Leukocyte Esterase Urine Negative (Negative); Nitrite Urine Negative (Negative); Urine Blood Negative (Negative); Urine Ketones 15 mg/dL (Negative); Urine Protein Negative (Neg-Trace)
[2022-07-07 12:14] LABS: Amphetamine Screen Urine Not Detected (Not Detect); Barbiturates, Urine POSITIVE (Not Detect); Benzodiazepines Screen Urine Not Detected (Not Detect); Cannabinoid Screen Urine Not Detected (Not Detect); Cocaine Screen Urine Not Detected (Not Detect); Fentanyl, urine Not Detected (Not Detect); Opiate Screen Urine Not Detected (Not Detect); Phencyclidine Screen Urine Not Detected (Not Detect)
[2022-07-07] MEDS: LORazepam 1 MG TABLET 2 MG PO (12:18)
[2022-07-07 12:28] LABS: Basophils Absolute Auto 0.1 X10*3/uL (0.0-0.2); Basophils Percent Auto 1.3 % (0-2); Hematocrit 48.1 % (42.0-52.0); Hemoglobin 16.2 g/dl (14.0-18.0); Imm Gran Abs Auto 0.08 X10*3/uL (0.00-0.03); Imm Gran Pct Auto 1.4 % (0.0-0.4); Lymphocytes Absolute Auto 1.2 X10*3/uL (1.2-4.9); Lymphocytes Percent Auto 21.9 % (20-40); MANUAL DIFF FLAG SCAN; Mean Corpuscular HGB Conc 33.7 g/dl (31.0-36.0); Mean Corpuscular Hemoglobin 30.1 pg (27.0-33.0); Mean Corpuscular Volume 89.2 fL (80.0-98.0); Mean Platelet Volume 9.4 fL (9.4-12.4); Monocytes Absolute Auto 0.4 X10*3/uL (0.1-1.2); Monocytes Percent Auto 6.5 % (2-11); Neutrophils Absolute Auto 3.9 x10*3/uL (2.0-8.3); Neutrophils Percent Auto 68.9 % (45-73); Platelet Count 194 X10*3/uL (160-400); Red Blood Count 5.39 X10*6/uL (4.60-5.80); Red Cell Distribution Width 13.5 % (11.0-16.0); SCAN SMEAR FLAG 1; White Blood Count 5.6 X10*3/uL (4.8-10.8)
[2022-07-07 12:44] LABS: Anion Gap 27 (12-20); Blood Urea Nitrogen 9 mg/dL (9-16); Calcium 8.9 mg/dL (8.4-10.2); Carbon Dioxide 13 mmol/L (22-29); Chloride 106 mmol/L (96-108); Creatinine Clr Calc Pharmacy 102.3; Estimated Glomerular Filt Rate > 60; Glucose Random 87 mg/dL (60-115); Potassium 4.5 mmol/L (3.3-5.1); Sodium 141 mmol/L (135-145)
[2022-07-07 12:45] LABS: Ethanol 340 mg/dL
[2022-07-07 12:59] VITALS: BP 131/77; PULSE 107; RESP 20; TEMP 36.9; O2SAT 95
[2022-07-07 12:59] LABS: SLIDE REVIEW VERIFIED
--- NOTE | 2022-07-07 13:03 | MHC.RECOVRN ---
Met with pt in ED9 to discuss substance use and desire for treatment. Pt reports drinking approx 1 liter of vodka daily x 2 weeks. Pt would like to go to [facility]. Reports last ATS was 6 years ago. Is willing to go anywhere except [facility], preferably near [place]. Denies questions or concerns for t/w.
--- NOTE | 2022-07-07 13:17 | MHC.RECOVRN ---
[facility] has bed availability, referral sent.
[2022-07-07] MEDS: LORazepam 2 MG/ML VIAL IVPUSH (14:09)
[2022-07-07] MEDS: ondansetron HCL 4 MG/2 ML VIAL IVPUSH (14:10)
[2022-07-07 14:27] VITALS: BP 131/84; PULSE 115; RESP 18; TEMP 37.1; O2SAT 94
--- NOTE | 2022-07-07 14:35 | MHC.RECOVRN ---
Pt accepted to [facility]. Will be transported via [employer].
[2022-07-07 16:58] LABS: Magnesium 1.9 mg/dL (1.6-2.6)
== END 2022-07-07 15:24 | disposition home or self-care (01) ==
PROVIDERS: Physician Assistant Medical; Emergency Provider Emergency Medicine
DX: F10.10 Alcohol abuse, uncomplicated (principal); Y90.8 Blood alcohol level of 240 mg/100 ml or more; R11.2 Nausea with vomiting, unspecified; Z79.899 Other long term (current) drug therapy; Z20.822 Contact with and (suspected) exposure to COVID-19
CPT/HCPCS: 36415; 80048; 80307; 81003; 82077; 83735; 85025; 87635; 93005; 96374; 96375; 99285; J2060; J2405

== ENCOUNTER 2022-07-30 07:46 | Inpatient (IN) | payer MEDICAID, SELFPAY ==
[2022-07-30] VITALS (7 sets, daily range): BP systolic 117–145; BP diastolic 69–93; PULSE 76–99; RESP 14–20; TEMP 36.9–37.2; O2SAT 96–99; BMI 25.3
--- NOTE | 2022-07-30 08:05 | ECG_ITS ---
Test Reason : etoh Blood Pressure : / mmHG Vent. Rate : 083 BPM Atrial Rate : 083 BPM P-R Int : 182 ms QRS Dur : 094 ms QT Int : 400 ms P-R-T Axes : 049 -68 032 degrees QTc Int : 470 ms Normal sinus rhythm Left axis deviation Incomplete right bundle branch block Abnormal ECG When compared with ECG of 07-JUL-2022 10:52, No significant change was found Referred By: Diane Lazaro Electronically Signed By:Jeff Chapin
--- NOTE | 2022-07-30 08:06 | ED_ITS ---
HPI - Alcohol General Chief Complaint: ETOH/Substance Use Stated Complaint: ETOH withdrawal per EMS Time Seen by Provider: 07/30/22 08:00 Source: patient and EMS Mode of arrival: EMS Limitations: no limitations History of Present Illness HPI narrative: 41-year-old male with a history of alcohol use disorder who presents to the ER seeking detox for alcohol. Patient reports he drinks 1 L of vodka daily. Last drink was yesterday. Patient reports he has been trying to detox himself at home but has had vomiting and unable to tolerate any p.o. fluids. Patient reports multiple episodes of vomiting. Some of his emesis has had blood streaks. Patient denies abdominal pain, black or bloody stools. No additional substance use. Patient denies any suicidal or homicidal ideations. Related Data Home Medications Medication Instructions Recorded Confirmed gabapentin 300 mg capsule 300 mg PO TID 07/30/22 07/30/22 ondansetron 4 mg disintegrating 1 tab PO Q8H PRN Nausea 07/30/22 07/30/22 tablet pantoprazole 40 mg tablet,delayed 1 tab PO BID 07/30/22 07/30/22 release Allergies Allergy/AdvReac Type Severity Reaction Status Date / Time No Known Allergies Allergy Verified 04/27/21 11:42 Review of Systems Review of Systems: Yes all other systems are reviewed and are negative Constitutional: Constitutional: Reports no additional constitutional complaints, Denies body ache(s), Denies chills, Denies fever(s), Denies headache(s) and Denies weakness Eyes: Eyes: Reports no additional eye complaints and Denies change in vision ENT: Reports system reviewed and no additional complaints, except as documented, Denies dizziness, Denies headache(s), Denies nasal congestion, Denies nasal discharge and Denies neck pain Cardiovascular: Cardiovascular: Reports no additional cardiovascular complaints, Denies chest pain, Denies leg edema and Denies dyspnea Respiratory: Respiratory: Reports no additional respiratory complaints, Denies cough and Denies dyspnea Gastrointestinal: Gastrointestinal: Reports no additional gastrointestinal complaints, Denies abdominal pain, Denies diarrhea, Reports nausea, Reports vomiting and Reports hematemesis Genitourinary: Genitourinary: Denies urinary incontinence Musculoskeletal: Musculoskeletal: Reports no additional musculoskeletal complaints, Denies back pain, Denies arthralgias, Denies joint swelling, Denies neck pain, Denies numbness and Denies tingling Integumentary/Breasts: Skin/Breast: Reports system reviewed and no additional complaints, except as docu and Denies rash Neurologic: Reports system reviewed and no additional complaints, except as documented, Denies dizziness, Denies headache(s), Denies numbness, Denies tingling and Denies weakness PMFSH Past Medical History Attestation statement: The following information was validated with the patient. Source: old records reviewed and nursing notes reviewed Medical History Alcohol withdrawal seizure Alcoholism Anxiety Esophagitis Gastritis MDD (major depressive disorder), recurrent severe, without psychosis Surgical History H/O esophagogastroduodenoscopy H/O knee surgery Social History Social History Household Members: Family Household Members Other:: father Housing: House Do you presently have visiting nurse or other home services: No Alcohol intake: current Alcohol intake frequency: 3 or more drinks per day Alcohol type: hard liquor Patient Tobacco Use Status: Never used Tobacco Advance Directives: Yes Advance Directives on File: Yes Advance Directives Date on File: 05/05/21 Nutrition Risks: No Nutritional Risk service: No Current occupational status: unemployed Sexual orientation: Did not discuss Physical Exam ED Vital Signs: Vital Signs - 24 hr 07/30/22 07:55 07/30/22 08:00 07/30/22 12:15 Temperature 98.9 F 98.4 F Pulse Rate 96 88 76 Respiratory Rate 16 20 18 Blood Pressure 137/93 H 145/92 H 119/72 Pulse Oximetry 98 96 97 Oxygen Delivery Method Room Air Room Air Room Air 07/30/22 15:06 Temperature Pulse Rate 88 Respiratory Rate 14 Blood Pressure 117/69 Pulse Oximetry 96 Oxygen Delivery Method Room Air BMI result Body Mass Index 25.3 Const General: cooperative, healthy appearing, comfortable and no acute distress Orientation/consciousness: patient oriented x3 Limitations: no limitations HENMT Head: Yes normal to inspection Ears: hearing grossly normal bilaterally Eyes General: appearance normal, both eyes and all related structures Pupils: Equal, round and reactive pupils present Neck Neck: Yes normal visual inspection, Yes full ROM, Yes no lymphadenopathy and Yes no meningeal signs Chest Chest palpation & inspection: normal inspection of the chest Resp Effort & Inspection: normal respiratory effort Auscultation: clear to auscultation bilaterally Cardio Rate: regular rate Rhythm: regular rhythm Peripheral pulses: Peripheral pulses 2+ throughout GI Other: 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 Inspection: Yes normal to inspection Palpation (GI): Soft to palpation and nontender Rectal Exam - Male: Yes visual inspection normal, Yes normal sphincter tone and Yes other (stool is brown) General: Yes no CVA tenderness Back/Spine/Pelvis Back: no CVA tenderness Thoracic/Lumbar Spine: thoracic and lumbar spine normal to inspection Skin General skin exam: no rashes or lesions noted Neuro General: patient oriented x3, moves all extremities and no meningeal signs Cranial nerves: Yes Equal, round and reactive pupils present Cognition (Neuro): normal cognition Gait exam (Neuro): Normal gait present Extrem General: Yes normal to inspection, Yes no pedal edema and Yes no calf tenderness Course Course Course Narrative: 0910-patient with difficult IV access. Unable to obtain ultrasound access or peripheral access. Patient needs IV fluids and treatment for his alcohol withdrawal and reports unable tolerate p.o.. See procedure note for easy IJ placement Reevaluation(s) Reevaluation #1: 0930-elevated lactic acid. Likely secondary to dehydration, alcohol use and not from infection patient receiving IV fluid Reevaluation #2: 1000-no vomiting here. Abdomen soft nontender. Hemoglobin stable. Rectal exam shows brown stool. Will send for occult. Reevaluation #3: 1230-repeat lactic is still elevated but not rising. Likely secondary to alcohol use and dehydration. Repeat BMP normalized. Patient receive additional IV fluids Additional Reevaluation(s): 1445-patient has required multiple rounds of medication for withdrawal symptoms. CIWA greater than 10. Patient with continued lactic acidosis. Patient will need admission for IV hydration. Will speak to the hospitalist Medical Decision Making Medical Decision Making MDM Narrative: 41-year-old male with a history of alcohol use disorder presents to the e mergency room complaining of vomiting, vomiting blood, feeling like he is in alcohol withdrawal. Patient seeking detox. Patient denies any additional substance use or suicidal thoughts. Patient reports multiple admissions for alcohol withdrawal. Patient reports has had previous endoscopies which showed esophagitis and gastritis-04/[address] Mcnamara Will obtain labs, EKG, drug screen, COVID screen. Patient will need occult stool and rectal exam Patient's CIWA 8. Will give IV fluids, antiemetic, lorazepam Differential Diagnosis Differential Diagnoses: The differential diagnosis associated with the presentation includes Alcohol withdrawal Gastritis, upper GI bleed Admission/Observation Consideration of admission/observation: Escalation of care including admission/observation considered Lactic acidosis, alcohol withdrawal requiring IV hydration and IV medications. Consult Healthcare Provider Management of the patient was discussed with: Hospitalist spoke to Dr Childers who accepted patient and further management Lab Data MDM Lab Attestation statement: I reviewed the patient's lab results. 07/30/22 08:28 07/30/22 08:28 Labs: Lab Results 07/30/22 07/30/22 07/30/22 Range/Units 08:28 08:28 08:28 WBC 9.8 (4.8-10.8) X10*3/uL RBC 5.29 (4.60-5.80) X10*6/uL Hgb 15.9 (14.0-18.0) g/dl Hct 46.1 (42.0-52.0) % MCV 87.1 (80.0-98.0) fL MCH 30.1 (27.0-33.0) pg MCHC 34.5 (31.0-36.0) g/dl RDW 14.2 (11.0-16.0) % Plt Count 231 (160-400) X10*3/uL MPV 9.3 L (9.4-12.4) fL Immature Gran % (Auto) 0.2 (0.0-0.4) % Neut % (Auto) 82.7 H (45-73) % Lymph % (Auto) 11.7 L (20-40) % [place] % (Auto) 4.9 (2-11) % Eos % (Auto) 0.2 (0-4) % Baso % (Auto) 0.3 (0-2) % Lymph # (Auto) 1.1 L (1.2-4.9) X10*3/uL [place] # (Auto) 0.5 (0.1-1.2) X10*3/uL Eos # (Auto) 0.0 (0.0-0.4) X10*3/uL Baso # (Auto) 0.0 (0.0-0.2) X10*3/uL Abs Immat Gran (auto) 0.02 (0.00-0.03) X10*3/uL Absolute Neuts (auto) 8.1 (2.0-8.3) x10*3/uL Absolute Nucleated RBC 0.000 (0.0-0.012) X10*3/uL Nucleated RBC % (auto) 0.0 (0.0-0.2) /100WBC PT 9.7 L (10.0-13.1) SEC INR 0.9 (0.9-1.1) VBG pH (7.32-7.43) VBG pCO2 mmHg VBG pO2 mmHg VBG HCO3 (22-26) mmol/L VBG O2 Saturation % VBG Base Excess mmol/L Sodium (135-145) mmol/L Potassium (3.3-5.1) mmol/L Chloride (96-108) mmol/L Carbon Dioxide (22-29) mmol/L Anion Gap (12-20) BUN (9-16) mg/dL Creatinine (0.5-1.4) mg/dL Estim Creat Clear Calc Estimated GFR Random Glucose (60-115) mg/dL Lactic Acid (0.5-2.0) mmol/L Lactic Acid F/U @ 2Hr (0.5-2.0) mmol/L Lactic Acid F/U @ 4Hr (0.5-2.0) mmol/L Calcium (8.4-10.2) mg/dL Magnesium (1.6-2.6) mg/dL Total Bilirubin (0.0-1.0) mg/dL Direct Bilirubin (0.0-0.5) mg/dL AST (5-37) U/L ALT (0-40) U/L Alkaline Phosphatase (39-117) U/L Total Protein (6.5-8.0) g/dL Albumin (3.5-5.0) g/dL Stool Occult Blood (NEGATIVE) Urine Opiates Screen (Not Detect) Urine Fentanyl Screen (Not Detect) Ur Barbiturates Screen (Not Detect) Ur Phencyclidine Scrn (Not Detect) Ur Amphetamines Screen (Not Detect) U Benzodiazepines Scrn (Not Detect) Urine Cocaine Screen (Not Detect) U Marijuana (THC) Screen (Not Detect) Ethyl Alcohol mg/dL COVID-19 (ANUJ) Negative (Negative) COVID-19 Clin Com See Note 07/30/22 07/30/22 07/30/22 Range/Units 08:28 09:10 09:13 WBC (4.8-10.8) X10*3/uL RBC (4.60-5.80) X10*6/uL Hgb (14.0-18.0) g/dl Hct (42.0-52.0) % MCV (80.0-98.0) fL MCH (27.0-33.0) pg MCHC (31.0-36.0) g/dl RDW (11.0-16.0) % Plt Count (160-400) X10*3/uL MPV (9.4-12.4) fL Immature Gran % (Auto) (0.0-0.4) % Neut % (Auto) (45-73) % Lymph % (Auto) (20-40) % [place] % (Auto) (2-11) % Eos % (Auto) (0-4) % Baso % (Auto) (0-2) % Lymph # (Auto) (1.2-4.9) X10*3/uL [place] # (Auto) (0.1-1.2) X10*3/uL Eos # (Auto) (0.0-0.4) X10*3/uL Baso # (Auto) (0.0-0.2) X10*3/uL Abs Immat Gran (auto) (0.00-0.03) X10*3/uL Absolute Neuts (auto) (2.0-8.3) x10*3/uL Absolute Nucleated RBC (0.0-0.012) X10*3/uL Nucleated RBC % (auto) (0.0-0.2) /100WBC PT (10.0-13.1) SEC INR (0.9-1.1) VBG pH 7.36 (7.32-7.43) VBG pCO2 35 mmHg VBG pO2 62 mmHg VBG HCO3 20 L (22-26) mmol/L VBG O2 Saturation 85.0 % VBG Base Excess -4.3 mmol/L Sodium 138 (135-145) mmol/L Potassium 4.0 (3.3-5.1) mmol/L Chloride 96 (96-108) mmol/L Carbon Dioxide 21 L (22-29) mmol/L Anion Gap 25 H (12-20) BUN 9 (9-16) mg/dL Creatinine 0.73 (0.5-1.4) mg/dL Estim Creat Clear Calc 117.7 Estimated GFR > 60 Random Glucose 101 (60-115) mg/dL Lactic Acid 6.8 H* (0.5-2.0) mmol/L Lactic Acid F/U @ 2Hr (0.5-2.0) mmol/L Lactic Acid F/U @ 4Hr (0.5-2.0) mmol/L Calcium 8.2 L D (8.4-10.2) mg/dL Magnesium 1.8 (1.6-2.6) mg/dL Total Bilirubin 0.6 (0.0-1.0) mg/dL Direct Bilirubin 0.2 (0.0-0.5) mg/dL AST 37 (5-37) U/L ALT 29 (0-40) U/L Alkaline Phosphatase 73 (39-117) U/L Total Protein 6.7 (6.5-8.0) g/dL Albumin 4.2 (3.5-5.0) g/dL Stool Occult Blood (NEGATIVE) Urine Opiates Screen (Not Detect) Urine Fentanyl Screen (Not Detect) Ur Barbiturates Screen (Not Detect) Ur Phencyclidine Scrn (Not Detect) Ur Amphetamines Screen (Not Detect) U Benzodiazepines Scrn (Not Detect) Urine Cocaine Screen (Not Detect) U Marijuana (THC) Screen (Not Detect) Ethyl Alcohol 355 H* mg/dL COVID-19 (ANUJ) (Negative) COVID-19 Clin Com 07/30/22 07/30/22 07/30/22 Range/Units 09:17 10:08 11:55 WBC (4.8-10.8) X10*3/uL RBC (4.60-5.80) X10*6/uL Hgb (14.0-18.0) g/dl Hct (42.0-52.0) % MCV (80.0-98.0) fL MCH (27.0-33.0) pg MCHC (31.0-36.0) g/dl RDW (11.0-16.0) % Plt Count (160-400) X10*3/uL MPV (9.4-12.4) fL Immature Gran % (Auto) (0.0-0.4) % Neut % (Auto) (45-73) % Lymph % (Auto) (20-40) % [place] % (Auto) (2-11) % Eos % (Auto) (0-4) % Baso % (Auto) (0-2) % Lymph # (Auto) (1.2-4.9) X10*3/uL [place] # (Auto) (0.1-1.2) X10*3/uL Eos # (Auto) (0.0-0.4) X10*3/uL Baso # (Auto) (0.0-0.2) X10*3/uL Abs Immat Gran (auto) (0.00-0.03) X10*3/uL Absolute Neuts (auto) (2.0-8.3) x10*3/uL Absolute Nucleated RBC (0.0-0.012) X10*3/uL Nucleated RBC % (auto) (0.0-0.2) /100WBC PT (10.0-13.1) SEC INR (0.9-1.1) VBG pH (7.32-7.43) VBG pCO2 mmHg VBG pO2 mmHg VBG HCO3 (22-26) mmol/L VBG O2 Saturation % VBG Base Excess mmol/L Sodium (135-145) mmol/L Potassium (3.3-5.1) mmol/L Chloride (96-108) mmol/L Carbon Dioxide (22-29) mmol/L Anion Gap (12-20) BUN (9-16) mg/dL Creatinine (0.5-1.4) mg/dL Estim Creat Clear Calc Estimated GFR Random Glucose (60-115) mg/dL Lactic Acid (0.5-2.0) mmol/L Lactic Acid F/U @ 2Hr 4.1 H* (0.5-2.0) mmol/L Lactic Acid F/U @ 4Hr (0.5-2.0) mmol/L Calcium (8.4-10.2) mg/dL Magnesium (1.6-2.6) mg/dL Total Bilirubin (0.0-1.0) mg/dL Direct Bilirubin (0.0-0.5) mg/dL AST (5-37) U/L ALT (0-40) U/L Alkaline Phosphatase (39-117) U/L Total Protein (6.5-8.0) g/dL Albumin (3.5-5.0) g/dL Stool Occult Blood POSITIVE (NEGATIVE) Urine Opiates Screen Not Detected (Not Detect) Urine Fentanyl Screen Not Detected (Not Detect) Ur Barbiturates Screen POSITIVE H (Not Detect) Ur Phencyclidine Scrn Not Detected (Not Detect) Ur Amphetamines Screen Not Detected (Not Detect) U Benzodiazepines Scrn Not Detected (Not Detect) Urine Cocaine Screen Not Detected (Not Detect) U Marijuana (THC) Screen Not Detected (Not Detect) Ethyl Alcohol mg/dL COVID-19 (ANUJ) (Negative) COVID-19 Clin Com 07/30/22 07/30/22 Range/Units 11:55 14:08 WBC (4.8-10.8) X10*3/uL RBC (4.60-5.80) X10*6/uL Hgb (14.0-18.0) g/dl Hct (42.0-52.0) % MCV (80.0-98.0) fL MCH (27.0-33.0) pg MCHC (31.0-36.0) g/dl RDW (11.0-16.0) % Plt Count (160-400) X10*3/uL MPV (9.4-12.4) fL Immature Gran % (Auto) (0.0-0.4) % Neut % (Auto) (45-73) % Lymph % (Auto) (20-40) % [place] % (Auto) (2-11) % Eos % (Auto) (0-4) % Baso % (Auto) (0-2) % Lymph # (Auto) (1.2-4.9) X10*3/uL [place] # (Auto) (0.1-1.2) X10*3/uL Eos # (Auto) (0.0-0.4) X10*3/uL Baso # (Auto) (0.0-0.2) X10*3/uL Abs Immat Gran (auto) (0.00-0.03) X10*3/uL Absolute Neuts (auto) (2.0-8.3) x10*3/uL Absolute Nucleated RBC (0.0-0.012) X10*3/uL Nucleated RBC % (auto) (0.0-0.2) /100WBC PT (10.0-13.1) SEC INR (0.9-1.1) VBG pH (7.32-7.43) VBG pCO2 mmHg VBG pO2 mmHg VBG HCO3 (22-26) mmol/L VBG O2 Saturation % VBG Base Excess mmol/L Sodium 144 (135-145) mmol/L Potassium 4.2 (3.3-5.1) mmol/L Chloride 106 (96-108) mmol/L Carbon Dioxide 22 (22-29) mmol/L Anion Gap 20 (12-20) BUN 9 (9-16) mg/dL Creatinine 0.63 (0.5-1.4) mg/dL Estim Creat Clear Calc 136.4 Estimated GFR > 60 Random Glucose 89 (60-115) mg/dL Lactic Acid (0.5-2.0) mmol/L Lactic Acid F/U @ 2Hr (0.5-2.0) mmol/L Lactic Acid F/U @ 4Hr 3.6 H* (0.5-2.0) mmol/L Calcium 7.4 L D (8.4-10.2) mg/dL Magnesium (1.6-2.6) mg/dL Total Bilirubin (0.0-1.0) mg/dL Direct Bilirubin (0.0-0.5) mg/dL AST (5-37) U/L ALT (0-40) U/L Alkaline Phosphatase (39-117) U/L Total Protein (6.5-8.0) g/dL Albumin (3.5-5.0) g/dL Stool Occult Blood (NEGATIVE) Urine Opiates Screen (Not Detect) Urine Fentanyl Screen (Not Detect) Ur Barbiturates Screen (Not Detect) Ur Phencyclidine Scrn (Not Detect) Ur Amphetamines Screen (Not Detect) U Benzodiazepines Scrn (Not Detect) Urine Cocaine Screen (Not Detect) U Marijuana (THC) Screen (Not Detect) Ethyl Alcohol mg/dL COVID-19 (ANUJ) (Negative) COVID-19 Clin Com Independent Interpretation I performed an independent interpretation of an: EKG Interpretation: I independently reviewed the EKG which shows NSR with rate 83, normal pr, normal qrs, normal qt Medications Administered Generic Name Dose Route Start Last Admin Trade Name Michaela PRN Reason Stop Dose Admin Folic Acid 1 mg 07/30/22 16:00 07/30/22 16:26 Folic Acid 1 Mg Tablet PO 1 mg DAILY FLORENTINO Administration Lactated Ringer's 1,000 mls @ 100 mls/hr 07/30/22 15:30 07/30/22 16:08 Lr IVCONT 100 mls/hr .Q10H FLORENTINO Administration Thiamine HCl 100 mg/ Sodium 101 mls @ 202 mls/hr 07/30/22 16:00 07/30/22 1 6:25 Chloride IV 202 mls/hr DAILY FLORENTINO Administration Pantoprazole Sodium 40 mg 07/30/22 16:30 07/30/22 16:07 Pantoprazole Sodium 40 Mg/10 Ml Vial IVPUSH 40 mg BID@0630,1630 FLORENTINO Administration Sodium Chloride 3 ml 07/30/22 16:00 07/30/22 16:13 0.9 % Sodium Chloride Flush 3 Ml Syringe IVFLUSH Not Given QSHIFT FLORENTINO Discontinued Medications Generic Name Dose Route Start Last Admin Trade Name Michaela PRN Reason Stop Dose Admin Famotidine 20 mg 07/30/22 10:23 07/30/22 10:37 Famotidine/Pf 20 Mg/2 Ml Vial IVPUSH 07/30/22 10:24 20 mg ONCE ONE Administration Sodium Chloride 1,000 mls @ 999 mls/hr 07/30/22 08:15 07/30/22 09:30 Ns IV 07/30/22 09:15 Infused .Q1H1M FLORENTINO Infusion Sodium Chloride 1,000 mls @ 999 mls/hr 07/30/22 09:50 07/30/22 11:07 Ns IV 07/30/22 10:50 Infused .Q1H1M STA Infusion Sodium Chloride 1,000 mls @ 999 mls/hr 07/30/22 12:33 07/30/22 13:41 Ns IV 07/30/22 13:33 Infused .Q1H1M STA Infusion Lorazepam 2 mg 07/30/22 08:06 07/30/22 08:29 Lorazepam 2 Mg/Ml Vial IVPUSH 07/30/22 08:07 2 mg ONCE ONE Administration Ondansetron HCl 4 mg 07/30/22 08:04 07/30/22 08:29 Ondansetron Hcl 4 Mg/2 Ml Vial IVPUSH 07/30/22 08:05 4 mg ONCE ONE Administration Phenobarbital Sodium 255 mg 07/30/22 09:30 07/30/22 09:39 Phenobarbital Sodium 130 Mg/Ml Im Once IM 07/30/22 09:31 255 mg ONCE ONE Administration Phenobarbital Sodium 191 mg 07/30/22 12:30 07/30/22 16:07 Phenobarbital Sodium 130 Mg/Ml Vial Im Q3hx2 IM 07/30/22 15:31 191 mg Q3H FLORENTINO Administration Procedures Procedure Narrative Procedure Narrative: an easy IJ was placed by Dr Vegas using an 18 gauge single lumen catheter via ultrasound. +blood return Critical Care Time Critical Care Time Critical Care Time: Yes Total Critical Care Time: 60 Attestation: Patient with no IV access requiring R easy IJ placed, multiple re-evaluations for CIWA score and need for multiple agents for withdrawal symptoms, admission to the hospital Discharge Plan Discharge Clinical Impression: Alcohol use disorder, severe, dependence, Alcohol withdrawal, Acidosis, lactic Patient Disposition: Admitted As Inpatient Interventions: [place]-Suicide Risk Severity Scale Last Done: 07/30/22 15:58
[2022-07-30] MEDS: LORazepam 2 MG/ML VIAL IVPUSH (08:29)
[2022-07-30] MEDS: ondansetron HCL 4 MG/2 ML VIAL IVPUSH ×2 (08:29→17:46)
[2022-07-30] MEDS: 0.9 % Sodium Chloride 1,000 ML 999 ML IV ×3 (08:29→12:40)
[2022-07-30 09:14] LABS: MANUAL DIFF FLAG NO
[2022-07-30 09:17] LABS: Basophils Percent Auto 0.3 % (0-2); Eosinophils Percent Auto 0.2 % (0-4); Hematocrit 46.1 % (42.0-52.0); Hemoglobin 15.9 g/dl (14.0-18.0); Imm Gran Abs Auto 0.02 X10*3/uL (0.00-0.03); Imm Gran Pct Auto 0.2 % (0.0-0.4); Lymphocytes Absolute Auto 1.1 X10*3/uL (1.2-4.9); Lymphocytes Percent Auto 11.7 % (20-40); Mean Corpuscular HGB Conc 34.5 g/dl (31.0-36.0); Mean Corpuscular Hemoglobin 30.1 pg (27.0-33.0); Mean Corpuscular Volume 87.1 fL (80.0-98.0); Mean Platelet Volume 9.3 fL (9.4-12.4); Monocytes Absolute Auto 0.5 X10*3/uL (0.1-1.2); Monocytes Percent Auto 4.9 % (2-11); Neutrophils Absolute Auto 8.1 x10*3/uL (2.0-8.3); Neutrophils Percent Auto 82.7 % (45-73); Platelet Count 231 X10*3/uL (160-400); Red Blood Count 5.29 X10*6/uL (4.60-5.80); Red Cell Distribution Width 14.2 % (11.0-16.0); White Blood Count 9.8 X10*3/uL (4.8-10.8)
[2022-07-30 09:20] LABS: VBG Base Excess -4.3 mmol/L; VBG HCO3 20 mmol/L (22-26); VBG pCO2 35 mmHg; VBG pH 7.36 (7.32-7.43); VBG pO2 62 mmHg
[2022-07-30 09:23] LABS: Venous Blood Gas Refer to POC result
[2022-07-30 09:24] LABS: INTERNATIONAL NORM RATIO 0.9 (0.9-1.1); Prothrombin Time 9.7 SEC (10.0-13.1)
[2022-07-30 09:34] LABS: Amphetamine Screen Urine Not Detected (Not Detect); Barbiturates, Urine POSITIVE (Not Detect); Benzodiazepines Screen Urine Not Detected (Not Detect); Cannabinoid Screen Urine Not Detected (Not Detect); Cocaine Screen Urine Not Detected (Not Detect); Fentanyl, urine Not Detected (Not Detect); Opiate Screen Urine Not Detected (Not Detect); Phencyclidine Screen Urine Not Detected (Not Detect)
[2022-07-30 09:34] LABS: Lactic Acid 6.8 mmol/L (0.5-2.0)
[2022-07-30] MEDS: PHENobarbitaL sodium 130 MG/ML IM ONCE 255 MG IM (09:39)
[2022-07-30 09:47] LABS: Alanine Aminotransferase 29 U/L (0-40); Albumin Level 4.2 g/dL (3.5-5.0); Alkaline Phosphatase 73 U/L (39-117); Anion Gap 25 (12-20); Aspartate Amino Transferase 37 U/L (5-37); Bilirubin Direct 0.2 mg/dL (0.0-0.5); Bilirubin Total 0.6 mg/dL (0.0-1.0); Blood Urea Nitrogen 9 mg/dL (9-16); Calcium 8.2 mg/dL (8.4-10.2); Carbon Dioxide 21 mmol/L (22-29); Chloride 96 mmol/L (96-108); Creatinine Clr Calc Pharmacy 117.7; Estimated Glomerular Filt Rate > 60; Ethanol 355 mg/dL; Glucose Random 101 mg/dL (60-115); Magnesium 1.8 mg/dL (1.6-2.6); Sodium 138 mmol/L (135-145); Total Protein 6.7 g/dL (6.5-8.0)
[2022-07-30 10:03] LABS: COVID-19 Test Negative (Negative); IDNOW Serial# BCCEAD1C
--- NOTE | 2022-07-30 10:10 | PHA.MEDREC ---
Pharmacy Consult ? Medication Reconciliation Pharmacy has completed the medication reconciliation.
[2022-07-30 10:20] LABS: OBS Int Ctl Valid YES; OBS1 POSITIVE (NEGATIVE)
[2022-07-30] MEDS: Famotidine/PF 20 MG/2 ML VIAL IVPUSH (10:37)
--- NOTE | 2022-07-30 10:42 | MHC.RECOVRN ---
Met with pt in ED7 to discuss alcohol use. Pt laying in bed, awake, alert, easily engages in conversation. Pt reports alcohol use, 1.75l vodka x a couple weeks, last use [employer]. Pt reports having recently been to [facility] and sent out medically due to vomiting blood. Pt has been to [facility] in the past. If not admitted, pt interested in [facility] or [facility]. However, per provider, likely admission. Pt denies questions or concerns at this time. Will continue to follow.
[2022-07-30 11:14] LABS: Reflex Lactate? Lactic Acid Added
[2022-07-30 12:18] LABS: Anion Gap 20 (12-20); Blood Urea Nitrogen 9 mg/dL (9-16); Calcium 7.4 mg/dL (8.4-10.2); Carbon Dioxide 22 mmol/L (22-29); Chloride 106 mmol/L (96-108); Creatinine Clr Calc Pharmacy 136.4; Estimated Glomerular Filt Rate > 60; Glucose Random 89 mg/dL (60-115); Potassium 4.2 mmol/L (3.3-5.1); Sodium 144 mmol/L (135-145)
[2022-07-30 12:24] LABS: ~Lactic Acid-LAB USE ONLY 4.1 mmol/L (0.5-2.0)
[2022-07-30] MEDS: PHENobarbitaL sodium 130 MG/ML VIAL IM Q3Hx2 191 MG IM ×2 (12:25→16:07)
[2022-07-30 13:59] LABS: Reflex Lactate? 2 Y
[2022-07-30 14:34] LABS: ~Lactic Acid-LAB USE ONLY 3.6 mmol/L (0.5-2.0)
--- NOTE | 2022-07-30 14:59 | PM.IMHP ---
History of Present Illness Date of Service: 07/30/22 Attending physician on admission: Armando Parrish Chief Complaint: Alcohol withdrawal Pt is a 41-year-old male with a PMH significant for alcohol use disorder and alcoholic gastritis with coffee-ground emesis who presents to the ED seeking alcohol detox. Patient states that he has been drinking heavily the past few weeks, 1+ L of vodka daily. Patient attempted to stop drinking yesterday, only having 1 drink in the morning to control the shakes. However patient soon began vomiting with bright red blood streaks, uncontrollably shaking and sweating. Patient also has had a headache and noticed an increase in his anxiety. Patient also complains of central abdominal pain that extends from epigastric to periumbilical region. Patient notes that he has not been eating much at all the past 2 weeks, has had some constipation that became diarrhea few days ago. Patient stool has been super dark. Patient denies auditory and visual hallucinations. No fever, chills. Of note patient has a long history of alcohol use disorder and alcohol withdrawal, with the patient experiencing auditory and visual hallucinations. Patient's last hospitalization here in April of 2021 found severe gastritis and duodenitis, and resulted in a Section [facility] commitment. In the ED patient's vitals were stable. Labs were significant for lactic acid of 6.8 with repeats of 4.1 and 3.6, calcium of 8.2 with repeat of 7.4, tox screen positive for ethyl alcohol of 355. Stool is positive for occult blood. EKG demonstrated normal sinus rhythm without evidence of ST elevations or depressions. Pt was treated with IVF, ondansetron, lorazepam, Protonix, and started on phenobarb protocol. Pt will be admitted to the hospital for treatment of acute alcohol withdrawal. Review of Systems Review of Systems: Hematemesis x2 days Withdrawal tremors Headache Diaphoresis Increased anxiety Central abdominal pain Melena Yes all other systems are reviewed and are negative [facility] Medical History Alcohol withdrawal seizure Alcoholism Anxiety Esophagitis Gastritis MDD (major depressive disorder), recurrent severe, without psychosis Surgical History H/O esophagogastroduodenoscopy H/O knee surgery Social History Household Members: Family Household Members Other:: father Housing: House Do you presently have visiting nurse or other home services: No Alcohol intake: current Alcohol intake frequency: 3 or more drinks per day Alcohol type: hard liquor Patient Tobacco Use Status: Never used Tobacco Smoked in Last 30 Days: No Patient Interested in Nicotine Replacement: No Patient Given Instructions on How to Stop Smoking: No Second Hand Smoke Exposure: No Use of substances other than those prescribed or required for medical reasons: No Any prior treatment program specific to substance use: Yes Have you been hit, kicked, punched, or otherwise hurt by someone within the past year? If so, by whom?: No Do you feel safe in your current relationship?: No Is there a partner from a previous relationship who is making you feel unsafe now?: No Are you made to feel afraid or neglected: No Advance Directives: Yes Advance Directives on File: Yes Advance Directives Date on File: 05/05/21 Do you have thoughts of harming others: None Do you have a plan to hurt others: No Plan Recently lost weight without trying: Yes How much weight loss: 2-13 pounds Eating poorly because of decreased appetite: Yes Nutrition screen score: 4 Nutrition Risks: Acute nausea or vomiting x1 week Poor oral hygiene: No service: No Current occupational status: unemployed Sexual orientation: Did not discuss Meds Allergies Allergy/AdvReac Type Severity Reaction Status Date / Time No Known Allergies Allergy Verified 04/27/21 11:42 Active Medications: Current Medications Pharmacy Consult (Consult Rx Etoh Phenob Im/Po) 1 each MISCELLANE ONCE PRN; Protocol PRN Reason: Consult order Pharmacy Consult (Consult Rx Perform Med Rec) 1 each MISCELLANE ONCE PRN PRN Reason: Consult order Phenobarbital (Phenobarbital 15 Mg Tablet) 45 mg PO BID [facility] Stop: 08/01/22 21:01 Phenobarbital (Phenobarbital 15 Mg Tablet) 15 mg PO BID [facility] Stop: 08/03/22 21:01 Phenobarbital (Phenobarbital 15 Mg Tablet) 15 mg PO DAILY [facility] Stop: 08/05/22 09:01 Phenobarbital Sodium (Phenobarbital Sodium 130 Mg/Ml Vial Im Q3hx2) 191 mg IM Q3H [facility] Stop: 07/30/22 15:31 Last Admin: 07/30/22 12:25 Dose: 191 mg Home Medications Medication Instructions Recorded Confirmed Last Taken Type gabapentin 300 mg capsule 300 mg PO TID 07/30/22 07/30/22 Unknown History ondansetron 4 mg disintegrating 1 tab PO Q8H PRN Nausea 07/30/22 07/30/22 Unknown History tablet pantoprazole 40 mg tablet,delayed 1 tab PO BID 07/30/22 07/30/22 Unknown History release Physical Exam Vital Signs and Narrative: Vital Signs: Last Vital Signs Temp 98.4 F 07/30/22 08:00 Pulse 76 07/30/22 12:15 Resp 18 07/30/22 12:15 BP 119/72 07/30/22 12:15 Pulse Ox 97 07/30/22 12:15 O2 Del Method 07/30/22 12:15 BMI result Body Mass Index 25.3 Constitutional: Alert, in no acute distress. Mental Status: Oriented to person, place and time. Eyes: Pupils are equal, round, and reactive to light. Ear, Nose, and Throat: Oropharynx clear, mucous membranes moist. Ears and nose without deformities. Trachea midline. Respiratory: Clear to auscultation bilaterally. No wheezing, rales, or rhonchi. Cardiovascular: S1, S2 regular. No murmurs, rubs, or gallops. Gastrointestinal: Abdomen soft, mildly tender in epigastric and umbilical regions, non-distended. Normal bowel sounds. Neurologic: Cranial nerves II-XII are grossly intact. No focal neurological deficits. Moves all extremities spontaneously. Mild tremors in hands. Skin: No rashes or lesions noted. Musculoskeletal: No cyanosis or clubbing. Extremities: No edema. Psychiatric: Normal mood and affect. Results Labs 07/30/22 08:28 07/30/22 11:55 Labs: Laboratory Results - last 24 hr 07/30/22 07/30/22 07/30/22 08:28 08:28 08:28 MCV 87.1 MCH 30.1 MCHC 34.5 RDW 14.2 Plt Count 231 MPV 9.3 L Immature Gran % (Auto) 0.2 Neut % (Auto) 82.7 H Lymph % (Auto) 11.7 L [place] % (Auto) 4.9 Eos % (Auto) 0.2 Baso % (Auto) 0.3 Lymph # (Auto) 1.1 L [place] # (Auto) 0.5 Eos # (Auto) 0.0 Baso # (Auto) 0.0 Abs Immat Gran (auto) 0.02 Absolute Neuts (auto) 8.1 Absolute Nucleated RBC 0.000 Nucleated RBC % (auto) 0.0 PT 9.7 L INR 0.9 VBG pH VBG pCO2 VBG pO2 VBG HCO3 VBG O2 Saturation VBG Base Excess Anion Gap Estim Creat Clear Calc Estimated GFR Random Glucose Lactic Acid Lactic Acid F/U @ 2Hr Lactic Acid F/U @ 4Hr Calcium Magnesium Total Bilirubin Direct Bilirubin AST ALT Alkaline Phosphatase Total Protein Albumin Stool Occult Blood Urine Opiates Screen Urine Fentanyl Screen Ur Barbiturates Screen Ur Phencyclidine Scrn Ur Amphetamines Screen U Benzodiazepines Scrn Urine Cocaine Screen U Marijuana (THC) Screen Ethyl Alcohol COVID-19 (ANUJ) Negative [employer] See Note 07/30/22 07/30/22 07/30/22 08:28 09:10 09:13 MCV MCH MCHC RDW Plt Count MPV Immature Gran % (Auto) Neut % (Auto) Lymph % (Auto) [place] % (Auto) Eos % (Auto) Baso % (Auto) Lymph # (Auto) [place] # (Auto) Eos # (Auto) Baso # (Auto) Abs Immat Gran (auto) Absolute Neuts (auto) Absolute Nucleated RBC Nucleated RBC % (auto) PT INR VBG pH 7.36 VBG pCO2 35 VBG pO2 62 VBG HCO3 20 L VBG O2 Saturation 85.0 VBG Base Excess -4.3 Anion Gap 25 H Estim Creat Clear Calc 117.7 Estimated GFR > 60 Random Glucose 101 Lactic Acid 6.8 H* Lactic Acid F/U @ 2Hr Lactic Acid F/U @ 4Hr Calcium 8.2 L D Magnesium 1.8 Total Bilirubin 0.6 Direct Bilirubin 0.2 AST 37 ALT 29 Alkaline Phosphatase 73 Total Protein 6.7 Albumin 4.2 Stool Occult Blood Urine Opiates Screen Urine Fentanyl Screen Ur Barbiturates Screen Ur Phencyclidine Scrn Ur Amphetamines Screen U Benzodiazepines Scrn Urine Cocaine Screen U Marijuana (THC) Screen Ethyl Alcohol 355 H* COVID-19 (ANUJ) [employer] 07/30/22 07/30/22 07/30/22 09:17 10:08 11:55 MCV MCH MCHC RDW Plt Count MPV Immature Gran % (Auto) Neut % (Auto) Lymph % (Auto) [place] % (Auto) Eos % (Auto) Baso % (Auto) Lymph # (Auto) [place] # (Auto) Eos # (Auto) Baso # (Auto) Abs Immat Gran (auto) Absolute Neuts (auto) Absolute Nucleated RBC Nucleated RBC % (auto) PT INR VBG pH VBG pCO2 VBG pO2 VBG HCO3 VBG O2 Saturation VBG Base Excess Anion Gap Estim Creat Clear Calc Estimated GFR Random Glucose Lactic Acid Lactic Acid F/U @ 2Hr 4.1 H* Lactic Acid F/U @ 4Hr Calcium Magnesium Total Bilirubin Direct Bilirubin AST ALT Alkaline Phosphatase Total Protein Albumin Stool Occult Blood POSITIVE Urine Opiates Screen Not Detected Urine Fentanyl Screen Not Detected Ur Barbiturates Screen POSITIVE H Ur Phencyclidine Scrn Not Detected Ur Amphetamines Screen Not Detected U Benzodiazepines Scrn Not Detected Urine Cocaine Screen Not Detected U Marijuana (THC) Screen Not Detected Ethyl Alcohol COVID-19 (ANUJ) [employer] 07/30/22 07/30/22 11:55 14:08 MCV MCH MCHC RDW Plt Count MPV Immature Gran % (Auto) Neut % (Auto) Lymph % (Auto) [place] % (Auto) Eos % (Auto) Baso % (Auto) Lymph # (Auto) [place] # (Auto) Eos # (Auto) Baso # (Auto) Abs Immat Gran (auto) Absolute Neuts (auto) Absolute Nucleated RBC Nucleated RBC % (auto) PT INR VBG pH VBG pCO2 VBG pO2 VBG HCO3 VBG O2 Saturation VBG Base Excess Anion Gap 20 Estim Creat Clear Calc 136.4 Estimated GFR > 60 Random Glucose 89 Lactic Acid Lactic Acid F/U @ 2Hr Lactic Acid F/U @ 4Hr 3.6 H* Calcium 7.4 L D Magnesium Total Bilirubin Direct Bilirubin AST ALT Alkaline Phosphatase Total Protein Albumin Stool Occult Blood Urine Opiates Screen Urine Fentanyl Screen Ur Barbiturates Screen Ur Phencyclidine Scrn Ur Amphetamines Screen U Benzodiazepines Scrn Urine Cocaine Screen U Marijuana (THC) Screen Ethyl Alcohol COVID-19 (ANUJ) COVID-19 [facility] Medical Assessment and Plan (1) Alcohol withdrawal: Status: Acute (2) Alcohol use disorder, severe, dependence: Status: Acute (3) Acidosis, lactic: Status: Acute Plan Acute alcohol withdrawal Mild shakiness, no hallucinations Received IVF, ondansetron, lorazepam, phenobarb protocol, and famotidine in the ED Continue Phenobarb protocol Vitamin, folic acid Addiction medicine consult Follow lytes, Mag, CBC Patient to be made NPO, advance diet to clears then to regular as tolerated IVF: lactated ringers Hematemesis Patient has been experiencing hematemesis with bright red blood x2 days Patient with a history of a grade 4 erosive esophagitis on 04/07/2021 Protonix IV, hold pantoprazole GI consult Melena Patient states his stool has been dark black for the past few days Denies bright red blood per rectum GI consult Acute lactic acidosis Likely secondary to hyperemesis, not sepsis: Patient afebrile, no leukocytosis, no sign of infection Repeat lactic acid MDD Continue trazodone Full Code Attending:?Dr. Parrish DVT Prophylaxis: Lovenox Pt will require a hospitalization of at least two nights for treatment of?acute alcohol withdrawal with IV phenobarbital protocol and IVF. Time Spent With Patient Time: Total time managing care of this patient today ____ minutes. Quality Stroke Does the patient have a stroke diagnosis?: No VTE Prior VTE?: No VTE Risk Level:: Medical - moderate - high VTE Device Contraindication: Treatment Not Indicated VTE Drug Contraindication: N/A - Med Ordered
--- NOTE | 2022-07-30 15:10 | PC.NURSE ---
Patient remains resting in stretcher. Tremors decreasing after two IM phenobarb doses. CIWA score remains elevated, ED provider aware. Will continue with third IM dose.
[2022-07-30] MEDS: Pantoprazole Sodium 40 MG/10 ML VIAL IVPUSH (16:07)
[2022-07-30] MEDS: Lactated Ringers 1,000 ML 100 ML IVCONT (16:08)
[2022-07-30 16:16] LABS: Hematocrit 38.8 % (42.0-52.0); Hemoglobin 13.2 g/dl (14.0-18.0); Mean Corpuscular Hemoglobin 30.3 pg (27.0-33.0); Mean Platelet Volume 9.4 fL (9.4-12.4); Platelet Count 166 X10*3/uL (160-400); Red Blood Count 4.36 X10*6/uL (4.60-5.80); Red Cell Distribution Width 14.5 % (11.0-16.0); White Blood Count 7.6 X10*3/uL (4.8-10.8)
[2022-07-30] MEDS: Thiamine HCL 100 MG in 0.9 % Sodium Chloride 100 ML 202 MG IV (16:25)
[2022-07-30] MEDS: Folic Acid 1 MG TABLET PO (16:26)
[2022-07-30] MEDS: Acetaminophen 325 MG TABLET 650 MG PO (17:45)
[2022-07-30] MEDS: Gabapentin 300 MG CAPSULE PO (20:33)
[2022-07-30] MEDS: Morphine Sulfate 2 MG/ML CARTRIDGE IVPUSH (21:06)
[2022-07-31] VITALS: BP 122/67; PULSE 88; RESP 18; TEMP 37.7; O2SAT 93
[2022-07-31] MEDS: ondansetron HCL 4 MG/2 ML VIAL IVPUSH ×2 (00:10→09:42)
[2022-07-31] MEDS: OLANZapine 10 MG VIAL IM (00:43)
[2022-07-31] MEDS: Lactated Ringers 1,000 ML 100 ML IVCONT ×3 (02:21→23:30)
[2022-07-31 04:00] VITALS: BP 127/65; PULSE 69; RESP 20; TEMP 36.8; O2SAT 94
[2022-07-31] MEDS: Pantoprazole Sodium 40 MG/10 ML VIAL IVPUSH ×2 (05:59→16:23)
[2022-07-31 06:39] LABS: Lactic Acid 0.9 mmol/L (0.5-2.0)
[2022-07-31 06:48] LABS: Magnesium 1.7 mg/dL (1.6-2.6)
[2022-07-31 07:55] VITALS: BP 120/80; PULSE 69; RESP 18; TEMP 37.3; O2SAT 95
--- NOTE | 2022-07-31 08:36 | HO.PM.IMPN ---
Subjective Subjective Date of Service: 07/31/22 Interval History: f/u on alcohol withdrawal, upper gib interval history: feels zeb, no further bleeding, h/h is stable Review of Systems no tremors no chest pain, Physical Exam Vital Signs: Vital Signs: Last Vital Signs Temp 99.1 F 07/31/22 07:55 Pulse 69 07/31/22 07:55 Resp 18 07/31/22 07:55 BP 120/80 07/31/22 07:55 Pulse Ox 95 07/31/22 07:55 O2 Del Method 07/31/22 07:55 BMI result Body Mass Index 25.3 Objective Data Active Medications Acetaminophen (Acetaminophen 325 Mg Tablet) 650 mg PO Q6H PRN PRN Reason: Pain, Mild (Pain Scale 1-3) Last Admin: 07/30/22 17:45 Dose: 650 mg Documented By: LEANNE Docusate Sodium (Docusate Sodium 100 Mg Capsule) 100 mg PO DAILY PRN PRN Reason: Constipation Folic Acid (Folic Acid 1 Mg Tablet) 1 mg PO DAILY [facility] Last Admin: 07/30/22 16:26 Dose: 1 mg Documented By: ROSEANN Gabapentin (Gabapentin 300 Mg Capsule) 300 mg PO TID [facility] Last Admin: 07/30/22 20:33 Dose: 300 mg Documented By: VENU Lactated Ringer's (Lr) 1,000 mls @ 100 mls/hr IVCONT .Q10H [facility] Last Admin: 07/31/22 02:21 Dose: 100 mls/hr Documented By: VENU Thiamine HCl 100 mg/ Sodium (Chloride) 101 mls @ 202 mls/hr IV DAILY [facility] Last Infusion: 07/30/22 16:55 Dose: 0 mls/hr Documented By: ROSEANN Ondansetron HCl (Ondansetron Hcl 4 Mg/2 Ml Vial) 4 mg IVPUSH Q8H PRN PRN Reason: Nausea and Vomiting Last Admin: 07/30/22 17:46 Dose: 4 mg Documented By: LEANNE Pantoprazole Sodium (Pantoprazole Sodium 40 Mg/10 Ml Vial) 40 mg IVPUSH BID@0630,1630 [facility] Last Admin: 07/31/22 05:59 Dose: 40 mg Documented By: HO.[email or web address] Pharmacy Consult (Consult Rx Etoh Phenob Im/Po) 1 each MISCELLANE ONCE PRN; Protocol PRN Reason: Consult order Pharmacy Consult (Consult Rx Perform Med Rec) 1 each MISCELLANE ONCE PRN PRN Reason: Consult order Phenobarbital (Phenobarbital 15 Mg Tablet) 45 mg PO BID [facility] Stop: 08/01/22 21:01 Phenobarbital (Phenobarbital 15 Mg Tablet) 15 mg PO BID [facility] Stop: 08/03/22 21:01 Phenobarbital (Phenobarbital 15 Mg Tablet) 15 mg PO DAILY [facility] Stop: 08/05/22 09:01 Sodium Chloride (0.9 % Sodium Chloride Flush 3 Ml Syringe) 3 ml IVFLUSH QSHIFT [facility] Last Admin: 07/31/22 01:31 Dose: Not Given Documented By: VENU Non-Admin Reason: IV Running Labs 07/30/22 16:00 07/30/22 11:55 Labs: Laboratory Results - last 24 hr 07/30/22 07/30/22 07/30/22 08:28 08:28 08:28 MCV 87.1 MCH 30.1 MCHC 34.5 RDW 14.2 Plt Count 231 MPV 9.3 L Immature Gran % (Auto) 0.2 Neut % (Auto) 82.7 H Lymph % (Auto) 11.7 L [place] % (Auto) 4.9 Eos % (Auto) 0.2 Baso % (Auto) 0.3 Lymph # (Auto) 1.1 L [place] # (Auto) 0.5 Eos # (Auto) 0.0 Baso # (Auto) 0.0 Abs Immat Gran (auto) 0.02 Absolute Neuts (auto) 8.1 Absolute Nucleated RBC 0.000 Nucleated RBC % (auto) 0.0 PT 9.7 L INR 0.9 VBG pH VBG pCO2 VBG pO2 VBG HCO3 VBG O2 Saturation VBG Base Excess Anion Gap Estim Creat Clear Calc Estimated GFR Random Glucose Lactic Acid Lactic Acid F/U @ 2Hr Lactic Acid F/U @ 4Hr Calcium Magnesium Total Bilirubin Direct Bilirubin AST ALT Alkaline Phosphatase Total Protein Albumin Stool Occult Blood Urine Opiates Screen Urine Fentanyl Screen Ur Barbiturates Screen Ur Phencyclidine Scrn Ur Amphetamines Screen U Benzodiazepines Scrn Urine Cocaine Screen U Marijuana (THC) Screen Ethyl Alcohol COVID-19 (ANUJ) Negative COVID-19 Clin Com See Note 07/30/22 07/30/22 07/30/22 08:28 09:10 09:13 MCV MCH MCHC RDW Plt Count MPV Immature Gran % (Auto) Neut % (Auto) Lymph % (Auto) [place] % (Auto) Eos % (Auto) Baso % (Auto) Lymph # (Auto) [place] # (Auto) Eos # (Auto) Baso # (Auto) Abs Immat Gran (auto) Absolute Neuts (auto) Absolute Nucleated RBC Nucleated RBC % (auto) PT INR VBG pH 7.36 VBG pCO2 35 VBG pO2 62 VBG HCO3 20 L VBG O2 Saturation 85.0 VBG Base Excess -4.3 Anion Gap 25 H Estim Creat Clear Calc 117.7 Estimated GFR > 60 Random Glucose 101 Lactic Acid 6.8 H* Lactic Acid F/U @ 2Hr Lactic Acid F/U @ 4Hr Calcium 8.2 L D Magnesium 1.8 Total Bilirubin 0.6 Direct Bilirubin 0.2 AST 37 ALT 29 Alkaline Phosphatase 73 Total Protein 6.7 Albumin 4.2 Stool Occult Blood Urine Opiates Screen Urine Fentanyl Screen Ur Barbiturates Screen Ur Phencyclidine Scrn Ur Amphetamines Screen U Benzodiazepines Scrn Urine Cocaine Screen U Marijuana (THC) Screen Ethyl Alcohol 355 H* COVID-19 (ANUJ) COVID-19 [employer] 07/30/22 07/30/22 07/30/22 09:17 10:08 11:55 MCV MCH MCHC RDW Plt Count MPV Immature Gran % (Auto) Neut % (Auto) Lymph % (Auto) [place] % (Auto) Eos % (Auto) Baso % (Auto) Lymph # (Auto) [place] # (Auto) Eos # (Auto) Baso # (Auto) Abs Immat Gran (auto) Absolute Neuts (auto) Absolute Nucleated RBC Nucleated RBC % (auto) PT INR VBG pH VBG pCO2 VBG pO2 VBG HCO3 VBG O2 Saturation VBG Base Excess Anion Gap Estim Creat Clear Calc Estimated GFR Random Glucose Lactic Acid Lactic Acid F/U @ 2Hr 4.1 H* Lactic Acid F/U @ 4Hr Calcium Magnesium Total Bilirubin Direct Bilirubin AST ALT Alkaline Phosphatase Total Protein Albumin Stool Occult Blood POSITIVE Urine Opiates Screen Not Detected Urine Fentanyl Screen Not Detected Ur Barbiturates Screen POSITIVE H Ur Phencyclidine Scrn Not Detected Ur Amphetamines Screen Not Detected U Benzodiazepines Scrn Not Detected Urine Cocaine Screen Not Detected U Marijuana (THC) Screen Not Detected Ethyl Alcohol COVID-19 (ANUJ) COVID-19 [employer] Com 07/30/22 07/30/22 07/30/22 11:55 14:08 16:00 MCV 89.0 MCH 30.3 MCHC 34.0 RDW 14.5 Plt Count 166 D MPV 9.4 Immature Gran % (Auto) Neut % (Auto) Lymph % (Auto) [place] % (Auto) Eos % (Auto) Baso % (Auto) Lymph # (Auto) [place] # (Auto) Eos # (Auto) Baso # (Auto) Abs Immat Gran (auto) Absolute Neuts (auto) Absolute Nucleated RBC 0.000 Nucleated RBC % (auto) 0.0 PT INR VBG pH VBG pCO2 VBG pO2 VBG HCO3 VBG O2 Saturation VBG Base Excess Anion Gap 20 Estim Creat Clear Calc 136.4 Estimated GFR > 60 Random Glucose 89 Lactic Acid Lactic Acid F/U @ 2Hr Lactic Acid F/U @ 4Hr 3.6 H* Calcium 7.4 L D Magnesium Total Bilirubin Direct Bilirubin AST ALT Alkaline Phosphatase Total Protein Albumin Stool Occult Blood Urine Opiates Screen Urine Fentanyl Screen Ur Barbiturates Screen Ur Phencyclidine Scrn Ur Amphetamines Screen U Benzodiazepines Scrn Urine Cocaine Screen U Marijuana (THC) Screen Ethyl Alcohol COVID-19 (ANUJ) COVID-19 [employer] 07/31/22 07/31/22 06:20 06:20 MCV MCH MCHC RDW Plt Count MPV Immature Gran % (Auto) Neut % (Auto) Lymph % (Auto) [place] % (Auto) Eos % (Auto) Baso % (Auto) Lymph # (Auto) [place] # (Auto) Eos # (Auto) Baso # (Auto) Abs Immat Gran (auto) Absolute Neuts (auto) Absolute Nucleated RBC Nucleated RBC % (auto) PT INR VBG pH VBG pCO2 VBG pO2 VBG HCO3 VBG O2 Saturation VBG Base Excess Anion Gap Estim Creat Clear Calc Estimated GFR Random Glucose Lactic Acid 0.9 Lactic Acid F/U @ 2Hr Lactic Acid F/U @ 4Hr Calcium Magnesium 1.7 Total Bilirubin Direct Bilirubin AST ALT Alkaline Phosphatase Total Protein Albumin Stool Occult Blood Urine Opiates Screen Urine Fentanyl Screen Ur Barbiturates Screen Ur Phencyclidine Scrn Ur Amphetamines Screen U Benzodiazepines Scrn Urine Cocaine Screen U Marijuana (THC) Screen Ethyl Alcohol COVID-19 (ANUJ) COVID-19 Clin Com Assessment and Plan (1) Alcohol withdrawal: Status: Acute (2) Acidosis, lactic: Status: Acute Plan 41/m with alcohol dependence here with Acute alcohol withdrawal-- Phenobarb protocol Folic acid, thiamin, CARE or addiction consult before dc abstinence discussed Hematemesis, Melana--? MWT, gastritis, known grade 4 erosive esophagitis, no shift in H/H, no active bleeding recheck H/H tomorro, IV PPI, and GI consult will consider EGD at later time, start clear diet Acute lactic acidosis..Not due to sepsis, likely alcoholic complication above MDD Continue trazodone Full Code DVT Prophylaxis: Lovenox Need for inpatient: alcohol withdrawal, GIB, Time Spent With Patient Time: Total time managing care of this patient today ____ minutes. Quality Stroke Does the patient have a stroke diagnosis?: No VTE Prior VTE?: No VTE Risk Level:: Medical - moderate - high VTE Device Contraindication: Treatment Not Indicated VTE Drug Contraindication: N/A - Med Ordered
[2022-07-31 09:07] LABS: Hemoglobin 13.4 g/dl (14.0-18.0); Mean Corpuscular HGB Conc 33.5 g/dl (31.0-36.0); Mean Corpuscular Hemoglobin 30.4 pg (27.0-33.0); Mean Corpuscular Volume 90.7 fL (80.0-98.0); Red Blood Count 4.41 X10*6/uL (4.60-5.80); Red Cell Distribution Width 14.5 % (11.0-16.0); White Blood Count 3.5 X10*3/uL (4.8-10.8)
[2022-07-31] MEDS: Thiamine HCL 100 MG in 0.9 % Sodium Chloride 100 ML 202 MG IV (09:34)
[2022-07-31] MEDS: Folic Acid 1 MG TABLET PO (09:34)
[2022-07-31] MEDS: Gabapentin 300 MG CAPSULE PO ×3 (09:34→19:42)
[2022-07-31] MEDS: PHENobarbitaL 15 MG TABLET 45 MG PO ×2 (09:35→19:42)
--- NOTE | 2022-07-31 10:27 | MHC.CM.PN ---
Lives with father, no prior services or equipment, previously independent. Does not drive. Has not been to appointments (providers in [place]), he is staying with his father in [facility] and he (patient) does not drive. His goal is to get in to an inpatient alcohol program and subsequently move back to [place]. His primary Care Physician is Dr. Manisha Matta (in [place]), but he has not been able to make an of his appointments given the distance and transportation barriers. His goal is to D/C to an inpatient alcohol program from [facility] is possible. If not, at time of D/C, his father will provide transportation home. CM to follow.
[2022-07-31 11:40] VITALS: BP 135/77; PULSE 75; RESP 18; TEMP 37.3; O2SAT 95
[2022-07-31] MEDS: Acetaminophen 325 MG TABLET 650 MG PO ×2 (11:52→19:42)
[2022-07-31 16:00] VITALS: BP 131/70; PULSE 69; RESP 15; TEMP 36.9; O2SAT 93
[2022-07-31 19:11] VITALS: BP 123/79; PULSE 82; RESP 15; TEMP 36.8; O2SAT 94
[2022-07-31] MEDS: traMADoL HCL 50 MG TABLET PO (21:56)
[2022-08-01] VITALS: BP 125/77; PULSE 70; RESP 20; TEMP 37; O2SAT 94
[2022-08-01 03:41] VITALS: BP 101/58; PULSE 58; RESP 20; TEMP 36.6; O2SAT 98
[2022-08-01] MEDS: Pantoprazole Sodium 40 MG/10 ML VIAL IVPUSH (06:03)
[2022-08-01 08:00] VITALS: BP 120/86; PULSE 63; RESP 18; TEMP 36.7; O2SAT 97
--- NOTE | 2022-08-01 09:19 | P.CNGI_ITS ---
History of Present Illness Data of Consult Service Date: 08/01/22 Requesting physician: Brooke Conte Primary Care Provider: Unknown Physician HPI Reason for consult: Gib This is a 41-year-old gentleman with past medical history of alcohol use disorder with multiple admissions for alcohol use disorder, withdrawal and upper GI bleed. History was obtained from the patient, who states that he had been trying to detox at home, and on when he stopped drinking, within a few hours developed severe abdominal pain with nausea, vomiting. Some of his emesis had streaks of red blood. Due to inability to tolerate any p.o., he presented to the emergency room. Initial CIWAs were >12. Has not had any further vomiting since yesterday. Hemoglobin has been stable after volume resuscitation and at his prior baseline. Patient was seen in the emergency room in June as well for admission to inpatient rehab. At that time, he was accepted at detox center near [place]. Reports, had an admission to [facility] shortly after for GI bleeding, and endoscopy at that time showed gastritis and esophagitis. Per his report, he was discharged home from that hospitalization and then relapsed with drinking. Also had not been taking his PPI therapy. Currently, main complaint remains abdominal discomfort and nausea, also has been having diarrhea. Previous EGD in [facility]: EGD 04/27/2021 (Dr. Mcnamara): Resolving esophagitis. Gastritis. Duodenitis. EGD 04/07/2021 (Dr. Figueredo): Severe grade 4 esophagitis. Gastritis. Hiatal hernia. Duodenitis. Review of Systems Review of Systems: Yes all other systems are reviewed and are negative [facility] Past Medical History Medical History Alcohol withdrawal seizure Alcoholism Anxiety Esophagitis Gastritis MDD (major depressive disorder), recurrent severe, without psychosis Surgical History Surgical History H/O esophagogastroduodenoscopy H/O knee surgery Social History Social History Household Members: Family Household Members Other:: father Housing: House Do you presently have visiting nurse or other home services: No Alcohol intake: current Alcohol intake frequency: 3 or more drinks per day Alcohol type: hard liquor Patient Tobacco Use Status: Never used Tobacco Smoked in Last 30 Days: No Patient Interested in Nicotine Replacement: No Patient Given Instructions on How to Stop Smoking: No Second Hand Smoke Exposure: No Use of substances other than those prescribed or required for medical reasons: No Currently Displaying Signs/Symptoms of Drug Intoxication Withdrawal: No Any prior treatment program specific to substance use: Yes Have you been hit, kicked, punched, or otherwise hurt by someone within the past year? If so, by whom?: No Do you feel safe in your current relationship?: No Is there a partner from a previous relationship who is making you feel unsafe now?: No Are you made to feel afraid or neglected: No Advance Directives: Yes Advance Directives on File: Yes Advance Directives Date on File: 05/05/21 Do you have thoughts of harming others: None Do you have a plan to hurt others: No Plan Recently lost weight without trying: Yes How much weight loss: 2-13 pounds Eating poorly because of decreased appetite: Yes Nutrition screen score: 4 Nutrition Risks: Acute nausea or vomiting x1 week Poor oral hygiene: No service: No Current occupational status: unemployed Sexual orientation: Did not discuss Meds Allergies Allergy/AdvReac Type Severity Reaction Status Date / Time No Known Allergies Allergy Verified 04/27/21 11:42 Active Medications: Current Medications Acetaminophen (Acetaminophen 325 Mg Tablet) 650 mg PO Q6H PRN PRN Reason: Pain, Mild (Pain Scale 1-3) Last Admin: 07/31/22 19:42 Dose: 650 mg Docusate Sodium (Docusate Sodium 100 Mg Capsule) 100 mg PO DAILY PRN PRN Reason: Constipation Folic Acid (Folic Acid 1 Mg Tablet) 1 mg PO DAILY [facility] Last Admin: 07/31/22 09:34 Dose: 1 mg Gabapentin (Gabapentin 300 Mg Capsule) 300 mg PO TID [facility] Last Admin: 07/31/22 19:42 Dose: 300 mg Lactated Ringer's (Lr) 1,000 mls @ 100 mls/hr IVCONT .Q10H [facility] Last Admin: 07/31/22 23:30 Dose: 100 mls/hr Thiamine HCl 100 mg/ Sodium (Chloride) 101 mls @ 202 mls/hr IV DAILY [facility] Last Infusion: 07/31/22 10:18 Dose: Infused Ondansetron HCl (Ondansetron Hcl 4 Mg/2 Ml Vial) 4 mg IVPUSH Q8H PRN PRN Reason: Nausea and Vomiting Last Admin: 07/31/22 09:42 Dose: 4 mg Pantoprazole Sodium (Pantoprazole Sodium 40 Mg/10 Ml Vial) 40 mg IVPUSH BID@0630,1630 [facility] Last Admin: 08/01/22 06:03 Dose: 40 mg Pharmacy Consult (Consult Rx Etoh Phenob Im/Po) 1 each MISCELLANE ONCE PRN; Protocol PRN Reason: Consult order Pharmacy Consult (Consult Rx Perform Med Rec) 1 each MISCELLANE ONCE PRN PRN Reason: Consult order Phenobarbital (Phenobarbital 15 Mg Tablet) 45 mg PO BID [facility] Stop: 08/01/22 21:01 Last Admin: 07/31/22 19:42 Dose: 45 mg Phenobarbital (Phenobarbital 15 Mg Tablet) 15 mg PO BID [facility] Stop: 08/03/22 21:01 Phenobarbital (Phenobarbital 15 Mg Tablet) 15 mg PO DAILY [facility] Stop: 08/05/22 09:01 Sodium Chloride (0.9 % Sodium Chloride Flush 3 Ml Syringe) 3 ml IVFLUSH QSHIFT [facility] Last Admin: 08/01/22 00:51 Dose: Not Given Home Medications Medication Instructions Recorded Confirmed Last Taken Type gabapentin 300 mg capsule 300 mg PO TID 07/30/22 07/30/22 Unknown History ondansetron 4 mg disintegrating 1 tab PO Q8H PRN Nausea 07/30/22 07/30/22 Unknown History tablet pantoprazole 40 mg tablet,delayed 1 tab PO BID 07/30/22 07/30/22 Unknown History release Physical Exam Vital Signs: Vital Signs: Last Vital Signs Temp 98.1 F 08/01/22 08:00 Pulse 63 08/01/22 08:00 Resp 18 08/01/22 08:00 BP 120/86 08/01/22 08:00 Pulse Ox 97 08/01/22 08:00 O2 Del Method 08/01/22 08:00 BMI result Body Mass Index 25.3 Gen appear: Young male, diaphoretic HEENT: no icterus, no cervical lymphadenopathy Chest: No overt resp distress CVS: Rapid S1/S2, regular Abd: soft, nontender, nondistended Psych: Answering questions appropriately Neuro: A/Ox3 noted to move all extremities spontaneously, tremors Ext: no peripheral edema Results Labs 07/31/22 06:20 07/30/22 11:55 Labs: Short CBC 07/31/22 Range/Units 06:20 WBC 3.5 L (4.8-10.8) X10*3/uL Hgb 13.4 L (14.0-18.0) g/dl Hct 40.0 L (42.0-52.0) % Plt Count TNP Assessment and Plan (1) Alcohol withdrawal: Status: Acute (2) Alcohol use disorder, severe, dependence: Status: Acute (3) UGI bleed: Status: Acute Plan Upper GI bleed appears to be low-grade and likely in the setting of known esophagitis/gastritis diagnosed on EGD 2 weeks ago at [facility] ([place], [place]) as reported by the patient. His H&H is at his prior baseline, albeit slightly lower than normal. Repeat endoscopy at this time will have low therapeutic yield given no further bleeding. Plan: - Recheck CBC, order placed. - PPI therapy can be switched to p.o. b.i.d. patient was advised to continue this for at least 8 weeks, and after that can be continued once daily. - Can also add Carafate g q.i.d. for 2 weeks - Agree with advancing diet. - Patient is looking forward to inpatient admission for rehab. Recommend addiction medicine consultation. - Consider addition of symptom triggered ativan IV to CIWA protocol. - Outpatient follow up in GI clinic will be set up. Will likey need a repeat EGD in 2-3 months to confirm healing of esophagitis; will obtain records from [facility]. Thank you for allowing me to participate in his care. Please do not hesitate to reach out for any questions or concerns. Time Spent With Patient Time: Total time managing care of this patient today ____ minutes. Procedures Date of Service Date of Service: 08/01/22
[2022-08-01] MEDS: Folic Acid 1 MG TABLET PO (09:21)
[2022-08-01] MEDS: Gabapentin 300 MG CAPSULE PO ×3 (09:21→20:06)
[2022-08-01] MEDS: Thiamine HCL 100 MG in 0.9 % Sodium Chloride 100 ML 202 MG IV (09:22)
[2022-08-01] MEDS: PHENobarbitaL 15 MG TABLET 45 MG PO ×2 (09:22→20:06)
--- NOTE | 2022-08-01 10:56 | P.PNIM_ITS ---
Subjective Subjective Date of Service: 08/02/22 Interval History: f/u on alcohol withdrawal, upper gib interval history: feels zeb, no further bleeding, h/h is stable, wants food Review of Systems no tremors no chest pain, Physical Exam Vital Signs: Vital Signs: Last Vital Signs Temp 98.1 F 08/01/22 08:00 Pulse 63 08/01/22 08:00 Resp 18 08/01/22 08:00 BP 120/86 08/01/22 08:00 Pulse Ox 97 08/01/22 08:00 O2 Del Method 08/01/22 08:00 BMI result Body Mass Index 25.3 Objective Data Active Medications Acetaminophen (Acetaminophen 325 Mg Tablet) 650 mg PO Q6H PRN PRN Reason: Pain, Mild (Pain Scale 1-3) Last Admin: 07/31/22 19:42 Dose: 650 mg Documented By: VENU Docusate Sodium (Docusate Sodium 100 Mg Capsule) 100 mg PO DAILY PRN PRN Reason: Constipation Folic Acid (Folic Acid 1 Mg Tablet) 1 mg PO DAILY [facility] Last Admin: 08/01/22 09:21 Dose: 1 mg Documented By: JOHANN Gabapentin (Gabapentin 300 Mg Capsule) 300 mg PO TID [facility] Last Admin: 08/01/22 09:21 Dose: 300 mg Documented By: JOHANN Lactated Ringer's (Lr) 1,000 mls @ 100 mls/hr IVCONT .Q10H [facility] Last Admin: 08/01/22 10:45 Dose: Not Given Documented By: JOHANN Non-Admin Reason: IV Running Thiamine HCl 100 mg/ Sodium (Chloride) 101 mls @ 202 mls/hr IV DAILY [facility] Last Infusion: 08/01/22 10:45 Dose: 0 mls/hr Documented By: JOHANN Ondansetron HCl (Ondansetron Hcl 4 Mg/2 Ml Vial) 4 mg IVPUSH Q8H PRN PRN Reason: Nausea and Vomiting Last Admin: 07/31/22 09:42 Dose: 4 mg Documented By: JOHANN Pantoprazole Sodium (Pantoprazole Sodium 40 Mg/10 Ml Vial) 40 mg IVPUSH BID@0630,1630 [facility] Last Admin: 08/01/22 06:03 Dose: 40 mg Documented By: VENU Pharmacy Consult (Consult Rx Etoh Phenob Im/Po) 1 each MISCELLANE ONCE PRN; Protocol PRN Reason: Consult order Pharmacy Consult (Consult Rx Perform Med Rec) 1 each MISCELLANE ONCE PRN PRN Reason: Consult order Phenobarbital (Phenobarbital 15 Mg Tablet) 45 mg PO BID [facility] Stop: 08/01/22 21:01 Last Admin: 08/01/22 09:22 Dose: 45 mg Documented By: JOHANN Phenobarbital (Phenobarbital 15 Mg Tablet) 15 mg PO BID [facility] Stop: 08/03/22 21:01 Phenobarbital (Phenobarbital 15 Mg Tablet) 15 mg PO DAILY [facility] Stop: 08/05/22 09:01 Sodium Chloride (0.9 % Sodium Chloride Flush 3 Ml Syringe) 3 ml IVFLUSH QSHIFT [facility] Last Admin: 08/01/22 10:45 Dose: Not Given Documented By: JOHANN Non-Admin Reason: Previously Administered Labs 07/31/22 06:20 07/30/22 11:55 Assessment and Plan (1) Alcohol withdrawal: Status: Acute (2) Acidosis, lactic: Status: Acute (3) UGI bleed: Status: Acute Plan 41/m with? alcohol dependence here with Acute alcohol withdrawal--not withdrawing right now Phenobarb protocol Folic acid, thiamin, CARE or addiction consult before dc abstinence discussed Hematemesis, Melana--? MWT, gastritis, known? grade 4 erosive esophagitis, no sh ift in H/H, no active bleeding recheck H/H tomorro,? IV PPI, and GI consult will consider EGD at later time, advnce diet Acute lactic acidosis..Not due to sepsis, likely alcoholic complication above MDD Continue trazodone Full Code DVT Prophylaxis: Lovenox Need for inpatient: alcohol withdrawal, GIB, Time Spent With Patient Time: Total time managing care of this patient today ____ minutes. Quality Stroke Does the patient have a stroke diagnosis?: No VTE Prior VTE?: No VTE Risk Level:: Medical - moderate - high VTE Device Contraindication: Treatment Not Indicated VTE Drug Contraindication: N/A - Med Ordered
[2022-08-01 11:39] LABS: Hematocrit 41.2 % (42.0-52.0); Hemoglobin 14.3 g/dl (14.0-18.0); Mean Corpuscular HGB Conc 34.7 g/dl (31.0-36.0); Mean Corpuscular Hemoglobin 31.1 pg (27.0-33.0); Mean Corpuscular Volume 89.6 fL (80.0-98.0); Mean Platelet Volume 10.1 fL (9.4-12.4); Platelet Count 114 X10*3/uL (160-400); Red Cell Distribution Width 13.7 % (11.0-16.0); White Blood Count 4.8 X10*3/uL (4.8-10.8)
[2022-08-01 12:00] VITALS: BP 133/79; PULSE 85; RESP 18; TEMP 36.7; O2SAT 92
--- NOTE | 2022-08-01 12:30 | MHC.RECOVRN ---
Late entry- Met with pt on 08/01 at 12PM to follow up regarding desire for continued [facility] tx. Pt continues to express desire for [facility] level of care after dc from [facility]. Pt would ideally like to return to [facility], however, is willing to go to any program. [facility] referrals sent to [facility], [facility], [facility], [facility], [facility], [facility], [facility]. Awaiting return calls.
[2022-08-01] MEDS: Acetaminophen 325 MG TABLET 650 MG PO (13:01)
[2022-08-01] MEDS: ondansetron HCL 4 MG/2 ML VIAL IVPUSH (13:02)
[2022-08-01] MEDS: Ondansetron ODT 4 MG TAB.RAPDIS TRANSLINGU (14:57)
[2022-08-01] MEDS: Sucralfate 1 GM TABLET PO ×2 (14:57→20:06)
[2022-08-01] MEDS: hydrOXYzine HCL 25 MG TABLET PO (14:57)
[2022-08-01] MEDS: Omeprazole 40 MG CAPSULE.DR PO (15:01)
[2022-08-01 15:33] VITALS: BP 132/81; PULSE 70; RESP 17; TEMP 37.1; O2SAT 95
--- NOTE | 2022-08-01 19:08 | PC.NURSE ---
pt refusing bed alarm. pt was educated as to the reasons for alarms but maintained refusal
[2022-08-01 19:39] VITALS: BP 124/71; PULSE 89; RESP 17; TEMP 37.1; O2SAT 97
[2022-08-01] MEDS: traMADoL HCL 50 MG TABLET PO (20:34)
[2022-08-02] VITALS (7 sets, daily range): BP systolic 114–126; BP diastolic 68–80; PULSE 59–84; RESP 15–20; TEMP 36.1–37.4; O2SAT 94–98
[2022-08-02] MEDS: Acetaminophen 325 MG TABLET 650 MG PO ×3 (00:19→23:56)
[2022-08-02] MEDS: Ondansetron ODT 4 MG TAB.RAPDIS TRANSLINGU ×2 (00:21→06:31)
[2022-08-02] MEDS: Sucralfate 1 GM TABLET PO ×4 (06:29→20:21)
[2022-08-02] MEDS: Omeprazole 40 MG CAPSULE.DR PO ×2 (06:30→15:46)
[2022-08-02] MEDS: Gabapentin 300 MG CAPSULE PO ×3 (08:03→20:21)
[2022-08-02] MEDS: Thiamine HCL 100 MG TABLET PO (08:03)
[2022-08-02] MEDS: PHENobarbitaL 15 MG TABLET PO ×2 (08:04→20:21)
[2022-08-02] MEDS: Folic Acid 1 MG TABLET PO (08:04)
--- NOTE | 2022-08-02 17:58 | HO.PM.IMPN ---
Subjective Subjective Date of Service: 08/02/22 Interval History: f/u on alcohol withdrawal, upper gib interval history: feels better, no sign Review of Systems no tremors no chest pain, Physical Exam Vital Signs: Vital Signs: Last Vital Signs Temp 97.8 F 08/02/22 15:46 Pulse 70 08/02/22 15:46 Resp 20 08/02/22 11:19 BP 122/80 08/02/22 15:46 Pulse Ox 94 08/02/22 15:46 O2 Del Method 08/02/22 15:46 BMI result Body Mass Index 25.3 Objective Data Active Medications Acetaminophen (Acetaminophen 325 Mg Tablet) 650 mg PO Q6H PRN PRN Reason: Pain, Mild (Pain Scale 1-3) Last Admin: 08/02/22 06:29 Dose: 650 mg Documented By: TAMIR Docusate Sodium (Docusate Sodium 100 Mg Capsule) 100 mg PO DAILY PRN PRN Reason: Constipation Folic Acid (Folic Acid 1 Mg Tablet) 1 mg PO DAILY [facility] Last Admin: 08/02/22 08:04 Dose: 1 mg Documented By: EBONIE Gabapentin (Gabapentin 300 Mg Capsule) 300 mg PO TID [facility] Last Admin: 08/02/22 15:47 Dose: 300 mg Documented By: MOISÉS Hydroxyzine HCl (Hydroxyzine Hcl 25 Mg Tablet) 25 mg PO Q6H PRN PRN Reason: Anxiety Last Admin: 08/01/22 14:57 Dose: 25 mg Documented By: JOHANN Omeprazole (Omeprazole 40 Mg Capsule.Dr) 40 mg PO BID@0630,1630 [facility] Last Admin: 08/02/22 15:46 Dose: 40 mg Documented By: MOISÉS Ondansetron HCl (Ondansetron Odt 4 Mg Tab.Rapdis) 4 mg TRANSLINGU Q6H PRN PRN Reason: Nausea and Vomiting Last Admin: 08/02/22 06:31 Dose: 4 mg Documented By: TAMIR Pharmacy Consult (Consult Rx Etoh Phenob Im/Po) 1 each MISCELLANE ONCE PRN; Protocol PRN Reason: Consult order Pharmacy Consult (Consult Rx Perform Med Rec) 1 each MISCELLANE ONCE PRN PRN Reason: Consult order Phenobarbital (Phenobarbital 15 Mg Tablet) 15 mg PO BID [facility] Stop: 08/03/22 21:01 Last Admin: 08/02/22 08:04 Dose: 15 mg Documented By: EBONIE Phenobarbital (Phenobarbital 15 Mg Tablet) 15 mg PO DAILY [facility] Stop: 08/05/22 09:01 Sodium Chloride (0.9 % Sodium Chloride Flush 3 Ml Syringe) 3 ml IVFLUSH QSHIFT [facility] Last Admin: 08/02/22 15:47 Dose: Not Given Documented By: MOISÉS Non-Admin Reason: No Access Sucralfate (Sucralfate 1 Gm Tablet) 1 gm PO QIDACHS [facility] Last Admin: 08/02/22 15:47 Dose: 1 gm Documented By: MOISÉS Thiamine HCl (Thiamine Hcl 100 Mg Tablet) 100 mg PO DAILY [facility] Last Admin: 08/02/22 08:03 Dose: 100 mg Documented By: EBONIE Labs 08/01/22 11:29 07/30/22 11:55 Assessment and Plan (1) Alcohol withdrawal: Status: Acute (2) Acidosis, lactic: Status: Acute (3) UGI bleed: Status: Acute Plan 41/m with? alcohol dependence here with Acute alcohol withdrawal--not withdrawing right now Phenobarb protocol Folic acid, thiamin, CARE or addiction consult before dc abstinence discussed Hematemesis, Melana--? MWT, gastritis, known? grade 4 erosive esophagitis, no shift in H/H, no active bleeding recheck H/H tomorro,? IV PPI, and GI consult recommends advancing diet and no EGD at this time Acute lactic acidosis..Not due to sepsis, likely alcoholic complication above MDD Continue trazodone Full Code DVT Prophylaxis: Lovenox Need for inpatient: alcohol withdrawal, GIB, Time Spent With Patient Time: Total time managing care of this patient today ____ minutes. Quality Stroke Does the patient have a stroke diagnosis?: No VTE Prior VTE?: No VTE Risk Level:: Medical - moderate - high VTE Device Contraindication: Treatment Not Indicated VTE Drug Contraindication: N/A - Med Ordered
[2022-08-02] MEDS: hydrOXYzine HCL 25 MG TABLET PO (20:23)
[2022-08-03] MEDS: oxyCODONE HCl Immed Release 5 MG TABLET PO ×2 (01:38→22:36)
[2022-08-03 03:52] VITALS: BP 118/77; PULSE 71; RESP 14; TEMP 36.2; O2SAT 94
[2022-08-03] MEDS: Sucralfate 1 GM TABLET PO ×4 (06:30→20:43)
[2022-08-03] MEDS: Omeprazole 40 MG CAPSULE.DR PO ×2 (06:30→17:23)
[2022-08-03 07:41] VITALS: BP 124/78; PULSE 66; RESP 20; TEMP 36.3; O2SAT 98
[2022-08-03] MEDS: Acetaminophen 325 MG TABLET 650 MG PO (08:23)
[2022-08-03] MEDS: Gabapentin 300 MG CAPSULE PO ×4 (08:23→20:44)
[2022-08-03] MEDS: Thiamine HCL 100 MG TABLET PO (08:23)
[2022-08-03] MEDS: PHENobarbitaL 15 MG TABLET PO ×2 (08:23→20:44)
[2022-08-03] MEDS: Folic Acid 1 MG TABLET PO (08:23)
[2022-08-03 10:57] LABS: Hematocrit 41.6 % (42.0-52.0); Hemoglobin 14.1 g/dl (14.0-18.0)
[2022-08-03 11:19] VITALS: BP 142/83; PULSE 82; RESP 20; TEMP 37.2; O2SAT 97
[2022-08-03 15:37] VITALS: BP 104/66; PULSE 83; RESP 18; TEMP 37.1; O2SAT 93
--- NOTE | 2022-08-03 16:04 | MHC.RECOVRN ---
This internal communications writer followed up with SHONNA Aguilar, whom states patient likely to d/c upon placement to [facility]. This internal communications writer followed up with [facility] referrals placed 08/02/22, at this time, t/w has not heard back from [facility] referrals in regards to notification of referrals received, nor potential acceptance of patient. CM hodan.
--- NOTE | 2022-08-03 16:52 | P.PNIM_ITS ---
Subjective Subjective Date of Service: 08/04/22 Interval History: f/u on alcohol withdrawal, upper gib Review of Systems Feeling better, denies any new complaint except soreness Physical Exam Vital Signs: Vital Signs: Last Vital Signs Temp 98.7 F 08/03/22 15:37 Pulse 83 08/03/22 15:37 Resp 18 08/03/22 15:37 BP 104/66 08/03/22 15:37 Pulse Ox 93 08/03/22 15:37 O2 Del Method 08/03/22 15:37 BMI result Body Mass Index 25.3 Appearance: Alert.? Oriented X3.? not in distress.? cvs: rrr, [id number] . res: clear to auscultation ,no rhonchii or wheezing abd: no rebound or guarding ,nt, bs present. ext pulses present , no cyanosis . neuro: axo3 , nonfocal. Objective Data Active Medications Acetaminophen (Acetaminophen 325 Mg Tablet) 650 mg PO Q6H PRN PRN Reason: Pain, Mild (Pain Scale 1-3) Last Admin: 08/03/22 08:23 Dose: 650 mg Documented By: JOSÉ MANUEL Al Hydroxide/Mg Hydroxide (Magnesium Hydrox/Alum Hydrox 30 Ml Oral.Susp) 15 ml PO Q4H PRN PRN Reason: heartburn Docusate Sodium (Docusate Sodium 100 Mg Capsule) 100 mg PO DAILY PRN PRN Reason: Constipation Folic Acid (Folic Acid 1 Mg Tablet) 1 mg PO DAILY [facility] Last Admin: 08/03/22 08:23 Dose: 1 mg Documented By: JOSÉ MANUEL Gabapentin (Gabapentin 300 Mg Capsule) 300 mg PO QID [facility] Hydroxyzine HCl (Hydroxyzine Hcl 25 Mg Tablet) 25 mg PO Q6H PRN PRN Reason: Anxiety Last Admin: 08/02/22 20:23 Dose: 25 mg Documented By: MOISÉS Lidocaine (Lidocaine 4 % Patch Adh..Patch) 1 patch TRANSDERMA DAILY [facility]; Protocol Omeprazole (Omeprazole 40 Mg Capsule.) 40 mg PO BID@0630,1630 [facility] Last Admin: 08/03/22 06:30 Dose: 40 mg Documented By: CONCETTA Ondansetron HCl (Ondansetron Odt 4 Mg Tab.Rapdis) 4 mg TRANSLINGU Q6H PRN PRN Reason: Nausea and Vomiting Last Admin: 08/02/22 06:31 Dose: 4 mg Documented By: TAMIR Pharmacy Consult (Consult Rx Etoh Phenob Im/Po) 1 each MISCELLANE ONCE PRN; Protocol PRN Reason: Consult order Pharmacy Consult (Consult Rx Perform Med Rec) 1 each MISCELLANE ONCE PRN PRN Reason: Consult order Phenobarbital (Phenobarbital 15 Mg Tablet) 15 mg PO BID [facility] Stop: 08/03/22 21:01 Last Admin: 08/03/22 08:23 Dose: 15 mg Documented By: JOSÉ MANUEL Phenobarbital (Phenobarbital 15 Mg Tablet) 15 mg PO DAILY [facility] Stop: 08/05/22 09:01 Sodium Chloride (0.9 % Sodium Chloride Flush 3 Ml Syringe) 3 ml IVFLUSH QSHIFT [facility] Last Admin: 08/03/22 14:39 Dose: Not Given Documented By: JOSÉ MANUEL Non-Admin Reason: No Access Sucralfate (Sucralfate 1 Gm Tablet) 1 gm PO QIDACHS [facility] Last Admin: 08/03/22 10:41 Dose: 1 gm Documented By: JOSÉ MANUEL Thiamine HCl (Thiamine Hcl 100 Mg Tablet) 100 mg PO DAILY [facility] Last Admin: 08/03/22 08:23 Dose: 100 mg Documented By: JOSÉ MANUEL Labs 08/03/22 10:27 07/30/22 11:55 Assessment and Plan (1) Alcohol withdrawal: Status: Acute (2) Acidosis, lactic: Status: Acute (3) UGI bleed: Status: Acute Plan 41/m with? alcohol dependence here with Acute alcohol withdrawal--not withdrawing right now Phenobarb protocol Folic acid, thiamin, CARE or addiction consult before dc abstinence discussed-additction lookin for bed for him Hematemesis, Melana--? MWT, gastritis, known? grade 4 erosive esophagitis, no shift in H/H, no active bleeding recheck H/H tomorro,? IV PPI, and GI consult recommends advancing diet and no EGD at this time Acute lactic acidosis..Not due to sepsis, likely alcoholic complication above MDD Continue trazodone Full Code DVT Prophylaxis: Lovenox Need for inpatient: awaiting bed detox Time Spent With Patient Time: Total time managing care of this patient today ____ minutes. Quality Stroke Does the patient have a stroke diagnosis?: No VTE Prior VTE?: No VTE Risk Level:: Medical - moderate - high VTE Device Contraindication: Treatment Not Indicated VTE Drug Contraindication: N/A - Med Ordered
[2022-08-03 20:00] VITALS: BP 122/76; PULSE 78; RESP 18; TEMP 36.6; O2SAT 98
[2022-08-03] MEDS: hydrOXYzine HCL 25 MG TABLET PO (20:43)
[2022-08-03] MEDS: Magnesium Hydrox/Alum Hydrox 30 ML ORAL.SUSP 15 ML PO (20:44)
[2022-08-04 04:00] VITALS: BP 112/66; PULSE 82; RESP 18; TEMP 36.6; O2SAT 96
[2022-08-04 07:30] VITALS: BP 103/77; PULSE 75; RESP 20; TEMP 36.7; O2SAT 95
[2022-08-04] MEDS: Gabapentin 300 MG CAPSULE PO ×3 (08:01→15:30)
[2022-08-04] MEDS: Thiamine HCL 100 MG TABLET PO (08:02)
[2022-08-04] MEDS: Magnesium Hydrox/Alum Hydrox 30 ML ORAL.SUSP 15 ML PO (08:02)
[2022-08-04] MEDS: PHENobarbitaL 15 MG TABLET PO (08:02)
[2022-08-04] MEDS: Sucralfate 1 GM TABLET PO ×3 (08:02→15:28)
[2022-08-04] MEDS: Folic Acid 1 MG TABLET PO (08:02)
[2022-08-04] MEDS: Acetaminophen 325 MG TABLET 650 MG PO ×2 (10:24→15:29)
--- NOTE | 2022-08-04 10:50 | MHC.RECOVRN ---
[facility] has bed availability today. Updates have been sent. Awaiting call back.
[2022-08-04 11:33] VITALS: BP 113/78; PULSE 95; RESP 18; TEMP 37; O2SAT 97
[2022-08-04] MEDS: Ondansetron ODT 4 MG TAB.RAPDIS TRANSLINGU (12:30)
--- NOTE | 2022-08-04 13:45 | MHC.RECOVRN ---
Met with pt in 459 to complete phone intake for the [facility]. Pt declines the bed, reports he needs to have his cell phone with him in case unemployment calls. Pt has been to [facility] tx in the past, is familiar with the process and levels of care. Pt provided with names and numbers of [facility] facilities that have pts referral, encouraged to call and informed referral will be active as long as patient is abstinent. Pt also provided with PHP/IOP information as pt expressed interest in outpatient BH treatment. Denies questions or concerns. SHONNA, RN, provider aware.
--- NOTE | 2022-08-04 14:11 | P.DS_ITS ---
DS: Providers Provider Date of Service: 08/04/22 Date of admission: 07/30/22 15:59 Date of discharge: 08/04/22 Primary care physician: Unknown Physician Consults: 07/30/22 15:30 Addiction Medicine Routine Consulting Provider: All Melton Reason for consultation: etoh Has provider been notified: No 07/30/22 15:48 Consult to Gastroenterology Routine Consulting Provider: Mary Ellen Aguilar Reason for consultation: Alcohol withdrawal with hematemesis w/BRB, stool occult+ Attending physician on discharge: Rabia Morales DS: Diagnosis Discharge Diagnosis (1) Alcohol withdrawal: Status: Acute (2) Acidosis, lactic: Status: Acute (3) UGI bleed: Status: Acute DS: Summary Hospital Course Hospital Course: 41-year-old male with a PMH significant for alcohol use disorder and alcoholic gastritis with coffee-ground emesis who presents to the ED seeking alcohol deto x.? Patient states that he has been drinking heavily the past few weeks, 1+ L of vodka daily.? Patient attempted to stop drinking yesterday, only having 1 drink in the morning to control the shakes. However patient soon began vomiting with bright red blood streaks, uncontrollably shaking and sweating.? Patient also has had a headache and noticed an increase in his anxiety.? Patient also complains of central abdominal pain that extends from epigastric to periumbilical region.? Patient notes that he has not been eating much at all the past 2 weeks, has had some constipation that became diarrhea few days ago.? Patient stool has been super dark. Patient denies auditory and visual hallucinations.? No fever, chills. Of note patient has a long history of alcohol use disorder and alcohol withdrawal, with the patient experiencing auditory and visual hallucinations.? Patient's last hospitalization here in April of 2021 found severe gastritis and duodenitis, and resulted in a Section XXXV commitment. In the ED patient's vitals were stable.? Labs were significant for lactic acid of 6.8 with repeats of 4.1 and 3.6, calcium of 8.2 with repeat of 7.4, tox screen positive for ethyl alcohol of 355. Stool is positive for occult blood. EKG demonstrated normal sinus rhythm without evidence of ST elevations or depressions. Pt was treated with IVF, ondansetron, lorazepam, Protonix, and started on phenobarb protocol. Pt will be admitted to the hospital for treatment of acute alcohol withdrawal. Hospital course: Patient was admitted to the hospital because of alcohol withdrawal-started on phenobarb protocol-seems to be improved. Seen by community support specialist and resources information given. GIB -possible due to known erosive esophagitis continue po ppi/added sucralfate. Monitor CBC out patiently with PCP. Further management outpatient as per PCP. plan: continue po ppi/added sucralfate.Monitor CBC out patiently with PCP. follow up with Gi for outpatient workup.. community support specialist - resources information given . Assessment and plan coordination time spent 50 minutes. Time Spent with Patient Time attestation: Total time managing care of this patient today ____ minutes. Discharge coordination time: Greater than 30 minutes Quality: Safe Use of Opioids Does Pt have an Active Cancer Diagnosis on the Problem List?: No Quality: Stroke Does the patient have a stroke diagnosis?: No Physical Exam Vital Signs: Vital Signs: Last Vital Signs Temp 98.6 F 08/04/22 11:33 Pulse 95 08/04/22 11:33 Resp 18 08/04/22 11:33 BP 113/78 08/04/22 11:33 Pulse Ox 97 08/04/22 11:33 O2 Del Method 08/04/22 11:33 BMI result Body Mass Index 25.3 Appearance: Alert.? Oriented X3.? not in distress.? cvs: rrr, [id number] . res: clear to auscultation ,no rhonchii or wheezing abd: no rebound or guarding ,nt, bs present. ext pulses present , no cyanosis . neuro: axo3 , nonfocal.? DS: Data Data Completed and Pending Completed studies during hospitalization [Text1]: Procedures Detoxification Services for Substance Abuse Treatment (04/06/21) Excision of Middle Esophagus, Via Natural or Artificial Opening Endoscopic, Diagnostic (04/23/21) Excision of Stomach, Pylorus, Via Natural or Artificial Opening Endoscopic, Diagnostic (04/06/21) Discharge Plan Discharge Anticipated Discharge Date/Time: 08/04/22 14:00 Patient Disposition: Home, Self-Care Discharge Diagnosis: gib, alcohol withdrawal. Referrals: Physician,Unknown J [Primary Care Provider] - 1 Week Mary Ellen Aguilar MD [Physician] - 1 Week (follow up outpatient) Discharge Medications: New sucralfate 1 gram Tablet 1 g PO QIDACHS Qty: 240 0RF folic acid 1 mg Tablet 1 mg PO DAILY Qty: 30 0RF thiamine mononitrate (vit B1) 100 mg Tablet 100 mg PO DAILY Qty: 30 0RF Continued gabapentin 300 mg Capsule 300 mg PO TID ondansetron 4 mg tablet,disintegrating 1 tab PO Q8H PRN (Reason: Nausea) pantoprazole 40 mg tablet,delayed release (DR/EC) 1 tab PO BID Qty: 60 0RF Discharge Orders: Discharge Order (Routine); Ordered 08/04/22 Ordered By: Rabia Morales Diet: Advance to usual diet Activity on Discharge: As tolerated Stand Alone Forms: Patient Portal Discharge page Care Plan Goals: Patient was admitted to the hospital because of alcohol withdrawal-started on phenobarb protocol-seems to be improved. Seen by community support specialist and resource information given. GIB -possible due to known erosive esophagitis continue po ppi/added sucralfate. Monitor CBC out patiently with PCP.follow up with Gi for outpatient workup. Further management outpatient as per PCP. Health Concerns: As above. Plan of Treatment: As above. Assessment: As above. Patient Instructions: Gastrointestinal Bleeding (DC), Alcohol Withdrawal (DC)
--- NOTE | 2022-08-04 15:03 | MHC.CM.PN ---
ptdcd home no skilled sercveis orderd by
[2022-08-04] MEDS: hydrOXYzine HCL 25 MG TABLET PO (15:29)
[2022-08-04] MEDS: Omeprazole 40 MG CAPSULE.DR PO (15:29)
[2022-08-04 17:12] VITALS: BP 126/80; PULSE 74; RESP 18; TEMP 37.1; O2SAT 98
== END 2022-08-04 17:39 | disposition home or self-care (01) | DRG 242 ==
LOC: HO.ED 10:39 → HO.EDOVER 15:59 → HO.IMC 16:17
PROVIDERS: Internal Medicine; Nurse Practitioner Family; Admitting Provider Student in an Organized Health Care Education/Training Program; Emergency Provider Emergency Medicine; Visit Provider Internal Medicine
DX: K22.11 Ulcer of esophagus with bleeding (principal); K29.71 Gastritis, unspecified, with bleeding; E87.21 Acute metabolic acidosis; F41.9 Anxiety disorder, unspecified; Y90.8 Blood alcohol level of 240 mg/100 ml or more; F32.9 Major depressive disorder, single episode, unspecified; F10.239 Alcohol dependence with withdrawal, unspecified; Z20.822 Contact with and (suspected) exposure to COVID-19; Z79.899 Other long term (current) drug therapy
CPT/HCPCS: 36415; 80048; 80076; 80307; 82077; 82272; 82803; 83605; 83735; 85014; 85018; 85025; 85027; 85610; 87635; 93005; 99285; J2060; J2270; J2405; J2560; J3411

== ENCOUNTER 2022-08-12 07:01 | Inpatient (IN) | payer MEDICAID, SELFPAY ==
[2022-08-12] VITALS (7 sets, daily range): BP systolic 118–163; BP diastolic 61–119; PULSE 69–110; RESP 13–20; TEMP 36–37.1; O2SAT 93–99; BMI 25.8; BMI 25.7
--- NOTE | 2022-08-12 07:56 | ECG_ITS ---
Test Reason : hypertension Blood Pressure : / mmHG Vent. Rate : 105 BPM Atrial Rate : 105 BPM P-R Int : 170 ms QRS Dur : 086 ms QT Int : 346 ms P-R-T Axes : 074 -82 046 degrees QTc Int : 457 ms Sinus tachycardia Left axis deviation Abnormal ECG When compared with ECG of 30-JUL-2022 09:15, Incomplete right bundle branch block is no longer Present Referred By: Tiffani Justice Electronically Signed By:DEENA MCMILLAN MD
[2022-08-12 09:13] LABS: MANUAL DIFF FLAG NO
[2022-08-12 09:14] LABS: Basophils Absolute Auto 0.1 X10*3/uL (0.0-0.2); Basophils Percent Auto 1.3 % (0-2); Eosinophils Percent Auto 0.2 % (0-4); Hematocrit 45.1 % (42.0-52.0); Hemoglobin 15.4 g/dl (14.0-18.0); Imm Gran Abs Auto 0.02 X10*3/uL (0.00-0.03); Imm Gran Pct Auto 0.4 % (0.0-0.4); Lymphocytes Percent Auto 22.1 % (20-40); Mean Corpuscular HGB Conc 34.1 g/dl (31.0-36.0); Mean Corpuscular Hemoglobin 29.9 pg (27.0-33.0); Mean Corpuscular Volume 87.6 fL (80.0-98.0); Mean Platelet Volume 8.5 fL (9.4-12.4); Monocytes Absolute Auto 0.3 X10*3/uL (0.1-1.2); Neutrophils Absolute Auto 3.1 x10*3/uL (2.0-8.3); Platelet Count 339 X10*3/uL (160-400); Red Blood Count 5.15 X10*6/uL (4.60-5.80); Red Cell Distribution Width 14.3 % (11.0-16.0); White Blood Count 4.5 X10*3/uL (4.8-10.8)
--- NOTE | 2022-08-12 09:14 | ED_ITS ---
HPI - Alcohol General Chief Complaint: ETOH/Substance Use Stated Complaint: detox from alc, vomiting blood Time Seen by Provider: 08/12/22 07:55 Source: patient Mode of arrival: ambulatory History of Present Illness HPI narrative: 41-year-old male with history of hypertension presents with open quotes alcohol withdrawal symptoms? and has a history of seizures, once detox, last drink was yesterday, states he has been vomiting since yesterday which has prevented him from drinking his alcohol and he stated that there was blood in the alcohol. Patient is typically seen in the [facility] but has been local to help his father. Related Data Home Medications Medication Instructions Recorded Confirmed gabapentin 300 mg capsule 300 mg PO TID 07/30/22 08/12/22 ondansetron 4 mg disintegrating 1 tab PO Q8H PRN Nausea 07/30/22 08/12/22 tablet pantoprazole 40 mg tablet,delayed 1 tab PO BID@0630,1630 08/12/22 08/12/22 release Previous Rx's Medication Instructions Recorded folic acid 1 mg tablet 1 mg PO DAILY #30 tabs 08/04/22 sucralfate 1 gram tablet 1 g PO QIDACHS #240 tabs 08/04/22 thiamine mononitrate (vit B1) 100 100 mg PO DAILY #30 tabs 08/04/22 mg tablet Allergies Allergy/AdvReac Type Severity Reaction Status Date / Time No Known Allergies Allergy Verified 04/27/21 11:42 Review of Systems Review of Systems: Pertinent positives and negatives as stated in HPI PMFSH Past Medical History Medical History Alcohol withdrawal seizure Alcoholism Anxiety Esophagitis Gastritis MDD (major depressive disorder), recurrent severe, without psychosis Surgical History H/O esophagogastroduodenoscopy H/O knee surgery Social History Social History Household Members: Family Household Members Other:: father Housing: House Do you presently have visiting nurse or other home services: No Alcohol intake: current Alcohol intake frequency: 3 or more drinks per day Alcohol type: hard liquor Patient Tobacco Use Status: Never used Tobacco Second Hand Smoke Exposure: No Advance Directives: Yes Advance Directives on File: Yes Advance Directives Date on File: 05/05/21 service: No Current occupational status: unemployed Sexual orientation: Did not discuss Physical Exam ED Vital Signs: Vital Signs - 24 hr 08/12/22 07:32 08/12/22 07:39 08/12/22 10:25 Temperature 96.8 F 97.8 F Pulse Rate 110 H 102 H 99 Respiratory Rate 18 18 19 Blood Pressure 163/119 H 157/99 H 118/79 Pulse Oximetry 99 99 93 Oxygen Delivery Method Room Air Room Air Room Air BMI result Body Mass Index 25.8 VITAL SIGNS: Reviewed. GENERAL: Well developed, well nourished, in no acute distress. HEAD: Normocephalic/atraumatic EYES: PERRLA, EOMI EARS: Ext canals without abnormality OROPHARYNX: no oral lesions noted, posterior pharynx clear, dry mucosa without stigmata of blood within the oral cavity NECK: Supple, no adenopathy LUNGS: Normal breath sounds. No adventitious sounds or accessory muscle use. SpO2<99> CARDIOVASCULAR: Regular rate and rhythm without noted murmurs ABDOMEN: Soft, epigastrium is tender without rebound, non-distended with bowel sounds. MUSCULOSKELETAL: No tenderness, deformities, or effusions noted on gross inspection. EXTREMITIES: No cyanosis, clubbing or edema. SKIN: Inspection of the skin reveals no rashes NEUROLOGIC: Alert and oriented x 4. Strength and sensation to light touch were grossly intact x 4. Medical Decision Making Medical Decision Making MDM Narrative: 41-year-old male with history and clinical presentation consistent with acute alcohol withdrawal and will receive labs, IV fluids, and started on a phenobarb protocol. 0929: I was called that patient has a lactic acid of 7.9 but suspect that this is secondary to alcohol ketoacidosis, patient is afebrile, there is no leukocytosis and in my interpretation there is no evidence of infection. Review of all investigations demonstrates a patient is in acute alcoholic ketoacidosis, alcohol withdrawals, and likely a component of dehydration. Differential Diagnosis Please see the discussion above Consult Healthcare Provider Management of the patient was discussed with: Hospitalist [id number]: I discussed the case with inpatient hospitalist who accepts admission. Lab Data Please see the discussion above 08/12/22 09:05 Labs: Lab Results 08/12/22 08/12/22 08/12/22 Range/Units 02:18 09:05 09:05 WBC 4.5 L (4.8-10.8) X10*3/uL RBC 5.15 (4.60-5.80) X10*6/uL Hgb 15.4 (14.0-18.0) g/dl Hct 45.1 (42.0-52.0) % MCV 87.6 (80.0-98.0) fL MCH 29.9 (27.0-33.0) pg MCHC 34.1 (31.0-36.0) g/dl RDW 14.3 (11.0-16.0) % Plt Count 339 D (160-400) X10*3/uL MPV 8.5 L (9.4-12.4) fL Immature Gran % (Auto) 0.4 (0.0-0.4) % Neut % (Auto) 70.0 (45-73) % Lymph % (Auto) 22.1 (20-40) % [place] % (Auto) 6.0 (2-11) % Eos % (Auto) 0.2 (0-4) % Baso % (Auto) 1.3 (0-2) % Lymph # (Auto) 1.0 L (1.2-4.9) X10*3/uL [place] # (Auto) 0.3 (0.1-1.2) X10*3/uL Eos # (Auto) 0.0 (0.0-0.4) X10*3/uL Baso # (Auto) 0.1 (0.0-0.2) X10*3/uL Abs Immat Gran (auto) 0.02 (0.00-0.03) X10*3/uL Absolute Neuts (auto) 3.1 (2.0-8.3) x10*3/uL Absolute Nucleated RBC 0.000 (0.0-0.012) X10*3/uL Nucleated RBC % (auto) 0.0 (0.0-0.2) /100WBC PT (10.0-13.1) SEC INR (0.9-1.1) Sodium 141 (135-145) mmol/L Potassium 4.5 (3.3-5.1) mmol/L Chloride 102 (96-108) mmol/L Carbon Dioxide 17 L (22-29) mmol/L Anion Gap 27 H (12-20) BUN 7 L (9-16) mg/dL Creatinine 0.85 (0.5-1.4) mg/dL Estim Creat Clear Calc 101.1 Estimated GFR > 60 Random Glucose 90 (60-115) mg/dL Lactic Acid (0.5-2.0) mmol/L Calcium 8.7 D (8.4-10.2) mg/dL Magnesium 1.8 (1.6-2.6) mg/dL Total Bilirubin 0.4 (0.0-1.0) mg/dL Direct Bilirubin < 0.2 (0.0-0.5) mg/dL AST 34 (5-37) U/L ALT 32 (0-40) U/L Alkaline Phosphatase 74 (39-117) U/L Total Protein 7.2 (6.5-8.0) g/dL Albumin 4.6 (3.5-5.0) g/dL Lipase 26 (8-78) U/L Ethyl Alcohol 311 H* mg/dL COVID-19 (ANUJ) (Negative) COVID-19 Clin Com 08/12/22 08/12/22 08/12/22 Range/Units 09:05 09:05 09:05 WBC (4.8-10.8) X10*3/uL RBC (4.60-5.80) X10*6/uL Hgb (14.0-18.0) g/dl Hct (42.0-52.0) % MCV (80.0-98.0) fL MCH (27.0-33.0) pg MCHC (31.0-36.0) g/dl RDW (11.0-16.0) % Plt Count (160-400) X10*3/uL MPV (9.4-12.4) fL Immature Gran % (Auto) (0.0-0.4) % Neut % (Auto) (45-73) % Lymph % (Auto) (20-40) % [place] % (Auto) (2-11) % Eos % (Auto) (0-4) % Baso % (Auto) (0-2) % Lymph # (Auto) (1.2-4.9) X10*3/uL [place] # (Auto) (0.1-1.2) X10*3/uL Eos # (Auto) (0.0-0.4) X10*3/uL Baso # (Auto) (0.0-0.2) X10*3/uL Abs Immat Gran (auto) (0.00-0.03) X10*3/uL Absolute Neuts (auto) (2.0-8.3) x10*3/uL Absolute Nucleated RBC (0.0-0.012) X10*3/uL Nucleated RBC % (auto) (0.0-0.2) /100WBC PT 11.3 (10.0-13.1) SEC INR 1.0 (0.9-1.1) Sodium (135-145) mmol/L Potassium (3.3-5.1) mmol/L Chloride (96-108) mmol/L Carbon Dioxide (22-29) mmol/L Anion Gap (12-20) BUN (9-16) mg/dL Creatinine (0.5-1.4) mg/dL Estim Creat Clear Calc Estimated GFR Random Glucose (60-115) mg/dL Lactic Acid 7.9 H* (0.5-2.0) mmol/L Calcium (8.4-10.2) mg/dL Magnesium (1.6-2.6) mg/dL Total Bilirubin (0.0-1.0) mg/dL Direct Bilirubin (0.0-0.5) mg/dL AST (5-37) U/L ALT (0-40) U/L Alkaline Phosphatase (39-117) U/L Total Protein (6.5-8.0) g/dL Albumin (3.5-5.0) g/dL Lipase (8-78) U/L Ethyl Alcohol mg/dL COVID-19 (NAUJ) Negative (Negative) COVID-19 Clin Com See Note Independent Interpretation I performed an independent interpretation of an: EKG Interpretation: Sinus tachycardia, HR-105, no STEMI, IN/QRS/QTC is within normal limits. External Record Review External record reviewed: Inpatient record, Outpatient record and Prior outpatient labs Chronic Conditions Patient?s care impacted by: Hypertension Medications Administered Discontinued Medications Generic Name Dose Route Start Last Admin Trade Name Freq PRN Reason Stop Dose Admin Famotidine 20 mg 08/12/22 07:55 08/12/22 09:22 Famotidine/Pf 20 Mg/2 Ml Vial IVPUSH 08/12/22 07:56 20 mg ONCE ONE Administration Lactated Ringer's 1,000 mls @ 999 mls/hr 08/12/22 08:00 08/12/22 09:41 Lr IV 08/12/22 09:00 999 mls/hr .Q1H1M FLORENTINO Administration Magnesium Sulfate 2 gm in 50 mls @ 25 mls/hr 08/12/22 07:55 08/12/22 09:20 Magnesium Sulfate/H2o IV 08/12/22 09:54 25 mls/hr ONCE ONE Administration Thiamine HCl 200 mg/ Sodium 102 mls @ 204 mls/hr 08/12/22 07:55 08/12/22 0 9:39 Chloride IV 08/12/22 08:24 204 mls/hr ONCE ONE Administration Lorazepam 2 mg 08/12/22 07:55 08/12/22 09:22 Lorazepam 2 Mg/Ml Vial IVPUSH 08/12/22 07:56 2 mg ONCE ONE Administration Ondansetron HCl 4 mg 08/12/22 07:55 08/12/22 09:22 Ondansetron Hcl 4 Mg/2 Ml Vial IVPUSH 08/12/22 07:56 4 mg ONCE ONE Administration Phenobarbital Sodium 383 mg 08/12/22 09:00 08/12/22 09:21 Phenobarbital Sodium 130 Mg/Ml Im Once IM 08/12/22 09:01 383 mg ONCE ONE Administration Protocol Critical Care Time Critical Care Time Critical Care Time: Yes Total Critical Care Time: 60 Attestation: I personally attest to this time spent taking care of the patient. Discharge Plan Discharge Clinical Impression: Alcoholic ketoacidosis, Alcohol withdrawal, Dehydration Patient Disposition: Admitted As Inpatient Prescriptions: No Action gabapentin 300 mg Capsule 300 mg PO TID ondansetron 4 mg tablet,disintegrating 1 tab PO Q8H PRN (Reason: Nausea) sucralfate 1 gram Tablet 1 g PO QIDACHS Qty: 240 0RF folic acid 1 mg Tablet 1 mg PO DAILY Qty: 30 0RF thiamine mononitrate (vit B1) 100 mg Tablet 100 mg PO DAILY Qty: 30 0RF pantoprazole 40 mg tablet,delayed release (DR/EC) 1 tab PO BID@0630,1630
[2022-08-12 09:20] LABS: Prothrombin Time 11.3 SEC (10.0-13.1)
[2022-08-12] MEDS: Magnesium Sulfate/H2O 2 GM/50 ML PIGGYBACK IV (09:20)
[2022-08-12] MEDS: PHENobarbitaL sodium 130 MG/ML IM ONCE 383 MG IM (09:21)
[2022-08-12] MEDS: ondansetron HCL 4 MG/2 ML VIAL IVPUSH (09:22)
[2022-08-12] MEDS: Famotidine/PF 20 MG/2 ML VIAL IVPUSH (09:22)
[2022-08-12] MEDS: LORazepam 2 MG/ML VIAL IVPUSH (09:22)
[2022-08-12 09:26] LABS: Ethanol 311 mg/dL
[2022-08-12 09:27] LABS: Lactic Acid 7.9 mmol/L (0.5-2.0)
[2022-08-12 09:38] LABS: COVID-19 Test Negative (Negative); IDNOW Serial# BCCEAD1C
[2022-08-12] MEDS: Thiamine HCL 200 MG in 0.9 % Sodium Chloride 100 ML 204 MG IV (09:39)
[2022-08-12] MEDS: Lactated Ringers 1,000 ML 999 ML IV ×2 (09:41→11:24)
[2022-08-12 09:53] LABS: Alanine Aminotransferase 32 U/L (0-40); Albumin Level 4.6 g/dL (3.5-5.0); Alkaline Phosphatase 74 U/L (39-117); Aspartate Amino Transferase 34 U/L (5-37); Bilirubin Direct < 0.2 mg/dL (0.0-0.5); Bilirubin Total 0.4 mg/dL (0.0-1.0); Blood Urea Nitrogen 7 mg/dL (9-16); Calcium 8.7 mg/dL (8.4-10.2); Creatinine Clr Calc Pharmacy 101.1; Estimated Glomerular Filt Rate > 60; Glucose Random 90 mg/dL (60-115); Lipase 26 U/L (8-78); Magnesium 1.8 mg/dL (1.6-2.6); Total Protein 7.2 g/dL (6.5-8.0)
[2022-08-12 10:01] LABS: Anion Gap 27 (12-20); Carbon Dioxide 17 mmol/L (22-29); Chloride 102 mmol/L (96-108); Potassium 4.5 mmol/L (3.3-5.1); Sodium 141 mmol/L (135-145)
--- NOTE | 2022-08-12 10:25 | PHA.MEDREC ---
Pharmacy Consult ? Medication Reconciliation Pharmacy has completed the medication reconciliation.
[2022-08-12 11:11] LABS: Reflex Lactate? Lactic Acid Added
--- NOTE | 2022-08-12 11:36 | P.HPHOSP_ITS ---
History of Present Illness Date of Service: 08/12/22 Attending physician on admission: Mynor Flowers Chief Complaint: Alcohol Withdrawal Pt is a 41-year-old male with a PMH significant for multiple alcohol withdrawal admissions, alcohol use disorder, alcoholic gastritis, hx of coffee-ground em esis who presents to the ED seeking alcohol detox.?Patient states he has been drinking heavily since last discharge 8 days ago on 08/04/22, ramping up until consuming many liters of vodka daily. Attempted to stop drinking last night, however patient soon began vomiting with bright red blood streaks, uncontrollably shaking, sweating, and with headache and increased anxiety. Patient also complains of chronic central abdominal pain that extends from epigastric to periumbilical region, ongoing for years .?Patient notes he has not been eating much at all since discharge, says stool has been super dark , though this has been occuring for a long time with no change since last admission. Patient denies auditory and visual hallucinations.? No fever, chills. Of note patient has a long history of alcohol use disorder and alcohol withdrawal, with the patient experiencing auditory and visual hallucinations, and seizures a long time ago. ? In the ED patient was tachycardic at 110 and hypertensive 163/119. Labs were significant for WBC of 4.5, H&H WNL at 15.4/45.1, CO2 of 17, anion gap 27 lactic acid of 7.9, ethyl alcohol level of 311. EKG demonstrated sinus tachycardia without evidence of ST elevations or depressions. Pt was treated with IVF, magnesium sulfate, phenobarb protocol, ondansetron, thiamin, and famotidine. Pt will be admitted to the hospital on telemetry for treatment of alcohol withdrawal with IV phenobarb and IVF. Review of Systems Review of Systems: Hematemesis since last night Withdrawal tremors Headache Diaphoresis Increased anxiety Central abdominal pain Dark stool Yes all other systems are reviewed and are negative [facility] Medical History Alcohol withdrawal seizure Alcoholism Anxiety Esophagitis Gastritis MDD (major depressive disorder), recurrent severe, without psychosis Surgical History H/O esophagogastroduodenoscopy H/O knee surgery Social History Household Members: Family Household Members Other:: father Housing: House Do you presently have visiting nurse or other home services: No Alcohol intake: current Alcohol intake frequency: 3 or more drinks per day Alcohol type: hard liquor Patient Tobacco Use Status: Never used Tobacco Second Hand Smoke Exposure: No Advance Directives: Yes Advance Directives on File: Yes Advance Directives Date on File: 05/05/21 service: No Current occupational status: unemployed Sexual orientation: Did not discuss Meds Allergies Allergy/AdvReac Type Severity Reaction Status Date / Time No Known Allergies Allergy Verified 04/27/21 11:42 Active Medications: Current Medications Pharmacy Consult (Consult Rx Perform Med Rec) 1 each MISCELLANE ONCE PRN PRN Reason: Consult order Pharmacy Consult (Consult Rx Etoh Phenob Im/Po) 1 each MISCELLANE ONCE PRN; Protocol PRN Reason: Consult order Phenobarbital (Phenobarbital 15 Mg Tablet) 45 mg PO BID FLORENTINO; Protocol Stop: 08/14/22 09:01 Phenobarbital (Phenobarbital 30 Mg Tablet) 30 mg PO BID FLORENTINO; Protocol Stop: 08/16/22 09:01 Phenobarbital (Phenobarbital 30 Mg Tablet) 30 mg PO Q24H FLORENTINO; Protocol Stop: 08/17/22 21:01 Phenobarbital Sodium (Phenobarbital Sodium 130 Mg/Ml Vial Im Q3hx2) 287 mg IM Q3H FLORENTINO; Protocol Stop: 08/12/22 15:01 Home Medications Medication Instructions Recorded Confirmed Last Taken Type gabapentin 300 mg capsule 300 mg PO TID 07/30/22 08/12/22 Unknown History ondansetron 4 mg disintegrating 1 tab PO Q8H PRN Nausea 07/30/22 08/12/22 Unknown History tablet pantoprazole 40 mg tablet,delayed 1 tab PO BID@0630,1630 08/12/22 08/12/22 Unknown History release Physical Exam Vital Signs and Narrative: Vital Signs: Last Vital Signs Temp 97.8 F 08/12/22 07:39 Pulse 99 08/12/22 10:25 Resp 19 08/12/22 10:25 BP 118/79 08/12/22 10:25 Pulse Ox 93 08/12/22 10:25 O2 Del Method 08/12/22 10:25 BMI result Body Mass Index 25.8 Constitutional:?Pt seen and evaluated in bed, mild tremors of upper extremities noted. Alert, in no acute distress. Mental Status:?Oriented to person, place and time. Eyes:?Pupils are equal, round, and reactive to light. Ear, Nose, and Throat:?Oropharynx clear, mucous membranes moist. Ears and nose without deformities. Trachea midline. Respiratory:?Clear to auscultation bilaterally. No wheezing, rales, or rhonchi. Cardiovascular:?S1, S2 regular. No murmurs, rubs, or gallops. Gastrointestinal:?Abdomen soft, mildly tender in epigastric and umbilical regions, non-distended. Normal bowel sounds. Neurologic:?Cranial nerves II-XII are grossly intact. No focal neurological deficits. Moves all extremities spontaneously. Mild tremors in hands. Skin:?No rashes or lesions noted. Musculoskeletal:?No cyanosis or clubbing. Extremities:?No edema. Psychiatric:?Normal mood and affect. Results Labs 08/12/22 09:05 08/12/22 09:05 Labs: Laboratory Results - last 24 hr 08/12/22 08/12/22 08/12/22 02:18 09:05 09:05 MCV 87.6 MCH 29.9 MCHC 34.1 RDW 14.3 Plt Count 339 D MPV 8.5 L Immature Gran % (Auto) 0.4 Neut % (Auto) 70.0 Lymph % (Auto) 22.1 [place] % (Auto) 6.0 Eos % (Auto) 0.2 Baso % (Auto) 1.3 Lymph # (Auto) 1.0 L [place] # (Auto) 0.3 Eos # (Auto) 0.0 Baso # (Auto) 0.1 Abs Immat Gran (auto) 0.02 Absolute Neuts (auto) 3.1 Absolute Nucleated RBC 0.000 Nucleated RBC % (auto) 0.0 PT INR Anion Gap 27 H Estim Creat Clear Calc 101.1 Estimated GFR > 60 Random Glucose 90 Lactic Acid Calcium 8.7 D Magnesium 1.8 Total Bilirubin 0.4 Direct Bilirubin < 0.2 AST 34 ALT 32 Alkaline Phosphatase 74 Total Protein 7.2 Albumin 4.6 Lipase 26 Ethyl Alcohol 311 H* COVID-19 (ANUJ) COVID-19 Clin Com 08/12/22 08/12/22 08/12/22 09:05 09:05 09:05 MCV MCH MCHC RDW Plt Count MPV Immature Gran % (Auto) Neut % (Auto) Lymph % (Auto) [place] % (Auto) Eos % (Auto) Baso % (Auto) Lymph # (Auto) [place] # (Auto) Eos # (Auto) Baso # (Auto) Abs Immat Gran (auto) Absolute Neuts (auto) Absolute Nucleated RBC Nucleated RBC % (auto) PT 11.3 INR 1.0 Anion Gap Estim Creat Clear Calc Estimated GFR Random Glucose Lactic Acid 7.9 H* Calcium Magnesium Total Bilirubin Direct Bilirubin AST ALT Alkaline Phosphatase Total Protein Albumin Lipase Ethyl Alcohol COVID-19 (ANUJ) Negative COVID-19 Clin Com See Note Assessment and Plan (1) Alcohol withdrawal: Status: Acute Plan Pt is a 41-year-old male with a PMH significant for multiple alcohol withdrawal admissions, alcohol use disorder, alcoholic gastritis, hx of coffee-ground emesis who presents to the ED seeking alcohol detox. Pt will be admitted to the hospital on telemetry for treatment of alcohol withdrawal with IV phenobarb and IVF. Acute alcohol withdrawal Mild shakiness, no hallucinations Phenobarb protocol Multi-Vitamin, folic acid, thiamine Addiction medicine consult Follow lytes, Mag, CBC Clear liquid diet, advance to regular as tolerated IVF: lactated ringers CIWA scale Admit to telemetry Hematemesis Patient has been experiencing hematemesis with bright red blood since last night Patient with a history of a grade 4 erosive esophagitis on 04/07/2021 Protonix IV, hold pantoprazole Continue sucralfate GI consult Melena Patient states his stool has been dark black for the past few weeks, no change since last admission H&H stable and WNL at 15.4/45.1 Denies bright red blood per rectum Follow CBC GI consult Abdominal pain Pt complains of chronic diffuse abdominal pain that has been ongoing for years Possibly secondary to gastritis Re-evaluate tomorrow, consider CT of Abd/pelvis if appropriate Acute lactic acidosis Likely secondary to hyperemesis, not sepsis:? Patient afebrile, no leukocytosis, no sign of infection Repeat lactic acid Full Code Attending:?Dr. Flowers DVT Prophylaxis: Pneumatic boots Pt will require a hospitalization of at least two nights for treatment of?acute alcohol withdrawal with IV phenobarbital protocol and IVF. Time Spent With Patient Time: Total time managing care of this patient today ____ minutes. Quality Stroke Does the patient have a stroke diagnosis?: No VTE Prior VTE?: No VTE Risk Level:: Medical - moderate - high VTE Device Contraindication: N/A - Device Ordered VTE Drug Contraindication: Treatment Not Indicated
--- NOTE | 2022-08-12 11:51 | PC.NURSE ---
RAC 20G IV INSERTED VIA ULTRA SOUND BY DR. RADHA STARKS. IV REPLACED VIA ULTRA SOUND 20G L FOREARM. BOTH IVS TOLERATED WELL BY PT. IV MEDS GIVEN LATE DUE TO NO ACCESS.
[2022-08-12 12:22] LABS: Amphetamine Screen Urine Not Detected (Not Detect); Barbiturates, Urine POSITIVE (Not Detect); Benzodiazepines Screen Urine Not Detected (Not Detect); Cannabinoid Screen Urine Not Detected (Not Detect); Cocaine Screen Urine Not Detected (Not Detect); Fentanyl, urine Not Detected (Not Detect); Opiate Screen Urine Not Detected (Not Detect); Phencyclidine Screen Urine Not Detected (Not Detect)
[2022-08-12] MEDS: PHENobarbitaL sodium 130 MG/ML VIAL IM Q3Hx2 287 MG IM ×2 (13:43→16:32)
[2022-08-12 14:29] LABS: Lactic Acid 5.9 mmol/L (0.5-2.0)
--- NOTE | 2022-08-12 15:20 | PM.GICN ---
History of Present Illness Data of Consult Service Date: 08/12/22 Requesting physician: Brooke Conte Primary Care Provider: Unknown Physician HPI Reason for consult: Alcohol related liver disease, hematemesis 41 YM with multiple alcohol withdrawal admissions, alcohol use disorder, alcoholic gastritis, hx of coffee-ground emesis seen at [facility] ED on 08/11/22 seeking alcohol detox.? Patient states he has been drinking heavily since last discharge 8 days ago on 08/04/22, ramping up until consuming many liters of vodka daily. Pt reports he attempted to stop drinking last night, and soon began vomiting with bright red blood streaks, uncontrollably shaking, sweating, and with headache and increased anxiety. Patient also complained of chronic central abdominal pain that extends from epigastric to periumbilical region, ongoing for years .? Patient notes he has not been eating much at all since discharge, says stool has been super dark and loose though this has been occuring for a long time with no change since last admission. Patient denied auditory and visual hallucinations, fever, chills. Of note patient has a long history of alcohol use disorder and alcohol withdrawal, with the patient experiencing auditory and visual hallucinations, and seizures a long time ago. ? In the ED patient was tachycardic at 110 and hypertensive 163/119. Labs were significant for WBC of 4.5, H&H WNL at 15.4/45.1, CO2 of 17, anion gap 27 lactic acid of 7.9, ethyl alcohol level of 311. EKG demonstrated sinus tachycardia without evidence of ST elevations or depressions. Pt was treated with IVF, magnesium sulfate, phenobarb protocol, ondansetron, thiamin, and famotidine. He was admitted to the hospital on telemetry for treatment of alcohol withdrawal with IV phenobarb and IVF. Last drink was yesterday am. Pt denies taking PPI and sucralfate which was prescribed at the time of discharge last month. 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 He is single and has no children. He is living with his dad at present and plans to return to [place] in the near future. Patient denies smoking, IV drug abuse or using marijuana Patient was seen in the emergency room in June as well for admission to inpatient rehab.? At that time, he was accepted at detox center near [place].? Reports, had an admission to [facility] shortly after for GI bleeding, and endoscopy at that time showed gastritis and esophagitis.? Per his report, he was discharged home from that hospitalization and then relapsed with drinking.? Also had not been taking his PPI therapy. Previous EGD in [facility]: EGD 04/27/2021 (Dr. Mcnamara):? Resolving esophagitis.? Gastritis.? Duodenitis.? EGD 04/07/2021 (Dr. Figueredo):? Severe grade 4 esophagitis.? Gastritis.? Hiatal hernia.? Duodenitis. Review of Systems Review of Systems: Hematemesis since last night Withdrawal tremors Headache Diaphoresis Increased anxiety Central abdominal pain Dark stool Yes all other systems are reviewed and are negative [facility] Past Medical History Medical History Alcohol withdrawal seizure Alcoholism Anxiety Esophagitis Gastritis MDD (major depressive disorder), recurrent severe, without psychosis Surgical History Surgical History H/O esophagogastroduodenoscopy H/O knee surgery Social History Social History Household Members: Family Household Members Other:: father Housing: House Do you presently have visiting nurse or other home services: No Alcohol intake: current Alcohol intake frequency: 3 or more drinks per day Alcohol type: hard liquor Patient Tobacco Use Status: Never used Tobacco Second Hand Smoke Exposure: No Advance Directives: Yes Advance Directives on File: Yes Advance Directives Date on File: 05/05/21 service: No Current occupational status: unemployed Sexual orientation: Did not discuss Meds Allergies Allergy/AdvReac Type Severity Reaction Status Date / Time No Known Allergies Allergy Verified 04/27/21 11:42 Active Medications: Current Medications Acetaminophen (Acetaminophen 325 Mg Tablet) 650 mg PO Q6H PRN PRN Reason: Pain, Mild (Pain Scale 1-3) Docusate Sodium (Docusate Sodium 100 Mg Capsule) 100 mg PO DAILY PRN PRN Reason: Constipation Folic Acid (Folic Acid 1 Mg Tablet) 1 mg PO DAILY [facility] Gabapentin (Gabapentin 300 Mg Capsule) 300 mg PO TID [facility] Lactated Ringer's (Lr) 1,000 mls @ 100 mls/hr IVCONT .Q10H [facility] Multivitamins/Vitamin C (Multivitamin Tablet) 1 tab PO DAILY [facility] Stop: 08/15/22 13:09 Ondansetron HCl (Ondansetron Hcl 4 Mg/2 Ml Vial) 4 mg IVPUSH Q8H PRN PRN Reason: Nausea and Vomiting Pantoprazole Sodium (Pantoprazole Sodium 40 Mg/10 Ml Vial) 40 mg IVPUSH BID@0630,1630 [facility] Pharmacy Consult (Consult Rx Perform Med Rec) 1 each MISCELLANE ONCE PRN PRN Reason: Consult order Pharmacy Consult (Consult Rx Etoh Phenob Im/Po) 1 each MISCELLANE ONCE PRN; Protocol PRN Reason: Consult order Phenobarbital (Phenobarbital 15 Mg Tablet) 45 mg PO BID [facility]; Protocol Stop: 08/14/22 09:01 Phenobarbital (Phenobarbital 30 Mg Tablet) 30 mg PO BID [facility]; Protocol Stop: 08/16/22 09:01 Phenobarbital (Phenobarbital 30 Mg Tablet) 30 mg PO Q24H [facility]; Protocol Stop: 08/17/22 21:01 Sodium Chloride (0.9 % Sodium Chloride Flush 3 Ml Syringe) 3 ml IVFLUSH QSHIFT [facility] Sucralfate (Sucralfate 1 Gm Tablet) 1 gm PO QIDACHS [facility] Thiamine HCl (Thiamine Hcl 100 Mg Tablet) 100 mg PO DAILY [facility] Home Medications Medication Instructions Recorded Confirmed Last Taken Type gabapentin 300 mg capsule 300 mg PO TID 07/30/22 08/12/22 Unknown History ondansetron 4 mg disintegrating 1 tab PO Q8H PRN Nausea 07/30/22 08/12/22 Unknown History tablet pantoprazole 40 mg tablet,delayed 1 tab PO BID@0630,1630 08/12/22 08/12/22 Unknown History release Physical Exam Vital Signs: Vital Signs: Last Vital Signs Temp 98.8 F 08/12/22 14:35 Pulse 106 H 08/12/22 14:35 Resp 13 08/12/22 14:35 BP 134/78 08/12/22 14:35 Pulse Ox 94 08/12/22 14:35 O2 Del Method 08/12/22 14:35 BMI result Body Mass Index 25.8 Const: General: no acute distress Nutritional Appearance: overweight Orientation/consciousness: patient oriented x3 Limitations: no limitations HEENT: Head: Yes normal to inspection Ears: hearing grossly normal bilaterally Eyes: Sclerae: sclerae normal Pupils: Equal, round and reactive pupils present Neck: Neck: Yes normal visual inspection Chest: Chest palpation & inspection: normal inspection of the chest Resp: Effort & Inspection: normal respiratory effort Auscultation: clear to auscultation bilaterally Cardio: Palpation: normal PMI Rate: regular rate Rhythm: regular rhythm Heart sounds: S1 normal heart sound present, S2 normal heart sound present and no murmurs GI: Palpation (GI): Soft to palpation, Tenderness to palpation present (GI) (Mild epigastric tenderness without rebound) and No hepatosplenomegaly present Auscultation: normal bowel sounds Rectal Exam - Male: Yes deferred Skin: General skin exam: no rashes or lesions noted Neuro: General: patient oriented x3, gait normal and moves all extremities Cranial nerves: Yes Equal, round and reactive pupils present Psych: Appearance: grossly normal Mental Status: mental status grossly normal Results Labs 08/12/22 09:05 08/12/22 09:05 Labs: Short CBC 08/12/22 Range/Units 09:05 WBC 4.5 L (4.8-10.8) X10*3/uL Hgb 15.4 (14.0-18.0) g/dl Hct 45.1 (42.0-52.0) % Plt Count 339 D (160-400) X10*3/uL BMP 08/12/22 09:05 Sodium 141 Potassium 4.5 Chloride 102 Carbon Dioxide 17 L BUN 7 L Creatinine 0.85 Calcium 8.7 D Liver Function 08/12/22 Range/Units 09:05 Total Bilirubin 0.4 (0.0-1.0) mg/dL Direct Bilirubin < 0.2 (0.0-0.5) mg/dL AST 34 (5-37) U/L ALT 32 (0-40) U/L Alkaline Phosphatase 74 (39-117) U/L Albumin 4.6 (3.5-5.0) g/dL Assessment and Plan (1) Alcohol withdrawal: Status: Acute (2) UGI bleed: Status: Acute (3) Odynophagia: Status: Acute (4) Epigastric pain: Status: Acute Plan 41 YM with alcohol Abuse, alcoholic gastritis,? seen at [facility] with nausea, vomiting and hematemesis. Pt has had multiple hospitalization at [facility] similar issues - last hospitalized in Jul, 2022. Patient reported he started drinking again after he was discharged from the hospital - Last drink was yesterday. Pt complains of multiple episodes of nausea and vomiting and noted to have hematemesis. Pt reports, he had an admission to [facility] in Jun, 2022 for GI bleeding, and endoscopy at that time showed gastritis and esophagitis.? UGI bleeding likely due to persistent erosive esophagitis/ alcoholic gastritis due to non-compliance with PPI and ongoing ETOH abuse RECOMMENDATIONS: 1.? Monitor H & H daily 2. Agree with IV PPI 3. Clear liquid diet 4. Since H & H is stable, repeat EGD will be low yield and is unlikely to change his management.? If significant decrease in H & H on am labs, EGD can be performed (tentatively scheduled for tomorrow afternoon and can cancel if am labs are stable. 5. Pt states he is interested in pursuing ETOH rehab (did not go to rehab after last admission since ? his Dad talked him out of it) FU with Dr Aguilar in the GI clinic as outpatient. Time Spent With Patient Time: Total time managing care of this patient today ____ minutes. Procedures Date of Service Date of Service: 08/12/22
[2022-08-12] MEDS: Thiamine HCL 100 MG TABLET PO (15:23)
[2022-08-12] MEDS: Multivitamin TABLET 1 TAB PO (15:23)
[2022-08-12] MEDS: Folic Acid 1 MG TABLET PO (15:24)
[2022-08-12] MEDS: Gabapentin 300 MG CAPSULE PO ×2 (15:24→20:11)
[2022-08-12 16:10] LABS: Reflex Lactate? Lactic Acid Added
[2022-08-12] MEDS: Lactated Ringers 1,000 ML 100 ML IVCONT (16:25)
[2022-08-12] MEDS: 0.9 % Sodium Chloride Flush 3 ML SYRINGE IVFLUSH (16:28)
[2022-08-12] MEDS: Pantoprazole Sodium 40 MG/10 ML VIAL IVPUSH (16:28)
[2022-08-12] MEDS: Acetaminophen 325 MG TABLET 650 MG PO (16:36)
[2022-08-12] MEDS: Sucralfate 1 GM TABLET PO ×2 (16:37→20:11)
--- NOTE | 2022-08-12 16:41 | PC.NURSE ---
pt CIWA = 4, pt reporting 7/10 headache, pt medicated per provider order, LR running at 100ml/hr, 20G IV left forearm, vss, pt pending bed assignment.
--- NOTE | 2022-08-12 16:53 | PC.NURSE ---
attempted to call report to IM, no answer, tigertext sent to RN.
--- NOTE | 2022-08-12 17:00 | PC.NURSE ---
RN-RN report called into [facility], transporter notified.
--- NOTE | 2022-08-12 18:28 | PC.NURSE ---
pt refused bed alarm, camera. educated pt as the rationale behind high fall risk interventions. pt continued to refuse. pt did agree to ring when he wishes to ambulate to the bathroom. pt refused the idea of using a bedside commode
[2022-08-12] MEDS: PHENobarbitaL 15 MG TABLET 45 MG PO (20:11)
[2022-08-13] VITALS (10 sets, daily range): BP systolic 100–146; BP diastolic 58–85; PULSE 54–91; RESP 14–20; TEMP 36.2–36.9; O2SAT 93–99
[2022-08-13] MEDS: ondansetron HCL 4 MG/2 ML VIAL IVPUSH (00:54)
[2022-08-13] MEDS: Lactated Ringers 1,000 ML 100 ML IVCONT ×4 (00:56→21:51)
--- NOTE | 2022-08-13 01:11 | PC.NURSE ---
Pt c/o nausea and currently dry heaving. He c/o abd pain. PRN zofran given. He scored 11 on CIWA for tremors, nausea/dry heaves, sweaty, mild auditory hallucinations and anxiety. MD Kirkland notified and ordered IM phenobarb. See new orders.
[2022-08-13] MEDS: PHENobarbitaL sodium 130 MG/ML VIAL IM (01:22)
[2022-08-13] MEDS: Acetaminophen 325 MG TABLET 650 MG PO ×2 (01:26→09:08)
--- NOTE | 2022-08-13 02:26 | PC.NURSE ---
Addendum entered by Evangelina Phan RN 08/13/22 03:46: Pt continued to pace around room d/t abd pain. He is still refusing bed alarm and camera. was notified and ordered meds. See new orders. Original Note: Pt c/o abd pain. PRN tylenol given. He is pacing around the room and refusing bed alarm or camera placement in room. Education provided Pt. is currently A&OX 3.
[2022-08-13] MEDS: Morphine Sulfate 2 MG/ML CARTRIDGE IVPUSH (03:54)
[2022-08-13] MEDS: OLANZapine 10 MG TABLET PO (03:54)
[2022-08-13] MEDS: Pantoprazole Sodium 40 MG/10 ML VIAL IVPUSH ×2 (05:54→17:27)
[2022-08-13 08:31] LABS: Hematocrit 36.2 % (42.0-52.0); Hemoglobin 12.3 g/dl (14.0-18.0); Mean Corpuscular Hemoglobin 30.6 pg (27.0-33.0); Mean Platelet Volume 9.1 fL (9.4-12.4); Platelet Count 221 X10*3/uL (160-400); Red Blood Count 4.02 X10*6/uL (4.60-5.80); Red Cell Distribution Width 14.5 % (11.0-16.0); White Blood Count 3.6 X10*3/uL (4.8-10.8)
[2022-08-13] MEDS: Thiamine HCL 100 MG TABLET PO (09:07)
[2022-08-13] MEDS: Gabapentin 300 MG CAPSULE PO ×3 (09:07→21:52)
[2022-08-13] MEDS: Multivitamin TABLET 1 TAB PO (09:08)
[2022-08-13] MEDS: Folic Acid 1 MG TABLET PO (09:08)
[2022-08-13] MEDS: Sucralfate 1 GM TABLET PO ×3 (09:08→21:52)
[2022-08-13] MEDS: PHENobarbitaL 15 MG TABLET 45 MG PO ×2 (09:08→21:52)
[2022-08-13] MEDS: 0.9 % Sodium Chloride Flush 3 ML SYRINGE IVFLUSH ×2 (09:09→21:52)
[2022-08-13 09:21] LABS: Anion Gap 18 (12-20); Blood Urea Nitrogen 5 mg/dL (9-16); Calcium 8.1 mg/dL (8.4-10.2); Carbon Dioxide 22 mmol/L (22-29); Chloride 103 mmol/L (96-108); Creatinine Clr Calc Pharmacy 110.1; Estimated Glomerular Filt Rate > 60; Glucose Random 74 mg/dL (60-115); Magnesium 1.8 mg/dL (1.6-2.6); Potassium 4.4 mmol/L (3.3-5.1); Sodium 139 mmol/L (135-145)
--- NOTE | 2022-08-13 12:15 | PC.NURSE ---
pt continues to refuse camera and high fall risk alarms. Pt was not interested in further education.
--- NOTE | 2022-08-13 13:05 | MHC.CM.PN ---
met with pt who reports being covid vax x 2 he lives with father he is requesting an inpt substance abuse program care team to follow has own ride home
--- NOTE | 2022-08-13 14:23 | MHC.RECOVRN ---
Met with pt in 446 after consult placed to Addiction Medicine for alcohol use. Pt familiar with t/w from last admission. Pt reports after admission he resumed drinking alcohol after 2 days. Reports at least a liter of vodka daily. Pt is interested in [facility]. T/w inquired about unemployment phone call pt was waiting for, pt states I didn't get it but I don't really care about that anymore. Will place referrals to CSS facilities.
--- NOTE | 2022-08-13 15:32 | PC.NURSE ---
per dr. gallo no t&s needed at this time preop
--- NOTE | 2022-08-13 16:15 | HO.ANESPROP2 ---
HPI - Anesthesia Eval Consult details Narrative: 41 yo male patient for EGD PMFSH Active Problems Active Problems: All Active Problems (Updated 08/12/22 @ 10:56 by Indu Mejia MD) Alcoholic ketoacidosis (Acute) Alcohol withdrawal (Acute) Dehydration (Acute) Alcohol withdrawal (Acute) Acidosis, lactic (Acute) UGI bleed (Acute) Odynophagia (Acute) MDD (major depressive disorder), recurrent severe, without psychosis (Acute) Alcohol use disorder, severe, dependence (Acute) Epigastric pain (Acute) H/O knee surgery (Acute) Acute alcoholic gastritis (Acute) Past Medical History Medical History Alcohol withdrawal seizure Alcoholism Anxiety Esophagitis Gastritis MDD (major depressive disorder), recurrent severe, without psychosis Family History Family history of problems with anesthesia: No Surgical History Surgical History H/O esophagogastroduodenoscopy H/O knee surgery History of Problems with Anesthesia: No Social History Social History Household Members: Family Household Members Other:: father Housing: House Do you presently have visiting nurse or other home services: No Alcohol intake: current Alcohol intake frequency: 3 or more drinks per day Alcohol type: hard liquor Patient Tobacco Use Status: Never used Tobacco Second Hand Smoke Exposure: No Advance Directives Date on File: 05/05/21 service: No Current occupational status: unemployed Sexual orientation: Did not discuss Meds Allergies Allergy/AdvReac Type Severity Reaction Status Date / Time No Known Allergies Allergy Verified 04/27/21 11:42 Active Medications: Current Medications Acetaminophen (Acetaminophen 325 Mg Tablet) 650 mg PO Q6H PRN PRN Reason: Pain, Mild (Pain Scale 1-3) Last Admin: 08/13/22 09:08 Dose: 650 mg Docusate Sodium (Docusate Sodium 100 Mg Capsule) 100 mg PO DAILY PRN PRN Reason: Constipation Folic Acid (Folic Acid 1 Mg Tablet) 1 mg PO DAILY [facility] Last Admin: 08/13/22 09:08 Dose: 1 mg Gabapentin (Gabapentin 300 Mg Capsule) 300 mg PO TID [facility] Last Admin: 08/13/22 09:07 Dose: 300 mg Lactated Ringer's (Lr) 1,000 mls @ 100 mls/hr IVCONT .Q10H [facility] Last Admin: 08/13/22 12:08 Dose: 100 mls/hr Multivitamins/Vitamin C (Multivitamin Tablet) 1 tab PO DAILY [facility] Stop: 08/15/22 13:09 Last Admin: 08/13/22 09:08 Dose: 1 tab Ondansetron HCl (Ondansetron Hcl 4 Mg/2 Ml Vial) 4 mg IVPUSH Q8H PRN PRN Reason: Nausea and Vomiting Last Admin: 08/13/22 00:54 Dose: 4 mg Pantoprazole Sodium (Pantoprazole Sodium 40 Mg/10 Ml Vial) 40 mg IVPUSH BID@0630,1630 [facility] Last Admin: 08/13/22 05:54 Dose: 40 mg Pharmacy Consult (Consult Rx Perform Med Rec) 1 each MISCELLANE ONCE PRN PRN Reason: Consult order Pharmacy Consult (Consult Rx Etoh Phenob Im/Po) 1 each MISCELLANE ONCE PRN; Protocol PRN Reason: Consult order Phenobarbital (Phenobarbital 15 Mg Tablet) 45 mg PO BID [facility]; Protocol Stop: 08/14/22 09:01 Last Admin: 08/13/22 09:08 Dose: 45 mg Phenobarbital (Phenobarbital 30 Mg Tablet) 30 mg PO BID [facility]; Protocol Stop: 08/16/22 09:01 Phenobarbital (Phenobarbital 30 Mg Tablet) 30 mg PO Q24H [facility]; Protocol Stop: 08/17/22 21:01 Sodium Chloride (0.9 % Sodium Chloride Flush 3 Ml Syringe) 3 ml IVFLUSH QSHIFT [facility] Last Admin: 08/13/22 09:09 Dose: 3 ml Sucralfate (Sucralfate 1 Gm Tablet) 1 gm PO QIDACHS [facility] Last Admin: 08/13/22 11:30 Dose: Not Given Thiamine HCl (Thiamine Hcl 100 Mg Tablet) 100 mg PO DAILY [facility] Last Admin: 08/13/22 09:07 Dose: 100 mg Home Medications Medication Instructions Recorded Confirmed Last Taken Type gabapentin 300 mg capsule 300 mg PO TID 07/30/22 08/12/22 Unknown History ondansetron 4 mg disintegrating 1 tab PO Q8H PRN Nausea 07/30/22 08/12/22 Unknown History tablet pantoprazole 40 mg tablet,delayed 1 tab PO BID@0630,1630 08/12/22 08/12/22 Unknown History release Exam Exam Date and Time: August 13, 2022 1615 Height,Weight and Vital Signs: Height 5 ft 6 in Weight 72.121 kg Last Vital Signs Temp 97.4 F 08/13/22 15:34 Pulse 54 08/13/22 15:34 Resp 20 08/13/22 15:34 BP 146/82 H 08/13/22 15:34 Pulse Ox 99 08/13/22 15:34 O2 Del Method 08/13/22 15:34 Pertinent Lab Results Pertinent Lab Results: Laboratory Tests 08/12/22 08/12/22 08/12/22 02:18 09:05 09:05 WBC 4.5 L RBC 5.15 Hgb 15.4 Hct 45.1 MCV 87.6 MCH 29.9 MCHC 34.1 RDW 14.3 Plt Count 339 D MPV 8.5 L Immature Gran % (Auto) 0.4 Neut % (Auto) 70.0 Lymph % (Auto) 22.1 [place] % (Auto) 6.0 Eos % (Auto) 0.2 Baso % (Auto) 1.3 Lymph # (Auto) 1.0 L [place] # (Auto) 0.3 Eos # (Auto) 0.0 Baso # (Auto) 0.1 Abs Immat Gran (auto) 0.02 Absolute Neuts (auto) 3.1 Absolute Nucleated RBC 0.000 Nucleated RBC % (auto) 0.0 PT INR Sodium 141 Potassium 4.5 Chloride 102 Carbon Dioxide 17 L Anion Gap 27 H BUN 7 L Creatinine 0.85 Estim Creat Clear Calc 101.1 Estimated GFR > 60 Random Glucose 90 Lactic Acid Calcium 8.7 D Magnesium 1.8 Total Bilirubin 0.4 Direct Bilirubin < 0.2 AST 34 ALT 32 Alkaline Phosphatase 74 Total Protein 7.2 Albumin 4.6 Lipase 26 Urine Opiates Screen Urine Fentanyl Screen Ur Barbiturates Screen Ur Phencyclidine Scrn Ur Amphetamines Screen U Benzodiazepines Scrn Urine Cocaine Screen U Marijuana (THC) Screen Ethyl Alcohol 311 H* COVID-19 ([facility]J) COVID-19 Clin Com 08/12/22 08/12/22 08/12/22 09:05 09:05 09:05 WBC RBC Hgb Hct MCV MCH MCHC RDW Plt Count MPV Immature Gran % (Auto) Neut % (Auto) Lymph % (Auto) [place] % (Auto) Eos % (Auto) Baso % (Auto) Lymph # (Auto) [place] # (Auto) Eos # (Auto) Baso # (Auto) Abs Immat Gran (auto) Absolute Neuts (auto) Absolute Nucleated RBC Nucleated RBC % (auto) PT 11.3 INR 1.0 Sodium Potassium Chloride Carbon Dioxide Anion Gap BUN Creatinine Estim Creat Clear Calc Estimated GFR Random Glucose Lactic Acid 7.9 H* Calcium Magnesium Total Bilirubin Direct Bilirubin AST ALT Alkaline Phosphatase Total Protein Albumin Lipase Urine Opiates Screen Urine Fentanyl Screen Ur Barbiturates Screen Ur Phencyclidine Scrn Ur Amphetamines Screen U Benzodiazepines Scrn Urine Cocaine Screen U Marijuana (THC) Screen Ethyl Alcohol COVID-19 (ANUJ) Negative COVID-[place] See Note 08/12/22 08/12/22 08/13/22 12:07 14:07 08:17 WBC 3.6 L RBC 4.02 L D Hgb 12.3 L D Hct 36.2 L MCV 90.0 MCH 30.6 MCHC 34.0 RDW 14.5 Plt Count 221 D MPV 9.1 L Immature Gran % (Auto) Neut % (Auto) Lymph % (Auto) [place] % (Auto) Eos % (Auto) Baso % (Auto) Lymph # (Auto) [place] # (Auto) Eos # (Auto) Baso # (Auto) Abs Immat Gran (auto) Absolute Neuts (auto) Absolute Nucleated RBC 0.000 Nucleated RBC % (auto) 0.0 PT INR Sodium Potassium Chloride Carbon Dioxide Anion Gap BUN Creatinine Estim Creat Clear Calc Estimated GFR Random Glucose Lactic Acid 5.9 H* Calcium Magnesium Total Bilirubin Direct Bilirubin AST ALT Alkaline Phosphatase Total Protein Albumin Lipase Urine Opiates Screen Not Detected Urine Fentanyl Screen Not Detected Ur Barbiturates Screen POSITIVE H Ur Phencyclidine Scrn Not Detected Ur Amphetamines Screen Not Detected U Benzodiazepines Scrn Not Detected Urine Cocaine Screen Not Detected U Marijuana (THC) Screen Not Detected Ethyl Alcohol COVID-19 (ANUJ) COVID-[place] 08/13/22 08:17 WBC RBC Hgb Hct MCV MCH MCHC RDW Plt Count MPV Immature Gran % (Auto) Neut % (Auto) Lymph % (Auto) [place] % (Auto) Eos % (Auto) Baso % (Auto) Lymph # (Auto) [place] # (Auto) Eos # (Auto) Baso # (Auto) Abs Immat Gran (auto) Absolute Neuts (auto) Absolute Nucleated RBC Nucleated RBC % (auto) PT INR Sodium 139 Potassium 4.4 Chloride 103 Carbon Dioxide 22 Anion Gap 18 BUN 5 L Creatinine 0.78 Estim Creat Clear Calc 110.1 Estimated GFR > 60 Random Glucose 74 Lactic Acid Calcium 8.1 L D Magnesium 1.8 Total Bilirubin Direct Bilirubin AST ALT Alkaline Phosphatase Total Protein Albumin Lipase Urine Opiates Screen Urine Fentanyl Screen Ur Barbiturates Screen Ur Phencyclidine Scrn Ur Amphetamines Screen U Benzodiazepines Scrn Urine Cocaine Screen U Marijuana (THC) Screen Ethyl Alcohol COVID-19 (ANUJ) COVID-19 Clin Com Airway Mallampati Class: III TM Dist: >3cm Neck ROM: Full Loose/Missing/Broken Teeth: No (Denies broken, loose, missing teeth) Heart: RRR Lungs: CTAB Assessment and Plan Assessment Anesthesia Assessment: Anesthesia Plan Discussed and Chart Reviewed Final Anesthetic Review Family History of Problems with Anesthesia: No History of Problems with Anesthesia: No NPO: Yes ASA Class: III Final Preanesthetic Review: No Changes in Pt Med Stat, Meds/Allgs Chart Reviewed, Consent Obtained/Reviewed and Anes Risks/Benef Reviewed Patient Risk: Intermediate Procedure Risk: Low Assessment/Block/Sedation in SS: Assess/Block/Sedation-SS Anesthetic Plan Anesthetic Plan: MAC: Disposition: Standard PACU
--- NOTE | 2022-08-13 16:18 | P.BOP_ITS ---
Brief Operative Note Date of Service: 08/13/22 Pre-op diagnosis: UGI bleeding Post-op diagnosis: other (Esophagitis, healing MW tear, gastritis) Procedure: FLEXIBLE TRANSORAL UPPER GASTROINTESTINAL ENDOSCOPY WITH BIOPSIES Surgeon: Ajith Figueredo MD Anesthesia: MAC Was an Radio Interference Trouble Shooter used for this Procedure?: Yes Radio Interference Trouble Shooter: Reema Sharma Estimated blood loss (mL): 0 Pathology: other (A- Antral BX for H.Pylori) Condition: stable Disposition: PACU
--- NOTE | 2022-08-13 16:18 | MHC.SHP ---
Pre-Procedural Eval Section A Date of Service: 08/13/22 The patient is an INPATIENT: Yes Changes since office visit: Yes New Medical Problems, Yes Changes in Medication and Yes Patient answered all questions; No Cold of Flu in the past 2 weeks The History & Physical has been completed within 30 days and I have reviewed it.: Yes Section B Chief Complaint: Alcohol withdrawal Allergies: Allergies Allergy/AdvReac Type Severity Reaction Status Date / Time No Known Allergies Allergy Verified 04/27/21 11:42 Plan I have reviewed the history and physical and performed a pertinent physical examination on my patient. No changes have occurred unless specified. Time Spent With Patient Time: Total time managing care of this patient today ____ minutes.
--- NOTE | 2022-08-13 16:19 | W.PM.OPN ---
Operative Note Operative Note Date of Service: 08/13/22 Narrative: Pre-op diagnosis: UGI bleeding Post-op diagnosis:?other (Esophagitis, healing MW tear, gastritis) Surgeon: Ajith Figueredo MD Anesthesia:?MAC FLEXIBLE TRANSORAL UPPER GASTROINTESTINAL ENDOSCOPY WITH BIOPSIES Consent: Indications for the procedure and potential complications of bleeding, perforation, reaction to medications and missed diagnosis were discussed with the patient and informed consent was obtained. Instrument: Olympus GIF H 190 mid size upper endoscope Monitoring: Vital signs and clinical assessment, continuous EKG monitoring, Pulse oximetry, Carbon Dioxide monitoring and blood pressure monitoring were done throughout the procedure. Procedure: The patient was placed in the left lateral decubitis position and pre-procedure medications were administered and a bite block was placed. The endoscope was inserted into the mouth and advanced under direct vision to the third part of duodenum. A careful inspection was made as the upper endoscope was withdrawn including a retroflexed examination of the proximal stomach; Findings and interventions are described below. Findings: Larynx: Normal Esophagus: GE junction at 38 cms. A 2 cms healing erosion/? MW tear at GE junction without bleeding Erosive esophagitis seen on previous EGD appears to have healed. Stomach: Moderate diffuse gastric erythema with a few superficial non-bleeding antral erosions. Biopsies were obtained to check for H pylori. No gastric varices and Grade 2 flap valve on retroflexed examination of the cardia. Duodenum: Normal bulb and descending duodenum Intervention: Biopsies as noted above Impression and Post Procedure Diagnosis: Endoscopy Findings: ESOPHAGUS: GE junction at 38 cms. A 2 cms healing erosion/? MW tear at GE junction without bleeding Erosive esophagitis seen on previous EGD appears to have healed. STOMACH: Moderate diffuse gastric erythema with a few superficial non-bleeding antral erosions. Biopsies were obtained to check for H pylori. No gastric varices and Grade 2 flap valve on retroflexed examination of the cardia. No active bleeding or blood seen in the UGI tract during EGD Plan: Await pathology results Repeat CBC in the am and if stable, pt can discharged to rehab. Above findings were reviewed with the patient.
[2022-08-13] MEDS: Morphine Sulfate 2 MG/ML CARTRIDGE 1 MG IVPUSH (21:51)
[2022-08-14] VITALS: BP 124/75; PULSE 80; RESP 20; TEMP 36.4; O2SAT 98
[2022-08-14 03:43] VITALS: BP 123/72; PULSE 100; RESP 20; TEMP 36.4; O2SAT 95
[2022-08-14] MEDS: Pantoprazole Sodium 40 MG/10 ML VIAL IVPUSH (06:18)
[2022-08-14] MEDS: Lactated Ringers 1,000 ML 100 ML IVCONT (06:18)
[2022-08-14] MEDS: Acetaminophen 325 MG TABLET 650 MG PO (06:23)
[2022-08-14 08:00] VITALS: BP 109/43; PULSE 75; RESP 18; TEMP 36.7; O2SAT 94
[2022-08-14] MEDS: ondansetron HCL 4 MG/2 ML VIAL IVPUSH (09:04)
[2022-08-14] MEDS: Multivitamin TABLET 1 TAB PO (09:04)
[2022-08-14] MEDS: Sucralfate 1 GM TABLET PO ×2 (09:04→12:40)
[2022-08-14] MEDS: Folic Acid 1 MG TABLET PO (09:04)
[2022-08-14] MEDS: Thiamine HCL 100 MG TABLET PO (09:04)
[2022-08-14] MEDS: PHENobarbitaL 15 MG TABLET 45 MG PO (09:05)
[2022-08-14] MEDS: Gabapentin 300 MG CAPSULE PO (09:06)
[2022-08-14] MEDS: 0.9 % Sodium Chloride Flush 3 ML SYRINGE IVFLUSH (09:07)
--- NOTE | 2022-08-14 10:25 | PM.DS ---
DS: Providers Provider Date of Service: 08/14/22 Date of admission: 08/12/22 13:00 Primary care physician: Unknown Physician Consults: 08/12/22 13:05 Consult to Gastroenterology Routine Consulting Provider: Ajith Figueredo Reason for consultation: Hematemesis from alcohol withdrawal 08/12/22 13:11 Addiction Medicine Routine Consulting Provider: Addiction Covering Reason for consultation: Alcohol withdrawal 08/14/22 10:21 Consult to Care Team Routine Comment: Reason for consultation: Needs for alcoholism DS: Diagnosis Discharge Diagnosis (1) Alcohol withdrawal: Status: Acute (2) UGI bleed: Status: Acute (3) Odynophagia: Status: Acute (4) Epigastric pain: Status: Acute DS: Summary Time Spent with Patient Time attestation: Total time managing care of this patient today ____ minutes. Discharge coordination time: Greater than 30 minutes Quality: Safe Use of Opioids Does Pt have an Active Cancer Diagnosis on the Problem List?: No Quality: Stroke Does the patient have a stroke diagnosis?: No Physical Exam Vital Signs: Vital Signs: Last Vital Signs Temp 98.1 F 08/14/22 08:00 Pulse 75 08/14/22 08:00 Resp 18 08/14/22 08:00 BP 109/43 L 08/14/22 08:00 Pulse Ox 94 08/14/22 08:00 O2 Del Method 08/14/22 03:43 O2 Flow Rate 4 08/13/22 16:56 BMI result Body Mass Index 25.7 DS: Data Data Completed and Pending Completed studies during hospitalization [Text1]: Procedures Detoxification Services for Substance Abuse Treatment (07/30/22) Excision of Middle Esophagus, Via Natural or Artificial Opening Endoscopic, Diagnostic (04/23/21) Excision of Stomach, Pylorus, Via Natural or Artificial Opening Endoscopic, Diagnostic (04/06/21) Pending studies at discharge: Pending at discharge 08/13/22 16:44 Surgical [PTH] Routine Discharge Plan Discharge Anticipated Discharge Date/Time: 08/14/22 10:25 Patient Disposition: Home, Self-Care Discharge Diagnosis: upper gi bleeding, alcohol use desorder Referrals: Physician,Unknown J [Primary Care Provider] - 1 Week Discharge Medications: Continued gabapentin 300 mg Capsule 300 mg PO TID ondansetron 4 mg tablet,disintegrating 1 tab PO Q8H PRN (Reason: Nausea) sucralfate 1 gram Tablet 1 g PO QIDACHS Qty: 240 0RF folic acid 1 mg Tablet 1 mg PO DAILY Qty: 30 0RF thiamine mononitrate (vit B1) 100 mg Tablet 100 mg PO DAILY Qty: 30 0RF pantoprazole 40 mg tablet,delayed release (DR/EC) 1 tab PO BID@0630,1630 Diet: Advance to usual diet Activity on Discharge: As tolerated Stand Alone Forms: Patient Portal Discharge page Care Plan Goals: To stay sober recovery for esophagitis gi bleeding Health Concerns: Chronic alcohol use desorder know esoophagitis, gastirits and esopheal tear Plan of Treatment: Continue to take your medicatio including Prilosec as directed before, avoid alcohol and follow through resources handed to you by social work Assessment: see above
[2022-08-14 10:56] LABS: Hematocrit 40.8 % (42.0-52.0); Hemoglobin 14.1 g/dl (14.0-18.0); Mean Corpuscular HGB Conc 34.6 g/dl (31.0-36.0); Mean Corpuscular Hemoglobin 30.9 pg (27.0-33.0); Mean Corpuscular Volume 89.3 fL (80.0-98.0); Mean Platelet Volume 9.5 fL (9.4-12.4); Platelet Count 219 X10*3/uL (160-400); Red Blood Count 4.57 X10*6/uL (4.60-5.80); Red Cell Distribution Width 14.3 % (11.0-16.0); White Blood Count 5.4 X10*3/uL (4.8-10.8)
[2022-08-14 12:00] VITALS: BP 112/67; PULSE 82; RESP 18; TEMP 36.6; O2SAT 93
--- NOTE | 2022-08-14 13:14 | PM.DS ---
DS: Providers Provider Date of Service: 08/14/22 Date of admission: 08/12/22 13:00 Primary care physician: Unknown Physician Consults: 08/12/22 13:05 Consult to Gastroenterology Routine Consulting Provider: Ajith Figueredo Reason for consultation: Hematemesis from alcohol withdrawal 08/12/22 13:11 Addiction Medicine Routine Consulting Provider: All Covering Reason for consultation: Alcohol withdrawal 08/14/22 10:21 Consult to Care Team Routine Comment: Reason for consultation: Needs for alcoholism DS: Diagnosis Discharge Diagnosis (1) Alcohol withdrawal: Status: Acute (2) UGI bleed: Status: Acute (3) Odynophagia: Status: Acute (4) Epigastric pain: Status: Acute DS: Summary Hospital Course Hospital Course: ttending physician on admission: Mynor Flowers Chief Complaint: Alcohol Withdrawal Pt is a 41-year-old male with a PMH significant for multiple alcohol withdrawal admissions, alcohol use disorder, alcoholic gastritis, hx of coffee-ground emesis who presents to the ED seeking alcohol detox.?Patient states he has been drinking heavily since last discharge 8 days ago on 08/04/22, ramping up until consuming many liters of vodka daily. Attempted to stop drinking last night, however patient soon began vomiting with bright red blood streaks, uncontrollably shaking, sweating, and with headache and increased anxiety. Patient also complains of chronic central abdominal pain that extends from epigastric to periumbilical region, ongoing for years .?Patient notes he has not been eating much at all since discharge, says stool has been super dark , though this has been occuring for a long time with no change since last admission. Patient denies auditory and visual hallucinations.? No fever, chills. Of note patient has a long history of alcohol use disorder and alcohol withdrawal, with the patient experiencing auditory and visual hallucinations, and seizures a long time ago. ? In the ED patient was tachycardic at 110 and hypertensive 163/119. Labs were significant for WBC of 4.5, H&H WNL at 15.4/45.1, CO2 of 17, anion gap 27 lactic acid of 7.9, ethyl alcohol level of 311. EKG demonstrated sinus tachycardia without evidence of ST elevations or depressions. Pt was treated with IVF, magnesium sulfate, phenobarb protocol, ondansetron, thiamin, and famotidine. Pt will be admitted to the hospital on telemetry for treatment of alcohol withdrawal with IV phenobarb and IVF. Hospital course:Patient is alohol dependence and seen in the hospital rather frequently seeking detox and Gi complaints. He was recently in the hospital and discharged on August 04, 2022 when he presented with coffee-ground emesis and treated for alcohol withdrwal and at discharge was given community resources to follow through but to my knowledge he did not and instead picked up habits of driking again. He presented on this occasion with vomitting with red blood streaks and other symptoms as discussed above--very similar to last presentation. He was admitted yet again for monitoring and treatment of alcohol withdrawal and concern of upper GI bleed. He was on phenobarbital protocol for alcohol withdrawal and has not exhibited pavel withdrawal symptoms although at will becomes rather anxious especially with any mention of discharge as he is more comfortable been in the hospital. As for his upper gi symptoms, concern for gi bleeding he underwent EGD with Dr. Figueredo and noted to have gastritis and old healing erosive esophagitis, non bleeding MWT. During last vist he was prescribed prilosec which he should continue to take. As for alochol dependence, he has been evaluated by addiction medicine and arrangement made for patient to a Detox unit near [place], he is agreable. He presently has no symptoms of alcohol withdrawal. Time Spent with Patient Time attestation: Total time managing care of this patient today ____ minutes. Discharge coordination time: Greater than 30 minutes Quality: Safe Use of Opioids Does Pt have an Active Cancer Diagnosis on the Problem List?: No Quality: Stroke Does the patient have a stroke diagnosis?: No Physical Exam Vital Signs: Vital Signs: Last Vital Signs Temp 97.9 F 08/14/22 12:00 Pulse 82 08/14/22 12:00 Resp 18 08/14/22 12:00 BP 112/67 08/14/22 12:00 Pulse Ox 93 08/14/22 12:00 O2 Del Method 08/14/22 03:43 O2 Flow Rate 4 08/13/22 16:56 BMI result Body Mass Index 25.7 Const: Other: General: AO X 3, no acute distress Resp: CTA bilateral CVS: S1,S2,RRR GI: +BS, NT, no distention Skin: No rash Neuro: motor grossly intact Psych: appropriate affect DS: Data Data Completed and Pending Completed studies during hospitalization [Text1]: Procedures Detoxification Services for Substance Abuse Treatment (07/30/22) Excision of Middle Esophagus, Via Natural or Artificial Opening Endoscopic, Diagnostic (04/23/21) Excision of Stomach, Pylorus, Via Natural or Artificial Opening Endoscopic, Diagnostic (04/06/21) Pending studies at discharge: Pending at discharge 08/13/22 16:44 Surgical [PTH] Routine Labs on day of discharge: Laboratory Results - last 24 hr 08/14/22 10:46 WBC 5.4 RBC 4.57 L Hgb 14.1 Hct 40.8 L MCV 89.3 MCH 30.9 MCHC 34.6 RDW 14.3 Plt Count 219 MPV 9.5 Absolute Nucleated RBC 0.000 Nucleated RBC % (auto) 0.0 Discharge Plan Discharge Anticipated Discharge Date/Time: 08/14/22 10:25 Patient Disposition: Home, Self-Care Discharge Diagnosis: upper gi bleeding, alcohol use desorder Referrals: Physician,Unknown J [Primary Care Provider] - 1 Week Discharge Medications: Continued gabapentin 300 mg Capsule 300 mg PO TID ondansetron 4 mg tablet,disintegrating 1 tab PO Q8H PRN (Reason: Nausea) sucralfate 1 gram Tablet 1 g PO QIDACHS Qty: 240 0RF folic acid 1 mg Tablet 1 mg PO DAILY Qty: 30 0RF thiamine mononitrate (vit B1) 100 mg Tablet 100 mg PO DAILY Qty: 30 0RF pantoprazole 40 mg tablet,delayed release (DR/EC) 1 tab PO BID@0630,1630 Discharge Orders: Discharge Order (Routine); Ordered 08/14/22 Ordered By: Fred Guzman Diet: Advance to usual diet Activity on Discharge: As tolerated Stand Alone Forms: Patient Portal Discharge page Care Plan Goals: To stay sober recovery for esophagitis gi bleeding Health Concerns: Chronic alcohol use desorder know esoophagitis, gastirits and esopheal tear Plan of Treatment: Continue to take your medicatio including Prilosec as directed before, avoid alcohol and follow through resources handed to you by social work Assessment: see above Discharge Date/Time: 08/14/22 13:00
--- NOTE | 2022-08-14 13:18 | MHC.RECOVRN ---
[facility] report [facility] bed availability. Pt natalia Garcia. Completed phone intake with De[facility]. Awaiting return call.
--- NOTE | 2022-08-14 13:21 | MHC.RECOVRN ---
Per RN, pt dc to [facility].
--- NOTE | 2022-08-14 13:24 | MHC.CM.PN ---
DP: PT HAS BEEN MEDICALLY CLEARED FOR DC HOME, NO SERVICES. RN MADE AWARE. PT HAS OWN RIDE HOME.
--- NOTE | 2022-08-15 14:33 | HO.POSTANES ---
Post Anesthesia Evaluation Post Anesthesia Evaluation Anesthesia: Monitored Mental Status: Awake Pain Control: Satisfactory Nausea/Vomiting: None Hydration: Adequate Anesthesia-Related Issues: No Anes. Related Issues
== END 2022-08-14 13:00 | disposition home or self-care (01) | DRG 241 ==
LOC: HO.ED 10:56 → HO.EDOVER 13:15 → HO.IMC 16:00
PROVIDERS: Emergency Medicine; Internal Medicine Gastroenterology; Admitting Provider Student in an Organized Health Care Education/Training Program; Emergency Provider Student in an Organized Health Care Education/Training Program; Visit Provider Internal Medicine
PROC: 0DJ08ZZ Inspection of Upper Intestinal Tract, Via Natural or Artificial Opening Endoscopic (ICD-10-PCS; CPT 43235; principal; 2022-08-13 15:00)
DX: K29.71 Gastritis, unspecified, with bleeding (principal); E86.0 Dehydration; F10.239 Alcohol dependence with withdrawal, unspecified; F32.9 Major depressive disorder, single episode, unspecified; Y90.8 Blood alcohol level of 240 mg/100 ml or more; I10 Essential (primary) hypertension; R13.10 Dysphagia, unspecified; Z20.822 Contact with and (suspected) exposure to COVID-19; Z79.899 Other long term (current) drug therapy
CPT/HCPCS: 36415; 80048; 80076; 80307; 82077; 83605; 83690; 83735; 85025; 85027; 85610; 87635; 88305; 88342; 93005; 99285; J2060; J2270; J2405; J2560; J3411; J3475